=== PATIENT | female | born 1995 | race American Indian/Alaskan Native ===

== ENCOUNTER 2017-10-26 11:13 | Inpatient (IN) | payer MEDICAID, OTHER ==
[~2017-10-26 11:13] MED LIST: QUELICIN ONE; VERSED IV ONE
[2017-10-26] MEDS ORDERED: NACL 0.9% 1000 ML 1,000 ML ONE (11:26)
[2017-10-26] MEDS ORDERED: NARCAN 2 MG/2 ML IV ONE (11:35)
[2017-10-26] MEDS ORDERED: NACL 0.9% 1000 ML 1,000 ML IV ONE ×2 (11:35→22:05)
[2017-10-26] MEDS ORDERED: QUELICIN IV ONE (11:38)
[2017-10-26] MEDS ORDERED: VERSED IV ONE (11:38)
--- NOTE | 2017-10-26 11:41 | Emergency Department Report ---
ED Altered Mental Status HPI - General Chief Complaint: Altered Mental Status Stated Complaint: UNRESPONSIVE Time Seen by Provider: 10/26/17 11:33 Source: EMS Mode of arrival: Stretcher Limitations: Altered Mental Status - History of Present Illness Initial Comments: Patient is a 22-year-old female found unresponsive by neighbors and brought in by EMS. Patient has a history of type 1 diabetes, noncompliance, hypertension and chronic pain. Patient has an empty bottle of oxycodone in her pill bag Narcan was given and No response to Narcan. Patient to be intubated to protect airway due to decreased level of consciousness RSI ordered along with intubation kit. Complaint: altered mental status, decreased responsiveness -: Sudden Severity: severe Treatments Prior to Arrival: IV fluid, oxygen - Related Data Allergies Allergy/AdvReac Type Severity Reaction Status Date / Time Unable to Assess Allergy Verified 10/26/17 12:24 ED Review of Systems ROS: Stated complaint: UNRESPONSIVE Other details as noted in HPI Comment: Unobtainable due to pts medical conditions ED Past Medical Hx - Past Medical History Previous Medical History?: Yes Hx Hypertension: Yes Hx Diabetes: Yes (type 1) Additional medical history: JAXSON - Surgical History Additional Surgical History: JAXSON - Family History Family history: no significant - Social History Smoking Status: Unknown if ever smoked ED Physical Exam - General Limitations: Altered Mental Status General appearance: obtunded - Head Head exam: Present: atraumatic, normocephalic, normal inspection - Eye Eye exam: Present: normal appearance, PERRL Pupils: Present: normal accommodation - ENT ENT exam: Present: mucous membranes dry - Neck Neck exam: Present: normal inspection - Respiratory Respiratory exam: Present: normal lung sounds bilaterally, decreased breath sounds - Cardiovascular Cardiovascular Exam: Present: regular rate, normal rhythm, normal heart sounds - GI/Abdominal GI/Abdominal exam: Present: soft - Extremities Exam Extremities exam: Present: normal inspection - Back Exam Back exam: Present: normal inspection - Neurological Exam Neurological exam: Present: altered - Expanded Neurological Exam Expanded Best Eye Response (Adriana): (1) no response Best Motor Response (Success): (4) withdraws to pain Best Verbal Response (Adriana): (2) incomprehsible sounds Adriana Total: 7 - Skin Skin exam: Present: warm, dry, intact, normal color. Absent: rash ED Course Vital Signs 10/26/17 11:13 Pulse Rate 141 H Respiratory 31 H Rate Blood Pressure 89/36 O2 Sat by Pulse 100 Oximetry - Reevaluation(s) Reevaluation #1: 10/26/17 11:50: See nurse's note for RSI and intubation. At 1113 2 are tingling given with no response. Patient still minimally responsive. Patient will be intubated to protect airway. Versed and succinylcholine given. Patient intubated without complications Reevaluation #2: 10/26/17 1250. hospitalist to take over care and start dka order set. - Intubation Time Out Performed: Yes Sedative: Versed Paralytic: Succinylcholine Laryngoscope: fiberoptic video scope ET Tube Size: 7.5 Tube Secured Depth (cm): 20 Tube Secured Location: teeth Tube Placement Confirmation: visualized tube passing t, equal breath sounds bilat, no breath sounds over epi, confirmation by capnometr Patient Tolerated Procedure: well Intubation Complications: none - Lab Data Result diagrams: 10/26/17 11:44 10/26/17 11:44 Lab Results 10/26/17 10/26/17 10/26/17 Range/Units 11:23 11:44 11:44 WBC 20.6 H (4.5-11.0) K/mm3 RBC 3.62 L (3.65-5.03) M/mm3 Hgb 8.3 L (10.1-14.3) gm/dl Hct 34.2 (30.3-42.9) % MCV 95 (79-97) fl MCH 23 L (28-32) pg MCHC 24 L (30-34) % RDW 21.7 H (13.2-15.2) % Plt Count 383 (140-440) K/mm3 Add Manual Diff Complete Total Counted 100 Seg Neuts % (Manual) 76.0 H (40.0-70.0) % Band Neutrophils % 2.0 % Lymphocytes % (Manual) 11.0 L (13.4-35.0) % Reactive Lymphs % (Man) 0 % Monocytes % (Manual) 1.0 (0.0-7.3) % Eosinophils % (Manual) 0 (0.0-4.3) % Basophils % (Manual) 1.0 (0.0-1.8) % Metamyelocytes % 8.0 % Myelocytes % 1.0 % Promyelocytes % 0 % Blast Cells % 0 % Nucleated RBC % Not Reportable Seg Neutrophils # Man 15.7 H (1.8-7.7) K/mm3 Band Neutrophils # 0.4 K/mm3 Lymphocytes # (Manual) 2.3 (1.2-5.4) K/mm3 Abs React Lymphs (Man) 0.0 K/mm3 Monocytes # (Manual) 0.2 (0.0-0.8) K/mm3 Eosinophils # (Manual) 0.0 (0.0-0.4) K/mm3 Basophils # (Manual) 0.2 H (0.0-0.1) K/mm3 Metamyelocytes # 1.6 K/mm3 Myelocytes # 0.2 K/mm3 Promyelocytes # 0.0 K/mm3 Blast Cells # 0.0 K/mm3 WBC Morphology Not Reportable Hypersegmented Neuts Not Reportable Hyposegmented Neuts Not Reportable Hypogranular Neuts Not Reportable Smudge Cells Not Reportable Toxic Granulation Not Reportable Toxic Vacuolation Not Reportable Dohle Bodies Not Reportable Pelger-Huet Anomaly Not Reportable Gogo Rods Not Reportable Platelet Estimate Cons Clumped Platelets Not Reportable Plt Clumps, EDTA Not Reportable Large Platelets Not Reportable Giant Platelets Not Reportable Platelet Satelliting Not Reportable Plt Morphology Comment Not Reportable RBC Morphology Not Reportable Dimorphic RBCs Not Reportable Polychromasia Not Reportable Hypochromasia 1+ Poikilocytosis Not Reportable Anisocytosis 1+ Microcytosis Not Reportable Macrocytosis Not Reportable Spherocytes Not Reportable Pappenheimer Bodies Not Reportable Sickle Cells Not Reportable Target Cells Not Reportable Tear Drop Cells Not Reportable Ovalocytes Not Reportable Helmet Cells Not Reportable [place] Bodies Not Reportable [place] Rings Not Reportable Caprice Cells Not Reportable Bite Cells Not Reportable Crenated Cell Not Reportable Elliptocytes Not Reportable Acanthocytes (Spur) Not Reportable Rouleaux Not Reportable Hemoglobin C Crystals Not Reportable Schistocytes Not Reportable Malaria parasites Not Reportable David Bodies Not Reportable Hem Pathologist Commnt No PT (12.2-14.9) Sec. INR (0.87-1.13) APTT (24.2-36.6) Sec. POC ABG pH (7.35-7.45) POC ABG pCO2 (35-45) POC ABG pO2 (80-105) POC ABG HCO3 POC ABG Total CO2 POC ABG O2 Sat POC ABG Base Excess FiO2 % Sodium (137-145) mmol/L Potassium (3.6-5.0) mmol/L Chloride (98-107) mmol/L Carbon Dioxide (22-30) mmol/L Anion Gap mmol/L BUN (7-17) mg/dL Creatinine (0.7-1.2) mg/dL Estimated GFR ml/min BUN/Creatinine Ratio % Glucose (65-100) mg/dL POC Glucose > 500 H (70-105) Lactic Acid 4.10 H* (0.7-2.0) mmol/L Calcium (8.4-10.2) mg/dL Total Bilirubin (0.1-1.2) mg/dL AST (5-40) units/L ALT (7-56) units/L Alkaline Phosphatase (35-129) units/L Total Creatine Kinase (30-135) units/L Troponin T (0.00-0.029) ng/mL Total Protein (6.3-8.2) g/dL Albumin (3.9-5) g/dL Albumin/Globulin Ratio % Salicylates (2.8-20.0) mg/dL Acetaminophen (10.0-30.0) ug/mL Plasma/Serum Alcohol (0-0.07) % Blood Type Antibody Screen 10/26/17 10/26/17 10/26/17 Range/Units 11:44 11:44 11:44 WBC (4.5-11.0) K/mm3 RBC (3.65-5.03) M/mm3 Hgb (10.1-14.3) gm/dl Hct (30.3-42.9) % MCV (79-97) fl MCH (28-32) pg MCHC (30-34) % RDW (13.2-15.2) % Plt Count (140-440) K/mm3 Add Manual Diff Total Counted Seg Neuts % (Manual) (40.0-70.0) % Band Neutrophils % % Lymphocytes % (Manual) (13.4-35.0) % Reactive Lymphs % (Man) % Monocytes % (Manual) (0.0-7.3) % Eosinophils % (Manual) (0.0-4.3) % Basophils % (Manual) (0.0-1.8) % Metamyelocytes % % Myelocytes % % Promyelocytes % % Blast Cells % % Nucleated RBC % Seg Neutrophils # Man (1.8-7.7) K/mm3 Band Neutrophils # K/mm3 Lymphocytes # (Manual) (1.2-5.4) K/mm3 Abs React Lymphs (Man) K/mm3 Monocytes # (Manual) (0.0-0.8) K/mm3 Eosinophils # (Manual) (0.0-0.4) K/mm3 Basophils # (Manual) (0.0-0.1) K/mm3 Metamyelocytes # K/mm3 Myelocytes # K/mm3 Promyelocytes # K/mm3 Blast Cells # K/mm3 WBC Morphology Hypersegmented Neuts Hyposegmented Neuts Hypogranular Neuts Smudge Cells Toxic Granulation Toxic Vacuolation Dohle Bodies Pelger-Huet Anomaly Gogo Rods Platelet Estimate Clumped Platelets Plt Clumps, EDTA Large Platelets Giant Platelets Platelet Satelliting Plt Morphology Comment RBC Morphology Dimorphic RBCs Polychromasia Hypochromasia Poikilocytosis Anisocytosis Microcytosis Macrocytosis Spherocytes Pappenheimer Bodies Sickle Cells Target Cells Tear Drop Cells Ovalocytes Helmet Cells [place] Bodies [place] Rings Caprice Cells Bite Cells Crenated Cell Elliptocytes Acanthocytes (Spur) Rouleaux Hemoglobin C Crystals Schistocytes Malaria parasites David Bodies Hem Pathologist Commnt PT 16.8 H (12.2-14.9) Sec. INR 1.29 H (0.87-1.13) APTT 24.9 (24.2-36.6) Sec. POC ABG pH (7.35-7.45) POC ABG pCO2 (35-45) POC ABG pO2 (80-105) POC ABG HCO3 POC ABG Total CO2 POC ABG O2 Sat POC ABG Base Excess FiO2 % Sodium 146 H (137-145) mmol/L Potassium 6.6 H* (3.6-5.0) mmol/L Chloride 100.3 (98-107) mmol/L Carbon Dioxide 3 L* (22-30) mmol/L Anion Gap 49 mmol/L BUN 34 H (7-17) mg/dL Creatinine 2.2 H (0.7-1.2) mg/dL Estimated GFR 28 ml/min BUN/Creatinine Ratio 15 % Glucose 1281 H* (65-100) mg/dL POC Glucose (70-105) Lactic Acid (0.7-2.0) mmol/L Calcium 8.0 L (8.4-10.2) mg/dL Total Bilirubin < 0.20 (0.1-1.2) mg/dL AST 22 (5-40) units/L ALT 56 (7-56) units/L Alkaline Phosphatase 196 H (35-129) units/L Total Creatine Kinase 24 L (30-135) units/L Troponin T < 0.010 (0.00-0.029) ng/mL Total Protein 6.3 (6.3-8.2) g/dL Albumin 3.6 L (3.9-5) g/dL Albumin/Globulin Ratio 1.3 % Salicylates < 0.3 L (2.8-20.0) mg/dL Acetaminophen (10.0-30.0) ug/mL Plasma/Serum Alcohol (0-0.07) % Blood Type Antibody Screen 10/26/17 10/26/17 10/26/17 Range/Units 11:44 11:44 11:54 WBC (4.5-11.0) K/mm3 RBC (3.65-5.03) M/mm3 Hgb (10.1-14.3) gm/dl Hct (30.3-42.9) % MCV (79-97) fl MCH (28-32) pg MCHC (30-34) % RDW (13.2-15.2) % Plt Count (140-440) K/mm3 Add Manual Diff Total Counted Seg Neuts % (Manual) (40.0-70.0) % Band Neutrophils % % Lymphocytes % (Manual) (13.4-35.0) % Reactive Lymphs % (Man) % Monocytes % (Manual) (0.0-7.3) % Eosinophils % (Manual) (0.0-4.3) % Basophils % (Manual) (0.0-1.8) % Metamyelocytes % % Myelocytes % % Promyelocytes % % Blast Cells % % Nucleated RBC % Seg Neutrophils # Man (1.8-7.7) K/mm3 Band Neutrophils # K/mm3 Lymphocytes # (Manual) (1.2-5.4) K/mm3 Abs React Lymphs (Man) K/mm3 Monocytes # (Manual) (0.0-0.8) K/mm3 Eosinophils # (Manual) (0.0-0.4) K/mm3 Basophils # (Manual) (0.0-0.1) K/mm3 Metamyelocytes # K/mm3 Myelocytes # K/mm3 Promyelocytes # K/mm3 Blast Cells # K/mm3 WBC Morphology Hypersegmented Neuts Hyposegmented Neuts Hypogranular Neuts Smudge Cells Toxic Granulation Toxic Vacuolation Dohle Bodies Pelger-Huet Anomaly Gogo Rods Platelet Estimate Clumped Platelets Plt Clumps, EDTA Large Platelets Giant Platelets Platelet Satelliting Plt Morphology Comment RBC Morphology Dimorphic RBCs Polychromasia Hypochromasia Poikilocytosis Anisocytosis Microcytosis Macrocytosis Spherocytes Pappenheimer Bodies Sickle Cells Target Cells Tear Drop Cells Ovalocytes Helmet Cells [place] Bodies [place] Rings [place] Cells Bite Cells Crenated Cell Elliptocytes Acanthocytes (Spur) Rouleaux Hemoglobin C Crystals Schistocytes Malaria parasites David Bodies Hem Pathologist Commnt PT (12.2-14.9) Sec. INR (0.87-1.13) APTT (24.2-36.6) Sec. POC ABG pH (7.35-7.45) POC ABG pCO2 (35-45) POC ABG pO2 (80-105) POC ABG HCO3 POC ABG Total CO2 POC ABG O2 Sat POC ABG Base Excess FiO2 % Sodium (137-145) mmol/L Potassium (3.6-5.0) mmol/L Chloride (98-107) mmol/L Carbon Dioxide (22-30) mmol/L Anion Gap mmol/L BUN (7-17) mg/dL Creatinine (0.7-1.2) mg/dL Estimated GFR ml/min BUN/Creatinine Ratio % Glucose (65-100) mg/dL POC Glucose (70-105) Lactic Acid (0.7-2.0) mmol/L Calcium (8.4-10.2) mg/dL Total Bilirubin (0.1-1.2) mg/dL AST (5-40) units/L ALT (7-56) units/L Alkaline Phosphatase (35-129) units/L Total Creatine Kinase (30-135) units/L Troponin T (0.00-0.029) ng/mL Total Protein (6.3-8.2) g/dL Albumin (3.9-5) g/dL Albumin/Globulin Ratio % Salicylates (2.8-20.0) mg/dL Acetaminophen 15.0 (10.0-30.0) ug/mL Plasma/Serum Alcohol < 0.01 (0-0.07) % Blood Type O POSITIVE Antibody Screen Negative 10/26/17 Range/Units 12:01 WBC (4.5-11.0) K/mm3 RBC (3.65-5.03) M/mm3 Hgb (10.1-14.3) gm/dl Hct (30.3-42.9) % MCV (79-97) fl MCH (28-32) pg MCHC (30-34) % RDW (13.2-15.2) % Plt Count (140-440) K/mm3 Add Manual Diff Total Counted Seg Neuts % (Manual) (40.0-70.0) % Band Neutrophils % % Lymphocytes % (Manual) (13.4-35.0) % Reactive Lymphs % (Man) % Monocytes % (Manual) (0.0-7.3) % Eosinophils % (Manual) (0.0-4.3) % Basophils % (Manual) (0.0-1.8) % Metamyelocytes % % Myelocytes % % Promyelocytes % % Blast Cells % % Nucleated RBC % Seg Neutrophils # Man (1.8-7.7) K/mm3 Band Neutrophils # K/mm3 Lymphocytes # (Manual) (1.2-5.4) K/mm3 Abs React Lymphs (Man) K/mm3 Monocytes # (Manual) (0.0-0.8) K/mm3 Eosinophils # (Manual) (0.0-0.4) K/mm3 Basophils # (Manual) (0.0-0.1) K/mm3 Metamyelocytes # K/mm3 Myelocytes # K/mm3 Promyelocytes # K/mm3 Blast Cells # K/mm3 WBC Morphology Hypersegmented Neuts Hyposegmented Neuts Hypogranular Neuts Smudge Cells Toxic Granulation Toxic Vacuolation Dohle Bodies Pelger-Huet Anomaly Gogo Rods Platelet Estimate Clumped Platelets Plt Clumps, EDTA Large Platelets Giant Platelets Platelet Satelliting Plt Morphology Comment RBC Morphology Dimorphic RBCs Polychromasia Hypochromasia Poikilocytosis Anisocytosis Microcytosis Macrocytosis Spherocytes Pappenheimer Bodies Sickle Cells Target Cells Tear Drop Cells Ovalocytes Helmet Cells [place] Bodies [place] Rings Caprice Cells Bite Cells Crenated Cell Elliptocytes Acanthocytes (Spur) Rouleaux Hemoglobin C Crystals Schistocytes Malaria parasites David Bodies Hem Pathologist Commnt PT (12.2-14.9) Sec. INR (0.87-1.13) APTT (24.2-36.6) Sec. POC ABG pH 6.895 L (7.35-7.45) POC ABG pCO2 12.3 L (35-45) POC ABG pO2 311 H (80-105) POC ABG HCO3 2.4 POC ABG Total CO2 < 5 POC ABG O2 Sat 100 POC ABG Base Excess < -30 FiO2 50 % Sodium (137-145) mmol/L Potassium (3.6-5.0) mmol/L Chloride (98-107) mmol/L Carbon Dioxide (22-30) mmol/L Anion Gap mmol/L BUN (7-17) mg/dL Creatinine (0.7-1.2) mg/dL Estimated GFR ml/min BUN/Creatinine Ratio % Glucose (65-100) mg/dL POC Glucose (70-105) Lactic Acid (0.7-2.0) mmol/L Calcium (8.4-10.2) mg/dL Total Bilirubin (0.1-1.2) mg/dL AST (5-40) units/L ALT (7-56) units/L Alkaline Phosphatase (35-129) units/L Total Creatine Kinase (30-135) units/L Troponin T (0.00-0.029) ng/mL Total Protein (6.3-8.2) g/dL Albumin (3.9-5) g/dL Albumin/Globulin Ratio % Salicylates (2.8-20.0) mg/dL Acetaminophen (10.0-30.0) ug/mL Plasma/Serum Alcohol (0-0.07) % Blood Type Antibody Screen - Radiology Data Radiology results: report reviewed, image reviewed interpreted by me: ET tube in good position. NG tube in good position. No acute findings - Medical Decision Making 22-year-old female presents to the emergency room for altered mental status. Discussed case with hospitalist, dr parekh. hospitalist agreed to take over care Take over care at 1250. pt in dka - Differential Diagnosis ams, hyperglycemia, DKA, LEELEE Critical Care Time: Yes Critical care attestation.: If time is entered above; I have spent that time in minutes in the direct care of this critically ill patient, excluding procedure time. Critical Care Time: 45 minutes for critical care time ED Disposition Clinical Impression: Altered mental status, DKA (diabetic ketoacidoses), Acidosis, Hyperkalemia, Acute renal insufficiency Disposition: DC-09 OP ADMIT IP TO THIS HOSP Is pt being admited?: Yes Does the pt Need Aspirin: No Condition: Critical Time of Disposition: 13:11
[2017-10-26] MEDS ORDERED: VASELINE LIP THERAPY TP PRN (11:45)
--- NOTE | 2017-10-26 12:11 | XRay Report ---
PORTABLE CHEST INDICATION: Altered mental status. COMPARISON: None similar at this institution. FINDINGS: Portable, frontal chest radiograph demonstrates normal cardiomediastinal silhouette and clear lungs. Endotracheal tube tip approximately 2.5 cm above the jessica. An esophagogastric tube side-port seen in the mid stomach with its tip at the fundus, directed cephalad. EKG leads. Intact bones. CONCLUSION: No acute chest process with supporting devices noted, as described. Thank you for the opportunity to participate in this patient's care.
[2017-10-26 12:14] LABS: Mean Corpuscular HGB Conc 24 % (30-34); Mean Corpuscular Volume 95 fl (79-97); Platelet Count 383 K/mm3 (140-440); Red Blood Count 3.62 M/mm3 (3.65-5.03)
[2017-10-26 12:15] LABS: Hematocrit 34.2 % (30.3-42.9); Hemoglobin 8.3 gm/dl (10.1-14.3); Mean Corpuscular Hemoglobin 23 pg (28-32); Red Cell Distribution Width 21.7 % (13.2-15.2)
[2017-10-26 12:28] LABS: INR 1.29 (0.87-1.13)
[2017-10-26 12:29] LABS: Partial Thromboplastin Time 24.9 Sec. (24.2-36.6)
[2017-10-26 12:40] LABS: Alanine Aminotransferase 56 units/L (7-56); Albumin 3.6 g/dL (3.9-5); BUN/Creatinine Ratio 15; Blood Urea Nitrogen 34 mg/dL (7-17); Hemolysis Index 0
[2017-10-26 12:57] LABS: Band Neutrophils # (Manual) 0.4 K/mm3; Eosinophils % (Manual) 0 % (0.0-4.3); Myelocytes # (Manual) 0.2 K/mm3; Total Cells Counted 100
[2017-10-26 12:58] LABS: Anisocytosis 1+; Hypochromasia 1+; Platelet Estimate Cons
--- NOTE | 2017-10-26 13:06 | History and Physical Report ---
History of Present Illness Chief complaint: Unresponsive History of present illness: 22 YO Female with DM, Medication Noncompliance, HTN, Chronic Pain presents to ED for evaluation. Pt unable to provide history, but history taken from ED staff , as well as EMS. Pt was found down and unresponsive by neighbors this AM. EMS notified, and upon arrival the patient was found to be unresponsive and in extremia. Patient had an empty bottle of oxycodone in her pill bag. Narcan was given without improvement in mental status. Patient transported to [facility] for further care and evaluation. Pt seen and evaluated in ED and found to have Acute Respiratory Failure, as well as DKA, and Sepsis. Pt intubated, sedated, and placed on vent support, as well as DKA and sepsis protocols. Pt admitted to ICU. PT has poor prognosis. Past History Past Medical History: diabetes, hypertension Past Surgical History: No surgical history, Other (reviewed) Social history: single. denies: smoking, alcohol abuse, prescription drug abuse Family history: no significant family history, other (reviewed) Medications and Allergies Allergies Allergy/AdvReac Type Severity Reaction Status Date / Time Unable to Assess Allergy Verified 10/26/17 12:24 Active Meds: Active Medications Hydrophilic Ointment (Vaseline Lip Therapy) 1 applic TP Q2HR PRN PRN Reason: Dry Lips Propofol (Diprivan 10 Mg/Ml) 1,000 mg in 100 mls @ 1.565 mls/hr IV TITR CARLOS; 5 MCG/KG/MIN PRN Reason: Protocol Multi-Ingred Cream/Lotion/Oil/Oint (Artificial Tears Ophth Oint) 1 applic OU Q4HR PRN PRN Reason: Dry Eye(s) Review of Systems ROS unobtainable: due to mental status Exam - Constitutional Vitals: Temp Pulse Resp BP Pulse Ox 141 H 31 H 89/36 100 10/26/17 11:13 10/26/17 11:13 10/26/17 11:13 10/26/17 11:13 General appearance: Present: severe distress, cachectic, disheveled - EENT Eyes: Present: miosis ENT: poor dentition - Neck Neck: Present: supple, normal ROM - Respiratory Respiratory effort: labored Respiratory: bilateral: diminished, rhonchi - Cardiovascular Rhythm: other (tachycardia, hypotension) Heart Sounds: Present: S1 & S2. Absent: rub, click - Extremities Extremities: pulses symmetrical, No edema Peripheral Pulses: abnormal (Capillary refill greater than 3.6 seconds) - Abdominal General gastrointestinal: Present: soft, non-tender, non-distended, normal bowel sounds Female genitourinary: Present: normal - Integumentary Integumentary: Present: clear, dry, clammy, decreased turgor - Musculoskeletal Musculoskeletal: generalized weakness - Psychiatric Psychiatric: no intact judgment & insight, no memory intact - Neurologic Neurologic: no moves all extremities, no gait normal Results - Labs CBC & Chem 7: 10/26/17 11:44 10/26/17 13:17 Labs: Abnormal lab results 10/26/17 10/26/17 10/26/17 Range/Units 11:23 11:44 11:44 WBC 20.6 H (4.5-11.0) K/mm3 RBC 3.62 L (3.65-5.03) M/mm3 Hgb 8.3 L (10.1-14.3) gm/dl MCH 23 L (28-32) pg MCHC 24 L (30-34) % RDW 21.7 H (13.2-15.2) % Seg Neuts % (Manual) 76.0 H (40.0-70.0) % Lymphocytes % (Manual) 11.0 L (13.4-35.0) % Seg Neutrophils # Man 15.7 H (1.8-7.7) K/mm3 Basophils # (Manual) 0.2 H (0.0-0.1) K/mm3 PT (12.2-14.9) Sec. INR (0.87-1.13) POC ABG pH (7.35-7.45) POC ABG pCO2 (35-45) POC ABG pO2 (80-105) Sodium (137-145) mmol/L Potassium (3.6-5.0) mmol/L Carbon Dioxide (22-30) mmol/L BUN (7-17) mg/dL Creatinine (0.7-1.2) mg/dL Glucose (65-100) mg/dL POC Glucose > 500 H (70-105) Lactic Acid 4.10 H* (0.7-2.0) mmol/L Calcium (8.4-10.2) mg/dL Alkaline Phosphatase (35-129) units/L Total Creatine Kinase (30-135) units/L Albumin (3.9-5) g/dL Salicylates (2.8-20.0) mg/dL 10/26/17 10/26/17 10/26/17 Range/Units 11:44 11:44 11:44 WBC (4.5-11.0) K/mm3 RBC (3.65-5.03) M/mm3 Hgb (10.1-14.3) gm/dl MCH (28-32) pg MCHC (30-34) % RDW (13.2-15.2) % Seg Neuts % (Manual) (40.0-70.0) % Lymphocytes % (Manual) (13.4-35.0) % Seg Neutrophils # Man (1.8-7.7) K/mm3 Basophils # (Manual) (0.0-0.1) K/mm3 PT 16.8 H (12.2-14.9) Sec. INR 1.29 H (0.87-1.13) POC ABG pH (7.35-7.45) POC ABG pCO2 (35-45) POC ABG pO2 (80-105) Sodium 146 H (137-145) mmol/L Potassium 6.6 H* (3.6-5.0) mmol/L Carbon Dioxide 3 L* (22-30) mmol/L BUN 34 H (7-17) mg/dL Creatinine 2.2 H (0.7-1.2) mg/dL Glucose 1281 H* (65-100) mg/dL POC Glucose (70-105) Lactic Acid (0.7-2.0) mmol/L Calcium 8.0 L (8.4-10.2) mg/dL Alkaline Phosphatase 196 H (35-129) units/L Total Creatine Kinase 24 L (30-135) units/L Albumin 3.6 L (3.9-5) g/dL Salicylates < 0.3 L (2.8-20.0) mg/dL 10/26/17 Range/Units 12:01 WBC (4.5-11.0) K/mm3 RBC (3.65-5.03) M/mm3 Hgb (10.1-14.3) gm/dl MCH (28-32) pg MCHC (30-34) % RDW (13.2-15.2) % Seg Neuts % (Manual) (40.0-70.0) % Lymphocytes % (Manual) (13.4-35.0) % Seg Neutrophils # Man (1.8-7.7) K/mm3 Basophils # (Manual) (0.0-0.1) K/mm3 PT (12.2-14.9) Sec. INR (0.87-1.13) POC ABG pH 6.895 L (7.35-7.45) POC ABG pCO2 12.3 L (35-45) POC ABG pO2 311 H (80-105) Sodium (137-145) mmol/L Potassium (3.6-5.0) mmol/L Carbon Dioxide (22-30) mmol/L BUN (7-17) mg/dL Creatinine (0.7-1.2) mg/dL Glucose (65-100) mg/dL POC Glucose (70-105) Lactic Acid (0.7-2.0) mmol/L Calcium (8.4-10.2) mg/dL Alkaline Phosphatase (35-129) units/L Total Creatine Kinase (30-135) units/L Albumin (3.9-5) g/dL Salicylates (2.8-20.0) mg/dL Assessment and Plan - Patient Problems (1) Sepsis Current Visit: Yes Status: Acute Qualifiers: Sepsis type: sepsis due to unspecified organism Qualified Code(s): A41.9 - Sepsis, unspecified organism Plan to address problem: IV antibiotics, blood cultures, chest X ray, serial lactic acid, monitor uop q shift, IV pressor support as indicated to maintain MAP above 60, repeat CBC, The high probability of a clinically significant, sudden or life threatening deterioration of the [cardiac, pulmonary, renal, endocrine] system(s) required my full and direct attention, intervention and personal management. The aggregate critical care time was [65] minutes. This time is in addition to time spent performing reported procedures but includes the following: [x] Data Review and interpretation [x] Patient assessment and monitoring of vital signs [x] Documentation [x] Medication orders and management (2) Acute respiratory failure Current Visit: Yes Status: Acute Qualifiers: Respiratory failure complication: hypoxia Qualified Code(s): J96.01 - Acute respiratory failure with hypoxia Plan to address problem: Pulmonary consulted, Pt intubated placed on vent support, wean vent as tolerated , daily ABG, daily SBT, nebulizer therapy, (3) Acute renal failure Current Visit: Yes Status: Acute Qualifiers: Acute renal failure type: with acute tubular necrosis Qualified Code(s): N17.0 - Acute kidney failure with tubular necrosis Plan to address problem: IVF resuscitation, monitor uop q shift, monitor serum creatnine, (4) Metabolic encephalopathy Current Visit: Yes Status: Acute Plan to address problem: CT head, neuro checks, IVF resuscitation, IV bicarbonate, (5) DKA (diabetic ketoacidoses) Current Visit: Yes Status: Acute Qualifiers: Diabetes mellitus type: type 1 Diabetes mellitus complication detail: with coma Qualified Code(s): E10.11 - Type 1 diabetes mellitus with ketoacidosis with coma Plan to address problem: DKA protocol, Insulin drip, monitor anion gap, IV bicarbonate x1 dose, monitor uop q shift, serial BMP, (6) DVT prophylaxis Current Visit: Yes Status: Acute Plan to address problem: SCD to BLE,.
[2017-10-26] MEDS ORDERED: VANCOMYCIN VIAL IV ONE (13:07)
[2017-10-26] MEDS ORDERED: PROVENTIL IH PRN (13:07)
[2017-10-26] MEDS ORDERED: NACL 0.9% 1000 ML IV ONE (13:07)
[2017-10-26] MEDS ORDERED: D50W (25GM) Syringe IV PRN (13:07)
[2017-10-26 13:46] LABS: Calcium 7.7 mg/dL (8.4-10.2)
[2017-10-26] MEDS ORDERED: VANCOMYCIN PHARMACY TO DOSE IV SCH (14:00)
[2017-10-26] MEDS ORDERED: NovoLIN R 100 UNITS in NACL 0.9% 99 ML IV SCH (14:00)
[2017-10-26] MEDS ORDERED: ZOSYN/NS 4.5GM/100ML 4.5 GM/100 ML VIAL IV SCH (14:00)
[2017-10-26] MEDS ORDERED: KCL 10MEQ/100ML 10 MEQ/100 ML BAG IV SCH (14:00)
[2017-10-26] MEDS: DIPRIVAN 10 MG/ML 1,000 MG/100 ML BOTTLE IV SCH (14:44)
[2017-10-26] MEDS ORDERED: VANCOMYCIN/0.45 NS 1 GM/250 ML 1 GM/250 ML BAG IV SCH (15:00)
--- NOTE | 2017-10-26 15:20 | Cat Scan Report ---
CT HEAD WITHOUT CONTRAST INDICATION: Altered mental status. COMPARISON: None similar. FINDINGS: Noncontrast head CT demonstrates symmetric ventricles and sulci, though overall felt slightly prominent for the patient's age. No acute infarct, hemorrhage, mass effect or midline shift. No abnormal extra axial fluid collections. Normal posterior fossa with preserved basilar cisterns. Grossly unremarkable imaged eye globes, paranasal sinuses and mastoid air cells. Normal calvarium and scalp. An endotracheal and nasogastric tubes noted. CONCLUSION: No acute intracranial CT abnormality with slightly prominent/increased generalized atrophy than expected for the patient's age. Please correlate. Thank you for the opportunity to participate in this patient's care.
[2017-10-26] MEDS ORDERED: SODIUM BICARBONATE IV ONE ×4 (15:42→22:05)
[2017-10-26] MEDS ORDERED: NACL 0.45% 2,000 ML IV SCH (16:00)
[2017-10-26 16:06] LABS: BUN/Creatinine Ratio 15; Blood Urea Nitrogen 37 mg/dL (7-17); Calcium 7.2 mg/dL (8.4-10.2); Hemolysis Index 23
[2017-10-26] MEDS ORDERED: NACL 0.45% 1000 ML 2,000 ML IV ONE (17:00)
[2017-10-26] MEDS: ZOSYN/NS 3.375GM/50ML 3.375 GM/50 ML BAG IV SCH (18:44)
[2017-10-26] MEDS: fentaNYL DRIP Premix 2,000 MCG/100 ML BAG IV SCH (19:25)
[2017-10-26 22:05] LABS: Calcium 7.6 mg/dL (8.4-10.2)
[2017-10-26] MEDS ORDERED: D5/0.45NS 1,000 ML IV SCH (23:00)
[2017-10-27] MEDS: ZOSYN/NS 3.375GM/50ML 3.375 GM/50 ML BAG IV SCH ×5 (01:39→18:24)
[2017-10-27 06:01] LABS: Calcium 7.1 mg/dL (8.4-10.2)
[2017-10-27] MEDS ORDERED: NACL 0.9% 1000 ML 1,000 ML ONE (07:36)
--- NOTE | 2017-10-27 08:18 | Progress Note ---
Assessment and Plan Assessment and plan: 22 YO Female with DM, Medication Noncompliance, HTN, Chronic Pain presents to ED for evaluation. Pt unable to provide history, but history taken from ED staff , as well as EMS. Pt was found down and unresponsive by neighbors this AM. EMS notified, and upon arrival the patient was found to be unresponsive and in extremia. Patient had an empty bottle of oxycodone in her pill bag. Narcan was given without improvement in mental status. Patient transported to [facility] for further care and evaluation. Pt seen and evaluated in ED and found to have Acute Respiratory Failure, as well as DKA, and Sepsis. Pt intubated, sedated, and placed on vent support, as well as DKA and sepsis protocols. Pt admitted to ICU. PT has poor prognosis. SIRS no clear source at this time CXR neg, awaiting UA, on empiric abx, fup blood cx I Acute respiratory failure, hypoxic, on MV <96 hours Pulmonary consulted, Pt intubated placed on vent support, wean vent as tolerated , daily ABG, daily SBT, nebulizer therapy, Acute renal failure/Vasomotor nephropathy continue IV, renal consult IVF resuscitation, monitor uop q shift, monitor serum creatnine, Metabolic encephalopathy CTH shows no acute findings, highly suspect anoxic brain injury given hypothermia Hypothermia continue buffy hugger DKA (diabetic ketoacidoses) continue IV and insulin drip Hypokalemia, hypophosphatemia replete IV DVT prophylaxis SCD to BLE,. The high probability of a clinically significant, sudden or life threatening deterioration of the [cardiac, pulmonary, renal, endocrine] system(s) required my full and direct attention, intervention and personal management. The aggregate critical care time was [65] minutes. This time is in addition to time spent performing reported procedures but includes the following: [x] Data Review and interpretation [x] Patient assessment and monitoring of vital signs [x] Documentation [x] Medication orders and management History Interval history: remains intubated, sedated and non responsive no fevers, no agitation Hospitalist Physical - Constitutional Vitals: Temp Pulse Resp BP Pulse Ox 96.1 F L 105 H 16 89/43 100 10/27/17 06:30 10/27/17 06:30 10/27/17 06:30 10/27/17 06:30 10/27/17 06:30 General appearance: Present: severe distress, cachectic, disheveled - EENT Eyes: Present: PERRL ENT: hearing intact - Neck Neck: Present: supple - Respiratory Respiratory effort: normal Respiratory: bilateral: CTA (ventilated breath sounds) - Cardiovascular Rhythm: regular Heart Sounds: Present: S1 & S2 - Extremities Extremities: no ischemia Peripheral Pulses: within normal limits - Abdominal General gastrointestinal: soft, non-tender - Integumentary Integumentary: Present: clear, warm - Psychiatric Psychiatric: other (sedated) - Neurologic Neurologic: other (sedated) Results - Labs CBC & Chem 7: 10/26/17 11:44 10/27/17 20:24 Labs: Laboratory Last Values WBC 20.6 K/mm3 (4.5-11.0) H 10/26/17 11:44 RBC 3.62 M/mm3 (3.65-5.03) L 10/26/17 11:44 Hgb 8.3 gm/dl (10.1-14.3) L 10/26/17 11:44 Hct 34.2 % (30.3-42.9) 10/26/17 11:44 MCV 95 fl (79-97) 10/26/17 11:44 MCH 23 pg (28-32) L 10/26/17 11:44 MCHC 24 % (30-34) L 10/26/17 11:44 RDW 21.7 % (13.2-15.2) H 10/26/17 11:44 Plt Count 383 K/mm3 (140-440) 10/26/17 11:44 Add Manual Diff Complete 10/26/17 11:44 Total Counted 100 10/26/17 11:44 Seg Neuts % (Manual) 76.0 % (40.0-70.0) H 10/26/17 11:44 Band Neutrophils % 2.0 % 10/26/17 11:44 Lymphocytes % (Manual) 11.0 % (13.4-35.0) L 10/26/17 11:44 Reactive Lymphs % (Man) 0 % 10/26/17 11:44 Monocytes % (Manual) 1.0 % (0.0-7.3) 10/26/17 11:44 Eosinophils % (Manual) 0 % (0.0-4.3) 10/26/17 11:44 Basophils % (Manual) 1.0 % (0.0-1.8) 10/26/17 11:44 Metamyelocytes % 8.0 % 10/26/17 11:44 Myelocytes % 1.0 % 10/26/17 11:44 Promyelocytes % 0 % 10/26/17 11:44 Blast Cells % 0 % 10/26/17 11:44 Nucleated RBC % Not Reportable 10/26/17 11:44 Seg Neutrophils # Man 15.7 K/mm3 (1.8-7.7) H 10/26/17 11:44 Band Neutrophils # 0.4 K/mm3 10/26/17 11:44 Lymphocytes # (Manual) 2.3 K/mm3 (1.2-5.4) 10/26/17 11:44 Abs React Lymphs (Man) 0.0 K/mm3 10/26/17 11:44 Monocytes # (Manual) 0.2 K/mm3 (0.0-0.8) 10/26/17 11:44 Eosinophils # (Manual) 0.0 K/mm3 (0.0-0.4) 10/26/17 11:44 Basophils # (Manual) 0.2 K/mm3 (0.0-0.1) H 10/26/17 11:44 Metamyelocytes # 1.6 K/mm3 10/26/17 11:44 Myelocytes # 0.2 K/mm3 10/26/17 11:44 Promyelocytes # 0.0 K/mm3 10/26/17 11:44 Blast Cells # 0.0 K/mm3 10/26/17 11:44 WBC Morphology Not Reportable 10/26/17 11:44 Hypersegmented Neuts Not Reportable 10/26/17 11:44 Hyposegmented Neuts Not Reportable 10/26/17 11:44 Hypogranular Neuts Not Reportable 10/26/17 11:44 Smudge Cells Not Reportable 10/26/17 11:44 Toxic Granulation Not Reportable 10/26/17 11:44 Toxic Vacuolation Not Reportable 10/26/17 11:44 Dohle Bodies Not Reportable 10/26/17 11:44 Pelger-Huet Anomaly Not Reportable 10/26/17 11:44 Gogo Rods Not Reportable 10/26/17 11:44 Platelet Estimate Cons 10/26/17 11:44 Clumped Platelets Not Reportable 10/26/17 11:44 Plt Clumps, EDTA Not Reportable 10/26/17 11:44 Large Platelets Not Reportable 10/26/17 11:44 Giant Platelets Not Reportable 10/26/17 11:44 Platelet Satelliting Not Reportable 10/26/17 11:44 Plt Morphology Comment Not Reportable 10/26/17 11:44 RBC Morphology Not Reportable 10/26/17 11:44 Dimorphic RBCs Not Reportable 10/26/17 11:44 Polychromasia Not Reportable 10/26/17 11:44 Hypochromasia 1+ 10/26/17 11:44 Poikilocytosis Not Reportable 10/26/17 11:44 Anisocytosis 1+ 10/26/17 11:44 Microcytosis Not Reportable 10/26/17 11:44 Macrocytosis Not Reportable 10/26/17 11:44 Spherocytes Not Reportable 10/26/17 11:44 Pappenheimer Bodies Not Reportable 10/26/17 11:44 Sickle Cells Not Reportable 10/26/17 11:44 Target Cells Not Reportable 10/26/17 11:44 Tear Drop Cells Not Reportable 10/26/17 11:44 Ovalocytes Not Reportable 10/26/17 11:44 Helmet Cells Not Reportable 10/26/17 11:44 Paulino-[place] Bodies Not Reportable 10/26/17 11:44 [place] Rings Not Reportable 10/26/17 11:44 Holiday Cells Not Reportable 10/26/17 11:44 Bite Cells Not Reportable 10/26/17 11:44 Crenated Cell Not Reportable 10/26/17 11:44 Elliptocytes Not Reportable 10/26/17 11:44 Acanthocytes (Spur) Not Reportable 10/26/17 11:44 Rouleaux Not Reportable 10/26/17 11:44 Hemoglobin C Crystals Not Reportable 10/26/17 11:44 Schistocytes Not Reportable 10/26/17 11:44 Malaria parasites Not Reportable 10/26/17 11:44 David Bodies Not Reportable 10/26/17 11:44 Hem Pathologist Commnt No 10/26/17 11:44 PT 16.8 Sec. (12.2-14.9) H 10/26/17 11:44 INR 1.29 (0.87-1.13) H 10/26/17 11:44 APTT 24.9 Sec. (24.2-36.6) 10/26/17 11:44 POC ABG pH 7.284 (7.35-7.45) L 10/27/17 06:01 POC ABG pCO2 37.5 (35-45) 10/27/17 06:01 POC ABG pO2 204 (80-105) H 10/27/17 06:01 POC ABG HCO3 17.8 10/27/17 06:01 POC ABG Total CO2 19 10/27/17 06:01 POC ABG O2 Sat 100 10/27/17 06:01 POC ABG Base Excess -9 10/27/17 06:01 FiO2 50 % 10/27/17 06:01 Sodium 158 mmol/L (137-145) H 10/27/17 05:26 Potassium 3.5 mmol/L (3.6-5.0) L 10/27/17 05:26 Chloride 118.2 mmol/L (98-107) H 10/27/17 05:26 Carbon Dioxide 19 mmol/L (22-30) L D 10/27/17 05:26 Anion Gap 24 mmol/L 10/27/17 05:26 BUN 27 mg/dL (7-17) H 10/27/17 05:26 Creatinine 1.9 mg/dL (0.7-1.2) H 10/27/17 05:26 Estimated GFR 40 ml/min 10/27/17 05:26 BUN/Creatinine Ratio 14 % 10/27/17 05:26 Glucose 232 mg/dL (65-100) H 10/27/17 05:26 POC Glucose 161 (70-105) H 10/27/17 07:27 Lactic Acid 9.00 mmol/L (0.7-2.0) H* 10/26/17 21:26 Calcium 7.1 mg/dL (8.4-10.2) L 10/27/17 05:26 Phosphorus 11.10 mg/dL (2.5-4.5) H 10/26/17 13:17 Magnesium 2.70 mg/dL (1.7-2.3) H 10/26/17 13:17 Total Bilirubin < 0.20 mg/dL (0.1-1.2) 10/26/17 11:44 AST 22 units/L (5-40) 10/26/17 11:44 ALT 56 units/L (7-56) 10/26/17 11:44 Alkaline Phosphatase 196 units/L (35-129) H 10/26/17 11:44 Ammonia 67.0 umol/L (25-60) H 10/26/17 11:44 Total Creatine Kinase 24 units/L (30-135) L 10/26/17 11:44 Troponin T < 0.010 ng/mL (0.00-0.029) 10/26/17 11:44 Total Protein 6.3 g/dL (6.3-8.2) 10/26/17 11:44 Albumin 3.6 g/dL (3.9-5) L 10/26/17 11:44 Albumin/Globulin Ratio 1.3 % 10/26/17 11:44 Salicylates < 0.3 mg/dL (2.8-20.0) L 10/26/17 11:44 Acetaminophen 15.0 ug/mL (10.0-30.0) 10/26/17 11:44 Plasma/Serum Alcohol < 0.01 % (0-0.07) 10/26/17 11:44 Blood Type O POSITIVE 10/26/17 11:54 Antibody Screen Negative 10/26/17 11:54
[2017-10-27] MEDS ORDERED: NACL 0.45% 1000 ML 1,000 ML IV SCH (09:00)
[2017-10-27] MEDS: DIPRIVAN 10 MG/ML 1,000 MG/100 ML BOTTLE IV SCH (10:35)
[2017-10-27] MEDS ORDERED: VANCOMYCIN 750 MG in NACL 0.9% 250ML 250 ML IV SCH ×2 (12:00→16:00)
[2017-10-27] MEDS ORDERED: VANCOMYCIN/0.45 NS 1 GM/250 ML 1 GM/250 ML BAG IV SCH (13:00)
[2017-10-27 14:24] LABS: Calcium 7.1 mg/dL (8.4-10.2)
--- NOTE | 2017-10-27 14:58 | Consultation ---
History of Present Illness - Reason for Consult Consult date: 10/27/17 acute renal failure Requesting physician: JOSE MCKEON - History of Present Illness 22-year-old lady with a history of type 1 diabetes mellitus brought to the hospital after being found unresponsive at home. Patient was given Narcan at home by EMS with no response. She was intubated in the ER for airway protection. Patient is noncompliant with medical treatment. She also has bipolar disorder and schizophrenia. BUN/creatinine found to be elevated at 34/ 2.2 with potassium of 6.6 mmil/liter on presentation. It has responded to treatment for diabetic ketoacidosis as bicarbonate was quite low at 6 mmol per liter. Blood sugar was also 1281 mg/dL on presentation. Sodium was 146 on presentation but has worsened to 158 mmol per liter. Patient has received intravenous bicarbonate IV push and was getting normal saline intravenously for fluid resuscitation. Potassium has also now decreased to 3.5 mmol per liter with treatment with insulin intravenously for diabetic ketoacidosis. I'm consulted to assist in managing renal failure and electrolyte abnormalities. Patient is not able to give a history and so my history is obtained from review of the records. Past History Past Medical History: diabetes (Type 1), hypertension, other (chronic pain, bipolar disorder, schizophrenia) Past Surgical History: No surgical history, Other (reviewed) Social history: single. denies: smoking, alcohol abuse, prescription drug abuse Family history: no significant family history, other (unable to obtain) Medications and Allergies Allergies Allergy/AdvReac Type Severity Reaction Status Date / Time Unable to Assess Allergy Verified 10/26/17 12:24 Home Medications Medication Instructions Recorded Confirmed Last Taken Type Unobtainable 10/26/17 10/26/17 Unknown History Active Meds: Active Medications Albuterol (Proventil) 2.5 mg IH Q3HRT PRN PRN Reason: Shortness Of Breath Dextrose (D50w (25gm) Syringe) 0 ml IV PRN PRN PRN Reason: Hypoglycemia Hydrophilic Ointment (Vaseline Lip Therapy) 1 applic TP Q2HR PRN PRN Reason: Dry Lips Propofol (Diprivan 10 Mg/Ml) 1,000 mg in 100 mls @ 1.565 mls/hr IV TITR CARLOS; 5 MCG/KG/MIN PRN Reason: Protocol Last Admin: 10/27/17 10:35 Dose: 20 mcg/kg/min, 6.26 mls/hr Piperacillin Sod/Tazobactam Sod (Zosyn/Ns 3.375gm/50ml) 3.375 gm in 50 mls @ 100 mls/hr IV Q6HR [facility] Last Admin: 10/27/17 11:18 Dose: Not Given Fentanyl Citrate (Fentanyl Drip Premix) 2,000 mcg in 100 mls @ 2.608 mls/hr IV TITR CARLOS; 1 MCG/KG/HR PRN Reason: Protocol Last Admin: 10/26/17 19:25 Dose: 2 mcg/kg/hr, 5.216 mls/hr Vancomycin HCl (Vancomycin/0.45 Ns 1 Gm/250 Ml) 1 gm in 250 mls @ 167.007 mls/ hr IV ONCE CARLOS Vancomycin HCl 750 mg/ Sodium (Chloride) 257.5 mls @ 166.667 mls/hr IV Q24H CARLOS Potassium Chloride/Dextrose/Sod Cl (D5w/0.45% Nacl/Kcl 10 Meq) 10 meq in 1,000 mls @ 125 mls/hr IV DIRECT CARLOS Insulin Detemir (Levemir) 6 units SUB-Q QHS CARLOS Insulin Human Regular (Novolin R) 0 units SUB-Q Q6HR CARLOS PRN Reason: Protocol Last Admin: 10/27/17 11:18 Dose: Not Given Multi-Ingred Cream/Lotion/Oil/Oint (Artificial Tears Ophth Oint) 1 applic OU Q4HR PRN PRN Reason: Dry Eye(s) Multi-Ingred Cream/Lotion/Oil/Oint (Artificial Tears Ophth Oint) 1 applic OU BID CARLOS Vancomycin HCl (Vancomycin Pharmacy To Dose) 1 each IV PKCONSULT CARLOS PRN Reason: Protocol Review of Systems ROS unobtainable: due to endotracheal tube Exam - Vital Signs Vital signs: Vital Signs Pulse Resp BP Pulse Ox 141 H 31 H 89/36 100 10/26/17 11:13 10/26/17 11:13 10/26/17 11:13 10/26/17 11:13 - Physical Exam Narrative exam: Young -[place] female lying in bed intubated on ventilator HEENT: NCAT, endotracheal tube intact, Neck: Supple, no venous distention CVS: S1S2 RRR with no murmur, rub or gallop Chest: Clear to auscultation Abdomen: Protuberant, soft, nontender, no organomegaly, bowel sounds are present Extremities: Mild edema upper extremities, no clubbing Skin warm and dry with no rash Neuro: Awake, alert no focal deficits Results - Lab Results 10/26/17 11:44 10/27/17 13:07 Most recent lab results Calcium 7.1 mg/dL (8.4-10.2) L 10/27/17 13:07 Phosphorus 11.10 mg/dL (2.5-4.5) H 10/26/17 13:17 Magnesium 2.70 mg/dL (1.7-2.3) H 10/26/17 13:17 Assessment and Plan - Patient Problems (1) Other acute kidney failure Current Visit: Yes Status: Acute Plan to address problem: Acute kidney failure is Pre-renal azotemia versus acute renal necrosis secondary to volume depletion with diabetic acidosis and osmotic diuresis. Kidney function is improving with volume resuscitation. Continue close monitoring (2) DKA (diabetic ketoacidoses) Current Visit: Yes Status: Acute Qualifiers: Diabetes mellitus type: type 1 Diabetes mellitus complication detail: with coma Qualified Code(s): E10.11 - Type 1 diabetes mellitus with ketoacidosis with coma Plan to address problem: Continue insulin drip. Follow bicarbonate, ketones. Patient also had lactic acidosis on presentation probably secondary to hypoperfusion. Follow lactic acid also (3) Hypernatremia Current Visit: Yes Status: Acute Plan to address problem: Secondary to sodium bicarbonate IV pushes and replacement of relatively hypotonic fluid losses with isotonic saline. Change IV fluids to hypotonic fluid and follow up sodium. If still dropping on half-normal saline, we need to change to D5W (4) Hypokalemia Current Visit: Yes Status: Acute Plan to address problem: Secondary to transcellular shift with insulin administration for treating Diabetic ketoacidosis. Supplement potassium and follow up levels (5) Anemia Current Visit: Yes Status: Acute Plan to address problem: Dilutional but suspect baseline anemia (6) Acute respiratory failure Current Visit: Yes Status: Acute Qualifiers: Respiratory failure complication: hypoxia Qualified Code(s): J96.01 - Acute respiratory failure with hypoxia Plan to address problem: Management by hospitalist/jute bag sewer (7) Metabolic encephalopathy Current Visit: Yes Status: Acute Plan to address problem: Appears to be improving as patient awakens to stimulation. Continue close monitoring (8) Sepsis Current Visit: Yes Status: Acute Qualifiers: Sepsis type: sepsis due to unspecified organism Qualified Code(s): A41.9 - Sepsis, unspecified organism Plan to address problem: Continue empiric antibiotics and follow cultures. If remain negative, may need to consider discontinuing antibiotics in 48 hours
[2017-10-27] MEDS ORDERED: D5W/0.45% NACL/KCL 10 MEQ 10 MEQ/1,000 ML BAG IV SCH (15:00)
--- NOTE | 2017-10-27 16:42 | Consultation ---
History of Present Illness Consult date: 10/27/17 Requesting physician: CLINTON REED Reason for consult: other (Acute Respiratory Failure on MVS) History of present illness: PULMONARY/CCM CONSULT NOTE (Full dictation # [id number]) Please see dictated notes for full details Past History Past Medical History: diabetes (Type 1), hypertension, other (chronic pain, bipolar disorder, schizophrenia) Past Surgical History: No surgical history, Other (reviewed) Social history: single. denies: smoking, alcohol abuse, prescription drug abuse Family history: no significant family history, other (unable to obtain) Medications and Allergies Allergies Allergy/AdvReac Type Severity Reaction Status Date / Time Unable to Assess Allergy Verified 10/26/17 12:24 Home Medications Medication Instructions Recorded Confirmed Last Taken Type Unobtainable 10/26/17 10/26/17 Unknown History Active Meds: Active Medications Albuterol (Proventil) 2.5 mg IH Q3HRT PRN PRN Reason: Shortness Of Breath Dextrose (D50w (25gm) Syringe) 0 ml IV PRN PRN PRN Reason: Hypoglycemia Hydrophilic Ointment (Vaseline Lip Therapy) 1 applic TP Q2HR PRN PRN Reason: Dry Lips Propofol (Diprivan 10 Mg/Ml) 1,000 mg in 100 mls @ 1.565 mls/hr IV TITR CARLOS; 5 MCG/KG/MIN PRN Reason: Protocol Last Admin: 10/27/17 10:35 Dose: 20 mcg/kg/min, 6.26 mls/hr Piperacillin Sod/Tazobactam Sod (Zosyn/Ns 3.375gm/50ml) 3.375 gm in 50 mls @ 100 mls/hr IV Q6HR CARLOS Last Admin: 10/27/17 11:18 Dose: Not Given Fentanyl Citrate (Fentanyl Drip Premix) 2,000 mcg in 100 mls @ 2.608 mls/hr IV TITR CARLOS; 1 MCG/KG/HR PRN Reason: Protocol Last Admin: 10/26/17 19:25 Dose: 2 mcg/kg/hr, 5.216 mls/hr Vancomycin HCl (Vancomycin/0.45 Ns 1 Gm/250 Ml) 1 gm in 250 mls @ 167.007 mls/ hr IV ONCE CARLOS Vancomycin HCl 750 mg/ Sodium (Chloride) 257.5 mls @ 166.667 mls/hr IV Q24H CARLOS Potassium Chloride/Dextrose/Sod Cl (D5w/0.45% Nacl/Kcl 10 Meq) 10 meq in 1,000 mls @ 125 mls/hr IV DIRECT CARLOS Insulin Detemir (Levemir) 6 units SUB-Q QHS CARLOS Insulin Human Regular (Novolin R) 0 units SUB-Q Q6HR CARLOS PRN Reason: Protocol Last Admin: 10/27/17 11:18 Dose: Not Given Multi-Ingred Cream/Lotion/Oil/Oint (Artificial Tears Ophth Oint) 1 applic OU Q4HR PRN PRN Reason: Dry Eye(s) Multi-Ingred Cream/Lotion/Oil/Oint (Artificial Tears Ophth Oint) 1 applic OU BID CARLOS Vancomycin HCl (Vancomycin Pharmacy To Dose) 1 each IV PKCONSULT CARLOS PRN Reason: Protocol Physical Examination Vital signs: Vital Signs Pulse Resp BP Pulse Ox 141 H 31 H 89/36 100 10/26/17 11:13 10/26/17 11:13 10/26/17 11:13 10/26/17 11:13 Results - Laboratory Findings CBC and BMP: 10/26/17 11:44 10/27/17 13:07 ABG POC ABG pH 7.284 (7.35-7.45) L 10/27/17 06:01 POC ABG pCO2 37.5 (35-45) 10/27/17 06:01 POC ABG pO2 204 (80-105) H 10/27/17 06:01 POC ABG HCO3 17.8 10/27/17 06:01 POC ABG Total CO2 19 10/27/17 06:01 POC ABG O2 Sat 100 10/27/17 06:01 PT/INR, D-dimer PT 16.8 Sec. (12.2-14.9) H 10/26/17 11:44 INR 1.29 (0.87-1.13) H 10/26/17 11:44 Abnormal lab findings: Abnormal Labs 10/26/17 10/26/17 10/26/17 11:23 11:44 11:44 WBC 20.6 H RBC 3.62 L Hgb 8.3 L MCH 23 L MCHC 24 L RDW 21.7 H Seg Neuts % (Manual) 76.0 H Lymphocytes % (Manual) 11.0 L Seg Neutrophils # Man 15.7 H Basophils # (Manual) 0.2 H PT INR POC ABG pH POC ABG pCO2 POC ABG pO2 Sodium Potassium Chloride Carbon Dioxide BUN Creatinine Glucose POC Glucose > 500 H Lactic Acid 4.10 H* Calcium Phosphorus Magnesium Alkaline Phosphatase Ammonia Total Creatine Kinase Albumin Salicylates 10/26/17 10/26/17 10/26/17 11:44 11:44 11:44 WBC RBC Hgb MCH MCHC RDW Seg Neuts % (Manual) Lymphocytes % (Manual) Seg Neutrophils # Man Basophils # (Manual) PT 16.8 H INR 1.29 H POC ABG pH POC ABG pCO2 POC ABG pO2 Sodium 146 H Potassium 6.6 H* Chloride Carbon Dioxide 3 L* BUN 34 H Creatinine 2.2 H Glucose 1281 H* POC Glucose Lactic Acid Calcium 8.0 L Phosphorus Magnesium Alkaline Phosphatase 196 H Ammonia 67.0 H Total Creatine Kinase 24 L Albumin 3.6 L Salicylates 10/26/17 10/26/17 10/26/17 11:44 12:01 13:06 WBC RBC Hgb MCH MCHC RDW Seg Neuts % (Manual) Lymphocytes % (Manual) Seg Neutrophils # Man Basophils # (Manual) PT INR POC ABG pH 6.895 L POC ABG pCO2 12.3 L POC ABG pO2 311 H Sodium Potassium Chloride Carbon Dioxide BUN Creatinine Glucose POC Glucose Lactic Acid 4.10 H* Calcium Phosphorus Magnesium Alkaline Phosphatase Ammonia Total Creatine Kinase Albumin Salicylates < 0.3 L 10/26/17 10/26/17 10/26/17 13:17 13:17 14:57 WBC RBC Hgb MCH MCHC RDW Seg Neuts % (Manual) Lymphocytes % (Manual) Seg Neutrophils # Man Basophils # (Manual) PT INR POC ABG pH POC ABG pCO2 POC ABG pO2 Sodium 146 H Potassium 7.1 H* Chloride Carbon Dioxide 2 L* BUN 35 H Creatinine 2.3 H Glucose 1330 H* POC Glucose > 500 H Lactic Acid Calcium 7.7 L Phosphorus 11.10 H Magnesium 2.70 H Alkaline Phosphatase Ammonia Total Creatine Kinase Albumin Salicylates 10/26/17 10/26/17 10/26/17 15:26 15:26 16:02 WBC RBC Hgb MCH MCHC RDW Seg Neuts % (Manual) Lymphocytes % (Manual) Seg Neutrophils # Man Basophils # (Manual) PT INR POC ABG pH POC ABG pCO2 POC ABG pO2 Sodium 147 H Potassium 6.3 H* Chloride Carbon Dioxide < 2.0 L* BUN 37 H Creatinine 2.4 H Glucose 1115 H* POC Glucose > 500 H Lactic Acid 3.70 H* Calcium 7.2 L Phosphorus Magnesium Alkaline Phosphatase Ammonia Total Creatine Kinase Albumin Salicylates 10/26/17 10/26/17 10/26/17 17:51 17:51 18:42 WBC RBC Hgb MCH MCHC RDW Seg Neuts % (Manual) Lymphocytes % (Manual) Seg Neutrophils # Man Basophils # (Manual) PT INR POC ABG pH 6.974 L POC ABG pCO2 14.9 L POC ABG pO2 244 H Sodium 149 H Potassium Chloride Carbon Dioxide 2 L* BUN 36 H Creatinine 2.6 H Glucose 1063 H* POC Glucose Lactic Acid 6.50 H* Calcium 7.0 L Phosphorus Magnesium Alkaline Phosphatase Ammonia Total Creatine Kinase Albumin Salicylates 10/26/17 10/26/17 10/26/17 19:55 19:55 21:26 WBC RBC Hgb MCH MCHC RDW Seg Neuts % (Manual) Lymphocytes % (Manual) Seg Neutrophils # Man Basophils # (Manual) PT INR POC ABG pH POC ABG pCO2 POC ABG pO2 Sodium 150 H 152 H Potassium 3.5 L Chloride 108.3 H 110.4 H Carbon Dioxide 4 L* 6 L* BUN 33 H 32 H Creatinine 2.4 H 2.3 H Glucose 663 H* 498 H POC Glucose Lactic Acid 8.30 H* Calcium 7.0 L 7.6 L Phosphorus Magnesium Alkaline Phosphatase Ammonia Total Creatine Kinase Albumin Salicylates 10/26/17 10/26/17 10/27/17 21:26 23:55 01:21 WBC RBC Hgb MCH MCHC RDW Seg Neuts % (Manual) Lymphocytes % (Manual) Seg Neutrophils # Man Basophils # (Manual) PT INR POC ABG pH POC ABG pCO2 POC ABG pO2 Sodium Potassium Chloride Carbon Dioxide BUN Creatinine Glucose POC Glucose 317 H 218 H Lactic Acid 9.00 H* Calcium Phosphorus Magnesium Alkaline Phosphatase Ammonia Total Creatine Kinase Albumin Salicylates 10/27/17 10/27/17 10/27/17 02:26 03:49 04:50 WBC RBC Hgb MCH MCHC RDW Seg Neuts % (Manual) Lymphocytes % (Manual) Seg Neutrophils # Man Basophils # (Manual) PT INR POC ABG pH POC ABG pCO2 POC ABG pO2 Sodium Potassium Chloride Carbon Dioxide BUN Creatinine Glucose POC Glucose 172 H 136 H 221 H Lactic Acid Calcium Phosphorus Magnesium Alkaline Phosphatase Ammonia Total Creatine Kinase Albumin Salicylates 10/27/17 10/27/17 10/27/17 05:26 06:01 06:05 WBC RBC Hgb MCH MCHC RDW Seg Neuts % (Manual) Lymphocytes % (Manual) Seg Neutrophils # Man Basophils # (Manual) PT INR POC ABG pH 7.284 L POC ABG pCO2 POC ABG pO2 204 H Sodium 158 H Potassium 3.5 L Chloride 118.2 H Carbon Dioxide 19 L D BUN 27 H Creatinine 1.9 H Glucose 232 H POC Glucose 286 H Lactic Acid Calcium 7.1 L Phosphorus Magnesium Alkaline Phosphatase Ammonia Total Creatine Kinase Albumin Salicylates 10/27/17 10/27/17 10/27/17 07:27 09:28 12:30 WBC RBC Hgb MCH MCHC RDW Seg Neuts % (Manual) Lymphocytes % (Manual) Seg Neutrophils # Man Basophils # (Manual) PT INR POC ABG pH POC ABG pCO2 POC ABG pO2 Sodium Potassium Chloride Carbon Dioxide BUN Creatinine Glucose POC Glucose 161 H 123 H 274 H Lactic Acid Calcium Phosphorus Magnesium Alkaline Phosphatase Ammonia Total Creatine Kinase Albumin Salicylates 10/27/17 10/27/17 13:07 14:44 WBC RBC Hgb MCH MCHC RDW Seg Neuts % (Manual) Lymphocytes % (Manual) Seg Neutrophils # Man Basophils # (Manual) PT INR POC ABG pH POC ABG pCO2 POC ABG pO2 Sodium 158 H Potassium 3.2 L Chloride 120.7 H Carbon Dioxide 16 L BUN 23 H Creatinine 1.9 H Glucose 270 H POC Glucose 200 H Lactic Acid Calcium 7.1 L Phosphorus Magnesium Alkaline Phosphatase Ammonia Total Creatine Kinase Albumin Salicylates
[2017-10-27] MEDS: ARTIFICIAL TEARS OPHTH OINT OU SCH (22:00)
[2017-10-27] MEDS: HEPARIN SUB-Q SCH (22:00)
[2017-10-27] MEDS ORDERED: LEVEMIR (NF) SUB-Q SCH (22:00)
--- NOTE | 2017-10-27 22:15 | Consultation ---
PULMONARY CRITICAL CARE CONSULTATION CONSULTING PHYSICIAN: Dr. Arellano. REASON FOR CONSULTATION: Acute hypoxemic respiratory failure, on mechanical ventilatory support. CHIEF COMPLAINT AND HISTORY OF PRESENT ILLNESS: The patient is a 22-year-old -[place] female with past medical history as far as we can tell significant both for a diagnosis of diabetes as well as high blood pressure, but also chronic pain, came into the Emergency Room for evaluation. Reportedly, she was found down unresponsive by her neighbors on the morning of presentation. She had at empty bottle of oxycodone in her pill bag. Narcan was given without improvement. In the Emergency Room, she appeared septic. She required intubation. She was diagnosed with diabetic ketoacidosis and ICU admission was requested. When I stopped by to see her, she remained on the mechanical ventilator. She will open her eyes to name calling, but that was about as much as she did. I do not have any history of vomiting or overt aspiration. The patient's tobacco use/abuse history is unknown. This really is as much of the history of presentation as I have. PAST MEDICAL HISTORY: Diabetes, hypertension, and chronic pain. PAST SURGICAL HISTORY: Unknown. MEDICATIONS: Medications she was on at the time I stopped by to see her were reviewed. Pertinent medications include the following: She was on fentanyl drip at 2 mcg/kg/hour. She was on detemir insulin 6 units subcutaneous at bedtime, insulin via sliding scale, Zosyn 3.375 grams IV q.6h., propofol drip was going at 15 mcg per kilogram per minute. Vancomycin was ordered 1 gram IV daily. ALLERGIES: UNKNOWN. DIET: Well-built lady, acute weight loss or gain, history is unknown. FAMILY AND SOCIAL HISTORY: Apparently, lives in the community, reported history of chronic pain and drug use. Family history otherwise unknown. REVIEW OF SYSTEMS: Unobtainable secondary to the patient's medical and mental condition since she has been here. No gross hematochezia or melena. No gross hematuria, no hematemesis, no bloody tracheal secretions, no witnessed seizures. PHYSICAL EXAMINATION: VITAL SIGNS: On presentation in the Emergency Room, she was afebrile, temperature was 97.3 degrees Fahrenheit rectally, pulse 141, respiratory rate 31, blood pressure 89/36, oxygen sats 100%, inspired oxygen concentration was not recorded. GENERAL: She is a well-built -[place] female. She is normocephalic, atraumatic, intubated on the mechanical ventilator, in mild to moderate distress. HEAD, EYES, EARS, NOSE AND THROAT: She has bilateral orbital phimosis with mild conjunctival erythema. She is anicteric. Endotracheal tube is taped 22 cm at the lips. NECK: No gross jugular venous distention, no thyromegaly, grossly no palpable lymph nodes in the supraclavicular or submandibular lymph node chains. LUNGS: Auscultation of both lung polk unremarkable except for scant bibasilar rhonchi, no wheezing. HEART: Sounds 1 and 2 are heard, regular rate and rhythm at time of my evaluation. No rubs, no murmurs. ABDOMEN: Soft, full, bowel sounds are positive, nontender. No palpable hepatosplenomegaly. EXTREMITIES: Without overt digital clubbing or cyanosis, no pedal edema. Dorsalis pedis pulses were palpable bilaterally. NEUROLOGIC: Pupils were equal, round about 4 mm, reactive to light. Extraocular muscle movements could appear intact actually and she has spontaneous movements to all extremities. LABORATORY DATA: From my review are as follows: Admission white cell count 20,600, hemoglobin 8.3, hematocrit 34.2, platelet count 383. No significant band forms reported. INR was 1.29. Arterial blood gas showed a pH of 6.90, pCO2 of 12, pO2 of 311 that was on 50% FiO2. Serum sodium was 146, potassium 6.6, chloride was 100, bicarbonate was 3, BUN was 34, creatinine was 2.2, glucose 1281. Lactic acid level was 4.1, magnesium 2.7. Ammonia was 67. AST and ALT within normal limits. Troponin within normal limits. Aspirin, Tylenol, alcohol levels within normal limits. Tracheal aspirate was sent. No other microbiology studies. DIAGNOSTIC DATA: Chest x-ray was done. I have reviewed the chest x-ray. She also had a CT scan of the head done. I have reviewed the radiologist's report on the CT scan of the head. There was no acute intracranial abnormality seen on the CT of the head. The chest x-ray, clear lung polk, endotracheal tube tip at the level of the clavicular heads. Cardiovascular silhouette within normal limits. No gross pneumothorax, no gross bony fracture that I can see. Essentially, no acute process. ASSESSMENT: 1. Acute respiratory failure, on mechanical ventilatory support. 2. Acute encephalopathy, appears toxic metabolic at this point. 3. Diabetic ketoacidosis. 4. Sepsis syndrome. 5. History of chronic pain. 6. Possible drug abuse. 7. Anemia. 8. Leukocytosis. 9. Hyperammonemia. 10. Severe metabolic acidosis with a lactic acid component. PLAN: Continue full mechanical ventilatory support. I will repeat the arterial blood gas stat and make adjustments as necessary. We will continue volume resuscitation for sepsis syndrome. Vasopressors will be started if mean arterial pressures dropped below 60 mmHg despite volume resuscitation. Aspiration precautions will be maintained. Ventilator-associated pneumonia bundle will be addressed daily. Bronchodilators will be on a p.r.n. basis. Lactulose will be given for the hyperammonemia. Electrolytes will be followed and corrected as necessary. We will continue broad spectrum antibiotic therapy. I will order 2 sets of blood cultures since I do not see that those have been ordered. She will be placed on GI prophylaxis as well as DVT prophylaxis. Flu and pneumonia vaccination will be per protocol. Thank you very much for the consult Dr. Arellano. We will follow along and make further recommendations as picture progresses/becomes clearer. I believe she has been seen by the law professor also. At this point, I have spent about 35-40 minutes of critical care time without overlap excluding any procedural time that may be necessary. She will be transferred to the Intensive Care Unit once a bed is available. JOB# [id number] DONNELL/VANDANA AMBROSE
[2017-10-28] MEDS: ZOSYN/NS 3.375GM/50ML 3.375 GM/50 ML BAG IV SCH ×3 (00:16→13:30)
[2017-10-28] MEDS ORDERED: KPHOS 45 MMOL in NACL 0.9% 500 ML 500 ML IV ONE (00:22)
[2017-10-28 03:38] LABS: Calcium 6.8 mg/dL (8.4-10.2)
[2017-10-28] MEDS ORDERED: D50W (25GM) Syringe IV PRN (06:18)
[2017-10-28] MEDS ORDERED: NovoLIN R 100 UNITS in NACL 0.9% 99 ML IV SCH (07:00)
[2017-10-28] MEDS: DIPRIVAN 10 MG/ML 1,000 MG/100 ML BOTTLE IV SCH ×2 (07:05→21:40)
[2017-10-28] MEDS: fentaNYL DRIP Premix 2,000 MCG/100 ML BAG IV SCH ×2 (09:37→21:40)
[2017-10-28] MEDS: ARTIFICIAL TEARS OPHTH OINT OU SCH ×2 (09:38→23:48)
[2017-10-28] MEDS: HEPARIN SUB-Q SCH ×2 (09:51→23:12)
[2017-10-28] MEDS ORDERED: PEPCID PO SCH (10:00)
--- NOTE | 2017-10-28 10:15 | Progress Note ---
Assessment and Plan Acute respiratory failure, on mechanical ventilatory support. Acute encephalopathy, appears toxic metabolic at this point. Diabetic ketoacidosis. Sepsis syndrome. History of chronic pain. Possible drug abuse. Anemia. Leukocytosis. Hyperammonemia. Severe metabolic acidosis with a lactic acid component. - get CT chest to r/o mediastinal pathology / SVC syndrome once azotemia resolved as will need IV contrast - begin empiric PPI, antihistamine therapy and steroids re: possible angioedema element - reduce set rate on MVS to 12/min - continue GI & VTE prophylaxis - azotemia per nephrology - free water for hypernatremia - daily SAT's & SBT's shortly - continue bronchodilators and pulmonary hygiene per RT - VAP bundle addressed - continue other care per attending / other consultants ...35' CCT Subjective Date of service: 10/28/17 Principal diagnosis: Acute Hypoxemic Respiratory Failure; Acute Encephalopathy Interval history: Patient is seen today for: Acute Hypoxemic Respiratory Failure; Acute Encephalopathy Seen and examined at bedside; 24hour events reviewed; nursing and respiratory care staff consulted; no adverse overnight events reported to me; persistent and perhaps increased tongue swelling with persistent orbital phimosis; sedated ; on MVS; No emesis or overt aspiration Objective Vital Signs - 12hr 10/27/17 10/27/17 10/27/17 22:30 22:45 23:00 Pulse Rate 114 H 114 H 113 H Respiratory 16 16 16 Rate Blood Pressure 110/70 119/81 119/84 O2 Sat by Pulse 100 100 100 Oximetry 10/27/17 10/27/17 10/27/17 23:15 23:30 23:45 Pulse Rate 114 H 114 H 117 H Respiratory 16 16 16 Rate Blood Pressure 125/89 124/89 129/95 O2 Sat by Pulse 100 98 Oximetry 10/28/17 10/28/17 10/28/17 00:00 00:15 00:30 Pulse Rate 117 H 114 H 112 H Respiratory 16 16 16 Rate Blood Pressure 132/94 123/86 116/80 O2 Sat by Pulse 98 97 Oximetry 10/28/17 10/28/17 10/28/17 00:45 01:00 01:15 Pulse Rate 111 H 112 H 111 H Respiratory 16 16 16 Rate Blood Pressure 120/85 122/82 116/77 O2 Sat by Pulse 100 100 Oximetry 10/28/17 10/28/17 10/28/17 01:30 01:45 02:00 Pulse Rate 111 H 115 H 114 H Respiratory 16 17 16 Rate Blood Pressure 116/82 125/86 121/82 O2 Sat by Pulse Oximetry 10/28/17 10/28/17 10/28/17 02:15 02:30 02:45 Pulse Rate 132 H 121 H 114 H Respiratory 21 16 16 Rate Blood Pressure 127/83 113/69 106/65 O2 Sat by Pulse 100 100 100 Oximetry 10/28/17 10/28/17 10/28/17 03:00 03:15 03:30 Pulse Rate 116 H 119 H 117 H Respiratory 19 16 16 Rate Blood Pressure 106/74 118/79 115/75 O2 Sat by Pulse 100 100 100 Oximetry 10/28/17 10/28/17 10/28/17 03:45 04:00 04:15 Pulse Rate 117 H 117 H 116 H Respiratory 16 16 16 Rate Blood Pressure 112/72 115/75 108/68 O2 Sat by Pulse 100 100 Oximetry 10/28/17 10/28/17 10/28/17 04:30 04:45 05:00 Pulse Rate 120 H 126 H 122 H Respiratory 16 16 16 Rate Blood Pressure 111/85 124/82 111/70 O2 Sat by Pulse 100 100 Oximetry 10/28/17 10/28/17 10/28/17 05:15 05:30 05:45 Pulse Rate 124 H 123 H 123 H Respiratory 16 16 13 Rate Blood Pressure 118/80 124/89 124/91 O2 Sat by Pulse 100 100 Oximetry 10/28/17 10/28/17 10/28/17 06:00 06:15 06:30 Pulse Rate 124 H 127 H 124 H Respiratory 16 15 16 Rate Blood Pressure 129/89 132/88 125/87 O2 Sat by Pulse Oximetry 10/28/17 10/28/17 10/28/17 06:45 07:00 07:15 Pulse Rate 123 H 121 H 120 H Respiratory 16 16 16 Rate Blood Pressure 120/84 127/92 126/89 O2 Sat by Pulse 100 100 Oximetry 10/28/17 10/28/17 08:33 09:00 Pulse Rate 119 H Respiratory 18 1 L Rate Blood Pressure 115/73 O2 Sat by Pulse 100 Oximetry Constitutional: lethargic, appears uncomfortable Eyes: non-icteric, other (orbital phimosis) ENT: oropharynx moist, oropharyngeal exudate pre Neck: supple, no lymphadenopathy, no JVD, other (neck and facial swelling) Effort: mildly labored Ascultation: Bilateral: rhonchi Percussion: Bilateral: not dull Cardiovascular: regular rate and rhythm, other (No palpable HSM) Gastrointestinal: normoactive bowel sounds, soft, non-tender, non-distended, other (no palpable HSM) Integumentary: normal Extremities: no cyanosis, no edema, pulses normal, no ischemia or petechiae Neurologic: unable to assess Psychiatric: other (sedated) CBC and BMP: 10/29/17 03:41 10/29/17 09:28 ABG, PT/INR, D-dimer: ABG POC ABG pH 7.327 (7.35-7.45) L 10/27/17 21:05 POC ABG pCO2 32.1 (35-45) L 10/27/17 21:05 POC ABG pO2 105 (80-105) 10/27/17 21:05 POC ABG HCO3 16.8 10/27/17 21:05 POC ABG Total CO2 18 10/27/17 21:05 POC ABG O2 Sat 98 10/27/17 21:05 PT/INR, D-dimer PT 16.8 Sec. (12.2-14.9) H 10/26/17 11:44 INR 1.29 (0.87-1.13) H 10/26/17 11:44 Abnormal lab findings: Abnormal Labs 10/26/17 10/26/17 10/26/17 11:23 11:44 11:44 WBC 20.6 H RBC 3.62 L Hgb 8.3 L MCH 23 L MCHC 24 L RDW 21.7 H Seg Neuts % (Manual) 76.0 H Lymphocytes % (Manual) 11.0 L Seg Neutrophils # Man 15.7 H Basophils # (Manual) 0.2 H PT INR POC ABG pH POC ABG pCO2 POC ABG pO2 Sodium Potassium Chloride Carbon Dioxide BUN Creatinine Glucose POC Glucose > 500 H Lactic Acid 4.10 H* Calcium Phosphorus Magnesium Alkaline Phosphatase Ammonia Total Creatine Kinase C-Reactive Protein Albumin Salicylates 10/26/17 10/26/17 10/26/17 11:44 11:44 11:44 WBC RBC Hgb MCH MCHC RDW Seg Neuts % (Manual) Lymphocytes % (Manual) Seg Neutrophils # Man Basophils # (Manual) PT 16.8 H INR 1.29 H POC ABG pH POC ABG pCO2 POC ABG pO2 Sodium 146 H Potassium 6.6 H* Chloride Carbon Dioxide 3 L* BUN 34 H Creatinine 2.2 H Glucose 1281 H* POC Glucose Lactic Acid Calcium 8.0 L Phosphorus Magnesium Alkaline Phosphatase 196 H Ammonia 67.0 H Total Creatine Kinase 24 L C-Reactive Protein Albumin 3.6 L Salicylates 10/26/17 10/26/17 10/26/17 11:44 12:01 13:06 WBC RBC Hgb MCH MCHC RDW Seg Neuts % (Manual) Lymphocytes % (Manual) Seg Neutrophils # Man Basophils # (Manual) PT INR POC ABG pH 6.895 L POC ABG pCO2 12.3 L POC ABG pO2 311 H Sodium Potassium Chloride Carbon Dioxide BUN Creatinine Glucose POC Glucose Lactic Acid 4.10 H* Calcium Phosphorus Magnesium Alkaline Phosphatase Ammonia Total Creatine Kinase C-Reactive Protein Albumin Salicylates < 0.3 L 10/26/17 10/26/17 10/26/17 13:17 13:17 14:57 WBC RBC Hgb MCH MCHC RDW Seg Neuts % (Manual) Lymphocytes % (Manual) Seg Neutrophils # Man Basophils # (Manual) PT INR POC ABG pH POC ABG pCO2 POC ABG pO2 Sodium 146 H Potassium 7.1 H* Chloride Carbon Dioxide 2 L* BUN 35 H Creatinine 2.3 H Glucose 1330 H* POC Glucose > 500 H Lactic Acid Calcium 7.7 L Phosphorus 11.10 H Magnesium 2.70 H Alkaline Phosphatase Ammonia Total Creatine Kinase C-Reactive Protein Albumin Salicylates 10/26/17 10/26/17 10/26/17 15:26 15:26 16:02 WBC RBC Hgb MCH MCHC RDW Seg Neuts % (Manual) Lymphocytes % (Manual) Seg Neutrophils # Man Basophils # (Manual) PT INR POC ABG pH POC ABG pCO2 POC ABG pO2 Sodium 147 H Potassium 6.3 H* Chloride Carbon Dioxide < 2.0 L* BUN 37 H Creatinine 2.4 H Glucose 1115 H* POC Glucose > 500 H Lactic Acid 3.70 H* Calcium 7.2 L Phosphorus Magnesium Alkaline Phosphatase Ammonia Total Creatine Kinase C-Reactive Protein Albumin Salicylates 10/26/17 10/26/17 10/26/17 17:51 17:51 18:42 WBC RBC Hgb MCH MCHC RDW Seg Neuts % (Manual) Lymphocytes % (Manual) Seg Neutrophils # Man Basophils # (Manual) PT INR POC ABG pH 6.974 L POC ABG pCO2 14.9 L POC ABG pO2 244 H Sodium 149 H Potassium Chloride Carbon Dioxide 2 L* BUN 36 H Creatinine 2.6 H Glucose 1063 H* POC Glucose Lactic Acid 6.50 H* Calcium 7.0 L Phosphorus Magnesium Alkaline Phosphatase Ammonia Total Creatine Kinase C-Reactive Protein Albumin Salicylates 10/26/17 10/26/17 10/26/17 19:55 19:55 21:26 WBC RBC Hgb MCH MCHC RDW Seg Neuts % (Manual) Lymphocytes % (Manual) Seg Neutrophils # Man Basophils # (Manual) PT INR POC ABG pH POC ABG pCO2 POC ABG pO2 Sodium 150 H 152 H Potassium 3.5 L Chloride 108.3 H 110.4 H Carbon Dioxide 4 L* 6 L* BUN 33 H 32 H Creatinine 2.4 H 2.3 H Glucose 663 H* 498 H POC Glucose Lactic Acid 8.30 H* Calcium 7.0 L 7.6 L Phosphorus Magnesium Alkaline Phosphatase Ammonia Total Creatine Kinase C-Reactive Protein Albumin Salicylates 10/26/17 10/26/17 10/27/17 21:26 23:55 01:21 WBC RBC Hgb MCH MCHC RDW Seg Neuts % (Manual) Lymphocytes % (Manual) Seg Neutrophils # Man Basophils # (Manual) PT INR POC ABG pH POC ABG pCO2 POC ABG pO2 Sodium Potassium Chloride Carbon Dioxide BUN Creatinine Glucose POC Glucose 317 H 218 H Lactic Acid 9.00 H* Calcium Phosphorus Magnesium Alkaline Phosphatase Ammonia Total Creatine Kinase C-Reactive Protein Albumin Salicylates 10/27/17 10/27/17 10/27/17 02:26 03:49 04:50 WBC RBC Hgb MCH MCHC RDW Seg Neuts % (Manual) Lymphocytes % (Manual) Seg Neutrophils # Man Basophils # (Manual) PT INR POC ABG pH POC ABG pCO2 POC ABG pO2 Sodium Potassium Chloride Carbon Dioxide BUN Creatinine Glucose POC Glucose 172 H 136 H 221 H Lactic Acid Calcium Phosphorus Magnesium Alkaline Phosphatase Ammonia Total Creatine Kinase C-Reactive Protein Albumin Salicylates 10/27/17 10/27/17 10/27/17 05:26 06:01 06:05 WBC RBC Hgb MCH MCHC RDW Seg Neuts % (Manual) Lymphocytes % (Manual) Seg Neutrophils # Man Basophils # (Manual) PT INR POC ABG pH 7.284 L POC ABG pCO2 POC ABG pO2 204 H Sodium 158 H Potassium 3.5 L Chloride 118.2 H Carbon Dioxide 19 L D BUN 27 H Creatinine 1.9 H Glucose 232 H POC Glucose 286 H Lactic Acid Calcium 7.1 L Phosphorus Magnesium Alkaline Phosphatase Ammonia Total Creatine Kinase C-Reactive Protein Albumin Salicylates 10/27/17 10/27/17 10/27/17 07:27 09:28 12:30 WBC RBC Hgb MCH MCHC RDW Seg Neuts % (Manual) Lymphocytes % (Manual) Seg Neutrophils # Man Basophils # (Manual) PT INR POC ABG pH POC ABG pCO2 POC ABG pO2 Sodium Potassium Chloride Carbon Dioxide BUN Creatinine Glucose POC Glucose 161 H 123 H 274 H Lactic Acid Calcium Phosphorus Magnesium Alkaline Phosphatase Ammonia Total Creatine Kinase C-Reactive Protein Albumin Salicylates 10/27/17 10/27/17 10/27/17 13:07 14:44 19:03 WBC RBC Hgb MCH MCHC RDW Seg Neuts % (Manual) Lymphocytes % (Manual) Seg Neutrophils # Man Basophils # (Manual) PT INR POC ABG pH POC ABG pCO2 POC ABG pO2 Sodium 158 H Potassium 3.2 L Chloride 120.7 H Carbon Dioxide 16 L BUN 23 H Creatinine 1.9 H Glucose 270 H POC Glucose 200 H 124 H Lactic Acid Calcium 7.1 L Phosphorus Magnesium Alkaline Phosphatase Ammonia Total Creatine Kinase C-Reactive Protein Albumin Salicylates 10/27/17 10/27/17 10/27/17 20:24 20:24 20:40 WBC RBC Hgb MCH MCHC RDW Seg Neuts % (Manual) Lymphocytes % (Manual) Seg Neutrophils # Man Basophils # (Manual) PT INR POC ABG pH POC ABG pCO2 POC ABG pO2 Sodium 155 H Potassium 3.4 L Chloride 119.3 H Carbon Dioxide 19 L BUN 20 H Creatinine 1.9 H Glucose 272 H POC Glucose 289 H Lactic Acid Calcium 7.0 L Phosphorus 1.50 L D Magnesium Alkaline Phosphatase Ammonia Total Creatine Kinase C-Reactive Protein 1.50 H Albumin Salicylates 10/27/17 10/28/17 10/28/17 21:05 03:02 06:06 WBC RBC Hgb MCH MCHC RDW Seg Neuts % (Manual) Lymphocytes % (Manual) Seg Neutrophils # Man Basophils # (Manual) PT INR POC ABG pH 7.327 L POC ABG pCO2 32.1 L POC ABG pO2 Sodium 157 H Potassium Chloride 118.8 H Carbon Dioxide 13 L BUN 18 H Creatinine 2.0 H Glucose 560 H* POC Glucose > 500 H Lactic Acid Calcium 6.8 L Phosphorus 5.40 H D Magnesium Alkaline Phosphatase Ammonia Total Creatine Kinase C-Reactive Protein Albumin Salicylates 10/28/17 10/28/17 10/28/17 07:46 08:21 09:34 WBC RBC Hgb MCH MCHC RDW Seg Neuts % (Manual) Lymphocytes % (Manual) Seg Neutrophils # Man Basophils # (Manual) PT INR POC ABG pH POC ABG pCO2 POC ABG pO2 Sodium Potassium Chloride Carbon Dioxide BUN Creatinine Glucose POC Glucose 500 H 435 H Lactic Acid Calcium Phosphorus 6.70 H D Magnesium Alkaline Phosphatase Ammonia Total Creatine Kinase C-Reactive Protein Albumin Salicylates Chest x-ray: image reviewed (ETT riding high and RT told to advance) Allied health notes reviewed: nursing
--- NOTE | 2017-10-28 11:13 | Progress Note ---
Assessment and Plan Assessment and plan: 22 YO Female with DM, Medication Noncompliance, HTN, Chronic Pain presents to ED for evaluation. Pt unable to provide history, but history taken from ED staff , as well as EMS. Pt was found down and unresponsive by neighbors this AM. EMS notified, and upon arrival the patient was found to be unresponsive and in extremia. Patient had an empty bottle of oxycodone in her pill bag. Narcan was given without improvement in mental status. Patient transported to [facility] for further care and evaluation. Pt seen and evaluated in ED and found to have Acute Respiratory Failure, as well as DKA, and Sepsis. Pt intubated, sedated, and placed on vent support, as well as DKA and sepsis protocols. Pt admitted to ICU. PT has poor prognosis. SIRS no clear source at this time CXR neg, awaiting UA, on empiric abx, fup blood cx Acute respiratory failure, hypoxic, on MV <96 hours Pulmonary consulted, Pt intubated placed on vent support, wean vent as tolerated , daily ABG, daily SBT, nebulizer therapy, Acute renal failure/Vasomotor nephropathy continue IV, renal consult IVF resuscitation, monitor uop q shift, monitor serum creatinine, Metabolic encephalopathy CTH shows no acute findings, highly suspect anoxic brain injury given hypothermia -will need to give a sedation holiday in the am and perform a neurological exam Hypothermia continue buffy santana DKA (diabetic ketoacidoses) gap closed, change to SSI and long acting insulin Hypokalemia, hypophosphatemia repleted IV DVT prophylaxis SCD to BLE,. The high probability of a clinically significant, sudden or life threatening deterioration of the [cardiac, pulmonary, renal, endocrine] system(s) required my full and direct attention, intervention and personal management. The aggregate critical care time was [65] minutes. This time is in addition to time spent performing reported procedures but includes the following: [x] Data Review and interpretation [x] Patient assessment and monitoring of vital signs [x] Documentation [x] Medication orders and management History Interval history: remains intubated, sedated and non responsive no fevers, no agitation Hospitalist Physical - Physical exam Narrative exam: - EENT Eyes: Present: PERRL, conjuctival edema ENT: hearing intact - Neck Neck: Present: supple - Respiratory Respiratory effort: normal Respiratory: bilateral: CTA (ventilated breath sounds) - Cardiovascular Rhythm: regular Heart Sounds: Present: S1 & S2 - Extremities Extremities: no ischemia Peripheral Pulses: within normal limits - Abdominal General gastrointestinal: soft, non-tender - Integumentary Integumentary: Present: clear, warm - Psychiatric Psychiatric: other (sedated) - Neurologic Neurologic: other (sedated) - Constitutional Vitals: Temp Pulse Resp BP Pulse Ox 96.1 F L 119 H 1 L 115/73 100 10/27/17 06:30 10/28/17 09:00 10/28/17 09:00 10/28/17 09:00 10/28/17 09:00 General appearance: Present: severe distress, cachectic, disheveled Results - Labs CBC & Chem 7: 10/28/17 15:39 10/28/17 15:39 Labs: Laboratory Last Values WBC 20.6 K/mm3 (4.5-11.0) H 10/26/17 11:44 RBC 3.62 M/mm3 (3.65-5.03) L 10/26/17 11:44 Hgb 8.3 gm/dl (10.1-14.3) L 10/26/17 11:44 Hct 34.2 % (30.3-42.9) 10/26/17 11:44 MCV 95 fl (79-97) 10/26/17 11:44 MCH 23 pg (28-32) L 10/26/17 11:44 MCHC 24 % (30-34) L 10/26/17 11:44 RDW 21.7 % (13.2-15.2) H 10/26/17 11:44 Plt Count 383 K/mm3 (140-440) 10/26/17 11:44 Add Manual Diff Complete 10/26/17 11:44 Total Counted 100 10/26/17 11:44 Seg Neuts % (Manual) 76.0 % (40.0-70.0) H 10/26/17 11:44 Band Neutrophils % 2.0 % 10/26/17 11:44 Lymphocytes % (Manual) 11.0 % (13.4-35.0) L 10/26/17 11:44 Reactive Lymphs % (Man) 0 % 10/26/17 11:44 Monocytes % (Manual) 1.0 % (0.0-7.3) 10/26/17 11:44 Eosinophils % (Manual) 0 % (0.0-4.3) 10/26/17 11:44 Basophils % (Manual) 1.0 % (0.0-1.8) 10/26/17 11:44 Metamyelocytes % 8.0 % 10/26/17 11:44 Myelocytes % 1.0 % 10/26/17 11:44 Promyelocytes % 0 % 10/26/17 11:44 Blast Cells % 0 % 10/26/17 11:44 Nucleated RBC % Not Reportable 10/26/17 11:44 Seg Neutrophils # Man 15.7 K/mm3 (1.8-7.7) H 10/26/17 11:44 Band Neutrophils # 0.4 K/mm3 10/26/17 11:44 Lymphocytes # (Manual) 2.3 K/mm3 (1.2-5.4) 10/26/17 11:44 Abs React Lymphs (Man) 0.0 K/mm3 10/26/17 11:44 Monocytes # (Manual) 0.2 K/mm3 (0.0-0.8) 10/26/17 11:44 Eosinophils # (Manual) 0.0 K/mm3 (0.0-0.4) 10/26/17 11:44 Basophils # (Manual) 0.2 K/mm3 (0.0-0.1) H 10/26/17 11:44 Metamyelocytes # 1.6 K/mm3 10/26/17 11:44 Myelocytes # 0.2 K/mm3 10/26/17 11:44 Promyelocytes # 0.0 K/mm3 10/26/17 11:44 Blast Cells # 0.0 K/mm3 10/26/17 11:44 WBC Morphology Not Reportable 10/26/17 11:44 Hypersegmented Neuts Not Reportable 10/26/17 11:44 Hyposegmented Neuts Not Reportable 10/26/17 11:44 Hypogranular Neuts Not Reportable 10/26/17 11:44 Smudge Cells Not Reportable 10/26/17 11:44 Toxic Granulation Not Reportable 10/26/17 11:44 Toxic Vacuolation Not Reportable 10/26/17 11:44 Dohle Bodies Not Reportable 10/26/17 11:44 Pelger-Huet Anomaly Not Reportable 10/26/17 11:44 Gogo Rods Not Reportable 10/26/17 11:44 Platelet Estimate Cons 10/26/17 11:44 Clumped Platelets Not Reportable 10/26/17 11:44 Plt Clumps, EDTA Not Reportable 10/26/17 11:44 Large Platelets Not Reportable 10/26/17 11:44 Giant Platelets Not Reportable 10/26/17 11:44 Platelet Satelliting Not Reportable 10/26/17 11:44 Plt Morphology Comment Not Reportable 10/26/17 11:44 RBC Morphology Not Reportable 10/26/17 11:44 Dimorphic RBCs Not Reportable 10/26/17 11:44 Polychromasia Not Reportable 10/26/17 11:44 Hypochromasia 1+ 10/26/17 11:44 Poikilocytosis Not Reportable 10/26/17 11:44 Anisocytosis 1+ 10/26/17 11:44 Microcytosis Not Reportable 10/26/17 11:44 Macrocytosis Not Reportable 10/26/17 11:44 Spherocytes Not Reportable 10/26/17 11:44 Pappenheimer Bodies Not Reportable 10/26/17 11:44 Sickle Cells Not Reportable 10/26/17 11:44 Target Cells Not Reportable 10/26/17 11:44 Tear Drop Cells Not Reportable 10/26/17 11:44 Ovalocytes Not Reportable 10/26/17 11:44 Helmet Cells Not Reportable 10/26/17 11:44 Paulino-Crewe Bodies Not Reportable 10/26/17 11:44 Sigurd Rings Not Reportable 10/26/17 11:44 [place] Cells Not Reportable 10/26/17 11:44 Bite Cells Not Reportable 10/26/17 11:44 Crenated Cell Not Reportable 10/26/17 11:44 Elliptocytes Not Reportable 10/26/17 11:44 Acanthocytes (Spur) Not Reportable 10/26/17 11:44 Rouleaux Not Reportable 10/26/17 11:44 Hemoglobin C Crystals Not Reportable 10/26/17 11:44 Schistocytes Not Reportable 10/26/17 11:44 Malaria parasites Not Reportable 10/26/17 11:44 David Bodies Not Reportable 10/26/17 11:44 Hem Pathologist Commnt No 10/26/17 11:44 PT 16.8 Sec. (12.2-14.9) H 10/26/17 11:44 INR 1.29 (0.87-1.13) H 10/26/17 11:44 APTT 24.9 Sec. (24.2-36.6) 10/26/17 11:44 POC ABG pH 7.327 (7.35-7.45) L 10/27/17 21:05 POC ABG pCO2 32.1 (35-45) L 10/27/17 21:05 POC ABG pO2 105 (80-105) 10/27/17 21:05 POC ABG HCO3 16.8 10/27/17 21:05 POC ABG Total CO2 18 10/27/17 21:05 POC ABG O2 Sat 98 10/27/17 21:05 POC ABG Base Excess -9 10/27/17 21:05 FiO2 35 % 10/27/17 21:05 Sodium 157 mmol/L (137-145) H 10/28/17 03:02 Potassium 4.1 mmol/L (3.6-5.0) D 10/28/17 03:02 Chloride 118.8 mmol/L (98-107) H 10/28/17 03:02 Carbon Dioxide 13 mmol/L (22-30) L 10/28/17 03:02 Anion Gap 29 mmol/L 10/28/17 03:02 BUN 18 mg/dL (7-17) H 10/28/17 03:02 Creatinine 2.0 mg/dL (0.7-1.2) H 10/28/17 03:02 Estimated GFR 37 ml/min 10/28/17 03:02 BUN/Creatinine Ratio 9 % 10/28/17 03:02 Glucose 560 mg/dL (65-100) H* 10/28/17 03:02 POC Glucose 273 (70-105) H 10/28/17 11:13 Ketones Quantitative Small (Negative) 10/27/17 20:24 Lactic Acid 1.40 mmol/L (0.7-2.0) 10/27/17 20:34 Calcium 6.8 mg/dL (8.4-10.2) L 10/28/17 03:02 Phosphorus 6.70 mg/dL (2.5-4.5) H D 10/28/17 07:46 Magnesium 1.90 mg/dL (1.7-2.3) 10/28/17 07:46 Total Bilirubin < 0.20 mg/dL (0.1-1.2) 10/26/17 11:44 AST 22 units/L (5-40) 10/26/17 11:44 ALT 56 units/L (7-56) 10/26/17 11:44 Alkaline Phosphatase 196 units/L (35-129) H 10/26/17 11:44 Ammonia 67.0 umol/L (25-60) H 10/26/17 11:44 Total Creatine Kinase 24 units/L (30-135) L 10/26/17 11:44 Troponin T < 0.010 ng/mL (0.00-0.029) 10/26/17 11:44 C-Reactive Protein 1.50 mg/dL (0.00-1.30) H 10/27/17 20:24 Total Protein 6.3 g/dL (6.3-8.2) 10/26/17 11:44 Albumin 3.6 g/dL (3.9-5) L 10/26/17 11:44 Albumin/Globulin Ratio 1.3 % 10/26/17 11:44 Salicylates < 0.3 mg/dL (2.8-20.0) L 10/26/17 11:44 Acetaminophen 15.0 ug/mL (10.0-30.0) 10/26/17 11:44 Plasma/Serum Alcohol < 0.01 % (0-0.07) 10/26/17 11:44 Blood Type O POSITIVE 10/26/17 11:54 Antibody Screen Negative 10/26/17 11:54
--- NOTE | 2017-10-28 11:17 | XRay Report ---
Single view chest: Compared to 10/26/17. History: ET tube placement. Findings: Cardiomegaly. Trachea is midline. Tip of endotracheal tube in normal position. Tip of NG tube in stomach. No consolidation, pneumothorax or pleural effusion. Impression: Normal position of ET tube. No acute lung changes.
[2017-10-28] MEDS ORDERED: VANCOMYCIN 750 MG in NACL 0.9% 250ML 250 ML IV SCH (13:00)
--- NOTE | 2017-10-28 14:44 | Progress Note ---
Assessment and Plan - Patient Problems (1) Other acute kidney failure Current Visit: Yes Status: Acute Plan to address problem: Acute kidney failure is Pre-renal azotemia versus acute renal necrosis secondary to volume depletion with diabetic acidosis and osmotic diuresis. Kidney function was improving with volume resuscitation. Not significantly changed from yesterday. Continue close monitoring (2) DKA (diabetic ketoacidoses) Current Visit: Yes Status: Acute Qualifiers: Diabetes mellitus type: type 1 Diabetes mellitus complication detail: with coma Qualified Code(s): E10.11 - Type 1 diabetes mellitus with ketoacidosis with coma Plan to address problem: Continue insulin drip as patient still in ketoacidosis. Nurses need to be able to follow protocol to change intravenous fluids to D5 W when blood sugar is less than 250 and Back to half normal saline when blood sugar is more done to 250 mg/dL. Follow bicarbonate, ketones. (3) Hypernatremia Current Visit: Yes Status: Acute Plan to address problem: Secondary to sodium bicarbonate IV pushes and replacement of relatively hypotonic fluid losses with isotonic saline. Change IV fluids to hypotonic fluid and follow up sodium. Continue half normal saline for now but changed to D5W if blood sugar less than 250 and patient Still in ketoacidosis (4) Hypokalemia Current Visit: Yes Status: Acute Plan to address problem: Secondary to transcellular shift with insulin administration for treating Diabetic ketoacidosis. Potassium is replete. Continue to follow up levels (5) Anemia Current Visit: Yes Status: Acute Plan to address problem: Dilutional but suspect baseline anemia (6) Acute respiratory failure Current Visit: Yes Status: Acute Qualifiers: Respiratory failure complication: hypoxia Qualified Code(s): J96.01 - Acute respiratory failure with hypoxia Plan to address problem: Management by hospitalist/electrical systems drafter (7) Metabolic encephalopathy Current Visit: Yes Status: Acute Plan to address problem: Appears to be improving as patient awakens to stimulation. Continue close monitoring (8) Sepsis Current Visit: Yes Status: Acute Qualifiers: Sepsis type: sepsis due to unspecified organism Qualified Code(s): A41.9 - Sepsis, unspecified organism Plan to address problem: Continue empiric antibiotics and follow cultures. If remain negative, may need to consider discontinuing antibiotics in 48 hours Subjective Date of service: 10/28/17 Principal diagnosis: acute kidney failure Interval history: Patient seen lying in bed in the emergency room awaiting ICU bed. She is intubated on the ventilator. Objective - Exam Narrative Exam: Young -[place] female lying in bed intubated on ventilator HEENT: NCAT, endotracheal tube intact, Neck: Supple, no venous distention CVS: S1S2 RRR with no murmur, rub or gallop Chest: Good chest expansion, faint rhonchi Abdomen: Protuberant, soft, nontender, no organomegaly, bowel sounds are present Extremities: Mild edema upper extremities, no clubbing Skin warm and dry with no rash Neuro: Eyes open with Chemosis, not following commands - Vital Signs Vital signs: Vital Signs - 12hr 10/28/17 10/28/17 10/28/17 02:45 03:00 03:15 Pulse Rate 114 H 116 H 119 H Respiratory 16 19 16 Rate Blood Pressure 106/65 106/74 118/79 O2 Sat by Pulse 100 100 100 Oximetry 10/28/17 10/28/17 10/28/17 03:30 03:45 04:00 Pulse Rate 117 H 117 H 117 H Respiratory 16 16 16 Rate Blood Pressure 115/75 112/72 115/75 O2 Sat by Pulse 100 100 100 Oximetry 10/28/17 10/28/17 10/28/17 04:15 04:30 04:45 Pulse Rate 116 H 120 H 126 H Respiratory 16 16 16 Rate Blood Pressure 108/68 111/85 124/82 O2 Sat by Pulse 100 100 Oximetry 10/28/17 10/28/17 10/28/17 05:00 05:15 05:30 Pulse Rate 122 H 124 H 123 H Respiratory 16 16 16 Rate Blood Pressure 111/70 118/80 124/89 O2 Sat by Pulse 100 Oximetry 10/28/17 10/28/17 10/28/17 05:45 06:00 06:15 Pulse Rate 123 H 124 H 127 H Respiratory 13 16 15 Rate Blood Pressure 124/91 129/89 132/88 O2 Sat by Pulse 100 Oximetry 10/28/17 10/28/17 10/28/17 06:30 06:45 07:00 Pulse Rate 124 H 123 H 121 H Respiratory 16 16 16 Rate Blood Pressure 125/87 120/84 127/92 O2 Sat by Pulse 100 Oximetry 10/28/17 10/28/17 10/28/17 07:15 08:33 09:00 Pulse Rate 120 H 119 H Respiratory 16 18 1 L Rate Blood Pressure 126/89 115/73 O2 Sat by Pulse 100 100 Oximetry 10/28/17 10/28/17 11:37 14:25 Pulse Rate 126 H 126 H Respiratory 1 L Rate Blood Pressure 127/75 110/64 O2 Sat by Pulse 100 100 Oximetry - Lab 10/26/17 11:44 10/28/17 03:02 Most recent lab results Calcium 6.8 mg/dL (8.4-10.2) L 10/28/17 03:02 Phosphorus 6.70 mg/dL (2.5-4.5) H D 10/28/17 07:46 Magnesium 1.90 mg/dL (1.7-2.3) 10/28/17 07:46
--- NOTE | 2017-10-28 15:18 | Consultation ---
History of Present Illness - Reason for Consult Consult date: 10/28/17 sepsis Requesting physician: JOSE MCKEON - History of Present Illness 22 years old female with history of uncontrolled DM, Medication Noncompliance, HTN; admitted on 10/26/17 due to be found unresponsive by neighbors in the morning of admission. Patient is unable to provide history. Upon EMS arrival the patient was found to be unresponsive and with an empty bottle of oxycodone in her pill bag. Narcan was given without improvement in mental status. History was taken from review of records. In the ED, initial temperature was 97.3, heart rate 141, respiration 31, O2 sat 100, blood pressure 89/36. WBC 20.6. Hemoglobin 8.3. Platelets 383. Creatinine 2.2. Glucose 1281. Potassium 6.6. Sodium 146. Lactic acid 4.1. CT of the head was unremarkable. Chest x-ray was negative. Microbiology: Blood cultures: 10/27 ngtd Urine cultures: Respiratory cultures: Current Antimicrobials: Zosyn 10/26 Vancomycin 10/26 Previous Antimicrobials: Past History Past Medical History: diabetes (Type 1), hypertension, other (chronic pain, bipolar disorder, schizophrenia) Past Surgical History: No surgical history, Other (reviewed) Social history: single. denies: smoking, alcohol abuse, prescription drug abuse Family history: no significant family history, other (unable to obtain) Medications and Allergies Allergies Allergy/AdvReac Type Severity Reaction Status Date / Time Unable to Assess Allergy Verified 10/26/17 12:24 Home Medications Medication Instructions Recorded Confirmed Last Taken Type Unobtainable 10/26/17 10/26/17 Unknown History Active Meds: Active Medications Albuterol (Proventil) 2.5 mg IH Q3HRT PRN PRN Reason: Shortness Of Breath Dextrose (D50w (25gm) Syringe) 0 ml IV PRN PRN PRN Reason: Hypoglycemia Dextrose (D50w (25gm) Syringe) 0 ml IV PRN PRN PRN Reason: Hypoglycemia Famotidine (Pepcid) 20 mg PO QDAY [facility] Last Admin: 10/28/17 09:39 Dose: 20 mg Heparin Sodium (Porcine) (Heparin) 5,000 unit SUB-Q Q12HR [facility] Last Admin: 10/28/17 09:51 Dose: 5,000 unit Hydrophilic Ointment (Vaseline Lip Therapy) 1 applic TP Q2HR PRN PRN Reason: Dry Lips Propofol (Diprivan 10 Mg/Ml) 1,000 mg in 100 mls @ 1.565 mls/hr IV TITR CARLOS; 5 MCG/KG/MIN PRN Reason: Protocol Last Admin: 10/28/17 07:05 Dose: 30 mcg/kg/min, 9.389 mls/hr Piperacillin Sod/Tazobactam Sod (Zosyn/Ns 3.375gm/50ml) 3.375 gm in 50 mls @ 100 mls/hr IV Q6HR [facility] Last Admin: 10/28/17 06:05 Dose: 100 mls/hr Fentanyl Citrate (Fentanyl Drip Premix) 2,000 mcg in 100 mls @ 2.608 mls/hr IV TITR CARLOS; 1 MCG/KG/HR PRN Reason: Protocol Last Admin: 10/28/17 09:37 Dose: 2 mcg/kg/hr, 5.216 mls/hr Vancomycin HCl (Vancomycin/0.45 Ns 1 Gm/250 Ml) 1 gm in 250 mls @ 167.007 mls/ hr IV ONCE CARL[facility] Vancomycin HCl 750 mg/ Sodium (Chloride) 257.5 mls @ 166.667 mls/hr IV Q24H [facility] Insulin Human Regular 100 (units/ Sodium Chloride) 100 mls @ 1 mls/hr IV TITR CARLOS; 1 UNITS/HR PRN Reason: Protocol Last Titration: 10/28/17 12:53 Dose: 1.5 units/hr, 1.5 mls/hr Sodium Chloride (Nacl 0.45% 1000 Ml) 1,000 mls @ 125 mls/hr IV DIRECT [facility] Insulin Detemir (Levemir) 6 units SUB-Q QHS [facility] Last Admin: 10/27/17 22:00 Dose: 6 units Insulin Human Regular (Novolin R) 0 units SUB-Q Q6HR [facility] PRN Reason: Protocol Last Admin: 10/28/17 13:38 Dose: Not Given Multi-Ingred Cream/Lotion/Oil/Oint (Artificial Tears Ophth Oint) 1 applic OU Q4HR PRN PRN Reason: Dry Eye(s) Multi-Ingred Cream/Lotion/Oil/Oint (Artificial Tears Ophth Oint) 1 applic OU BID [facility] Last Admin: 10/28/17 09:38 Dose: 1 applic Vancomycin HCl (Vancomycin Pharmacy To Dose) 1 each IV PKCONSULT CARLOS PRN Reason: Protocol Review of Systems ROS unobtainable: due to endotracheal tube Physical Examination - Physical Exam Narrative exam: General appearance: sedated on the vent eye open following simple commands Eyes: anicteric +marked sclerae edema, moist conjunctivae; no lid-lag; PERRLA HENT: Atraumatic; +marked lips edema, oropharynx +ETT Neck: Trachea midline; supple, no thyromegaly or lymphadenopathy Lungs: CTA, with normal respiratory effort and no intercostal retractions CV: RRR Abdomen: Soft, non-tender; no masses or hepatosplenomegaly Extremities: No peripheral edema or extremity lymphadenopathy Skin: Normal temperature, turgor and texture; no rash, ulcers or subcutaneous nodules Psych: sedated Neuro: sedated but eye open and Moving all extermities Lines: - Constitutional Vitals: Vital Signs Temp Pulse Resp BP Pulse Ox 96.1 F L 126 H 1 L 110/64 100 10/27/17 06:30 10/28/17 14:25 10/28/17 14:25 10/28/17 14:25 10/28/17 14:25 Results - Labs CBC & Chem 7: 10/26/17 11:44 10/28/17 03:02 Labs: Abnormal lab results 10/27/17 10/27/17 10/27/17 Range/Units 19:03 20:24 20:24 POC ABG pH (7.35-7.45) POC ABG pCO2 (35-45) POC ABG pO2 (80-105) Sodium 155 H (137-145) mmol/L Potassium 3.4 L (3.6-5.0) mmol/L Chloride 119.3 H (98-107) mmol/L Carbon Dioxide 19 L (22-30) mmol/L BUN 20 H (7-17) mg/dL Creatinine 1.9 H (0.7-1.2) mg/dL Glucose 272 H (65-100) mg/dL POC Glucose 124 H (70-105) Calcium 7.0 L (8.4-10.2) mg/dL Phosphorus 1.50 L D (2.5-4.5) mg/dL C-Reactive Protein 1.50 H (0.00-1.30) mg/dL 10/27/17 10/27/17 10/28/17 Range/Units 20:40 21:05 03:02 POC ABG pH 7.327 L (7.35-7.45) POC ABG pCO2 32.1 L (35-45) POC ABG pO2 (80-105) Sodium 157 H (137-145) mmol/L Potassium (3.6-5.0) mmol/L Chloride 118.8 H (98-107) mmol/L Carbon Dioxide 13 L (22-30) mmol/L BUN 18 H (7-17) mg/dL Creatinine 2.0 H (0.7-1.2) mg/dL Glucose 560 H* (65-100) mg/dL POC Glucose 289 H (70-105) Calcium 6.8 L (8.4-10.2) mg/dL Phosphorus 5.40 H D (2.5-4.5) mg/dL C-Reactive Protein (0.00-1.30) mg/dL 10/28/17 10/28/17 10/28/17 Range/Units 06:06 07:46 08:21 POC ABG pH (7.35-7.45) POC ABG pCO2 (35-45) POC ABG pO2 (80-105) Sodium (137-145) mmol/L Potassium (3.6-5.0) mmol/L Chloride (98-107) mmol/L Carbon Dioxide (22-30) mmol/L BUN (7-17) mg/dL Creatinine (0.7-1.2) mg/dL Glucose (65-100) mg/dL POC Glucose > 500 H 500 H (70-105) Calcium (8.4-10.2) mg/dL Phosphorus 6.70 H D (2.5-4.5) mg/dL C-Reactive Protein (0.00-1.30) mg/dL 10/28/17 10/28/17 10/28/17 Range/Units 09:34 11:13 12:55 POC ABG pH (7.35-7.45) POC ABG pCO2 (35-45) POC ABG pO2 (80-105) Sodium (137-145) mmol/L Potassium (3.6-5.0) mmol/L Chloride (98-107) mmol/L Carbon Dioxide (22-30) mmol/L BUN (7-17) mg/dL Creatinine (0.7-1.2) mg/dL Glucose (65-100) mg/dL POC Glucose 435 H 273 H 149 H (70-105) Calcium (8.4-10.2) mg/dL Phosphorus (2.5-4.5) mg/dL C-Reactive Protein (0.00-1.30) mg/dL 10/28/17 Range/Units 14:27 POC ABG pH (7.35-7.45) POC ABG pCO2 33.9 L (35-45) POC ABG pO2 138 H (80-105) Sodium (137-145) mmol/L Potassium (3.6-5.0) mmol/L Chloride (98-107) mmol/L Carbon Dioxide (22-30) mmol/L BUN (7-17) mg/dL Creatinine (0.7-1.2) mg/dL Glucose (65-100) mg/dL POC Glucose (70-105) Calcium (8.4-10.2) mg/dL Phosphorus (2.5-4.5) mg/dL C-Reactive Protein (0.00-1.30) mg/dL Assessment and Plan Assessment: 1) SIRS: Present on admission, manifested by hypotermia, tachycardia, hypotension, leukocytosis, increased lactate. Etiology unclear. CXR negative x 2. Blood cultures negative. DDx: aspiration pneumonititis?, angioedema?, dehydration from DKA. 2) Encephalopathy: ? from OD 3) Acute respiratory failure: from encephalopathy / OD -Tracheal asp + Strep group B likely a colonizer 4) NUNU 5) Uncontrolled DM with DKA 6) Hyperkalemia 7) Extensive sclerae edema/lip edema ? angioedema Plan: -follow-up blood cultures -obtain UA / urine culture - not collected -obtain procalcitonin, C-reactive protein (CRP) -stop vanco and zosyn ? allergic reaction -start levaquin and flagyl to cover for pneumonitis -when stable obtain CT chest -monitor facial edema Thank you for your consultation, will follow up with you. Aziza Stanford MD Infectious Diseases Specialist [facility] ([facility] M [phone] O [phone]
[2017-10-28 16:15] LABS: Basophils # (Auto) 0.1 K/mm3 (0.0-0.1); Basophils % (Auto) 0.7 % (0.0-1.8); Eosinophils # (Auto) 0.1 K/mm3 (0.0-0.4); Eosinophils % (Auto) 0.7 % (0.0-4.3); Hematocrit 27.6 % (30.3-42.9); Hemoglobin 8.3 gm/dl (10.1-14.3); Lymphocytes # (Auto) 2.6 K/mm3 (1.2-5.4); Lymphocytes % (Auto) 16.4 % (13.4-35.0); Mean Corpuscular HGB Conc 30 % (30-34); Mean Corpuscular Volume 77 fl (79-97); Monocytes # (Auto) 0.6 K/mm3 (0.0-0.8); Monocytes % (Auto) 3.7 % (0.0-7.3); Platelet Count 267 K/mm3 (140-440); Red Blood Count 3.59 M/mm3 (3.65-5.03)
[2017-10-28 16:18] LABS: Mean Corpuscular Hemoglobin 23 pg (28-32); Red Cell Distribution Width 20.9 % (13.2-15.2)
[2017-10-28 16:27] LABS: Calcium 7.5 mg/dL (8.4-10.2)
[2017-10-28 17:41] LABS: Amphetamine Screen,Urine PRESUMPTIVE NEGATIVE; Bilirubin,Urine NEG (Negative); Blood,Urine MOD (Negative); Cannabinoid Screen,Urine PRESUMPTIVE NEGATIVE; Cocaine Screen,Urine PRESUMPTIVE NEGATIVE; Color,Urine Yellow (Yellow); Granular Casts,Urine 3 /LPF; Methadone Screen,Urine PRESUMPTIVE NEGATIVE; Mucus,Urine FEW /HPF; Opiate Screen,Urine PRESUMPTIVE NEGATIVE; Urobilinogen,Urine < 2.0 mg/dL (<2.0)
[2017-10-28 18:10] LABS: Benzodiazepines Screen,Urine PRESUMPTIVE POSITIVE
[2017-10-28] MEDS: BENADRYL IV SCH (22:38)
[2017-10-28] MEDS: PEPCID IV SCH (22:38)
[2017-10-28] MEDS: FLAGYL 500 MG/100 ML 500 MG/100 ML BAG IV SCH (23:12)
[2017-10-28 23:42] LABS: Calcium 7.1 mg/dL (8.4-10.2)
[2017-10-28] MEDS: NACL 0.45% 1000 ML 1,000 ML IV SCH (23:55)
[2017-10-29 04:11] LABS: Hematocrit 25.5 % (30.3-42.9); Hemoglobin 7.6 gm/dl (10.1-14.3); Mean Corpuscular HGB Conc 30 % (30-34); Mean Corpuscular Volume 77 fl (79-97); Platelet Count 231 K/mm3 (140-440); Red Blood Count 3.32 M/mm3 (3.65-5.03)
[2017-10-29 04:12] LABS: Mean Corpuscular Hemoglobin 23 pg (28-32); Red Cell Distribution Width 20.8 % (13.2-15.2)
[2017-10-29 04:34] LABS: BUN/Creatinine Ratio 8; Blood Urea Nitrogen 10 mg/dL (7-17); Calcium 7.2 mg/dL (8.4-10.2); Hemolysis Index 1
[2017-10-29] MEDS: DIPRIVAN 10 MG/ML 1,000 MG/100 ML BOTTLE IV SCH (05:03)
[2017-10-29] MEDS: FLAGYL 500 MG/100 ML 500 MG/100 ML BAG IV SCH ×3 (06:25→22:55)
[2017-10-29] MEDS: NACL 0.45% 1000 ML 1,000 ML IV SCH ×2 (08:34→17:36)
[2017-10-29] MEDS: fentaNYL DRIP Premix 2,000 MCG/100 ML BAG IV SCH (08:36)
--- NOTE | 2017-10-29 08:54 | Progress Note ---
Assessment and Plan - Patient Problems (1) Other acute kidney failure Current Visit: Yes Status: Acute Plan to address problem: Acute kidney failure is Pre-renal azotemia versus acute renal necrosis secondary to volume depletion with diabetic ketoacidosis and osmotic diuresis. Kidney function is improving with volume resuscitation. Continue close monitoring (2) DKA (diabetic ketoacidoses) Current Visit: Yes Status: Acute Qualifiers: Diabetes mellitus type: type 1 Diabetes mellitus complication detail: with coma Qualified Code(s): E10.11 - Type 1 diabetes mellitus with ketoacidosis with coma Plan to address problem: Continue insulin drip as patient still in ketoacidosis. Follow protocol to change intravenous fluids to D5 W when blood sugar is less than 250 and Back to half normal saline when blood sugar is more done to 250 mg/dL. Follow bicarbonate, ketones. (3) Hypernatremia Current Visit: Yes Status: Acute Plan to address problem: Secondary to sodium bicarbonate IV pushes and replacement of relatively hypotonic fluid losses with isotonic saline. Sodium not significantly better on half normal saline. Unfortunately not able to give free water by the feeding tube yet. Start free water via the feeding tube once enteral intake started (4) Hypokalemia Current Visit: Yes Status: Acute Plan to address problem: Secondary to transcellular shift with insulin administration for treating Diabetic ketoacidosis. Potassium is replete. Continue to follow up levels (5) Anemia Current Visit: Yes Status: Acute Plan to address problem: Dilutional but suspect baseline anemia (6) Acute respiratory failure Current Visit: Yes Status: Acute Qualifiers: Respiratory failure complication: hypoxia Qualified Code(s): J96.01 - Acute respiratory failure with hypoxia Plan to address problem: Management by hospitalist/associate engineer (7) Metabolic encephalopathy Current Visit: Yes Status: Acute Plan to address problem: Appears to be improving as patient awakens to stimulation. Continue close monitoring (8) Sepsis Current Visit: Yes Status: Acute Qualifiers: Sepsis type: sepsis due to unspecified organism Qualified Code(s): A41.9 - Sepsis, unspecified organism Plan to address problem: Continue empiric antibiotics per infectious disease Subjective Date of service: 10/29/17 Principal diagnosis: acute kidney failure Interval history: Patient seen lying in bed in the emergency room awaiting ICU bed. She is intubated on the ventilator. She is on Diprivan and fentanyl Objective - Exam Narrative Exam: Young -[place]ym[place]es female lying in bed intubated on ventilator HEENT: NCAT, endotracheal tube intact, Neck: Supple, no venous distention CVS: S1S2 RRR with no murmur, rub or gallop Chest: Good chest expansion, faint rhonchi Abdomen: Protuberant, soft, nontender, no organomegaly, bowel sounds are present Extremities: Mild edema upper extremities, no clubbing Skin warm and dry with no rash Neuro: Facial edema, Chemosis, not following commands - Vital Signs Vital signs: Vital Signs - 12hr 10/28/17 10/28/17 10/28/17 21:00 21:15 21:30 Pulse Rate 111 H 109 H 108 H Respiratory 16 16 17 Rate Blood Pressure 135/101 126/95 132/99 O2 Sat by Pulse 100 Oximetry 10/28/17 10/28/17 10/28/17 21:45 22:00 22:15 Pulse Rate 112 H 105 H 102 H Respiratory 18 16 15 Rate Blood Pressure 142/103 141/102 133/100 O2 Sat by Pulse 100 Oximetry 10/28/17 10/28/17 10/28/17 22:30 22:45 23:00 Pulse Rate 102 H 104 H 105 H Respiratory 15 17 15 Rate Blood Pressure 139/103 174/119 176/126 O2 Sat by Pulse 100 100 100 Oximetry 10/28/17 10/28/17 10/28/17 23:15 23:30 23:45 Pulse Rate 102 H 101 H 102 H Respiratory 16 16 16 Rate Blood Pressure 165/120 153/115 158/117 O2 Sat by Pulse 100 Oximetry 10/29/17 10/29/17 10/29/17 00:00 00:15 00:31 Pulse Rate 101 H 97 H 110 H Respiratory 16 16 16 Rate Blood Pressure 162/119 156/115 147/105 O2 Sat by Pulse 100 Oximetry 10/29/17 10/29/17 10/29/17 00:45 00:54 01:00 Pulse Rate 108 H 101 H Respiratory 16 16 16 Rate Blood Pressure 145/106 129/93 O2 Sat by Pulse 100 100 100 Oximetry 10/29/17 10/29/17 10/29/17 01:15 01:30 01:45 Pulse Rate 98 H 96 H 99 H Respiratory 16 16 16 Rate Blood Pressure 118/86 112/81 119/85 O2 Sat by Pulse 100 Oximetry 02/10/29/17 10/29/17 02:00 02:15 02:30 Pulse Rate 97 H 96 H 94 H Respiratory 16 16 16 Rate Blood Pressure 118/84 121/86 114/78 O2 Sat by Pulse Oximetry 10/29/17 10/29/17 10/29/17 02:45 03:00 03:15 Pulse Rate 93 H 91 H 90 Respiratory 16 16 16 Rate Blood Pressure 118/88 124/90 128/97 O2 Sat by Pulse Oximetry 10/29/17 10/29/17 10/29/17 03:30 03:45 04:00 Pulse Rate 91 H 91 H 89 Respiratory 16 17 16 Rate Blood Pressure 133/101 144/111 140/105 O2 Sat by Pulse 100 100 Oximetry 10/29/17 10/29/17 10/29/17 04:15 04:30 04:43 Pulse Rate 88 90 Respiratory 16 16 16 Rate Blood Pressure 144/108 162/118 O2 Sat by Pulse 100 100 100 Oximetry 10/29/17 10/29/17 10/29/17 04:45 05:00 05:15 Pulse Rate 107 H 108 H 106 H Respiratory 18 17 16 Rate Blood Pressure 169/119 160/116 173/124 O2 Sat by Pulse 100 100 100 Oximetry 10/29/17 10/29/17 10/29/17 05:30 05:45 06:00 Pulse Rate 100 H 100 H 98 H Respiratory 16 16 17 Rate Blood Pressure 182/125 179/127 167/125 O2 Sat by Pulse 100 100 100 Oximetry 10/29/17 10/29/17 06:15 06:30 Pulse Rate 92 H 91 H Respiratory 16 16 Rate Blood Pressure 154/115 151/113 O2 Sat by Pulse 100 100 Oximetry - Lab 10/29/17 03:41 10/29/17 03:41 Most recent lab results Calcium 7.2 mg/dL (8.4-10.2) L 10/29/17 03:41 Phosphorus 3.00 mg/dL (2.5-4.5) D 10/29/17 03:41 Magnesium 1.80 mg/dL (1.7-2.3) 10/29/17 03:41
[2017-10-29] MEDS ORDERED: SODIUM BICARBONATE FEEDTUBE PRN (09:00)
[2017-10-29] MEDS ORDERED: PANCREAZE DR 10,500 UNIT FEEDTUBE PRN (09:00)
[2017-10-29] MEDS ORDERED: SIMPLE SYRUP FEEDTUBE PRN ×2 (09:00)
[2017-10-29 10:31] LABS: BUN/Creatinine Ratio 8; Blood Urea Nitrogen 10 mg/dL (7-17); Calcium 7.4 mg/dL (8.4-10.2); Hemolysis Index 0
[2017-10-29] MEDS: ARTIFICIAL TEARS OPHTH OINT OU SCH (11:00)
[2017-10-29] MEDS: PEPCID IV SCH ×2 (11:00→21:19)
[2017-10-29] MEDS: BENADRYL IV SCH ×2 (11:00→21:19)
[2017-10-29] MEDS: HEPARIN SUB-Q SCH ×2 (11:00→22:54)
--- NOTE | 2017-10-29 11:13 | Progress Note ---
Assessment and Plan Acute respiratory failure, on mechanical ventilatory support. Acute encephalopathy, appears toxic metabolic at this point. Diabetic ketoacidosis. Sepsis syndrome. History of chronic pain. Possible drug abuse. Anemia. Leukocytosis. Hyperammonemia. Severe metabolic acidosis with a lactic acid component. - get CT chest to r/o mediastinal pathology / SVC syndrome once azotemia resolved as will need IV contrast - begin empiric PPI, antihistamine therapy and steroids re: possible angioedema element - reduce set rate on MVS to 12/min Subjective Date of service: 10/29/17 Principal diagnosis: acute kidney failure Interval history: Patient is seen today for: Seen and examined at bedside; 24hour events reviewed; nursing and respiratory care staff consulted; no adverse overnight events reported to me; Objective Vital Signs - 12hr 10/28/17 10/28/17 10/28/17 23:15 23:30 23:45 Pulse Rate 102 H 101 H 102 H Respiratory 16 16 16 Rate Blood Pressure 165/120 153/115 158/117 O2 Sat by Pulse 100 Oximetry 10/29/17 10/29/17 10/29/17 00:00 00:15 00:31 Pulse Rate 101 H 97 H 110 H Respiratory 16 16 16 Rate Blood Pressure 162/119 156/115 147/105 O2 Sat by Pulse 100 Oximetry 10/29/17 10/29/17 10/29/17 00:45 00:54 01:00 Pulse Rate 108 H 101 H Respiratory 16 16 16 Rate Blood Pressure 145/106 129/93 O2 Sat by Pulse 100 100 100 Oximetry 10/29/17 10/29/17 10/29/17 01:15 01:30 01:45 Pulse Rate 98 H 96 H 99 H Respiratory 16 16 16 Rate Blood Pressure 118/86 112/81 119/85 O2 Sat by Pulse 100 Oximetry 10/29/17 10/29/17 10/29/17 02:00 02:15 02:30 Pulse Rate 97 H 96 H 94 H Respiratory 16 16 16 Rate Blood Pressure 118/84 121/86 114/78 O2 Sat by Pulse Oximetry 10/29/17 10/29/17 10/29/17 02:45 03:00 03:15 Pulse Rate 93 H 91 H 90 Respiratory 16 16 16 Rate Blood Pressure 118/88 124/90 128/97 O2 Sat by Pulse Oximetry 10/29/17 10/29/17 10/29/17 03:30 03:45 04:00 Pulse Rate 91 H 91 H 89 Respiratory 16 17 16 Rate Blood Pressure 133/101 144/111 140/105 O2 Sat by Pulse 100 100 Oximetry 10/29/17 10/29/17 10/29/17 04:15 04:30 04:43 Pulse Rate 88 90 Respiratory 16 16 16 Rate Blood Pressure 144/108 162/118 O2 Sat by Pulse 100 100 100 Oximetry 10/29/17 10/29/17 10/29/17 04:45 05:00 05:15 Pulse Rate 107 H 108 H 106 H Respiratory 18 17 16 Rate Blood Pressure 169/119 160/116 173/124 O2 Sat by Pulse 100 100 100 Oximetry 10/29/17 10/29/17 10/29/17 05:30 05:45 06:00 Pulse Rate 100 H 100 H 98 H Respiratory 16 16 17 Rate Blood Pressure 182/125 179/127 167/125 O2 Sat by Pulse 100 100 100 Oximetry 10/29/17 10/29/17 06:15 06:30 Pulse Rate 92 H 91 H Respiratory 16 16 Rate Blood Pressure 154/115 151/113 O2 Sat by Pulse 100 100 Oximetry CBC and BMP: 10/29/17 03:41 10/29/17 09:28 ABG, PT/INR, D-dimer: ABG POC ABG pH 7.378 (7.35-7.45) 10/29/17 04:55 POC ABG pCO2 31.2 (35-45) L 10/29/17 04:55 POC ABG pO2 123 (80-105) H 10/29/17 04:55 POC ABG HCO3 18.4 10/29/17 04:55 POC ABG Total CO2 19 10/29/17 04:55 POC ABG O2 Sat 99 10/29/17 04:55 PT/INR, D-dimer PT 16.8 Sec. (12.2-14.9) H 10/26/17 11:44 INR 1.29 (0.87-1.13) H 10/26/17 11:44 Abnormal lab findings: Abnormal Labs 10/26/17 10/26/17 10/26/17 11:23 11:44 11:44 WBC 20.6 H RBC 3.62 L Hgb 8.3 L Hct MCV MCH 23 L MCHC 24 L RDW 21.7 H Seg Neutrophils % Seg Neuts % (Manual) 76.0 H Lymphocytes % (Manual) 11.0 L Seg Neutrophils # Seg Neutrophils # Man 15.7 H Basophils # (Manual) 0.2 H PT INR POC ABG pH POC ABG pCO2 POC ABG pO2 Sodium Potassium Chloride Carbon Dioxide BUN Creatinine Glucose POC Glucose > 500 H Lactic Acid 4.10 H* Calcium Phosphorus Magnesium Alkaline Phosphatase Ammonia Total Creatine Kinase C-Reactive Protein Albumin Urine WBC (Auto) Salicylates 10/26/17 10/26/17 10/26/17 11:44 11:44 11:44 WBC RBC Hgb Hct MCV MCH MCHC RDW Seg Neutrophils % Seg Neuts % (Manual) Lymphocytes % (Manual) Seg Neutrophils # Seg Neutrophils # Man Basophils # (Manual) PT 16.8 H INR 1.29 H POC ABG pH POC ABG pCO2 POC ABG pO2 Sodium 146 H Potassium 6.6 H* Chloride Carbon Dioxide 3 L* BUN 34 H Creatinine 2.2 H Glucose 1281 H* POC Glucose Lactic Acid Calcium 8.0 L Phosphorus Magnesium Alkaline Phosphatase 196 H Ammonia 67.0 H Total Creatine Kinase 24 L C-Reactive Protein Albumin 3.6 L Urine WBC (Auto) Salicylates 10/26/17 10/26/17 10/26/17 11:44 12:01 12:59 WBC RBC Hgb Hct MCV MCH MCHC RDW Seg Neutrophils % Seg Neuts % (Manual) Lymphocytes % (Manual) Seg Neutrophils # Seg Neutrophils # Man Basophils # (Manual) PT INR POC ABG pH 6.895 L POC ABG pCO2 12.3 L POC ABG pO2 311 H Sodium Potassium Chloride Carbon Dioxide BUN Creatinine Glucose POC Glucose Lactic Acid Calcium Phosphorus Magnesium Alkaline Phosphatase Ammonia Total Creatine Kinase C-Reactive Protein Albumin Urine WBC (Auto) 42.0 H Salicylates < 0.3 L 10/26/17 10/26/17 10/26/17 13:06 13:17 13:17 WBC RBC Hgb Hct MCV MCH MCHC RDW Seg Neutrophils % Seg Neuts % (Manual) Lymphocytes % (Manual) Seg Neutrophils # Seg Neutrophils # Man Basophils # (Manual) PT INR POC ABG pH POC ABG pCO2 POC ABG pO2 Sodium 146 H Potassium 7.1 H* Chloride Carbon Dioxide 2 L* BUN 35 H Creatinine 2.3 H Glucose 1330 H* POC Glucose Lactic Acid 4.10 H* Calcium 7.7 L Phosphorus 11.10 H Magnesium 2.70 H Alkaline Phosphatase Ammonia Total Creatine Kinase C-Reactive Protein Albumin Urine WBC (Auto) Salicylates 10/26/17 10/26/17 10/26/17 14:57 15:26 15:26 WBC RBC Hgb Hct MCV MCH MCHC RDW Seg Neutrophils % Seg Neuts % (Manual) Lymphocytes % (Manual) Seg Neutrophils # Seg Neutrophils # Man Basophils # (Manual) PT INR POC ABG pH POC ABG pCO2 POC ABG pO2 Sodium 147 H Potassium 6.3 H* Chloride Carbon Dioxide < 2.0 L* BUN 37 H Creatinine 2.4 H Glucose 1115 H* POC Glucose > 500 H Lactic Acid 3.70 H* Calcium 7.2 L Phosphorus Magnesium Alkaline Phosphatase Ammonia Total Creatine Kinase C-Reactive Protein Albumin Urine WBC (Auto) Salicylates 10/26/17 10/26/17 10/26/17 16:02 17:51 17:51 WBC RBC Hgb Hct MCV MCH MCHC RDW Seg Neutrophils % Seg Neuts % (Manual) Lymphocytes % (Manual) Seg Neutrophils # Seg Neutrophils # Man Basophils # (Manual) PT INR POC ABG pH POC ABG pCO2 POC ABG pO2 Sodium 149 H Potassium Chloride Carbon Dioxide 2 L* BUN 36 H Creatinine 2.6 H Glucose 1063 H* POC Glucose > 500 H Lactic Acid 6.50 H* Calcium 7.0 L Phosphorus Magnesium Alkaline Phosphatase Ammonia Total Creatine Kinase C-Reactive Protein Albumin Urine WBC (Auto) Salicylates 10/26/17 10/26/17 10/26/17 18:42 19:55 19:55 WBC RBC Hgb Hct MCV MCH MCHC RDW Seg Neutrophils % Seg Neuts % (Manual) Lymphocytes % (Manual) Seg Neutrophils # Seg Neutrophils # Man Basophils # (Manual) PT INR POC ABG pH 6.974 L POC ABG pCO2 14.9 L POC ABG pO2 244 H Sodium 150 H Potassium Chloride 108.3 H Carbon Dioxide 4 L* BUN 33 H Creatinine 2.4 H Glucose 663 H* POC Glucose Lactic Acid 8.30 H* Calcium 7.0 L Phosphorus Magnesium Alkaline Phosphatase Ammonia Total Creatine Kinase C-Reactive Protein Albumin Urine WBC (Auto) Salicylates 10/26/17 10/26/17 10/26/17 21:26 21:26 23:55 WBC RBC Hgb Hct MCV MCH MCHC RDW Seg Neutrophils % Seg Neuts % (Manual) Lymphocytes % (Manual) Seg Neutrophils # Seg Neutrophils # Man Basophils # (Manual) PT INR POC ABG pH POC ABG pCO2 POC ABG pO2 Sodium 152 H Potassium 3.5 L Chloride 110.4 H Carbon Dioxide 6 L* BUN 32 H Creatinine 2.3 H Glucose 498 H POC Glucose 317 H Lactic Acid 9.00 H* Calcium 7.6 L Phosphorus Magnesium Alkaline Phosphatase Ammonia Total Creatine Kinase C-Reactive Protein Albumin Urine WBC (Auto) Salicylates 10/27/17 10/27/17 10/27/17 01:21 02:26 03:49 WBC RBC Hgb Hct MCV MCH MCHC RDW Seg Neutrophils % Seg Neuts % (Manual) Lymphocytes % (Manual) Seg Neutrophils # Seg Neutrophils # Man Basophils # (Manual) PT INR POC ABG pH POC ABG pCO2 POC ABG pO2 Sodium Potassium Chloride Carbon Dioxide BUN Creatinine Glucose POC Glucose 218 H 172 H 136 H Lactic Acid Calcium Phosphorus Magnesium Alkaline Phosphatase Ammonia Total Creatine Kinase C-Reactive Protein Albumin Urine WBC (Auto) Salicylates 10/27/17 10/27/17 10/27/17 04:50 05:26 06:01 WBC RBC Hgb Hct MCV MCH MCHC RDW Seg Neutrophils % Seg Neuts % (Manual) Lymphocytes % (Manual) Seg Neutrophils # Seg Neutrophils # Man Basophils # (Manual) PT INR POC ABG pH 7.284 L POC ABG pCO2 POC ABG pO2 204 H Sodium 158 H Potassium 3.5 L Chloride 118.2 H Carbon Dioxide 19 L D BUN 27 H Creatinine 1.9 H Glucose 232 H POC Glucose 221 H Lactic Acid Calcium 7.1 L Phosphorus Magnesium Alkaline Phosphatase Ammonia Total Creatine Kinase C-Reactive Protein Albumin Urine WBC (Auto) Salicylates 10/27/17 10/27/17 10/27/17 06:05 07:27 09:28 WBC RBC Hgb Hct MCV MCH MCHC RDW Seg Neutrophils % Seg Neuts % (Manual) Lymphocytes % (Manual) Seg Neutrophils # Seg Neutrophils # Man Basophils # (Manual) PT INR POC ABG pH POC ABG pCO2 POC ABG pO2 Sodium Potassium Chloride Carbon Dioxide BUN Creatinine Glucose POC Glucose 286 H 161 H 123 H Lactic Acid Calcium Phosphorus Magnesium Alkaline Phosphatase Ammonia Total Creatine Kinase C-Reactive Protein Albumin Urine WBC (Auto) Salicylates 10/27/17 10/27/17 10/27/17 12:30 13:07 14:44 WBC RBC Hgb Hct MCV MCH MCHC RDW Seg Neutrophils % Seg Neuts % (Manual) Lymphocytes % (Manual) Seg Neutrophils # Seg Neutrophils # Man Basophils # (Manual) PT INR POC ABG pH POC ABG pCO2 POC ABG pO2 Sodium 158 H Potassium 3.2 L Chloride 120.7 H Carbon Dioxide 16 L BUN 23 H Creatinine 1.9 H Glucose 270 H POC Glucose 274 H 200 H Lactic Acid Calcium 7.1 L Phosphorus Magnesium Alkaline Phosphatase Ammonia Total Creatine Kinase C-Reactive Protein Albumin Urine WBC (Auto) Salicylates 10/27/17 10/27/17 10/27/17 19:03 20:24 20:24 WBC RBC Hgb Hct MCV MCH MCHC RDW Seg Neutrophils % Seg Neuts % (Manual) Lymphocytes % (Manual) Seg Neutrophils # Seg Neutrophils # Man Basophils # (Manual) PT INR POC ABG pH POC ABG pCO2 POC ABG pO2 Sodium 155 H Potassium 3.4 L Chloride 119.3 H Carbon Dioxide 19 L BUN 20 H Creatinine 1.9 H Glucose 272 H POC Glucose 124 H Lactic Acid Calcium 7.0 L Phosphorus 1.50 L D Magnesium Alkaline Phosphatase Ammonia Total Creatine Kinase C-Reactive Protein 1.50 H Albumin Urine WBC (Auto) Salicylates 10/27/17 10/27/17 10/28/17 20:40 21:05 03:02 WBC RBC Hgb Hct MCV MCH MCHC RDW Seg Neutrophils % Seg Neuts % (Manual) Lymphocytes % (Manual) Seg Neutrophils # Seg Neutrophils # Man Basophils # (Manual) PT INR POC ABG pH 7.327 L POC ABG pCO2 32.1 L POC ABG pO2 Sodium 157 H Potassium Chloride 118.8 H Carbon Dioxide 13 L BUN 18 H Creatinine 2.0 H Glucose 560 H* POC Glucose 289 H Lactic Acid Calcium 6.8 L Phosphorus 5.40 H D Magnesium Alkaline Phosphatase Ammonia Total Creatine Kinase C-Reactive Protein Albumin Urine WBC (Auto) Salicylates 10/28/17 10/28/17 10/28/17 06:06 07:46 08:21 WBC RBC Hgb Hct MCV MCH MCHC RDW Seg Neutrophils % Seg Neuts % (Manual) Lymphocytes % (Manual) Seg Neutrophils # Seg Neutrophils # Man Basophils # (Manual) PT INR POC ABG pH POC ABG pCO2 POC ABG pO2 Sodium Potassium Chloride Carbon Dioxide BUN Creatinine Glucose POC Glucose > 500 H 500 H Lactic Acid Calcium Phosphorus 6.70 H D Magnesium Alkaline Phosphatase Ammonia Total Creatine Kinase C-Reactive Protein Albumin Urine WBC (Auto) Salicylates 10/28/17 10/28/17 10/28/17 09:34 11:13 12:55 WBC RBC Hgb Hct MCV MCH MCHC RDW Seg Neutrophils % Seg Neuts % (Manual) Lymphocytes % (Manual) Seg Neutrophils # Seg Neutrophils # Man Basophils # (Manual) PT INR POC ABG pH POC ABG pCO2 POC ABG pO2 Sodium Potassium Chloride Carbon Dioxide BUN Creatinine Glucose POC Glucose 435 H 273 H 149 H Lactic Acid Calcium Phosphorus Magnesium Alkaline Phosphatase Ammonia Total Creatine Kinase C-Reactive Protein Albumin Urine WBC (Auto) Salicylates 10/28/17 10/28/17 10/28/17 14:27 15:39 15:39 WBC 15.5 H RBC 3.59 L Hgb 8.3 L Hct 27.6 L D MCV 77 L MCH 23 L MCHC RDW 20.9 H Seg Neutrophils % 78.5 H Seg Neuts % (Manual) Lymphocytes % (Manual) Seg Neutrophils # 12.2 H Seg Neutrophils # Man Basophils # (Manual) PT INR POC ABG pH POC ABG pCO2 33.9 L POC ABG pO2 138 H Sodium 164 H* Potassium 3.5 L Chloride 125.3 H Carbon Dioxide 18 L BUN Creatinine 1.6 H Glucose 37 L* POC Glucose Lactic Acid Calcium 7.5 L Phosphorus Magnesium Alkaline Phosphatase Ammonia Total Creatine Kinase C-Reactive Protein Albumin Urine WBC (Auto) Salicylates 10/28/17 10/28/17 10/28/17 15:47 15:50 16:28 WBC RBC Hgb Hct MCV MCH MCHC RDW Seg Neutrophils % Seg Neuts % (Manual) Lymphocytes % (Manual) Seg Neutrophils # Seg Neutrophils # Man Basophils # (Manual) PT INR POC ABG pH POC ABG pCO2 POC ABG pO2 Sodium Potassium Chloride Carbon Dioxide BUN Creatinine Glucose POC Glucose < 40 L 114 H Lactic Acid Calcium Phosphorus Magnesium Alkaline Phosphatase Ammonia Total Creatine Kinase C-Reactive Protein 4.40 H Albumin Urine WBC (Auto) Salicylates 10/28/17 10/28/17 10/28/17 19:07 23:10 23:59 WBC RBC Hgb Hct MCV MCH MCHC RDW Seg Neutrophils % Seg Neuts % (Manual) Lymphocytes % (Manual) Seg Neutrophils # Seg Neutrophils # Man Basophils # (Manual) PT INR POC ABG pH POC ABG pCO2 POC ABG pO2 Sodium 159 H Potassium Chloride 124.1 H Carbon Dioxide 19 L BUN Creatinine 1.4 H Glucose 219 H POC Glucose 111 H 307 H Lactic Acid Calcium 7.1 L Phosphorus Magnesium Alkaline Phosphatase Ammonia Total Creatine Kinase C-Reactive Protein Albumin Urine WBC (Auto) Salicylates 10/29/17 10/29/17 10/29/17 03:41 03:41 04:55 WBC 14.1 H RBC 3.32 L Hgb 7.6 L Hct 25.5 L MCV 77 L MCH 23 L MCHC RDW 20.8 H Seg Neutrophils % Seg Neuts % (Manual) Lymphocytes % (Manual) Seg Neutrophils # Seg Neutrophils # Man Basophils # (Manual) PT INR POC ABG pH POC ABG pCO2 31.2 L POC ABG pO2 123 H Sodium 158 H Potassium Chloride 122.7 H Carbon Dioxide 15 L BUN Creatinine 1.3 H Glucose 176 H POC Glucose Lactic Acid Calcium 7.2 L Phosphorus Magnesium Alkaline Phosphatase Ammonia Total Creatine Kinase C-Reactive Protein Albumin Urine WBC (Auto) Salicylates 10/29/17 10/29/17 05:44 09:28 WBC RBC Hgb Hct MCV MCH MCHC RDW Seg Neutrophils % Seg Neuts % (Manual) Lymphocytes % (Manual) Seg Neutrophils # Seg Neutrophils # Man Basophils # (Manual) PT INR POC ABG pH POC ABG pCO2 POC ABG pO2 Sodium 151 H Potassium Chloride 117.1 H Carbon Dioxide 17 L BUN Creatinine Glucose 378 H POC Glucose 253 H Lactic Acid Calcium 7.4 L Phosphorus Magnesium Alkaline Phosphatase Ammonia Total Creatine Kinase C-Reactive Protein Albumin Urine WBC (Auto) Salicylates
--- NOTE | 2017-10-29 12:10 | Progress Note ---
Assessment and Plan Assessment: 1) SIRS: still hypotermia, tachycardia; leukocytosis better. Etiology UTI? +/- encephalopathy +/- asp pneumonitis +/- dehydration from DKA . CXR negative x 2. Blood cultures negative. CRP=4.4 2) Encephalopathy: ? from OD 3) Acute respiratory failure: from encephalopathy / OD -Tracheal asp + Strep group B and Barbie likely a colonizer 4) NUNU - better 5) Uncontrolled DM with DKA 6) Hyperkalemia - resolved 7) Extensive sclerae edema/lip edema ? angioedema 8) UTI- mild Plan: -follow-up blood culture and urine culture -follow-up procal -continue levaquin and flagyl to cover for pneumonitis -when stable obtain CT chest -monitor facial edema -check TSH/cortisol Thank you for your consultation, will follow up with you. Aziza Stanford MD Infectious Diseases Specialist [facility] ([facility]) M [phone] O [phone] Subjective Date of service: 10/29/17 Principal diagnosis: acute kidney failure Interval history: Remains critically ill, sedated on the vent. Hypothermic. Microbiology: Blood cultures: 10/27 ngtd Urine cultures: Respiratory cultures: 10/27 Beta hem group B and Barbie Current Antimicrobials: Zosyn 10/26 Vancomycin 10/26 Previous Antimicrobials: Objective - Exam Narrative Exam: General appearance: sedated on the vent eye open following simple commands Eyes: anicteric +marked sclerae edema, moist conjunctivae; no lid-lag; PERRLA HENT: Atraumatic; +marked lips edema, oropharynx +ETT Neck: Trachea midline; supple, no thyromegaly or lymphadenopathy Lungs: CTA, with normal respiratory effort and no intercostal retractions CV: RRR Abdomen: Soft, non-tender; no masses or hepatosplenomegaly Extremities: No peripheral edema or extremity lymphadenopathy Skin: Normal temperature, turgor and texture; no rash, ulcers or subcutaneous nodules Psych: sedated Neuro: sedated but eye open and Moving all extermities Lines: - Constitutional Vitals: Vital Signs Temp Pulse Resp BP Pulse Ox 96.1 F L 90 16 157/109 100 10/27/17 06:30 10/29/17 08:00 10/29/17 06:30 10/29/17 08:00 10/29/17 08:00 - Labs CBC & Chem 7: 10/29/17 03:41 10/29/17 09:28 Labs: Abnormal lab results 10/26/17 10/28/17 10/28/17 Range/Units 12:59 12:55 14:27 WBC (4.5-11.0) K/mm3 RBC (3.65-5.03) M/mm3 Hgb (10.1-14.3) gm/dl Hct (30.3-42.9) % MCV (79-97) fl MCH (28-32) pg RDW (13.2-15.2) % Seg Neutrophils % (40.0-70.0) % Seg Neutrophils # (1.8-7.7) K/mm3 POC ABG pCO2 33.9 L (35-45) POC ABG pO2 138 H (80-105) Sodium (137-145) mmol/L Potassium (3.6-5.0) mmol/L Chloride (98-107) mmol/L Carbon Dioxide (22-30) mmol/L Creatinine (0.7-1.2) mg/dL Glucose (65-100) mg/dL POC Glucose 149 H (70-105) Calcium (8.4-10.2) mg/dL C-Reactive Protein (0.00-1.30) mg/dL Urine WBC (Auto) 42.0 H (0.0-6.0) /HPF 10/28/17 10/28/17 10/28/17 Range/Units 15:39 15:39 15:47 WBC 15.5 H (4.5-11.0) K/mm3 RBC 3.59 L (3.65-5.03) M/mm3 Hgb 8.3 L (10.1-14.3) gm/dl Hct 27.6 L D (30.3-42.9) % MCV 77 L (79-97) fl MCH 23 L (28-32) pg RDW 20.9 H (13.2-15.2) % Seg Neutrophils % 78.5 H (40.0-70.0) % Seg Neutrophils # 12.2 H (1.8-7.7) K/mm3 POC ABG pCO2 (35-45) POC ABG pO2 (80-105) Sodium 164 H* (137-145) mmol/L Potassium 3.5 L (3.6-5.0) mmol/L Chloride 125.3 H (98-107) mmol/L Carbon Dioxide 18 L (22-30) mmol/L Creatinine 1.6 H (0.7-1.2) mg/dL Glucose 37 L* (65-100) mg/dL POC Glucose < 40 L (70-105) Calcium 7.5 L (8.4-10.2) mg/dL C-Reactive Protein (0.00-1.30) mg/dL Urine WBC (Auto) (0.0-6.0) /HPF 10/28/17 10/28/17 10/28/17 Range/Units 15:50 16:28 19:07 WBC (4.5-11.0) K/mm3 RBC (3.65-5.03) M/mm3 Hgb (10.1-14.3) gm/dl Hct (30.3-42.9) % MCV (79-97) fl MCH (28-32) pg RDW (13.2-15.2) % Seg Neutrophils % (40.0-70.0) % Seg Neutrophils # (1.8-7.7) K/mm3 POC ABG pCO2 (35-45) POC ABG pO2 (80-105) Sodium (137-145) mmol/L Potassium (3.6-5.0) mmol/L Chloride (98-107) mmol/L Carbon Dioxide (22-30) mmol/L Creatinine (0.7-1.2) mg/dL Glucose (65-100) mg/dL POC Glucose 114 H 111 H (70-105) Calcium (8.4-10.2) mg/dL C-Reactive Protein 4.40 H (0.00-1.30) mg/dL Urine WBC (Auto) (0.0-6.0) /HPF 10/28/17 10/28/17 10/29/17 Range/Units 23:10 23:59 03:41 WBC (4.5-11.0) K/mm3 RBC (3.65-5.03) M/mm3 Hgb (10.1-14.3) gm/dl Hct (30.3-42.9) % MCV (79-97) fl MCH (28-32) pg RDW (13.2-15.2) % Seg Neutrophils % (40.0-70.0) % Seg Neutrophils # (1.8-7.7) K/mm3 POC ABG pCO2 (35-45) POC ABG pO2 (80-105) Sodium 159 H 158 H (137-145) mmol/L Potassium (3.6-5.0) mmol/L Chloride 124.1 H 122.7 H (98-107) mmol/L Carbon Dioxide 19 L 15 L (22-30) mmol/L Creatinine 1.4 H 1.3 H (0.7-1.2) mg/dL Glucose 219 H 176 H (65-100) mg/dL POC Glucose 307 H (70-105) Calcium 7.1 L 7.2 L (8.4-10.2) mg/dL C-Reactive Protein (0.00-1.30) mg/dL Urine WBC (Auto) (0.0-6.0) /HPF 10/29/17 10/29/17 10/29/17 Range/Units 03:41 04:55 05:44 WBC 14.1 H (4.5-11.0) K/mm3 RBC 3.32 L (3.65-5.03) M/mm3 Hgb 7.6 L (10.1-14.3) gm/dl Hct 25.5 L (30.3-42.9) % MCV 77 L (79-97) fl MCH 23 L (28-32) pg RDW 20.8 H (13.2-15.2) % Seg Neutrophils % (40.0-70.0) % Seg Neutrophils # (1.8-7.7) K/mm3 POC ABG pCO2 31.2 L (35-45) POC ABG pO2 123 H (80-105) Sodium (137-145) mmol/L Potassium (3.6-5.0) mmol/L Chloride (98-107) mmol/L Carbon Dioxide (22-30) mmol/L Creatinine (0.7-1.2) mg/dL Glucose (65-100) mg/dL POC Glucose 253 H (70-105) Calcium (8.4-10.2) mg/dL C-Reactive Protein (0.00-1.30) mg/dL Urine WBC (Auto) (0.0-6.0) /HPF 10/29/17 10/29/17 Range/Units 09:28 10:39 WBC (4.5-11.0) K/mm3 RBC (3.65-5.03) M/mm3 Hgb (10.1-14.3) gm/dl Hct (30.3-42.9) % MCV (79-97) fl MCH (28-32) pg RDW (13.2-15.2) % Seg Neutrophils % (40.0-70.0) % Seg Neutrophils # (1.8-7.7) K/mm3 POC ABG pCO2 (35-45) POC ABG pO2 (80-105) Sodium 151 H (137-145) mmol/L Potassium (3.6-5.0) mmol/L Chloride 117.1 H (98-107) mmol/L Carbon Dioxide 17 L (22-30) mmol/L Creatinine (0.7-1.2) mg/dL Glucose 378 H (65-100) mg/dL POC Glucose 418 H (70-105) Calcium 7.4 L (8.4-10.2) mg/dL C-Reactive Protein (0.00-1.30) mg/dL Urine WBC (Auto) (0.0-6.0) /HPF
--- NOTE | 2017-10-29 12:44 | Progress Note ---
Assessment and Plan Acute respiratory failure, on mechanical ventilatory support. Acute encephalopathy, appears toxic metabolic at this point. Diabetic ketoacidosis. Sepsis syndrome. History of chronic pain. Possible drug abuse. Anemia. Leukocytosis. Hyperammonemia. Severe metabolic acidosis with a lactic acid component. - follow CT chest to r/o mediastinal pathology / SVC syndrome once azotemia resolved as will need IV contrast - continue empiric PPI, antihistamine therapy and steroids re: possible angioedema element - reduce set rate on MVS to 12/min - continue GI & VTE prophylaxis - azotemia per nephrology - free water for hypernatremia - daily SAT's & SBT's shortly - continue bronchodilators and pulmonary hygiene per RT - VAP bundle addressed - continue other care per attending / other consultants ...30' CCT Subjective Date of service: 10/29/17 Principal diagnosis: Acute Hypoxemic Respiratory Failure; Acute Encephalopathy Interval history: Patient is seen today for: Acute Hypoxemic Respiratory Failure; Acute Encephalopathy Seen and examined at bedside; 24hour events reviewed; nursing and respiratory care staff consulted; no adverse overnight events reported to me; remains on MVS ; still with facial and tristen-orbital edema; not following prompts; no emesis or overt aspiration; no gross seizures Objective Vital Signs - 12hr 10/29/17 10/29/17 10/29/17 00:45 00:54 01:00 Pulse Rate 108 H 101 H Respiratory 16 16 16 Rate Blood Pressure 145/106 129/93 O2 Sat by Pulse 100 100 100 Oximetry 10/29/17 10/29/17 10/29/17 01:15 01:30 01:45 Pulse Rate 98 H 96 H 99 H Respiratory 16 16 16 Rate Blood Pressure 118/86 112/81 119/85 O2 Sat by Pulse 100 Oximetry 10/29/17 10/29/17 10/29/17 02:00 02:15 02:30 Pulse Rate 97 H 96 H 94 H Respiratory 16 16 16 Rate Blood Pressure 118/84 121/86 114/78 O2 Sat by Pulse Oximetry 10/29/17 10/29/17 10/29/17 02:45 03:00 03:15 Pulse Rate 93 H 91 H 90 Respiratory 16 16 16 Rate Blood Pressure 118/88 124/90 128/97 O2 Sat by Pulse Oximetry 10/29/17 10/29/17 10/29/17 03:30 03:45 04:00 Pulse Rate 91 H 91 H 89 Respiratory 16 17 16 Rate Blood Pressure 133/101 144/111 140/105 O2 Sat by Pulse 100 100 Oximetry 10/29/17 10/29/17 10/29/17 04:15 04:30 04:43 Pulse Rate 88 90 Respiratory 16 16 16 Rate Blood Pressure 144/108 162/118 O2 Sat by Pulse 100 100 100 Oximetry 10/29/17 10/29/17 10/29/17 04:45 05:00 05:15 Pulse Rate 107 H 108 H 106 H Respiratory 18 17 16 Rate Blood Pressure 169/119 160/116 173/124 O2 Sat by Pulse 100 100 100 Oximetry 10/29/17 10/29/17 10/29/17 05:30 05:45 06:00 Pulse Rate 100 H 100 H 98 H Respiratory 16 16 17 Rate Blood Pressure 182/125 179/127 167/125 O2 Sat by Pulse 100 100 100 Oximetry 10/29/17 10/29/17 10/29/17 06:15 06:30 08:00 Pulse Rate 92 H 91 H 90 Respiratory 16 16 Rate Blood Pressure 154/115 151/113 157/109 O2 Sat by Pulse 100 100 100 Oximetry Constitutional: appears uncomfortable, other (sedated) Eyes: non-icteric, other (orbital phimosis) ENT: oropharynx moist, oropharyngeal exudate pre Neck: supple, no lymphadenopathy, no JVD, other (neck and facial swelling) Effort: mildly labored Ascultation: Bilateral: rhonchi Percussion: Bilateral: not dull Cardiovascular: regular rate and rhythm, other (No palpable HSM) Gastrointestinal: normoactive bowel sounds, soft, non-tender, non-distended, other (no palpable HSM) Integumentary: normal Extremities: no cyanosis, no edema, pulses normal, no ischemia or petechiae Neurologic: unable to assess Psychiatric: other (sedated) CBC and BMP: 11/02/17 Unknown 11/03/17 04:00 ABG, PT/INR, D-dimer: ABG POC ABG pH 7.378 (7.35-7.45) 10/29/17 04:55 POC ABG pCO2 31.2 (35-45) L 10/29/17 04:55 POC ABG pO2 123 (80-105) H 10/29/17 04:55 POC ABG HCO3 18.4 10/29/17 04:55 POC ABG Total CO2 19 10/29/17 04:55 POC ABG O2 Sat 99 10/29/17 04:55 PT/INR, D-dimer PT 16.8 Sec. (12.2-14.9) H 10/26/17 11:44 INR 1.29 (0.87-1.13) H 10/26/17 11:44 Abnormal lab findings: Abnormal Labs 10/26/17 10/26/17 10/26/17 11:23 11:44 11:44 WBC 20.6 H RBC 3.62 L Hgb 8.3 L Hct MCV MCH 23 L MCHC 24 L RDW 21.7 H Seg Neutrophils % Seg Neuts % (Manual) 76.0 H Lymphocytes % (Manual) 11.0 L Seg Neutrophils # Seg Neutrophils # Man 15.7 H Basophils # (Manual) 0.2 H PT INR POC ABG pH POC ABG pCO2 POC ABG pO2 Sodium Potassium Chloride Carbon Dioxide BUN Creatinine Glucose POC Glucose > 500 H Lactic Acid 4.10 H* Calcium Phosphorus Magnesium Alkaline Phosphatase Ammonia Total Creatine Kinase C-Reactive Protein Albumin Urine WBC (Auto) Salicylates 10/26/17 10/26/17 10/26/17 11:44 11:44 11:44 WBC RBC Hgb Hct MCV MCH MCHC RDW Seg Neutrophils % Seg Neuts % (Manual) Lymphocytes % (Manual) Seg Neutrophils # Seg Neutrophils # Man Basophils # (Manual) PT 16.8 H INR 1.29 H POC ABG pH POC ABG pCO2 POC ABG pO2 Sodium 146 H Potassium 6.6 H* Chloride Carbon Dioxide 3 L* BUN 34 H Creatinine 2.2 H Glucose 1281 H* POC Glucose Lactic Acid Calcium 8.0 L Phosphorus Magnesium Alkaline Phosphatase 196 H Ammonia 67.0 H Total Creatine Kinase 24 L C-Reactive Protein Albumin 3.6 L Urine WBC (Auto) Salicylates 10/26/17 10/26/17 10/26/17 11:44 12:01 12:59 WBC RBC Hgb Hct MCV MCH MCHC RDW Seg Neutrophils % Seg Neuts % (Manual) Lymphocytes % (Manual) Seg Neutrophils # Seg Neutrophils # Man Basophils # (Manual) PT INR POC ABG pH 6.895 L POC ABG pCO2 12.3 L POC ABG pO2 311 H Sodium Potassium Chloride Carbon Dioxide BUN Creatinine Glucose POC Glucose Lactic Acid Calcium Phosphorus Magnesium Alkaline Phosphatase Ammonia Total Creatine Kinase C-Reactive Protein Albumin Urine WBC (Auto) 42.0 H Salicylates < 0.3 L 10/26/17 10/26/17 10/26/17 13:06 13:17 13:17 WBC RBC Hgb Hct MCV MCH MCHC RDW Seg Neutrophils % Seg Neuts % (Manual) Lymphocytes % (Manual) Seg Neutrophils # Seg Neutrophils # Man Basophils # (Manual) PT INR POC ABG pH POC ABG pCO2 POC ABG pO2 Sodium 146 H Potassium 7.1 H* Chloride Carbon Dioxide 2 L* BUN 35 H Creatinine 2.3 H Glucose 1330 H* POC Glucose Lactic Acid 4.10 H* Calcium 7.7 L Phosphorus 11.10 H Magnesium 2.70 H Alkaline Phosphatase Ammonia Total Creatine Kinase C-Reactive Protein Albumin Urine WBC (Auto) Salicylates 10/26/17 10/26/17 10/26/17 14:57 15:26 15:26 WBC RBC Hgb Hct MCV MCH MCHC RDW Seg Neutrophils % Seg Neuts % (Manual) Lymphocytes % (Manual) Seg Neutrophils # Seg Neutrophils # Man Basophils # (Manual) PT INR POC ABG pH POC ABG pCO2 POC ABG pO2 Sodium 147 H Potassium 6.3 H* Chloride Carbon Dioxide < 2.0 L* BUN 37 H Creatinine 2.4 H Glucose 1115 H* POC Glucose > 500 H Lactic Acid 3.70 H* Calcium 7.2 L Phosphorus Magnesium Alkaline Phosphatase Ammonia Total Creatine Kinase C-Reactive Protein Albumin Urine WBC (Auto) Salicylates 10/26/17 10/26/17 10/26/17 16:02 17:51 17:51 WBC RBC Hgb Hct MCV MCH MCHC RDW Seg Neutrophils % Seg Neuts % (Manual) Lymphocytes % (Manual) Seg Neutrophils # Seg Neutrophils # Man Basophils # (Manual) PT INR POC ABG pH POC ABG pCO2 POC ABG pO2 Sodium 149 H Potassium Chloride Carbon Dioxide 2 L* BUN 36 H Creatinine 2.6 H Glucose 1063 H* POC Glucose > 500 H Lactic Acid 6.50 H* Calcium 7.0 L Phosphorus Magnesium Alkaline Phosphatase Ammonia Total Creatine Kinase C-Reactive Protein Albumin Urine WBC (Auto) Salicylates 10/26/17 10/26/17 10/26/17 18:42 19:55 19:55 WBC RBC Hgb Hct MCV MCH MCHC RDW Seg Neutrophils % Seg Neuts % (Manual) Lymphocytes % (Manual) Seg Neutrophils # Seg Neutrophils # Man Basophils # (Manual) PT INR POC ABG pH 6.974 L POC ABG pCO2 14.9 L POC ABG pO2 244 H Sodium 150 H Potassium Chloride 108.3 H Carbon Dioxide 4 L* BUN 33 H Creatinine 2.4 H Glucose 663 H* POC Glucose Lactic Acid 8.30 H* Calcium 7.0 L Phosphorus Magnesium Alkaline Phosphatase Ammonia Total Creatine Kinase C-Reactive Protein Albumin Urine WBC (Auto) Salicylates 10/26/17 10/26/17 10/26/17 21:26 21:26 23:55 WBC RBC Hgb Hct MCV MCH MCHC RDW Seg Neutrophils % Seg Neuts % (Manual) Lymphocytes % (Manual) Seg Neutrophils # Seg Neutrophils # Man Basophils # (Manual) PT INR POC ABG pH POC ABG pCO2 POC ABG pO2 Sodium 152 H Potassium 3.5 L Chloride 110.4 H Carbon Dioxide 6 L* BUN 32 H Creatinine 2.3 H Glucose 498 H POC Glucose 317 H Lactic Acid 9.00 H* Calcium 7.6 L Phosphorus Magnesium Alkaline Phosphatase Ammonia Total Creatine Kinase C-Reactive Protein Albumin Urine WBC (Auto) Salicylates 10/27/17 10/27/17 10/27/17 01:21 02:26 03:49 WBC RBC Hgb Hct MCV MCH MCHC RDW Seg Neutrophils % Seg Neuts % (Manual) Lymphocytes % (Manual) Seg Neutrophils # Seg Neutrophils # Man Basophils # (Manual) PT INR POC ABG pH POC ABG pCO2 POC ABG pO2 Sodium Potassium Chloride Carbon Dioxide BUN Creatinine Glucose POC Glucose 218 H 172 H 136 H Lactic Acid Calcium Phosphorus Magnesium Alkaline Phosphatase Ammonia Total Creatine Kinase C-Reactive Protein Albumin Urine WBC (Auto) Salicylates 10/27/17 10/27/17 10/27/17 04:50 05:26 06:01 WBC RBC Hgb Hct MCV MCH MCHC RDW Seg Neutrophils % Seg Neuts % (Manual) Lymphocytes % (Manual) Seg Neutrophils # Seg Neutrophils # Man Basophils # (Manual) PT INR POC ABG pH 7.284 L POC ABG pCO2 POC ABG pO2 204 H Sodium 158 H Potassium 3.5 L Chloride 118.2 H Carbon Dioxide 19 L D BUN 27 H Creatinine 1.9 H Glucose 232 H POC Glucose 221 H Lactic Acid Calcium 7.1 L Phosphorus Magnesium Alkaline Phosphatase Ammonia Total Creatine Kinase C-Reactive Protein Albumin Urine WBC (Auto) Salicylates 10/27/17 10/27/17 10/27/17 06:05 07:27 09:28 WBC RBC Hgb Hct MCV MCH MCHC RDW Seg Neutrophils % Seg Neuts % (Manual) Lymphocytes % (Manual) Seg Neutrophils # Seg Neutrophils # Man Basophils # (Manual) PT INR POC ABG pH POC ABG pCO2 POC ABG pO2 Sodium Potassium Chloride Carbon Dioxide BUN Creatinine Glucose POC Glucose 286 H 161 H 123 H Lactic Acid Calcium Phosphorus Magnesium Alkaline Phosphatase Ammonia Total Creatine Kinase C-Reactive Protein Albumin Urine WBC (Auto) Salicylates 10/27/17 10/27/17 10/27/17 12:30 13:07 14:44 WBC RBC Hgb Hct MCV MCH MCHC RDW Seg Neutrophils % Seg Neuts % (Manual) Lymphocytes % (Manual) Seg Neutrophils # Seg Neutrophils # Man Basophils # (Manual) PT INR POC ABG pH POC ABG pCO2 POC ABG pO2 Sodium 158 H Potassium 3.2 L Chloride 120.7 H Carbon Dioxide 16 L BUN 23 H Creatinine 1.9 H Glucose 270 H POC Glucose 274 H 200 H Lactic Acid Calcium 7.1 L Phosphorus Magnesium Alkaline Phosphatase Ammonia Total Creatine Kinase C-Reactive Protein Albumin Urine WBC (Auto) Salicylates 10/27/17 10/27/17 10/27/17 19:03 20:24 20:24 WBC RBC Hgb Hct MCV MCH MCHC RDW Seg Neutrophils % Seg Neuts % (Manual) Lymphocytes % (Manual) Seg Neutrophils # Seg Neutrophils # Man Basophils # (Manual) PT INR POC ABG pH POC ABG pCO2 POC ABG pO2 Sodium 155 H Potassium 3.4 L Chloride 119.3 H Carbon Dioxide 19 L BUN 20 H Creatinine 1.9 H Glucose 272 H POC Glucose 124 H Lactic Acid Calcium 7.0 L Phosphorus 1.50 L D Magnesium Alkaline Phosphatase Ammonia Total Creatine Kinase C-Reactive Protein 1.50 H Albumin Urine WBC (Auto) Salicylates 10/27/17 10/27/17 10/28/17 20:40 21:05 03:02 WBC RBC Hgb Hct MCV MCH MCHC RDW Seg Neutrophils % Seg Neuts % (Manual) Lymphocytes % (Manual) Seg Neutrophils # Seg Neutrophils # Man Basophils # (Manual) PT INR POC ABG pH 7.327 L POC ABG pCO2 32.1 L POC ABG pO2 Sodium 157 H Potassium Chloride 118.8 H Carbon Dioxide 13 L BUN 18 H Creatinine 2.0 H Glucose 560 H* POC Glucose 289 H Lactic Acid Calcium 6.8 L Phosphorus 5.40 H D Magnesium Alkaline Phosphatase Ammonia Total Creatine Kinase C-Reactive Protein Albumin Urine WBC (Auto) Salicylates 10/28/17 10/28/17 10/28/17 06:06 07:46 08:21 WBC RBC Hgb Hct MCV MCH MCHC RDW Seg Neutrophils % Seg Neuts % (Manual) Lymphocytes % (Manual) Seg Neutrophils # Seg Neutrophils # Man Basophils # (Manual) PT INR POC ABG pH POC ABG pCO2 POC ABG pO2 Sodium Potassium Chloride Carbon Dioxide BUN Creatinine Glucose POC Glucose > 500 H 500 H Lactic Acid Calcium Phosphorus 6.70 H D Magnesium Alkaline Phosphatase Ammonia Total Creatine Kinase C-Reactive Protein Albumin Urine WBC (Auto) Salicylates 10/28/17 10/28/17 10/28/17 09:34 11:13 12:55 WBC RBC Hgb Hct MCV MCH MCHC RDW Seg Neutrophils % Seg Neuts % (Manual) Lymphocytes % (Manual) Seg Neutrophils # Seg Neutrophils # Man Basophils # (Manual) PT INR POC ABG pH POC ABG pCO2 POC ABG pO2 Sodium Potassium Chloride Carbon Dioxide BUN Creatinine Glucose POC Glucose 435 H 273 H 149 H Lactic Acid Calcium Phosphorus Magnesium Alkaline Phosphatase Ammonia Total Creatine Kinase C-Reactive Protein Albumin Urine WBC (Auto) Salicylates 10/28/17 10/28/17 10/28/17 14:27 15:39 15:39 WBC 15.5 H RBC 3.59 L Hgb 8.3 L Hct 27.6 L D MCV 77 L MCH 23 L MCHC RDW 20.9 H Seg Neutrophils % 78.5 H Seg Neuts % (Manual) Lymphocytes % (Manual) Seg Neutrophils # 12.2 H Seg Neutrophils # Man Basophils # (Manual) PT INR POC ABG pH POC ABG pCO2 33.9 L POC ABG pO2 138 H Sodium 164 H* Potassium 3.5 L Chloride 125.3 H Carbon Dioxide 18 L BUN Creatinine 1.6 H Glucose 37 L* POC Glucose Lactic Acid Calcium 7.5 L Phosphorus Magnesium Alkaline Phosphatase Ammonia Total Creatine Kinase C-Reactive Protein Albumin Urine WBC (Auto) Salicylates 10/28/17 10/28/17 10/28/17 15:47 15:50 16:28 WBC RBC Hgb Hct MCV MCH MCHC RDW Seg Neutrophils % Seg Neuts % (Manual) Lymphocytes % (Manual) Seg Neutrophils # Seg Neutrophils # Man Basophils # (Manual) PT INR POC ABG pH POC ABG pCO2 POC ABG pO2 Sodium Potassium Chloride Carbon Dioxide BUN Creatinine Glucose POC Glucose < 40 L 114 H Lactic Acid Calcium Phosphorus Magnesium Alkaline Phosphatase Ammonia Total Creatine Kinase C-Reactive Protein 4.40 H Albumin Urine WBC (Auto) Salicylates 10/28/17 10/28/17 10/28/17 19:07 23:10 23:59 WBC RBC Hgb Hct MCV MCH MCHC RDW Seg Neutrophils % Seg Neuts % (Manual) Lymphocytes % (Manual) Seg Neutrophils # Seg Neutrophils # Man Basophils # (Manual) PT INR POC ABG pH POC ABG pCO2 POC ABG pO2 Sodium 159 H Potassium Chloride 124.1 H Carbon Dioxide 19 L BUN Creatinine 1.4 H Glucose 219 H POC Glucose 111 H 307 H Lactic Acid Calcium 7.1 L Phosphorus Magnesium Alkaline Phosphatase Ammonia Total Creatine Kinase C-Reactive Protein Albumin Urine WBC (Auto) Salicylates 10/29/17 10/29/17 10/29/17 03:41 03:41 04:55 WBC 14.1 H RBC 3.32 L Hgb 7.6 L Hct 25.5 L MCV 77 L MCH 23 L MCHC RDW 20.8 H Seg Neutrophils % Seg Neuts % (Manual) Lymphocytes % (Manual) Seg Neutrophils # Seg Neutrophils # Man Basophils # (Manual) PT INR POC ABG pH POC ABG pCO2 31.2 L POC ABG pO2 123 H Sodium 158 H Potassium Chloride 122.7 H Carbon Dioxide 15 L BUN Creatinine 1.3 H Glucose 176 H POC Glucose Lactic Acid Calcium 7.2 L Phosphorus Magnesium Alkaline Phosphatase Ammonia Total Creatine Kinase C-Reactive Protein Albumin Urine WBC (Auto) Salicylates 10/29/17 10/29/17 10/29/17 05:44 09:28 10:39 WBC RBC Hgb Hct MCV MCH MCHC RDW Seg Neutrophils % Seg Neuts % (Manual) Lymphocytes % (Manual) Seg Neutrophils # Seg Neutrophils # Man Basophils # (Manual) PT INR POC ABG pH POC ABG pCO2 POC ABG pO2 Sodium 151 H Potassium Chloride 117.1 H Carbon Dioxide 17 L BUN Creatinine Glucose 378 H POC Glucose 253 H 418 H Lactic Acid Calcium 7.4 L Phosphorus Magnesium Alkaline Phosphatase Ammonia Total Creatine Kinase C-Reactive Protein Albumin Urine WBC (Auto) Salicylates Chest x-ray: image reviewed (no focal infiltrate) Allied health notes reviewed: nursing
[2017-10-29] MEDS ORDERED: NACL ONE (13:08)
--- NOTE | 2017-10-29 19:09 | Cat Scan Report ---
FINAL REPORT PROCEDURE: CT ANGIO CHEST TECHNIQUE: Computerized tomographic angiography of the chest was performed after the IV injection of iodinated nonionic contrast including image processing. The image data was postprocessed using 2-dimensional multiplanar reformatted (MPR) and 3-dimensional (MIP and/or volume rendered) techniques. HISTORY: Acute Resp Failure; ? SVC syndrome; : mediastinal COMPARISON: No prior studies are available for comparison. FINDINGS: Heterogeneous thyroid gland with low attenuated lesions. Recommend thyroid ultrasound. Heart and pericardium: Top normal heart size Thoracic aorta: Normal. Pulmonary vasculature: Normal. Lymph nodes: Suspect mediastinal lymph nodes but indeterminate due to stranding fullness of the mediastinal structures Lungs: Compressive atelectasis right lower lung zone. Patchy airspace disease in the left lung base and to a lesser degree right lower lung zone. Atelectasis in the right mid and upper lung zone. Endotracheal tube near the orifice of the right mainstem bronchus. Recommend withdrawal 2 to 3 centimeters. Pleural space: Small right pleural effusion. Musculoskeletal structures: No significant abnormality. Upper abdominal structures: Distended gallbladder with pericholecystic fluid and stranding. Fluid filled loops of bowel upper abdomen. Diminished perfusion of the pancreatic body and tail inconclusive. IMPRESSION: Small right pleural effusion. Dense airspace disease left greater than right. Endotracheal tube near or at right mainstem bronchus. Recommend withdrawal 2 to 3 centimeters. No PE. SVC is widely patent and undisturbed. Mediastinal fullness
[2017-10-29] MEDS: ARTIFICIAL TEARS OPHTH OINT OU PRN (20:42)
[2017-10-29] MEDS ORDERED: DIPRIVAN 10 MG/ML 1,000 MG/100 ML BOTTLE IV ONE (22:08)
[2017-10-30] MEDS: ARTIFICIAL TEARS OPHTH OINT OU SCH (00:18)
[2017-10-30] MEDS: NACL 0.45% 1000 ML 1,000 ML IV SCH (01:07)
[2017-10-30] MEDS ORDERED: NORMODYNE IV ONE (04:57)
[2017-10-30] MEDS: FLAGYL 500 MG/100 ML 500 MG/100 ML BAG IV SCH ×3 (07:49→21:57)
--- NOTE | 2017-10-30 09:10 | Progress Note ---
Assessment and Plan Assessment and plan: 22 YO Female with DM, Medication Noncompliance, HTN, Chronic Pain presents to ED for evaluation. Pt unable to provide history, but history taken from ED staff , as well as EMS. Pt was found down and unresponsive by neighbors this AM. EMS notified, and upon arrival the patient was found to be unresponsive and in extremia. Patient had an empty bottle of oxycodone in her pill bag. Narcan was given without improvement in mental status. Patient transported to [facility] for further care and evaluation. Pt seen and evaluated in ED and found to have Acute Respiratory Failure, as well as DKA, and Sepsis. Pt intubated, sedated, and placed on vent support, as well as DKA and sepsis protocols. Pt admitted to ICU. PT has poor prognosis. SIRS no clear source at this time sputum cx grew strep and eliazar CXR neg, awaiting UA, on empiric abx, fup blood cx Acute respiratory failure, hypoxic, on MV <96 hours Pulmonary consulted, Pt intubated placed on vent support, wean vent as tolerated , daily ABG, daily SBT, nebulizer therapy, Acute renal failure/Vasomotor nephropathy continue IV, renal consult, improving IVF resuscitation, monitor uop q shift, monitor serum creatinine, Metabolic encephalopathy CTH shows no acute findings, highly suspect anoxic brain injury given hypothermia -will need to give a sedation holiday in the am and perform a neurological exam -neuro consult, will need EEG Hypothermia continue buffy santana DKA (diabetic ketoacidoses) gap closed, continue to SSI and long acting insulin Hypokalemia, hypophosphatemia repleted IV Hypernatremia continue free water replacement DVT prophylaxis SCD to BLE,. The high probability of a clinically significant, sudden or life threatening deterioration of the [cardiac, pulmonary, renal, endocrine] system(s) required my full and direct attention, intervention and personal management. The aggregate critical care time was [65] minutes. This time is in addition to time spent performing reported procedures but includes the following: [x] Data Review and interpretation [x] Patient assessment and monitoring of vital signs [x] Documentation [x] Medication orders and management History Interval history: remains intubated, sedated and non responsive no fevers, no agitation Hospitalist Physical - Physical exam Narrative exam: - EENT Eyes: Present: PERRL, conjuctival edema ENT: hearing intact - Neck Neck: Present: supple - Respiratory Respiratory effort: normal Respiratory: bilateral: CTA (ventilated breath sounds) - Cardiovascular Rhythm: regular Heart Sounds: Present: S1 & S2 - Extremities Extremities: no ischemia Peripheral Pulses: within normal limits - Abdominal General gastrointestinal: soft, non-tender - Integumentary Integumentary: Present: clear, warm - Psychiatric Psychiatric: other (sedated) - Neurologic Neurologic: other (sedated) - Constitutional Vitals: Temp Pulse Resp BP Pulse Ox 97.6 F 79 16 130/97 100 10/30/17 04:00 10/30/17 08:00 10/30/17 08:00 10/30/17 08:00 10/30/17 08:00 General appearance: Present: severe distress, cachectic, disheveled Results - Labs CBC & Chem 7: 10/29/17 03:41 10/29/17 09:28 Labs: Laboratory Last Values WBC 14.1 K/mm3 (4.5-11.0) H 10/29/17 03:41 RBC 3.32 M/mm3 (3.65-5.03) L 10/29/17 03:41 Hgb 7.6 gm/dl (10.1-14.3) L 10/29/17 03:41 Hct 25.5 % (30.3-42.9) L 10/29/17 03:41 MCV 77 fl (79-97) L 10/29/17 03:41 MCH 23 pg (28-32) L 10/29/17 03:41 MCHC 30 % (30-34) 10/29/17 03:41 RDW 20.8 % (13.2-15.2) H 10/29/17 03:41 Plt Count 231 K/mm3 (140-440) 10/29/17 03:41 Lymph % (Auto) 16.4 % (13.4-35.0) 10/28/17 15:39 [place] % (Auto) 3.7 % (0.0-7.3) 10/28/17 15:39 Eos % (Auto) 0.7 % (0.0-4.3) 10/28/17 15:39 Baso % (Auto) 0.7 % (0.0-1.8) 10/28/17 15:39 Lymph # 2.6 K/mm3 (1.2-5.4) 10/28/17 15:39 [place] # 0.6 K/mm3 (0.0-0.8) 10/28/17 15:39 Eos # 0.1 K/mm3 (0.0-0.4) 10/28/17 15:39 Baso # 0.1 K/mm3 (0.0-0.1) 10/28/17 15:39 Add Manual Diff Complete 10/26/17 11:44 Total Counted 100 10/26/17 11:44 Seg Neutrophils % 78.5 % (40.0-70.0) H 10/28/17 15:39 Seg Neuts % (Manual) 76.0 % (40.0-70.0) H 10/26/17 11:44 Band Neutrophils % 2.0 % 10/26/17 11:44 Lymphocytes % (Manual) 11.0 % (13.4-35.0) L 10/26/17 11:44 Reactive Lymphs % (Man) 0 % 10/26/17 11:44 Monocytes % (Manual) 1.0 % (0.0-7.3) 10/26/17 11:44 Eosinophils % (Manual) 0 % (0.0-4.3) 10/26/17 11:44 Basophils % (Manual) 1.0 % (0.0-1.8) 10/26/17 11:44 Metamyelocytes % 8.0 % 10/26/17 11:44 Myelocytes % 1.0 % 10/26/17 11:44 Promyelocytes % 0 % 10/26/17 11:44 Blast Cells % 0 % 10/26/17 11:44 Nucleated RBC % Not Reportable 10/26/17 11:44 Seg Neutrophils # 12.2 K/mm3 (1.8-7.7) H 10/28/17 15:39 Seg Neutrophils # Man 15.7 K/mm3 (1.8-7.7) H 10/26/17 11:44 Band Neutrophils # 0.4 K/mm3 10/26/17 11:44 Lymphocytes # (Manual) 2.3 K/mm3 (1.2-5.4) 10/26/17 11:44 Abs React Lymphs (Man) 0.0 K/mm3 10/26/17 11:44 Monocytes # (Manual) 0.2 K/mm3 (0.0-0.8) 10/26/17 11:44 Eosinophils # (Manual) 0.0 K/mm3 (0.0-0.4) 10/26/17 11:44 Basophils # (Manual) 0.2 K/mm3 (0.0-0.1) H 10/26/17 11:44 Metamyelocytes # 1.6 K/mm3 10/26/17 11:44 Myelocytes # 0.2 K/mm3 10/26/17 11:44 Promyelocytes # 0.0 K/mm3 10/26/17 11:44 Blast Cells # 0.0 K/mm3 10/26/17 11:44 WBC Morphology Not Reportable 10/26/17 11:44 Hypersegmented Neuts Not Reportable 10/26/17 11:44 Hyposegmented Neuts Not Reportable 10/26/17 11:44 Hypogranular Neuts Not Reportable 10/26/17 11:44 Smudge Cells Not Reportable 10/26/17 11:44 Toxic Granulation Not Reportable 10/26/17 11:44 Toxic Vacuolation Not Reportable 10/26/17 11:44 Dohle Bodies Not Reportable 10/26/17 11:44 Pelger-Huet Anomaly Not Reportable 10/26/17 11:44 Gogo Rods Not Reportable 10/26/17 11:44 Platelet Estimate Cons 10/26/17 11:44 Clumped Platelets Not Reportable 10/26/17 11:44 Plt Clumps, EDTA Not Reportable 10/26/17 11:44 Large Platelets Not Reportable 10/26/17 11:44 Giant Platelets Not Reportable 10/26/17 11:44 Platelet Satelliting Not Reportable 10/26/17 11:44 Plt Morphology Comment Not Reportable 10/26/17 11:44 RBC Morphology Not Reportable 10/26/17 11:44 Dimorphic RBCs Not Reportable 10/26/17 11:44 Polychromasia Not Reportable 10/26/17 11:44 Hypochromasia 1+ 10/26/17 11:44 Poikilocytosis Not Reportable 10/26/17 11:44 Anisocytosis 1+ 10/26/17 11:44 Microcytosis Not Reportable 10/26/17 11:44 Macrocytosis Not Reportable 10/26/17 11:44 Spherocytes Not Reportable 10/26/17 11:44 Pappenheimer Bodies Not Reportable 10/26/17 11:44 Sickle Cells Not Reportable 10/26/17 11:44 Target Cells Not Reportable 10/26/17 11:44 Tear Drop Cells Not Reportable 10/26/17 11:44 Ovalocytes Not Reportable 10/26/17 11:44 Helmet Cells Not Reportable 10/26/17 11:44 [place] Bodies Not Reportable 10/26/17 11:44 [place] Rings Not Reportable 10/26/17 11:44 [place] Cells Not Reportable 10/26/17 11:44 Bite Cells Not Reportable 10/26/17 11:44 Crenated Cell Not Reportable 10/26/17 11:44 Elliptocytes Not Reportable 10/26/17 11:44 Acanthocytes (Spur) Not Reportable 10/26/17 11:44 Rouleaux Not Reportable 10/26/17 11:44 Hemoglobin C Crystals Not Reportable 10/26/17 11:44 Schistocytes Not Reportable 10/26/17 11:44 Malaria parasites Not Reportable 10/26/17 11:44 David Bodies Not Reportable 10/26/17 11:44 Hem Pathologist Commnt No 10/26/17 11:44 PT 16.8 Sec. (12.2-14.9) H 10/26/17 11:44 INR 1.29 (0.87-1.13) H 10/26/17 11:44 APTT 24.9 Sec. (24.2-36.6) 10/26/17 11:44 POC ABG pH 7.368 (7.35-7.45) 10/30/17 05:02 POC ABG pCO2 34.8 (35-45) L 10/30/17 05:02 POC ABG pO2 107 (80-105) H 10/30/17 05:02 POC ABG HCO3 20.0 10/30/17 05:02 POC ABG Total CO2 21 10/30/17 05:02 POC ABG O2 Sat 98 10/30/17 05:02 POC ABG Base Excess -5 10/30/17 05:02 FiO2 35 % 10/30/17 05:02 Sodium 151 mmol/L (137-145) H 10/29/17 09:28 Potassium 4.2 mmol/L (3.6-5.0) 10/29/17 09:28 Chloride 117.1 mmol/L (98-107) H 10/29/17 09:28 Carbon Dioxide 17 mmol/L (22-30) L 10/29/17 09:28 Anion Gap 21 mmol/L 10/29/17 09:28 BUN 10 mg/dL (7-17) 10/29/17 09:28 Creatinine 1.2 mg/dL (0.7-1.2) 10/29/17 09:28 Estimated GFR > 60 ml/min 10/29/17 09:28 BUN/Creatinine Ratio 8 % 10/29/17 09:28 Glucose 378 mg/dL (65-100) H 10/29/17 09:28 POC Glucose 192 (70-105) H 10/30/17 05:42 Ketones Quantitative Small (Negative) 10/27/17 20:24 Lactic Acid 1.40 mmol/L (0.7-2.0) 10/27/17 20:34 Calcium 7.4 mg/dL (8.4-10.2) L 10/29/17 09:28 Phosphorus 3.00 mg/dL (2.5-4.5) D 10/29/17 03:41 Magnesium 1.80 mg/dL (1.7-2.3) 10/29/17 03:41 Total Bilirubin < 0.20 mg/dL (0.1-1.2) 10/26/17 11:44 AST 22 units/L (5-40) 10/26/17 11:44 ALT 56 units/L (7-56) 10/26/17 11:44 Alkaline Phosphatase 196 units/L (35-129) H 10/26/17 11:44 Ammonia 67.0 umol/L (25-60) H 10/26/17 11:44 Total Creatine Kinase 24 units/L (30-135) L 10/26/17 11:44 Troponin T < 0.010 ng/mL (0.00-0.029) 10/26/17 11:44 C-Reactive Protein 4.40 mg/dL (0.00-1.30) H 10/28/17 15:50 Total Protein 6.3 g/dL (6.3-8.2) 10/26/17 11:44 Albumin 3.6 g/dL (3.9-5) L 10/26/17 11:44 Albumin/Globulin Ratio 1.3 % 10/26/17 11:44 TSH 0.216 mlU/mL (0.270-4.200) L 10/29/17 13:50 Urine Color Yellow (Yellow) 10/26/17 12:59 Urine Turbidity Clear (Clear) 10/26/17 12:59 Urine pH 5.0 (5.0-7.0) 10/26/17 12:59 Ur Specific [place] 1.015 (1.003-1.030) 10/26/17 12:59 Urine Protein 30 mg/dl mg/dL (Negative) 10/26/17 12:59 Urine Glucose (UA) >=500 mg/dL (Negative) 10/26/17 12:59 Urine Ketones Tr mg/dL (Negative) 10/26/17 12:59 Urine Blood Mod (Negative) 10/26/17 12:59 Urine Nitrite Neg (Negative) 10/26/17 12:59 Urine Bilirubin Neg (Negative) 10/26/17 12:59 Urine Urobilinogen < 2.0 mg/dL (<2.0) 10/26/17 12:59 Ur Leukocyte Esterase Sm (Negative) 10/26/17 12:59 Urine WBC (Auto) 42.0 /HPF (0.0-6.0) H 10/26/17 12:59 Urine RBC (Auto) 54.0 /HPF (0.0-6.0) 10/26/17 12:59 U Epithel Cells (Auto) < 1.0 /HPF (0-13.0) 10/26/17 12:59 Uric Acid Crystals 3+ 10/26/17 12:59 Granular Casts 3 /LPF 10/26/17 12:59 Urine Mucus Few /HPF 10/26/17 12:59 Ur Yeast w Hyphae Few /HPF 10/26/17 12:59 Urine Yeast (Budding) 3+ /HPF 10/26/17 12:59 Salicylates < 0.3 mg/dL (2.8-20.0) L 10/26/17 11:44 Urine Opiates Screen Presumptive negative 10/26/17 12:59 Urine Methadone Screen Presumptive negative 10/26/17 12:59 Acetaminophen 15.0 ug/mL (10.0-30.0) 10/26/17 11:44 Ur Barbiturates Screen Presumptive negative 10/26/17 12:59 Ur Phencyclidine Scrn Presumptive negative 10/26/17 12:59 Ur Amphetamines Screen Presumptive negative 10/26/17 12:59 U Benzodiazepines Scrn Presumptive positive 10/26/17 12:59 Urine Cocaine Screen Presumptive negative 10/26/17 12:59 U Marijuana (THC) Screen Presumptive negative 10/26/17 12:59 Drugs of Abuse Note Disclamer 10/26/17 12:59 Plasma/Serum Alcohol < 0.01 % (0-0.07) 10/26/17 11:44 HIV 1&2 Antibody Rapid Non react (Non React) 10/28/17 15:50 HIV P24 Antigen Non react (Non React) 10/28/17 15:50 Blood Type O POSITIVE 10/26/17 11:54 Antibody Screen Negative 10/26/17 11:54
--- NOTE | 2017-10-30 09:54 | History and Physical Report ---
History of Present Illness Date of examination: 10/30/17 Date of admission: 10/26/17 13:07 Chief complaint: FOCUSED NEUROLOGY CONSULT CC: I am asked to see this 22 AA F for coma in the setting of diabetic Ketoacidosis, sepsis, resp failure, and metabolic abn since admission 10/26/17. HPI: Hx reviewed in detail in all notes. Pt has an hx of DM1, non-compliance, HTN, chronic pain (? location, duration), who was found down by neighbors with an empty bottle of hydocodone pills in her pill bag, brougt to the ED and found to be obtunded. BG was 1281, with lactic acidosis, sepsis with BP 89/36, HR 141 , RR 31, BU 34, Creatinine 2.2,. She was intubated for airway protection, sedated, Rxd with antibiotics, fluids, has hypernatremia Na 164 (10/28), WBC down to 15.5 (10/28). Tox screen of urine was negative. On 10/28 she was noted to have marked chemosis of both eyes and marked lip edema and and SVC syndrome was entertained vs angioedema secondary to meds. Her meds were changed (DR Quintero ), steroids begun, and the chemosis and lip edema is "three times better than it was" according to Dr Quintero today with whom I spoke. Chest CT shows the mediastinum to be obscured, a small right pleural effusion, and atlectasis in the left lung polk. She remains on Propofol and Fentanyl at this time. A head CT was normal save for loss of volume (images reviewed). ROSP: not possible MEDS/ALLERGIES: see chart SH/FH: not re-reviewed NEURO EXAM: On Propofol and Fentanyl MS: comatose/sedated, opens eyes once to pinch of right arm, no reponse to pinch in all other extrem CN: Pupils sl asymmetric with right pupil sl larger than left, and both minimally reactive to bright light stim. NO EOM to [place] Maneuver, no facial grimace to nox stim, no mouthing movements, chemosis seen in both eyes covering lower eyes partially well below iris on both sides, not hemorrhagic. MOTOR: no withdrawal response or decerebration to nox stim DTRs: uniformly absent, great toes unresponsive to plantar stim DX IMP: 1. Coma of multifactorial mechanism. Factors include her current sedation, her significant DKA, sepsis, hypernatremia, NUNU, all being Rxed. 2. Chemosis bilateal of unclear mechanism at this point. Considerations include SVC syndrome, anio-edema secondary to drug rx. Another consideration is bilateral Cavernous Sinus thrombosis, but marked improvement with steroids would argue against this. Her initial head CT is normal (apart from volume loss ). 3. Multiple med dxs as above. RECC: 1. Pursue current mgt. 2. See no need at this time for MRV of brain. 3. Decrease sedation and wean when you can. 4. Press on. Call as needed. Alicia Martinez MD Past History Past Medical History: diabetes (Type 1), hypertension, other (chronic pain, bipolar disorder, schizophrenia) Past Surgical History: No surgical history, Other (reviewed) Social history: single. denies: smoking, alcohol abuse, prescription drug abuse Family history: no significant family history, other (unable to obtain) Medications and Allergies Allergies Allergy/AdvReac Type Severity Reaction Status Date / Time Unable to Assess Allergy Verified 10/26/17 12:24 Home Medications Medication Instructions Recorded Confirmed Last Taken Type Unobtainable 10/26/17 10/26/17 Unknown History Active Meds: Active Medications Albuterol (Proventil) 2.5 mg IH Q3HRT PRN PRN Reason: Shortness Of Breath Lipase/Protease/Amylase (Pancreaze Dr 10,500 Unit) 1 each FEEDTUBE PRN PRN PRN Reason: For Clogged Feeding Tube Dextrose (D50w (25gm) Syringe) 0 ml IV PRN PRN PRN Reason: Hypoglycemia Diphenhydramine HCl (Benadryl) 25 mg IV Q12H CARLOS Last Admin: 10/29/17 21:19 Dose: 25 mg Famotidine (Pepcid) 20 mg IV Q12H CARLOS Last Admin: 10/29/17 21:19 Dose: 20 mg Heparin Sodium (Porcine) (Heparin) 5,000 unit SUB-Q Q12HR CARLOS Last Admin: 10/29/17 22:54 Dose: 5,000 unit Hydrophilic Ointment (Vaseline Lip Therapy) 1 applic TP Q2HR PRN PRN Reason: Dry Lips Propofol (Diprivan 10 Mg/Ml) 1,000 mg in 100 mls @ 1.565 mls/hr IV TITR CARLOS; Protocol Last Admin: 10/29/17 05:03 Dose: 50 mcg/kg/min, 15.649 mls/hr Fentanyl Citrate (Fentanyl Drip Premix) 2,000 mcg in 100 mls @ 2.608 mls/hr IV TITR CARLOS; Protocol Last Titration: 10/29/17 14:00 Dose: 4 mcg/kg/hr, 10.433 mls/hr Sodium Chloride (Nacl 0.45% 1000 Ml) 1,000 mls @ 125 mls/hr IV DIRECT CARLOS Last Admin: 10/30/17 01:07 Dose: 125 mls/hr Levofloxacin/Dextrose (Levaquin 750mg/150ml) 750 mg in 150 mls @ 100 mls/hr IV Q24HR CARLOS; Protocol Metronidazole (Flagyl 500 Mg/100 Ml) 500 mg in 100 mls @ 100 mls/hr IV Q8HR CARLOS Last Admin: 10/30/17 07:49 Dose: Not Given Insulin Human NPH (Novolin N) 10 unit SUB-Q Q12H CARLOS Last Admin: 10/29/17 21:25 Dose: 10 unit Insulin Human Regular (Novolin R) 0 units SUB-Q Q6HR CARLOS; Protocol Last Admin: 10/30/17 07:49 Dose: Not Given Methylprednisolone Sodium Succinate (Solu-Medrol) 40 mg IV Q12HR CARLOS Last Admin: 10/30/17 00:17 Dose: 40 mg Multi-Ingred Cream/Lotion/Oil/Oint (Artificial Tears Ophth Oint) 1 applic OU Q4HR PRN PRN Reason: Dry Eye(s) Last Admin: 10/29/17 20:42 Dose: 1 applic Simple Syrup (Simple Syrup) 15 ml FEEDTUBE PRN PRN PRN Reason: Hypoglycemia Simple Syrup (Simple Syrup) 30 ml FEEDTUBE PRN PRN PRN Reason: Hypoglycemia Sodium Bicarbonate (Sodium Bicarbonate) 325 mg FEEDTUBE PRN PRN PRN Reason: For Clogged Feeding Tube Physical Examination - Vital Signs Vital Signs: Vital Signs Pulse Resp BP Pulse Ox 141 H 31 H 89/36 100 10/26/17 11:13 10/26/17 11:13 10/26/17 11:13 10/26/17 11:13 Results - Laboratory Findings CBC and BMP: 10/29/17 03:41 10/29/17 09:28 Abnormal Lab Findings: Abnormal Labs 10/26/17 10/26/17 10/26/17 11:23 11:44 11:44 WBC 20.6 H RBC 3.62 L Hgb 8.3 L Hct MCV MCH 23 L MCHC 24 L RDW 21.7 H Seg Neutrophils % Seg Neuts % (Manual) 76.0 H Lymphocytes % (Manual) 11.0 L Seg Neutrophils # Seg Neutrophils # Man 15.7 H Basophils # (Manual) 0.2 H PT INR POC ABG pH POC ABG pCO2 POC ABG pO2 Sodium Potassium Chloride Carbon Dioxide BUN Creatinine Glucose POC Glucose > 500 H Lactic Acid 4.10 H* Calcium Phosphorus Magnesium Alkaline Phosphatase Ammonia Total Creatine Kinase C-Reactive Protein Albumin TSH Urine WBC (Auto) Salicylates 10/26/17 10/26/17 10/26/17 11:44 11:44 11:44 WBC RBC Hgb Hct MCV MCH MCHC RDW Seg Neutrophils % Seg Neuts % (Manual) Lymphocytes % (Manual) Seg Neutrophils # Seg Neutrophils # Man Basophils # (Manual) PT 16.8 H INR 1.29 H POC ABG pH POC ABG pCO2 POC ABG pO2 Sodium 146 H Potassium 6.6 H* Chloride Carbon Dioxide 3 L* BUN 34 H Creatinine 2.2 H Glucose 1281 H* POC Glucose Lactic Acid Calcium 8.0 L Phosphorus Magnesium Alkaline Phosphatase 196 H Ammonia 67.0 H Total Creatine Kinase 24 L C-Reactive Protein Albumin 3.6 L TSH Urine WBC (Auto) Salicylates 10/26/17 10/26/17 10/26/17 11:44 12:01 12:59 WBC RBC Hgb Hct MCV MCH MCHC RDW Seg Neutrophils % Seg Neuts % (Manual) Lymphocytes % (Manual) Seg Neutrophils # Seg Neutrophils # Man Basophils # (Manual) PT INR POC ABG pH 6.895 L POC ABG pCO2 12.3 L POC ABG pO2 311 H Sodium Potassium Chloride Carbon Dioxide BUN Creatinine Glucose POC Glucose Lactic Acid Calcium Phosphorus Magnesium Alkaline Phosphatase Ammonia Total Creatine Kinase C-Reactive Protein Albumin TSH Urine WBC (Auto) 42.0 H Salicylates < 0.3 L 10/26/17 10/26/17 10/26/17 13:06 13:17 13:17 WBC RBC Hgb Hct MCV MCH MCHC RDW Seg Neutrophils % Seg Neuts % (Manual) Lymphocytes % (Manual) Seg Neutrophils # Seg Neutrophils # Man Basophils # (Manual) PT INR POC ABG pH POC ABG pCO2 POC ABG pO2 Sodium 146 H Potassium 7.1 H* Chloride Carbon Dioxide 2 L* BUN 35 H Creatinine 2.3 H Glucose 1330 H* POC Glucose Lactic Acid 4.10 H* Calcium 7.7 L Phosphorus 11.10 H Magnesium 2.70 H Alkaline Phosphatase Ammonia Total Creatine Kinase C-Reactive Protein Albumin TSH Urine WBC (Auto) Salicylates 10/26/17 10/26/17 10/26/17 14:57 15:26 15:26 WBC RBC Hgb Hct MCV MCH MCHC RDW Seg Neutrophils % Seg Neuts % (Manual) Lymphocytes % (Manual) Seg Neutrophils # Seg Neutrophils # Man Basophils # (Manual) PT INR POC ABG pH POC ABG pCO2 POC ABG pO2 Sodium 147 H Potassium 6.3 H* Chloride Carbon Dioxide < 2.0 L* BUN 37 H Creatinine 2.4 H Glucose 1115 H* POC Glucose > 500 H Lactic Acid 3.70 H* Calcium 7.2 L Phosphorus Magnesium Alkaline Phosphatase Ammonia Total Creatine Kinase C-Reactive Protein Albumin TSH Urine WBC (Auto) Salicylates 10/26/17 10/26/17 10/26/17 16:02 17:51 17:51 WBC RBC Hgb Hct MCV MCH MCHC RDW Seg Neutrophils % Seg Neuts % (Manual) Lymphocytes % (Manual) Seg Neutrophils # Seg Neutrophils # Man Basophils # (Manual) PT INR POC ABG pH POC ABG pCO2 POC ABG pO2 Sodium 149 H Potassium Chloride Carbon Dioxide 2 L* BUN 36 H Creatinine 2.6 H Glucose 1063 H* POC Glucose > 500 H Lactic Acid 6.50 H* Calcium 7.0 L Phosphorus Magnesium Alkaline Phosphatase Ammonia Total Creatine Kinase C-Reactive Protein Albumin TSH Urine WBC (Auto) Salicylates 10/26/17 10/26/17 10/26/17 18:42 19:55 19:55 WBC RBC Hgb Hct MCV MCH MCHC RDW Seg Neutrophils % Seg Neuts % (Manual) Lymphocytes % (Manual) Seg Neutrophils # Seg Neutrophils # Man Basophils # (Manual) PT INR POC ABG pH 6.974 L POC ABG pCO2 14.9 L POC ABG pO2 244 H Sodium 150 H Potassium Chloride 108.3 H Carbon Dioxide 4 L* BUN 33 H Creatinine 2.4 H Glucose 663 H* POC Glucose Lactic Acid 8.30 H* Calcium 7.0 L Phosphorus Magnesium Alkaline Phosphatase Ammonia Total Creatine Kinase C-Reactive Protein Albumin TSH Urine WBC (Auto) Salicylates 10/26/17 10/26/17 10/26/17 21:26 21:26 23:55 WBC RBC Hgb Hct MCV MCH MCHC RDW Seg Neutrophils % Seg Neuts % (Manual) Lymphocytes % (Manual) Seg Neutrophils # Seg Neutrophils # Man Basophils # (Manual) PT INR POC ABG pH POC ABG pCO2 POC ABG pO2 Sodium 152 H Potassium 3.5 L Chloride 110.4 H Carbon Dioxide 6 L* BUN 32 H Creatinine 2.3 H Glucose 498 H POC Glucose 317 H Lactic Acid 9.00 H* Calcium 7.6 L Phosphorus Magnesium Alkaline Phosphatase Ammonia Total Creatine Kinase C-Reactive Protein Albumin TSH Urine WBC (Auto) Salicylates 10/27/17 10/27/17 10/27/17 01:21 02:26 03:49 WBC RBC Hgb Hct MCV MCH MCHC RDW Seg Neutrophils % Seg Neuts % (Manual) Lymphocytes % (Manual) Seg Neutrophils # Seg Neutrophils # Man Basophils # (Manual) PT INR POC ABG pH POC ABG pCO2 POC ABG pO2 Sodium Potassium Chloride Carbon Dioxide BUN Creatinine Glucose POC Glucose 218 H 172 H 136 H Lactic Acid Calcium Phosphorus Magnesium Alkaline Phosphatase Ammonia Total Creatine Kinase C-Reactive Protein Albumin TSH Urine WBC (Auto) Salicylates 10/27/17 10/27/17 10/27/17 04:50 05:26 06:01 WBC RBC Hgb Hct MCV MCH MCHC RDW Seg Neutrophils % Seg Neuts % (Manual) Lymphocytes % (Manual) Seg Neutrophils # Seg Neutrophils # Man Basophils # (Manual) PT INR POC ABG pH 7.284 L POC ABG pCO2 POC ABG pO2 204 H Sodium 158 H Potassium 3.5 L Chloride 118.2 H Carbon Dioxide 19 L D BUN 27 H Creatinine 1.9 H Glucose 232 H POC Glucose 221 H Lactic Acid Calcium 7.1 L Phosphorus Magnesium Alkaline Phosphatase Ammonia Total Creatine Kinase C-Reactive Protein Albumin TSH Urine WBC (Auto) Salicylates 10/27/17 10/27/17 10/27/17 06:05 07:27 09:28 WBC RBC Hgb Hct MCV MCH MCHC RDW Seg Neutrophils % Seg Neuts % (Manual) Lymphocytes % (Manual) Seg Neutrophils # Seg Neutrophils # Man Basophils # (Manual) PT INR POC ABG pH POC ABG pCO2 POC ABG pO2 Sodium Potassium Chloride Carbon Dioxide BUN Creatinine Glucose POC Glucose 286 H 161 H 123 H Lactic Acid Calcium Phosphorus Magnesium Alkaline Phosphatase Ammonia Total Creatine Kinase C-Reactive Protein Albumin TSH Urine WBC (Auto) Salicylates 10/27/17 10/27/17 10/27/17 12:30 13:07 14:44 WBC RBC Hgb Hct MCV MCH MCHC RDW Seg Neutrophils % Seg Neuts % (Manual) Lymphocytes % (Manual) Seg Neutrophils # Seg Neutrophils # Man Basophils # (Manual) PT INR POC ABG pH POC ABG pCO2 POC ABG pO2 Sodium 158 H Potassium 3.2 L Chloride 120.7 H Carbon Dioxide 16 L BUN 23 H Creatinine 1.9 H Glucose 270 H POC Glucose 274 H 200 H Lactic Acid Calcium 7.1 L Phosphorus Magnesium Alkaline Phosphatase Ammonia Total Creatine Kinase C-Reactive Protein Albumin TSH Urine WBC (Auto) Salicylates 10/27/17 10/27/17 10/27/17 19:03 20:24 20:24 WBC RBC Hgb Hct MCV MCH MCHC RDW Seg Neutrophils % Seg Neuts % (Manual) Lymphocytes % (Manual) Seg Neutrophils # Seg Neutrophils # Man Basophils # (Manual) PT INR POC ABG pH POC ABG pCO2 POC ABG pO2 Sodium 155 H Potassium 3.4 L Chloride 119.3 H Carbon Dioxide 19 L BUN 20 H Creatinine 1.9 H Glucose 272 H POC Glucose 124 H Lactic Acid Calcium 7.0 L Phosphorus 1.50 L D Magnesium Alkaline Phosphatase Ammonia Total Creatine Kinase C-Reactive Protein 1.50 H Albumin TSH Urine WBC (Auto) Salicylates 10/27/17 10/27/17 10/28/17 20:40 21:05 03:02 WBC RBC Hgb Hct MCV MCH MCHC RDW Seg Neutrophils % Seg Neuts % (Manual) Lymphocytes % (Manual) Seg Neutrophils # Seg Neutrophils # Man Basophils # (Manual) PT INR POC ABG pH 7.327 L POC ABG pCO2 32.1 L POC ABG pO2 Sodium 157 H Potassium Chloride 118.8 H Carbon Dioxide 13 L BUN 18 H Creatinine 2.0 H Glucose 560 H* POC Glucose 289 H Lactic Acid Calcium 6.8 L Phosphorus 5.40 H D Magnesium Alkaline Phosphatase Ammonia Total Creatine Kinase C-Reactive Protein Albumin TSH Urine WBC (Auto) Salicylates 10/28/17 10/28/17 10/28/17 06:06 07:46 08:21 WBC RBC Hgb Hct MCV MCH MCHC RDW Seg Neutrophils % Seg Neuts % (Manual) Lymphocytes % (Manual) Seg Neutrophils # Seg Neutrophils # Man Basophils # (Manual) PT INR POC ABG pH POC ABG pCO2 POC ABG pO2 Sodium Potassium Chloride Carbon Dioxide BUN Creatinine Glucose POC Glucose > 500 H 500 H Lactic Acid Calcium Phosphorus 6.70 H D Magnesium Alkaline Phosphatase Ammonia Total Creatine Kinase C-Reactive Protein Albumin TSH Urine WBC (Auto) Salicylates 10/28/17 10/28/17 10/28/17 09:34 11:13 12:55 WBC RBC Hgb Hct MCV MCH MCHC RDW Seg Neutrophils % Seg Neuts % (Manual) Lymphocytes % (Manual) Seg Neutrophils # Seg Neutrophils # Man Basophils # (Manual) PT INR POC ABG pH POC ABG pCO2 POC ABG pO2 Sodium Potassium Chloride Carbon Dioxide BUN Creatinine Glucose POC Glucose 435 H 273 H 149 H Lactic Acid Calcium Phosphorus Magnesium Alkaline Phosphatase Ammonia Total Creatine Kinase C-Reactive Protein Albumin TSH Urine WBC (Auto) Salicylates 10/28/17 10/28/17 10/28/17 14:27 15:39 15:39 WBC 15.5 H RBC 3.59 L Hgb 8.3 L Hct 27.6 L D MCV 77 L MCH 23 L MCHC RDW 20.9 H Seg Neutrophils % 78.5 H Seg Neuts % (Manual) Lymphocytes % (Manual) Seg Neutrophils # 12.2 H Seg Neutrophils # Man Basophils # (Manual) PT INR POC ABG pH POC ABG pCO2 33.9 L POC ABG pO2 138 H Sodium 164 H* Potassium 3.5 L Chloride 125.3 H Carbon Dioxide 18 L BUN Creatinine 1.6 H Glucose 37 L* POC Glucose Lactic Acid Calcium 7.5 L Phosphorus Magnesium Alkaline Phosphatase Ammonia Total Creatine Kinase C-Reactive Protein Albumin TSH Urine WBC (Auto) Salicylates 10/28/17 10/28/17 10/28/17 15:47 15:50 16:28 WBC RBC Hgb Hct MCV MCH MCHC RDW Seg Neutrophils % Seg Neuts % (Manual) Lymphocytes % (Manual) Seg Neutrophils # Seg Neutrophils # Man Basophils # (Manual) PT INR POC ABG pH POC ABG pCO2 POC ABG pO2 Sodium Potassium Chloride Carbon Dioxide BUN Creatinine Glucose POC Glucose < 40 L 114 H Lactic Acid Calcium Phosphorus Magnesium Alkaline Phosphatase Ammonia Total Creatine Kinase C-Reactive Protein 4.40 H Albumin TSH Urine WBC (Auto) Salicylates 10/28/17 10/28/17 10/28/17 19:07 23:10 23:59 WBC RBC Hgb Hct MCV MCH MCHC RDW Seg Neutrophils % Seg Neuts % (Manual) Lymphocytes % (Manual) Seg Neutrophils # Seg Neutrophils # Man Basophils # (Manual) PT INR POC ABG pH POC ABG pCO2 POC ABG pO2 Sodium 159 H Potassium Chloride 124.1 H Carbon Dioxide 19 L BUN Creatinine 1.4 H Glucose 219 H POC Glucose 111 H 307 H Lactic Acid Calcium 7.1 L Phosphorus Magnesium Alkaline Phosphatase Ammonia Total Creatine Kinase C-Reactive Protein Albumin TSH Urine WBC (Auto) Salicylates 10/29/17 10/29/17 10/29/17 03:41 03:41 04:55 WBC 14.1 H RBC 3.32 L Hgb 7.6 L Hct 25.5 L MCV 77 L MCH 23 L MCHC RDW 20.8 H Seg Neutrophils % Seg Neuts % (Manual) Lymphocytes % (Manual) Seg Neutrophils # Seg Neutrophils # Man Basophils # (Manual) PT INR POC ABG pH POC ABG pCO2 31.2 L POC ABG pO2 123 H Sodium 158 H Potassium Chloride 122.7 H Carbon Dioxide 15 L BUN Creatinine 1.3 H Glucose 176 H POC Glucose Lactic Acid Calcium 7.2 L Phosphorus Magnesium Alkaline Phosphatase Ammonia Total Creatine Kinase C-Reactive Protein Albumin TSH Urine WBC (Auto) Salicylates 10/29/17 10/29/17 10/29/17 05:44 09:28 10:39 WBC RBC Hgb Hct MCV MCH MCHC RDW Seg Neutrophils % Seg Neuts % (Manual) Lymphocytes % (Manual) Seg Neutrophils # Seg Neutrophils # Man Basophils # (Manual) PT INR POC ABG pH POC ABG pCO2 POC ABG pO2 Sodium 151 H Potassium Chloride 117.1 H Carbon Dioxide 17 L BUN Creatinine Glucose 378 H POC Glucose 253 H 418 H Lactic Acid Calcium 7.4 L Phosphorus Magnesium Alkaline Phosphatase Ammonia Total Creatine Kinase C-Reactive Protein Albumin TSH Urine WBC (Auto) Salicylates 10/29/17 10/29/17 10/29/17 13:50 18:35 21:28 WBC RBC Hgb Hct MCV MCH MCHC RDW Seg Neutrophils % Seg Neuts % (Manual) Lymphocytes % (Manual) Seg Neutrophils # Seg Neutrophils # Man Basophils # (Manual) PT INR POC ABG pH POC ABG pCO2 POC ABG pO2 Sodium Potassium Chloride Carbon Dioxide BUN Creatinine Glucose POC Glucose 220 H 184 H Lactic Acid Calcium Phosphorus Magnesium Alkaline Phosphatase Ammonia Total Creatine Kinase C-Reactive Protein Albumin TSH 0.216 L Urine WBC (Auto) Salicylates 10/30/17 10/30/17 10/30/17 00:06 05:02 05:42 WBC RBC Hgb Hct MCV MCH MCHC RDW Seg Neutrophils % Seg Neuts % (Manual) Lymphocytes % (Manual) Seg Neutrophils # Seg Neutrophils # Man Basophils # (Manual) PT INR POC ABG pH POC ABG pCO2 34.8 L POC ABG pO2 107 H Sodium Potassium Chloride Carbon Dioxide BUN Creatinine Glucose POC Glucose 177 H 192 H Lactic Acid Calcium Phosphorus Magnesium Alkaline Phosphatase Ammonia Total Creatine Kinase C-Reactive Protein Albumin TSH Urine WBC (Auto) Salicylates
[2017-10-30 09:56] LABS: BUN/Creatinine Ratio 8; Blood Urea Nitrogen 8 mg/dL (7-17); Hemolysis Index 80
[2017-10-30] MEDS: LEVAQUIN 750MG/150ML 750 MG/150 ML BAG IV SCH (10:03)
[2017-10-30] MEDS: ARTIFICIAL TEARS OPHTH OINT OU PRN (10:04)
[2017-10-30] MEDS: HEPARIN SUB-Q SCH ×2 (10:05→21:40)
[2017-10-30] MEDS: PEPCID IV SCH ×2 (10:05→21:40)
[2017-10-30] MEDS: BENADRYL IV SCH ×2 (10:05→22:20)
--- NOTE | 2017-10-30 10:38 | Progress Note ---
Assessment and Plan Assessment: 1) SIRS: hypotermia better, tachycardia; leukocytosis better. Etiology pneumonia+/- UTI? +/- encephalopathy +/- asp pneumonitis +/- dehydration from DKA. CXR negative x 2. Blood cultures negative. CRP=4.4 2) Bilateral pneumonia: ? aspiration vs. CAP -CTA + patchy annie ASD L>R, mediastinal fullness with LNs, small right pleural effusion 3) Acute respiratory failure: from encephalopathy / OD -Tracheal asp + Strep group B and Barbie likely a colonizer 4) NUNU - better 5) Uncontrolled DM with DKA 6) Hyperkalemia - resolved 7) Extensive sclerae edema/lip edema ? angioedema ?SVC syndrome. CTA no PE + mediastinal fullness. Clinically better. on IV steroids. 8) UTI- mild 9) Encephalopathy: ? from OD 10) Thyroid lesions / mildly low TSH 11) Distended GB ? 12) Mediastinal fullness ? LNs from pneumonia ? lymphoma. HIV neg Plan: -follow-up blood culture and urine culture -follow-up procal -continue levaquin and flagyl - day 3 of 7 -monitor facial edema -f/u cortisol -RUQ US r/o cholecystitis Thank you for your consultation, will follow up with you. Aziza Stanford MD Infectious Diseases Specialist [facility] ([facility] M [phone] O [phone] Subjective Date of service: 10/30/17 Principal diagnosis: Acute Hypoxemic Respiratory Failure; Acute Encephalopathy Interval history: Remains critically ill, sedated on the vent. Hypothermia is better. Microbiology: Blood cultures: 10/27 ngtd Urine cultures: 10/28 pending Respiratory cultures: 10/27 Beta hem group B and Barbie Current Antimicrobials: levaquin and flagyl 10/28 Previous Antimicrobials: Zosyn 10/26 Vancomycin 10/26 Objective - Exam Narrative Exam: General appearance: sedated on the vent eye open following simple commands Eyes: anicteric +decreased sclerae edema, moist conjunctivae; no lid-lag; PERRLA HENT: Atraumatic; +decreased lips edema, oropharynx +ETT Neck: Trachea midline; supple, no thyromegaly or lymphadenopathy Lungs: CTA, with normal respiratory effort and no intercostal retractions CV: RRR Abdomen: Soft, non-tender; no masses or hepatosplenomegaly Extremities: No peripheral edema or extremity lymphadenopathy Skin: Normal temperature, turgor and texture; no rash, ulcers or subcutaneous nodules Psych: sedated Neuro: sedated but eye open and Moving all extermities Lines: - Constitutional Vitals: Vital Signs Temp Pulse Resp BP Pulse Ox 97.6 F 77 16 135/100 100 10/30/17 04:00 10/30/17 09:07 10/30/17 08:00 10/30/17 09:07 10/30/17 09:07 Temperature -Last 24 Hours Temperature 97.6 F Temperature 97.2 F - Labs CBC & Chem 7: 10/29/17 03:41 10/30/17 03:58 Labs: Abnormal lab results 10/29/17 10/29/17 10/29/17 Range/Units 10:39 13:50 18:35 POC ABG pCO2 (35-45) POC ABG pO2 (80-105) Sodium (137-145) mmol/L Chloride (98-107) mmol/L Carbon Dioxide (22-30) mmol/L Glucose (65-100) mg/dL POC Glucose 418 H 220 H (70-105) Calcium (8.4-10.2) mg/dL TSH 0.216 L (0.270-4.200) mlU/mL 10/29/17 10/30/17 10/30/17 Range/Units 21:28 00:06 03:58 POC ABG pCO2 (35-45) POC ABG pO2 (80-105) Sodium 153 H (137-145) mmol/L Chloride 117.0 H (98-107) mmol/L Carbon Dioxide 16 L (22-30) mmol/L Glucose 165 H (65-100) mg/dL POC Glucose 184 H 177 H (70-105) Calcium 8.0 L (8.4-10.2) mg/dL TSH (0.270-4.200) mlU/mL 10/30/17 10/30/17 Range/Units 05:02 05:42 POC ABG pCO2 34.8 L (35-45) POC ABG pO2 107 H (80-105) Sodium (137-145) mmol/L Chloride (98-107) mmol/L Carbon Dioxide (22-30) mmol/L Glucose (65-100) mg/dL POC Glucose 192 H (70-105) Calcium (8.4-10.2) mg/dL TSH (0.270-4.200) mlU/mL
[2017-10-30 11:18] LABS: BUN/Creatinine Ratio 9; Blood Urea Nitrogen 8 mg/dL (7-17); Calcium 7.6 mg/dL (8.4-10.2); Hemolysis Index 95
[2017-10-30] MEDS ORDERED: D5/0.45NS 1,000 ML IV SCH (12:00)
[2017-10-30] MEDS: DIPRIVAN 10 MG/ML 1,000 MG/100 ML BOTTLE IV SCH ×2 (15:12→21:54)
--- NOTE | 2017-10-30 15:58 | Ultrasound Report ---
FINAL REPORT EXAM: US ABDOMEN LIMITED HISTORY: RUQ US eval GB r/o cholecystitis TECHNIQUE: Limited abdomen ultrasound. PRIORS: None currently available. FINDINGS: Liver: Heterogeneous echogenic liver. No distinct lesions. Gallbladder: Gallbladder wall is thickened measuring 3.1 mm. Common bile duct is borderline normal measuring 3.9 mm. No ductal lesions or stones. No gallstones. No sludge. Mild pericholecystic fluid around the fundus of the gallbladder. Pancreas: Punctate echogenic foci within the pancreatic tail with shadowing may represent pancreatic calcifications. Right kidney: 10.9 cm. Unremarkable. Proximal aorta measures 1.8 cm. Plaque within the SMA. IMPRESSION: Echogenic heterogeneous liver may be related to hepatocellular disease or fatty infiltration. No distinct lesions. Indeterminate gallbladder findings. Please correlate for possible acalculous cholecystitis. Pancreatic tail calcifications. Nonspecific. Possibly related to chronic pancreatitis. Pancreatic protocol CT scan may be helpful if clinically indicated.
[2017-10-30] MEDS: fentaNYL DRIP Premix 2,000 MCG/100 ML BAG IV SCH (17:30)
--- NOTE | 2017-10-30 18:24 | Progress Note ---
Assessment and Plan - Patient Problems (1) Other acute kidney failure Current Visit: Yes Status: Acute Plan to address problem: Acute kidney failure is Pre-renal azotemia versus acute renal necrosis secondary to volume depletion with diabetic ketoacidosis and osmotic diuresis. Kidney function is improving with volume resuscitation. Continue close monitoring (2) DKA (diabetic ketoacidoses) Current Visit: Yes Status: Acute Qualifiers: Diabetes mellitus type: type 1 Diabetes mellitus complication detail: with coma Qualified Code(s): E10.11 - Type 1 diabetes mellitus with ketoacidosis with coma Plan to address problem: Continue insulin drip as patient still in ketoacidosis. Follow protocol to change intravenous fluids to D5 W when blood sugar is less than 250 and Back to half normal saline when blood sugar is more done to 250 mg/dL. Follow bicarbonate, ketones. (3) Hypernatremia Current Visit: Yes Status: Acute Plan to address problem: Secondary to sodium bicarbonate IV pushes and replacement of relatively hypotonic fluid losses with isotonic saline. Sodium not significantly better on half normal saline. Unfortunately not able to give free water by the feeding tube yet. Start free water via the feeding tube once enteral intake started. We will also change patient to D5W (4) Hypokalemia Current Visit: Yes Status: Acute Plan to address problem: Secondary to transcellular shift with insulin administration for treating Diabetic ketoacidosis. Potassium is replete. Continue to follow up levels (5) Anemia Current Visit: Yes Status: Acute Plan to address problem: Dilutional but suspect baseline anemia (6) Acute respiratory failure Current Visit: Yes Status: Acute Qualifiers: Respiratory failure complication: hypoxia Qualified Code(s): J96.01 - Acute respiratory failure with hypoxia Plan to address problem: Management by hospitalist/tax services specialist (7) Metabolic encephalopathy Current Visit: Yes Status: Acute Plan to address problem: Appears to be improving as patient awakens to stimulation. Continue close monitoring (8) Sepsis Current Visit: Yes Status: Acute Qualifiers: Sepsis type: sepsis due to unspecified organism Qualified Code(s): A41.9 - Sepsis, unspecified organism Plan to address problem: Continue empiric antibiotics per infectious disease Subjective Date of service: 10/30/17 Principal diagnosis: Acute Hypoxemic Respiratory Failure; Acute Encephalopathy Interval history: Patient seen lying in bed in the ICU. She is intubated on the ventilator. She is on Diprivan and fentanyl Objective - Exam Narrative Exam: Young -[place] female lying in bed intubated on ventilator HEENT: Facial edema, Chemosis,, endotracheal tube intact, Neck: Supple, no venous distention CVS: S1S2 RRR with no murmur, rub or gallop Chest: Good chest expansion, faint rhonchi Abdomen: Protuberant, soft, nontender, no organomegaly, bowel sounds are present Extremities: Mild edema upper extremities, no clubbing Skin warm and dry with no rash Neuro: Opens eyes to stimuli, not following commands - Vital Signs Vital signs: Vital Signs - 12hr 10/30/17 10/30/17 10/30/17 06:30 06:41 06:51 Temperature Pulse Rate 80 79 79 Respiratory 16 16 16 Rate Blood Pressure 120/87 120/87 123/88 O2 Sat by Pulse 100 100 100 Oximetry 10/30/17 10/30/17 10/30/17 07:00 07:11 07:21 Temperature Pulse Rate 78 78 77 Respiratory 16 16 16 Rate Blood Pressure 128/94 128/94 128/95 O2 Sat by Pulse 100 100 100 Oximetry 10/30/17 10/30/17 10/30/17 07:30 07:41 07:51 Temperature Pulse Rate 77 77 78 Respiratory 16 16 16 Rate Blood Pressure 128/96 128/96 129/96 O2 Sat by Pulse 100 100 100 Oximetry 10/30/17 10/30/17 10/30/17 08:00 08:11 08:21 Temperature 95.3 F L Pulse Rate 79 79 78 Respiratory 16 16 16 Rate Blood Pressure 130/97 130/97 130/97 O2 Sat by Pulse 100 100 100 Oximetry 10/30/17 10/30/17 10/30/17 08:30 08:41 08:51 Temperature Pulse Rate 78 77 78 Respiratory 16 16 16 Rate Blood Pressure 132/98 132/98 133/99 O2 Sat by Pulse 100 100 100 Oximetry 10/30/17 10/30/17 10/30/17 09:00 09:07 09:11 Temperature Pulse Rate 77 77 77 Respiratory 16 16 Rate Blood Pressure 135/100 135/100 135/100 O2 Sat by Pulse 100 100 100 Oximetry 10/30/17 10/30/17 10/30/17 09:21 09:30 09:41 Temperature Pulse Rate 79 77 78 Respiratory 17 16 16 Rate Blood Pressure 138/101 133/99 133/99 O2 Sat by Pulse 100 100 100 Oximetry 10/30/17 10/30/17 10/30/17 09:51 10:00 10:10 Temperature Pulse Rate 77 77 76 Respiratory 16 16 16 Rate Blood Pressure 133/98 134/100 134/100 O2 Sat by Pulse 100 100 100 Oximetry 10/30/17 10/30/17 10/30/17 10:20 10:30 10:40 Temperature Pulse Rate 78 77 77 Respiratory 16 16 16 Rate Blood Pressure 141/104 141/104 O2 Sat by Pulse 100 100 100 Oximetry 10/30/17 10/30/17 10/30/17 10:50 11:00 11:10 Temperature Pulse Rate 76 76 76 Respiratory 16 16 16 Rate Blood Pressure 140/103 142/104 142/104 O2 Sat by Pulse 100 100 100 Oximetry 10/30/17 10/30/17 10/30/17 11:20 11:30 11:40 Temperature Pulse Rate 75 75 75 Respiratory 16 16 16 Rate Blood Pressure 143/107 148/109 148/109 O2 Sat by Pulse 100 100 100 Oximetry 10/30/17 10/30/17 10/30/17 11:50 12:00 12:10 Temperature 97.0 F L Pulse Rate 75 75 74 Respiratory 16 16 16 Rate Blood Pressure 149/108 148/109 148/109 O2 Sat by Pulse 100 100 100 Oximetry 10/30/17 10/30/17 10/30/17 12:20 12:30 12:40 Temperature Pulse Rate 76 81 88 Respiratory 16 17 10 L Rate Blood Pressure 148/111 139/101 139/101 O2 Sat by Pulse 100 100 100 Oximetry 10/30/17 10/30/17 10/30/17 12:50 12:57 13:00 Temperature Pulse Rate 100 H 90 83 Respiratory 18 16 Rate Blood Pressure 118/85 118/85 115/81 O2 Sat by Pulse 100 100 100 Oximetry 10/30/17 10/30/17 10/30/17 13:10 13:20 13:30 Temperature Pulse Rate 85 98 H 103 H Respiratory 16 14 15 Rate Blood Pressure 139/101 101/65 127/88 O2 Sat by Pulse 100 99 100 Oximetry 10/30/17 10/30/17 10/30/17 13:40 13:50 14:00 Temperature Pulse Rate 106 H 96 H 88 Respiratory 17 16 16 Rate Blood Pressure 127/88 131/84 111/78 O2 Sat by Pulse 88 100 99 Oximetry 10/30/17 10/30/17 10/30/17 14:10 14:20 14:30 Temperature Pulse Rate 85 84 83 Respiratory 16 16 16 Rate Blood Pressure 111/78 114/84 119/85 O2 Sat by Pulse 99 99 99 Oximetry 10/30/17 10/30/17 10/30/17 14:40 14:50 15:00 Temperature Pulse Rate 81 93 H 85 Respiratory 16 16 16 Rate Blood Pressure 119/85 122/90 123/91 O2 Sat by Pulse 99 100 98 Oximetry 10/30/17 10/30/17 10/30/17 15:10 15:20 15:30 Temperature Pulse Rate 85 84 82 Respiratory 16 16 16 Rate Blood Pressure 123/91 128/93 124/92 O2 Sat by Pulse 98 99 98 Oximetry 10/30/17 10/30/17 10/30/17 15:40 15:50 16:00 Temperature 97 F L Pulse Rate 81 81 80 Respiratory 16 16 16 Rate Blood Pressure 124/92 128/94 131/96 O2 Sat by Pulse 99 99 99 Oximetry 10/30/17 10/30/17 10/30/17 16:10 16:20 16:30 Temperature Pulse Rate 80 90 84 Respiratory 16 16 16 Rate Blood Pressure 131/96 100/63 129/92 O2 Sat by Pulse 99 98 99 Oximetry 10/30/17 10/30/17 10/30/17 16:40 16:50 17:00 Temperature Pulse Rate 81 79 77 Respiratory 16 16 16 Rate Blood Pressure 129/92 133/97 135/101 O2 Sat by Pulse 99 99 99 Oximetry 10/30/17 10/30/17 10/30/17 17:10 17:20 17:30 Temperature Pulse Rate 77 76 75 Respiratory 16 16 16 Rate Blood Pressure 135/101 139/103 144/104 O2 Sat by Pulse 99 99 99 Oximetry 10/30/17 10/30/17 10/30/17 17:40 17:50 18:00 Temperature Pulse Rate 76 74 88 Respiratory 16 16 16 Rate Blood Pressure 144/104 145/104 112/77 O2 Sat by Pulse 99 99 99 Oximetry - Lab 10/29/17 03:41 10/30/17 10:36 Most recent lab results Calcium 7.6 mg/dL (8.4-10.2) L 10/30/17 10:36 Phosphorus 3.50 mg/dL (2.5-4.5) 10/30/17 03:58 Magnesium 2.00 mg/dL (1.7-2.3) 10/30/17 03:58
--- NOTE | 2017-10-30 18:33 | Progress Note ---
Assessment and Plan Assessment and plan: 22 YO Female with DM, Medication Noncompliance, HTN, Chronic Pain presents to ED for evaluation. Pt unable to provide history, but history taken from ED staff , as well as EMS. Pt was found down and unresponsive by neighbors. EMS notified , and upon arrival the patient was found to be unresponsive. Patient had an empty bottle of oxycodone in her pill bag. Narcan was given without improvement in mental status. Patient transported to [facility] for further care and evaluation. Pt seen and evaluated in ED and found to have Acute Respiratory Failure, as well as DKA, and Sepsis. Pt intubated, sedated, and placed on vent support, as well as DKA and sepsis protocols. Pt admitted to ICU. PT has poor prognosis. Sepsis - likely due to pneumonia - Patient is on IV Levaquin and Flagyl Acute respiratory failure, hypoxic, on MV >96 hours - Pulmonary consulted, Pt intubated placed on vent support, wean vent as tolerated, daily ABG, daily SBT, nebulizer therapy, Acute renal failure/Vasomotor nephropathy continue IV, renal consult pressures and, resolved Metabolic encephalopathy due to DKA - CTH shows no acute findings, neuro consult appreciated Toxic encephalopathy - UDS was positive for benzo Hypothermia - continue buffy huanthony DKA (diabetic ketoacidoses) - Resolved, currently on sliding scale insulin Hypokalemia, hypophosphatemia - repleted Hypernatremia - continue free water replacement DVT prophylaxis - SCD to BLE,. The high probability of a clinically significant, sudden or life threatening deterioration of the [cardiac, pulmonary, renal, endocrine] system(s) required my full and direct attention, intervention and personal management. The aggregate critical care time was [35] minutes. This time is in addition to time spent performing reported procedures but includes the following: [x] Data Review and interpretation [x] Patient assessment and monitoring of vital signs [x] Documentation [x] Medication orders and management History Interval history: Patient was seen and evaluated this morning, patient is on MV. Hospitalist Physical - Physical exam Narrative exam: Patient is intubated and on mechanical ventilation. Swollen lips. The patient appeared well nourished and normally developed. Vital signs as documented. Head exam is unremarkable. No scleral icterus . Neck is without jugular venous distension, thyromegaly, or carotid bruits. Lungs are clear to auscultation. Cardiac exam reveals regular rate and Rhythm. First and second heart sounds normal. No murmurs, rubs or gallops. Abdominal exam reveals normal bowel sounds, no masses, no organomegaly and no aortic enlargement. Extremities are nonedematous and both femoral and pedal pulses are normal. 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 - Constitutional Vitals: Temp Pulse Resp BP Pulse Ox 97 F L 88 16 112/77 99 10/30/17 16:00 10/30/17 18:00 10/30/17 18:00 10/30/17 18:00 10/30/17 18:00 General appearance: Present: severe distress, cachectic, disheveled Results - Labs CBC & Chem 7: 10/29/17 03:41 10/30/17 10:36 Labs: Laboratory Last Values WBC 14.1 K/mm3 (4.5-11.0) H 10/29/17 03:41 RBC 3.32 M/mm3 (3.65-5.03) L 10/29/17 03:41 Hgb 7.6 gm/dl (10.1-14.3) L 10/29/17 03:41 Hct 25.5 % (30.3-42.9) L 10/29/17 03:41 MCV 77 fl (79-97) L 10/29/17 03:41 MCH 23 pg (28-32) L 10/29/17 03:41 MCHC 30 % (30-34) 10/29/17 03:41 RDW 20.8 % (13.2-15.2) H 10/29/17 03:41 Plt Count 231 K/mm3 (140-440) 10/29/17 03:41 Lymph % (Auto) 16.4 % (13.4-35.0) 10/28/17 15:39 [place] % (Auto) 3.7 % (0.0-7.3) 10/28/17 15:39 Eos % (Auto) 0.7 % (0.0-4.3) 10/28/17 15:39 Baso % (Auto) 0.7 % (0.0-1.8) 10/28/17 15:39 Lymph # 2.6 K/mm3 (1.2-5.4) 10/28/17 15:39 [place] # 0.6 K/mm3 (0.0-0.8) 10/28/17 15:39 Eos # 0.1 K/mm3 (0.0-0.4) 10/28/17 15:39 Baso # 0.1 K/mm3 (0.0-0.1) 10/28/17 15:39 Add Manual Diff Complete 10/26/17 11:44 Total Counted 100 10/26/17 11:44 Seg Neutrophils % 78.5 % (40.0-70.0) H 10/28/17 15:39 Seg Neuts % (Manual) 76.0 % (40.0-70.0) H 10/26/17 11:44 Band Neutrophils % 2.0 % 10/26/17 11:44 Lymphocytes % (Manual) 11.0 % (13.4-35.0) L 10/26/17 11:44 Reactive Lymphs % (Man) 0 % 10/26/17 11:44 Monocytes % (Manual) 1.0 % (0.0-7.3) 10/26/17 11:44 Eosinophils % (Manual) 0 % (0.0-4.3) 10/26/17 11:44 Basophils % (Manual) 1.0 % (0.0-1.8) 10/26/17 11:44 Metamyelocytes % 8.0 % 10/26/17 11:44 Myelocytes % 1.0 % 10/26/17 11:44 Promyelocytes % 0 % 10/26/17 11:44 Blast Cells % 0 % 10/26/17 11:44 Nucleated RBC % Not Reportable 10/26/17 11:44 Seg Neutrophils # 12.2 K/mm3 (1.8-7.7) H 10/28/17 15:39 Seg Neutrophils # Man 15.7 K/mm3 (1.8-7.7) H 10/26/17 11:44 Band Neutrophils # 0.4 K/mm3 10/26/17 11:44 Lymphocytes # (Manual) 2.3 K/mm3 (1.2-5.4) 10/26/17 11:44 Abs React Lymphs (Man) 0.0 K/mm3 10/26/17 11:44 Monocytes # (Manual) 0.2 K/mm3 (0.0-0.8) 10/26/17 11:44 Eosinophils # (Manual) 0.0 K/mm3 (0.0-0.4) 10/26/17 11:44 Basophils # (Manual) 0.2 K/mm3 (0.0-0.1) H 10/26/17 11:44 Metamyelocytes # 1.6 K/mm3 10/26/17 11:44 Myelocytes # 0.2 K/mm3 10/26/17 11:44 Promyelocytes # 0.0 K/mm3 10/26/17 11:44 Blast Cells # 0.0 K/mm3 10/26/17 11:44 WBC Morphology Not Reportable 10/26/17 11:44 Hypersegmented Neuts Not Reportable 10/26/17 11:44 Hyposegmented Neuts Not Reportable 10/26/17 11:44 Hypogranular Neuts Not Reportable 10/26/17 11:44 Smudge Cells Not Reportable 10/26/17 11:44 Toxic Granulation Not Reportable 10/26/17 11:44 Toxic Vacuolation Not Reportable 10/26/17 11:44 Dohle Bodies Not Reportable 10/26/17 11:44 Pelger-Huet Anomaly Not Reportable 10/26/17 11:44 Gogo Rods Not Reportable 10/26/17 11:44 Platelet Estimate Cons 10/26/17 11:44 Clumped Platelets Not Reportable 10/26/17 11:44 Plt Clumps, EDTA Not Reportable 10/26/17 11:44 Large Platelets Not Reportable 10/26/17 11:44 Giant Platelets Not Reportable 10/26/17 11:44 Platelet Satelliting Not Reportable 10/26/17 11:44 Plt Morphology Comment Not Reportable 10/26/17 11:44 RBC Morphology Not Reportable 10/26/17 11:44 Dimorphic RBCs Not Reportable 10/26/17 11:44 Polychromasia Not Reportable 10/26/17 11:44 Hypochromasia 1+ 10/26/17 11:44 Poikilocytosis Not Reportable 10/26/17 11:44 Anisocytosis 1+ 10/26/17 11:44 Microcytosis Not Reportable 10/26/17 11:44 Macrocytosis Not Reportable 10/26/17 11:44 Spherocytes Not Reportable 10/26/17 11:44 Pappenheimer Bodies Not Reportable 10/26/17 11:44 Sickle Cells Not Reportable 10/26/17 11:44 Target Cells Not Reportable 10/26/17 11:44 Tear Drop Cells Not Reportable 10/26/17 11:44 Ovalocytes Not Reportable 10/26/17 11:44 Helmet Cells Not Reportable 10/26/17 11:44 Paul[place] Bodies Not Reportable 10/26/17 11:44 [place] Rings Not Reportable 10/26/17 11:44 Caprice Cells Not Reportable 10/26/17 11:44 Bite Cells Not Reportable 10/26/17 11:44 Crenated Cell Not Reportable 10/26/17 11:44 Elliptocytes Not Reportable 10/26/17 11:44 Acanthocytes (Spur) Not Reportable 10/26/17 11:44 Rouleaux Not Reportable 10/26/17 11:44 Hemoglobin C Crystals Not Reportable 10/26/17 11:44 Schistocytes Not Reportable 10/26/17 11:44 Malaria parasites Not Reportable 10/26/17 11:44 David Bodies Not Reportable 10/26/17 11:44 Hem Pathologist Commnt No 10/26/17 11:44 PT 16.8 Sec. (12.2-14.9) H 10/26/17 11:44 INR 1.29 (0.87-1.13) H 10/26/17 11:44 APTT 24.9 Sec. (24.2-36.6) 10/26/17 11:44 POC ABG pH 7.368 (7.35-7.45) 10/30/17 05:02 POC ABG pCO2 34.8 (35-45) L 10/30/17 05:02 POC ABG pO2 107 (80-105) H 10/30/17 05:02 POC ABG HCO3 20.0 10/30/17 05:02 POC ABG Total CO2 21 10/30/17 05:02 POC ABG O2 Sat 98 10/30/17 05:02 POC ABG Base Excess -5 10/30/17 05:02 FiO2 35 % 10/30/17 05:02 Sodium 149 mmol/L (137-145) H 10/30/17 10:36 Potassium 4.6 mmol/L (3.6-5.0) 10/30/17 10:36 Chloride 115.5 mmol/L (98-107) H 10/30/17 10:36 Carbon Dioxide 16 mmol/L (22-30) L 10/30/17 10:36 Anion Gap 22 mmol/L 10/30/17 10:36 BUN 8 mg/dL (7-17) 10/30/17 10:36 Creatinine 0.9 mg/dL (0.7-1.2) 10/30/17 10:36 Estimated GFR > 60 ml/min 10/30/17 10:36 BUN/Creatinine Ratio 9 % 10/30/17 10:36 Glucose 230 mg/dL (65-100) H 10/30/17 10:36 POC Glucose 264 (70-105) H 10/30/17 12:13 Ketones Quantitative Small (Negative) 10/27/17 20:24 Lactic Acid 1.40 mmol/L (0.7-2.0) 10/27/17 20:34 Calcium 7.6 mg/dL (8.4-10.2) L 10/30/17 10:36 Phosphorus 3.50 mg/dL (2.5-4.5) 10/30/17 03:58 Magnesium 2.00 mg/dL (1.7-2.3) 10/30/17 03:58 Total Bilirubin < 0.20 mg/dL (0.1-1.2) 10/26/17 11:44 AST 22 units/L (5-40) 10/26/17 11:44 ALT 56 units/L (7-56) 10/26/17 11:44 Alkaline Phosphatase 196 units/L (35-129) H 10/26/17 11:44 Ammonia 67.0 umol/L (25-60) H 10/26/17 11:44 Total Creatine Kinase 24 units/L (30-135) L 10/26/17 11:44 Troponin T < 0.010 ng/mL (0.00-0.029) 10/26/17 11:44 C-Reactive Protein 4.40 mg/dL (0.00-1.30) H 10/28/17 15:50 Total Protein 6.3 g/dL (6.3-8.2) 10/26/17 11:44 Albumin 3.6 g/dL (3.9-5) L 10/26/17 11:44 Albumin/Globulin Ratio 1.3 % 10/26/17 11:44 Triglycerides 144 mg/dL (2-149) 10/30/17 10:36 TSH 0.216 mlU/mL (0.270-4.200) L 10/29/17 13:50 Urine Color Yellow (Yellow) 10/26/17 12:59 Urine Turbidity Clear (Clear) 10/26/17 12:59 Urine pH 5.0 (5.0-7.0) 10/26/17 12:59 Ur Specific [place] 1.015 (1.003-1.030) 10/26/17 12:59 Urine Protein 30 mg/dl mg/dL (Negative) 10/26/17 12:59 Urine Glucose (UA) >=500 mg/dL (Negative) 10/26/17 12:59 Urine Ketones Tr mg/dL (Negative) 10/26/17 12:59 Urine Blood Mod (Negative) 10/26/17 12:59 Urine Nitrite Neg (Negative) 10/26/17 12:59 Urine Bilirubin Neg (Negative) 10/26/17 12:59 Urine Urobilinogen < 2.0 mg/dL (<2.0) 10/26/17 12:59 Ur Leukocyte Esterase Sm (Negative) 10/26/17 12:59 Urine WBC (Auto) 42.0 /HPF (0.0-6.0) H 10/26/17 12:59 Urine RBC (Auto) 54.0 /HPF (0.0-6.0) 10/26/17 12:59 U Epithel Cells (Auto) < 1.0 /HPF (0-13.0) 10/26/17 12:59 Uric Acid Crystals 3+ 10/26/17 12:59 Granular Casts 3 /LPF 10/26/17 12:59 Urine Mucus Few /HPF 10/26/17 12:59 Ur Yeast w Hyphae Few /HPF 10/26/17 12:59 Urine Yeast (Budding) 3+ /HPF 10/26/17 12:59 Salicylates < 0.3 mg/dL (2.8-20.0) L 10/26/17 11:44 Urine Opiates Screen Presumptive negative 10/26/17 12:59 Urine Methadone Screen Presumptive negative 10/26/17 12:59 Acetaminophen 15.0 ug/mL (10.0-30.0) 10/26/17 11:44 Ur Barbiturates Screen Presumptive negative 10/26/17 12:59 Ur Phencyclidine Scrn Presumptive negative 10/26/17 12:59 Ur Amphetamines Screen Presumptive negative 10/26/17 12:59 U Benzodiazepines Scrn Presumptive positive 10/26/17 12:59 Urine Cocaine Screen Presumptive negative 10/26/17 12:59 U Marijuana (THC) Screen Presumptive negative 10/26/17 12:59 Drugs of Abuse Note Disclamer 10/26/17 12:59 Plasma/Serum Alcohol < 0.01 % (0-0.07) 10/26/17 11:44 HIV 1&2 Antibody Rapid Non react (Non React) 10/28/17 15:50 HIV P24 Antigen Non react (Non React) 10/28/17 15:50 Blood Type O POSITIVE 10/26/17 11:54 Antibody Screen Negative 10/26/17 11:54
--- NOTE | 2017-10-30 18:39 | Progress Note ---
Assessment and Plan Acute respiratory failure, on mechanical ventilatory support. Acute encephalopathy, appears toxic metabolic at this point. Diabetic ketoacidosis. Sepsis syndrome. History of chronic pain. Possible drug abuse. Anemia. Leukocytosis. Hyperammonemia. Severe metabolic acidosis with a lactic acid component. - get CT chest to r/o mediastinal pathology / SVC syndrome once azotemia resolved as will need IV contrast - continue PPI, antihistamine therapy and steroids re: possible angioedema element - reduce set rate on MVS to 12/min -agitation management, add seroquel qhs - continue GI & VTE prophylaxis - azotemia per nephrology - free water and hypotonic solutionfor hypernatremia - daily SAT's & SBT's shortly - continue bronchodilators and pulmonary hygiene per RT - VAP bundle addressed - continue other care per attending / other consultants ...35' CCT Subjective Date of service: 10/30/17 Principal diagnosis: Acute Hypoxemic Respiratory Failure; Acute Encephalopathy Interval history: Patient is seen today for: Acute Hypoxemic Respiratory Failure; Acute Encephalopathy Seen and examined at bedside; 24hour events reviewed; nursing and respiratory care staff consulted; no adverse overnight events reported to me; Very agitated trying to sit up in bed when sedation is turned off. Vitals, labs, medications, chart reviewed. Discussed in interdisciplinary ICU rounds Objective - Exam Narrative Exam: Patient is intubated and on mechanical ventilation. The patient appeared well nourished and normally developed. Vital signs as documented. Head exam is unremarkable. No scleral icterus . Large tongue with edema, facial swelling with tristen-orbital edema Neck is without jugular venous distension, thyromegaly, or carotid bruits. Lungs are clear to auscultation. Cardiac exam reveals regular rate and Rhythm. First and second heart sounds normal. No murmurs, rubs or gallops. Abdominal exam reveals normal bowel sounds, no masses, no organomegaly and no aortic enlargement. Extremities are nonedematous and both femoral and pedal pulses are normal. [employer]:spontaneous eye opening Vital Signs - 12hr 10/30/17 10/30/17 10/30/17 06:41 06:51 07:00 Temperature Pulse Rate 79 79 78 Respiratory 16 16 16 Rate Blood Pressure 120/87 123/88 128/94 O2 Sat by Pulse 100 100 100 Oximetry 10/30/17 10/30/17 10/30/17 07:11 07:21 07:30 Temperature Pulse Rate 78 77 77 Respiratory 16 16 16 Rate Blood Pressure 128/94 128/95 128/96 O2 Sat by Pulse 100 100 100 Oximetry 10/30/17 10/30/17 10/30/17 07:41 07:51 08:00 Temperature 95.3 F L Pulse Rate 77 78 79 Respiratory 16 16 16 Rate Blood Pressure 128/96 129/96 130/97 O2 Sat by Pulse 100 100 100 Oximetry 10/30/17 10/30/17 10/30/17 08:11 08:21 08:30 Temperature Pulse Rate 79 78 78 Respiratory 16 16 16 Rate Blood Pressure 130/97 130/97 132/98 O2 Sat by Pulse 100 100 100 Oximetry 10/30/17 10/30/17 10/30/17 08:41 08:51 09:00 Temperature Pulse Rate 77 78 77 Respiratory 16 16 16 Rate Blood Pressure 132/98 133/99 135/100 O2 Sat by Pulse 100 100 100 Oximetry 10/30/17 10/30/17 10/30/17 09:07 09:11 09:21 Temperature Pulse Rate 77 77 79 Respiratory 16 17 Rate Blood Pressure 135/100 135/100 138/101 O2 Sat by Pulse 100 100 100 Oximetry 10/30/17 10/30/17 10/30/17 09:30 09:41 09:51 Temperature Pulse Rate 77 78 77 Respiratory 16 16 16 Rate Blood Pressure 133/99 133/99 133/98 O2 Sat by Pulse 100 100 100 Oximetry 10/30/17 10/30/17 10/30/17 10:00 10:10 10:20 Temperature Pulse Rate 77 76 78 Respiratory 16 16 16 Rate Blood Pressure 134/100 134/100 O2 Sat by Pulse 100 100 100 Oximetry 10/30/17 10/30/17 10/30/17 10:30 10:40 10:50 Temperature Pulse Rate 77 77 76 Respiratory 16 16 16 Rate Blood Pressure 141/104 141/104 140/103 O2 Sat by Pulse 100 100 100 Oximetry 10/30/17 10/30/17 10/30/17 11:00 11:10 11:20 Temperature Pulse Rate 76 76 75 Respiratory 16 16 16 Rate Blood Pressure 142/104 142/104 143/107 O2 Sat by Pulse 100 100 100 Oximetry 10/30/17 10/30/17 10/30/17 11:30 11:40 11:50 Temperature Pulse Rate 75 75 75 Respiratory 16 16 16 Rate Blood Pressure 148/109 148/109 149/108 O2 Sat by Pulse 100 100 100 Oximetry 10/30/17 10/30/17 10/30/17 12:00 12:10 12:20 Temperature 97.0 F L Pulse Rate 75 74 76 Respiratory 16 16 16 Rate Blood Pressure 148/109 148/109 148/111 O2 Sat by Pulse 100 100 100 Oximetry 10/30/17 10/30/17 10/30/17 12:30 12:40 12:50 Temperature Pulse Rate 81 88 100 H Respiratory 17 10 L 18 Rate Blood Pressure 139/101 139/101 118/85 O2 Sat by Pulse 100 100 100 Oximetry 10/30/17 10/30/17 10/30/17 12:57 13:00 13:10 Temperature Pulse Rate 90 83 85 Respiratory 16 16 Rate Blood Pressure 118/85 115/81 139/101 O2 Sat by Pulse 100 100 100 Oximetry 10/30/17 10/30/17 10/30/17 13:20 13:30 13:40 Temperature Pulse Rate 98 H 103 H 106 H Respiratory 14 15 17 Rate Blood Pressure 101/65 127/88 127/88 O2 Sat by Pulse 99 100 88 Oximetry 10/30/17 10/30/17 10/30/17 13:50 14:00 14:10 Temperature Pulse Rate 96 H 88 85 Respiratory 16 16 16 Rate Blood Pressure 131/84 111/78 111/78 O2 Sat by Pulse 100 99 99 Oximetry 10/30/17 10/30/17 10/30/17 14:20 14:30 14:40 Temperature Pulse Rate 84 83 81 Respiratory 16 16 16 Rate Blood Pressure 114/84 119/85 119/85 O2 Sat by Pulse 99 99 99 Oximetry 10/30/17 10/30/17 10/30/17 14:50 15:00 15:10 Temperature Pulse Rate 93 H 85 85 Respiratory 16 16 16 Rate Blood Pressure 122/90 123/91 123/91 O2 Sat by Pulse 100 98 98 Oximetry 10/30/17 10/30/17 10/30/17 15:20 15:30 15:40 Temperature Pulse Rate 84 82 81 Respiratory 16 16 16 Rate Blood Pressure 128/93 124/92 124/92 O2 Sat by Pulse 99 98 99 Oximetry 02/27/18 02/27/18 02/27/18 15:50 16:00 16:10 Temperature 97 F L Pulse Rate 81 80 80 Respiratory 16 16 16 Rate Blood Pressure 128/94 131/96 131/96 O2 Sat by Pulse 99 99 99 Oximetry 10/30/17 10/30/17 10/30/17 16:20 16:30 16:40 Temperature Pulse Rate 90 84 81 Respiratory 16 16 16 Rate Blood Pressure 100/63 129/92 129/92 O2 Sat by Pulse 98 99 99 Oximetry 10/30/17 10/30/17 10/30/17 16:50 17:00 17:10 Temperature Pulse Rate 79 77 77 Respiratory 16 16 16 Rate Blood Pressure 133/97 135/101 135/101 O2 Sat by Pulse 99 99 99 Oximetry 10/30/17 10/30/17 10/30/17 17:20 17:30 17:40 Temperature Pulse Rate 76 75 76 Respiratory 16 16 16 Rate Blood Pressure 139/103 144/104 144/104 O2 Sat by Pulse 99 99 99 Oximetry 10/30/17 10/30/17 17:50 18:00 Temperature Pulse Rate 74 88 Respiratory 16 16 Rate Blood Pressure 145/104 112/77 O2 Sat by Pulse 99 99 Oximetry Constitutional: lethargic, appears uncomfortable Eyes: non-icteric, other (orbital phimosis) ENT: oropharynx moist, oropharyngeal exudate pre Neck: supple, no lymphadenopathy, no JVD, other (neck and facial swelling) Effort: mildly labored Ascultation: Bilateral: rhonchi Percussion: Bilateral: not dull Cardiovascular: regular rate and rhythm, other (No palpable HSM) Gastrointestinal: normoactive bowel sounds, soft, non-tender, non-distended, other (no palpable HSM) Integumentary: normal Extremities: no cyanosis, no edema, pulses normal, no ischemia or petechiae Neurologic: unable to assess Psychiatric: other (sedated) CBC and BMP: 10/29/17 03:41 10/30/17 10:36 ABG, PT/INR, D-dimer: ABG POC ABG pH 7.368 (7.35-7.45) 10/30/17 05:02 POC ABG pCO2 34.8 (35-45) L 10/30/17 05:02 POC ABG pO2 107 (80-105) H 10/30/17 05:02 POC ABG HCO3 20.0 10/30/17 05:02 POC ABG Total CO2 21 10/30/17 05:02 POC ABG O2 Sat 98 10/30/17 05:02 PT/INR, D-dimer PT 16.8 Sec. (12.2-14.9) H 10/26/17 11:44 INR 1.29 (0.87-1.13) H 10/26/17 11:44 Abnormal lab findings: Abnormal Labs 10/26/17 10/26/17 10/26/17 11:23 11:44 11:44 WBC 20.6 H RBC 3.62 L Hgb 8.3 L Hct MCV MCH 23 L MCHC 24 L RDW 21.7 H Seg Neutrophils % Seg Neuts % (Manual) 76.0 H Lymphocytes % (Manual) 11.0 L Seg Neutrophils # Seg Neutrophils # Man 15.7 H Basophils # (Manual) 0.2 H PT INR POC ABG pH POC ABG pCO2 POC ABG pO2 Sodium Potassium Chloride Carbon Dioxide BUN Creatinine Glucose POC Glucose > 500 H Lactic Acid 4.10 H* Calcium Phosphorus Magnesium Alkaline Phosphatase Ammonia Total Creatine Kinase C-Reactive Protein Albumin TSH Urine WBC (Auto) Salicylates 10/26/17 10/26/17 10/26/17 11:44 11:44 11:44 WBC RBC Hgb Hct MCV MCH MCHC RDW Seg Neutrophils % Seg Neuts % (Manual) Lymphocytes % (Manual) Seg Neutrophils # Seg Neutrophils # Man Basophils # (Manual) PT 16.8 H INR 1.29 H POC ABG pH POC ABG pCO2 POC ABG pO2 Sodium 146 H Potassium 6.6 H* Chloride Carbon Dioxide 3 L* BUN 34 H Creatinine 2.2 H Glucose 1281 H* POC Glucose Lactic Acid Calcium 8.0 L Phosphorus Magnesium Alkaline Phosphatase 196 H Ammonia 67.0 H Total Creatine Kinase 24 L C-Reactive Protein Albumin 3.6 L TSH Urine WBC (Auto) Salicylates 10/26/17 10/26/17 10/26/17 11:44 12:01 12:59 WBC RBC Hgb Hct MCV MCH MCHC RDW Seg Neutrophils % Seg Neuts % (Manual) Lymphocytes % (Manual) Seg Neutrophils # Seg Neutrophils # Man Basophils # (Manual) PT INR POC ABG pH 6.895 L POC ABG pCO2 12.3 L POC ABG pO2 311 H Sodium Potassium Chloride Carbon Dioxide BUN Creatinine Glucose POC Glucose Lactic Acid Calcium Phosphorus Magnesium Alkaline Phosphatase Ammonia Total Creatine Kinase C-Reactive Protein Albumin TSH Urine WBC (Auto) 42.0 H Salicylates < 0.3 L 10/26/17 10/26/17 10/26/17 13:06 13:17 13:17 WBC RBC Hgb Hct MCV MCH MCHC RDW Seg Neutrophils % Seg Neuts % (Manual) Lymphocytes % (Manual) Seg Neutrophils # Seg Neutrophils # Man Basophils # (Manual) PT INR POC ABG pH POC ABG pCO2 POC ABG pO2 Sodium 146 H Potassium 7.1 H* Chloride Carbon Dioxide 2 L* BUN 35 H Creatinine 2.3 H Glucose 1330 H* POC Glucose Lactic Acid 4.10 H* Calcium 7.7 L Phosphorus 11.10 H Magnesium 2.70 H Alkaline Phosphatase Ammonia Total Creatine Kinase C-Reactive Protein Albumin TSH Urine WBC (Auto) Salicylates 10/26/17 10/26/17 10/26/17 14:57 15:26 15:26 WBC RBC Hgb Hct MCV MCH MCHC RDW Seg Neutrophils % Seg Neuts % (Manual) Lymphocytes % (Manual) Seg Neutrophils # Seg Neutrophils # Man Basophils # (Manual) PT INR POC ABG pH POC ABG pCO2 POC ABG pO2 Sodium 147 H Potassium 6.3 H* Chloride Carbon Dioxide < 2.0 L* BUN 37 H Creatinine 2.4 H Glucose 1115 H* POC Glucose > 500 H Lactic Acid 3.70 H* Calcium 7.2 L Phosphorus Magnesium Alkaline Phosphatase Ammonia Total Creatine Kinase C-Reactive Protein Albumin TSH Urine WBC (Auto) Salicylates 10/26/17 10/26/17 10/26/17 16:02 17:51 17:51 WBC RBC Hgb Hct MCV MCH MCHC RDW Seg Neutrophils % Seg Neuts % (Manual) Lymphocytes % (Manual) Seg Neutrophils # Seg Neutrophils # Man Basophils # (Manual) PT INR POC ABG pH POC ABG pCO2 POC ABG pO2 Sodium 149 H Potassium Chloride Carbon Dioxide 2 L* BUN 36 H Creatinine 2.6 H Glucose 1063 H* POC Glucose > 500 H Lactic Acid 6.50 H* Calcium 7.0 L Phosphorus Magnesium Alkaline Phosphatase Ammonia Total Creatine Kinase C-Reactive Protein Albumin TSH Urine WBC (Auto) Salicylates 10/26/17 10/26/17 10/26/17 18:42 19:55 19:55 WBC RBC Hgb Hct MCV MCH MCHC RDW Seg Neutrophils % Seg Neuts % (Manual) Lymphocytes % (Manual) Seg Neutrophils # Seg Neutrophils # Man Basophils # (Manual) PT INR POC ABG pH 6.974 L POC ABG pCO2 14.9 L POC ABG pO2 244 H Sodium 150 H Potassium Chloride 108.3 H Carbon Dioxide 4 L* BUN 33 H Creatinine 2.4 H Glucose 663 H* POC Glucose Lactic Acid 8.30 H* Calcium 7.0 L Phosphorus Magnesium Alkaline Phosphatase Ammonia Total Creatine Kinase C-Reactive Protein Albumin TSH Urine WBC (Auto) Salicylates 10/26/17 10/26/17 10/26/17 21:26 21:26 23:55 WBC RBC Hgb Hct MCV MCH MCHC RDW Seg Neutrophils % Seg Neuts % (Manual) Lymphocytes % (Manual) Seg Neutrophils # Seg Neutrophils # Man Basophils # (Manual) PT INR POC ABG pH POC ABG pCO2 POC ABG pO2 Sodium 152 H Potassium 3.5 L Chloride 110.4 H Carbon Dioxide 6 L* BUN 32 H Creatinine 2.3 H Glucose 498 H POC Glucose 317 H Lactic Acid 9.00 H* Calcium 7.6 L Phosphorus Magnesium Alkaline Phosphatase Ammonia Total Creatine Kinase C-Reactive Protein Albumin TSH Urine WBC (Auto) Salicylates 10/27/17 10/27/17 10/27/17 01:21 02:26 03:49 WBC RBC Hgb Hct MCV MCH MCHC RDW Seg Neutrophils % Seg Neuts % (Manual) Lymphocytes % (Manual) Seg Neutrophils # Seg Neutrophils # Man Basophils # (Manual) PT INR POC ABG pH POC ABG pCO2 POC ABG pO2 Sodium Potassium Chloride Carbon Dioxide BUN Creatinine Glucose POC Glucose 218 H 172 H 136 H Lactic Acid Calcium Phosphorus Magnesium Alkaline Phosphatase Ammonia Total Creatine Kinase C-Reactive Protein Albumin TSH Urine WBC (Auto) Salicylates 10/27/17 10/27/17 10/27/17 04:50 05:26 06:01 WBC RBC Hgb Hct MCV MCH MCHC RDW Seg Neutrophils % Seg Neuts % (Manual) Lymphocytes % (Manual) Seg Neutrophils # Seg Neutrophils # Man Basophils # (Manual) PT INR POC ABG pH 7.284 L POC ABG pCO2 POC ABG pO2 204 H Sodium 158 H Potassium 3.5 L Chloride 118.2 H Carbon Dioxide 19 L D BUN 27 H Creatinine 1.9 H Glucose 232 H POC Glucose 221 H Lactic Acid Calcium 7.1 L Phosphorus Magnesium Alkaline Phosphatase Ammonia Total Creatine Kinase C-Reactive Protein Albumin TSH Urine WBC (Auto) Salicylates 10/27/17 10/27/17 10/27/17 06:05 07:27 09:28 WBC RBC Hgb Hct MCV MCH MCHC RDW Seg Neutrophils % Seg Neuts % (Manual) Lymphocytes % (Manual) Seg Neutrophils # Seg Neutrophils # Man Basophils # (Manual) PT INR POC ABG pH POC ABG pCO2 POC ABG pO2 Sodium Potassium Chloride Carbon Dioxide BUN Creatinine Glucose POC Glucose 286 H 161 H 123 H Lactic Acid Calcium Phosphorus Magnesium Alkaline Phosphatase Ammonia Total Creatine Kinase C-Reactive Protein Albumin TSH Urine WBC (Auto) Salicylates 10/27/17 10/27/17 10/27/17 12:30 13:07 14:44 WBC RBC Hgb Hct MCV MCH MCHC RDW Seg Neutrophils % Seg Neuts % (Manual) Lymphocytes % (Manual) Seg Neutrophils # Seg Neutrophils # Man Basophils # (Manual) PT INR POC ABG pH POC ABG pCO2 POC ABG pO2 Sodium 158 H Potassium 3.2 L Chloride 120.7 H Carbon Dioxide 16 L BUN 23 H Creatinine 1.9 H Glucose 270 H POC Glucose 274 H 200 H Lactic Acid Calcium 7.1 L Phosphorus Magnesium Alkaline Phosphatase Ammonia Total Creatine Kinase C-Reactive Protein Albumin TSH Urine WBC (Auto) Salicylates 10/27/17 10/27/17 10/27/17 19:03 20:24 20:24 WBC RBC Hgb Hct MCV MCH MCHC RDW Seg Neutrophils % Seg Neuts % (Manual) Lymphocytes % (Manual) Seg Neutrophils # Seg Neutrophils # Man Basophils # (Manual) PT INR POC ABG pH POC ABG pCO2 POC ABG pO2 Sodium 155 H Potassium 3.4 L Chloride 119.3 H Carbon Dioxide 19 L BUN 20 H Creatinine 1.9 H Glucose 272 H POC Glucose 124 H Lactic Acid Calcium 7.0 L Phosphorus 1.50 L D Magnesium Alkaline Phosphatase Ammonia Total Creatine Kinase C-Reactive Protein 1.50 H Albumin TSH Urine WBC (Auto) Salicylates 10/27/17 10/27/17 10/28/17 20:40 21:05 03:02 WBC RBC Hgb Hct MCV MCH MCHC RDW Seg Neutrophils % Seg Neuts % (Manual) Lymphocytes % (Manual) Seg Neutrophils # Seg Neutrophils # Man Basophils # (Manual) PT INR POC ABG pH 7.327 L POC ABG pCO2 32.1 L POC ABG pO2 Sodium 157 H Potassium Chloride 118.8 H Carbon Dioxide 13 L BUN 18 H Creatinine 2.0 H Glucose 560 H* POC Glucose 289 H Lactic Acid Calcium 6.8 L Phosphorus 5.40 H D Magnesium Alkaline Phosphatase Ammonia Total Creatine Kinase C-Reactive Protein Albumin TSH Urine WBC (Auto) Salicylates 10/28/17 10/28/17 10/28/17 06:06 07:46 08:21 WBC RBC Hgb Hct MCV MCH MCHC RDW Seg Neutrophils % Seg Neuts % (Manual) Lymphocytes % (Manual) Seg Neutrophils # Seg Neutrophils # Man Basophils # (Manual) PT INR POC ABG pH POC ABG pCO2 POC ABG pO2 Sodium Potassium Chloride Carbon Dioxide BUN Creatinine Glucose POC Glucose > 500 H 500 H Lactic Acid Calcium Phosphorus 6.70 H D Magnesium Alkaline Phosphatase Ammonia Total Creatine Kinase C-Reactive Protein Albumin TSH Urine WBC (Auto) Salicylates 10/28/17 10/28/17 10/28/17 09:34 11:13 12:55 WBC RBC Hgb Hct MCV MCH MCHC RDW Seg Neutrophils % Seg Neuts % (Manual) Lymphocytes % (Manual) Seg Neutrophils # Seg Neutrophils # Man Basophils # (Manual) PT INR POC ABG pH POC ABG pCO2 POC ABG pO2 Sodium Potassium Chloride Carbon Dioxide BUN Creatinine Glucose POC Glucose 435 H 273 H 149 H Lactic Acid Calcium Phosphorus Magnesium Alkaline Phosphatase Ammonia Total Creatine Kinase C-Reactive Protein Albumin TSH Urine WBC (Auto) Salicylates 10/28/17 10/28/17 10/28/17 14:27 15:39 15:39 WBC 15.5 H RBC 3.59 L Hgb 8.3 L Hct 27.6 L D MCV 77 L MCH 23 L MCHC RDW 20.9 H Seg Neutrophils % 78.5 H Seg Neuts % (Manual) Lymphocytes % (Manual) Seg Neutrophils # 12.2 H Seg Neutrophils # Man Basophils # (Manual) PT INR POC ABG pH POC ABG pCO2 33.9 L POC ABG pO2 138 H Sodium 164 H* Potassium 3.5 L Chloride 125.3 H Carbon Dioxide 18 L BUN Creatinine 1.6 H Glucose 37 L* POC Glucose Lactic Acid Calcium 7.5 L Phosphorus Magnesium Alkaline Phosphatase Ammonia Total Creatine Kinase C-Reactive Protein Albumin TSH Urine WBC (Auto) Salicylates 10/28/17 10/28/17 10/28/17 15:47 15:50 16:28 WBC RBC Hgb Hct MCV MCH MCHC RDW Seg Neutrophils % Seg Neuts % (Manual) Lymphocytes % (Manual) Seg Neutrophils # Seg Neutrophils # Man Basophils # (Manual) PT INR POC ABG pH POC ABG pCO2 POC ABG pO2 Sodium Potassium Chloride Carbon Dioxide BUN Creatinine Glucose POC Glucose < 40 L 114 H Lactic Acid Calcium Phosphorus Magnesium Alkaline Phosphatase Ammonia Total Creatine Kinase C-Reactive Protein 4.40 H Albumin TSH Urine WBC (Auto) Salicylates 10/28/17 10/28/17 10/28/17 19:07 23:10 23:59 WBC RBC Hgb Hct MCV MCH MCHC RDW Seg Neutrophils % Seg Neuts % (Manual) Lymphocytes % (Manual) Seg Neutrophils # Seg Neutrophils # Man Basophils # (Manual) PT INR POC ABG pH POC ABG pCO2 POC ABG pO2 Sodium 159 H Potassium Chloride 124.1 H Carbon Dioxide 19 L BUN Creatinine 1.4 H Glucose 219 H POC Glucose 111 H 307 H Lactic Acid Calcium 7.1 L Phosphorus Magnesium Alkaline Phosphatase Ammonia Total Creatine Kinase C-Reactive Protein Albumin TSH Urine WBC (Auto) Salicylates 10/29/17 10/29/17 10/29/17 03:41 03:41 04:55 WBC 14.1 H RBC 3.32 L Hgb 7.6 L Hct 25.5 L MCV 77 L MCH 23 L MCHC RDW 20.8 H Seg Neutrophils % Seg Neuts % (Manual) Lymphocytes % (Manual) Seg Neutrophils # Seg Neutrophils # Man Basophils # (Manual) PT INR POC ABG pH POC ABG pCO2 31.2 L POC ABG pO2 123 H Sodium 158 H Potassium Chloride 122.7 H Carbon Dioxide 15 L BUN Creatinine 1.3 H Glucose 176 H POC Glucose Lactic Acid Calcium 7.2 L Phosphorus Magnesium Alkaline Phosphatase Ammonia Total Creatine Kinase C-Reactive Protein Albumin TSH Urine WBC (Auto) Salicylates 10/29/17 10/29/17 10/29/17 05:44 09:28 10:39 WBC RBC Hgb Hct MCV MCH MCHC RDW Seg Neutrophils % Seg Neuts % (Manual) Lymphocytes % (Manual) Seg Neutrophils # Seg Neutrophils # Man Basophils # (Manual) PT INR POC ABG pH POC ABG pCO2 POC ABG pO2 Sodium 151 H Potassium Chloride 117.1 H Carbon Dioxide 17 L BUN Creatinine Glucose 378 H POC Glucose 253 H 418 H Lactic Acid Calcium 7.4 L Phosphorus Magnesium Alkaline Phosphatase Ammonia Total Creatine Kinase C-Reactive Protein Albumin TSH Urine WBC (Auto) Salicylates 10/29/17 10/29/17 10/29/17 13:50 18:35 21:28 WBC RBC Hgb Hct MCV MCH MCHC RDW Seg Neutrophils % Seg Neuts % (Manual) Lymphocytes % (Manual) Seg Neutrophils # Seg Neutrophils # Man Basophils # (Manual) PT INR POC ABG pH POC ABG pCO2 POC ABG pO2 Sodium Potassium Chloride Carbon Dioxide BUN Creatinine Glucose POC Glucose 220 H 184 H Lactic Acid Calcium Phosphorus Magnesium Alkaline Phosphatase Ammonia Total Creatine Kinase C-Reactive Protein Albumin TSH 0.216 L Urine WBC (Auto) Salicylates 10/30/17 10/30/17 10/30/17 00:06 03:58 05:02 WBC RBC Hgb Hct MCV MCH MCHC RDW Seg Neutrophils % Seg Neuts % (Manual) Lymphocytes % (Manual) Seg Neutrophils # Seg Neutrophils # Man Basophils # (Manual) PT INR POC ABG pH POC ABG pCO2 34.8 L POC ABG pO2 107 H Sodium 153 H Potassium Chloride 117.0 H Carbon Dioxide 16 L BUN Creatinine Glucose 165 H POC Glucose 177 H Lactic Acid Calcium 8.0 L Phosphorus Magnesium Alkaline Phosphatase Ammonia Total Creatine Kinase C-Reactive Protein Albumin TSH Urine WBC (Auto) Salicylates 10/30/17 10/30/17 10/30/17 05:42 10:36 12:13 WBC RBC Hgb Hct MCV MCH MCHC RDW Seg Neutrophils % Seg Neuts % (Manual) Lymphocytes % (Manual) Seg Neutrophils # Seg Neutrophils # Man Basophils # (Manual) PT INR POC ABG pH POC ABG pCO2 POC ABG pO2 Sodium 149 H Potassium Chloride 115.5 H Carbon Dioxide 16 L BUN Creatinine Glucose 230 H POC Glucose 192 H 264 H Lactic Acid Calcium 7.6 L Phosphorus Magnesium Alkaline Phosphatase Ammonia Total Creatine Kinase C-Reactive Protein Albumin TSH Urine WBC (Auto) Salicylates Allied health notes reviewed: nursing
[2017-10-30] MEDS ORDERED: D5W 1,000 ML IV SCH (19:00)
[2017-10-31] MEDS: DIPRIVAN 10 MG/ML 1,000 MG/100 ML BOTTLE IV SCH ×2 (05:54→13:41)
[2017-10-31] MEDS: fentaNYL DRIP Premix 2,000 MCG/100 ML BAG IV SCH ×2 (06:13→17:41)
--- NOTE | 2017-10-31 10:01 | XRay Report ---
AP CHEST: HISTORY: Endotracheal tube position Compared to 10/28/17. The endotracheal tube remains in good position terminating 2.6 cm superior to the jessica. A nasogastric tube terminates in the stomach. There is poor inspiration. Left lower lobe opacity is identified concerning for infiltrate. The left upper lobe and right lung are clear. Heart size is within normal limits. IMPRESSION: Adequate placement of the endotracheal tube. Left lower lobe opacity concerning for pneumonia.
[2017-10-31 10:02] LABS: BUN/Creatinine Ratio 5; Blood Urea Nitrogen 6 mg/dL (7-17); Calcium 8.2 mg/dL (8.4-10.2); Hemolysis Index 11
--- NOTE | 2017-10-31 10:13 | Progress Note ---
Assessment and Plan - Patient Problems (1) Other acute kidney failure Current Visit: Yes Status: Acute Plan to address problem: Acute kidney failure is Pre-renal azotemia versus acute renal necrosis secondary to volume depletion with diabetic ketoacidosis and osmotic diuresis. Kidney function is improving with volume resuscitation. Labs pending today. Continue close monitoring. Follow up electrolytes and renal function (2) DKA (diabetic ketoacidoses) Current Visit: Yes Status: Acute Qualifiers: Diabetes mellitus type: type 1 Diabetes mellitus complication detail: with coma Qualified Code(s): E10.11 - Type 1 diabetes mellitus with ketoacidosis with coma Plan to address problem: Continue insulin drip as patient still in ketoacidosis. Follow protocol to change intravenous fluids to D5 W when blood sugar is less than 250 and Back to half normal saline when blood sugar is more done to 250 mg/dL. Follow bicarbonate, ketones. (3) Hypernatremia Current Visit: Yes Status: Acute Plan to address problem: Secondary to sodium bicarbonate IV pushes and replacement of relatively hypotonic fluid losses with isotonic saline. Sodium not significantly better on half normal saline. Unfortunately not able to give free water by the feeding tube yet. Start free water via the feeding tube once enteral intake started. Now on IV fluids D5W. Follow sodium (4) Hypokalemia Current Visit: Yes Status: Acute Plan to address problem: Secondary to transcellular shift with insulin administration for treating Diabetic ketoacidosis. Potassium is replete. Continue to follow up levels (5) Anemia Current Visit: Yes Status: Acute Plan to address problem: Dilutional but suspect baseline anemia (6) Acute respiratory failure Current Visit: Yes Status: Acute Qualifiers: Respiratory failure complication: hypoxia Qualified Code(s): J96.01 - Acute respiratory failure with hypoxia Plan to address problem: Management by hospitalist/colorist dyer (7) Metabolic encephalopathy Current Visit: Yes Status: Acute Plan to address problem: Appears to be improving as patient awakens to stimulation. Continue close monitoring (8) Sepsis Current Visit: Yes Status: Acute Qualifiers: Sepsis type: sepsis due to unspecified organism Qualified Code(s): A41.9 - Sepsis, unspecified organism Plan to address problem: Continue empiric antibiotics per infectious disease Subjective Date of service: 10/31/17 Principal diagnosis: Acute Hypoxemic Respiratory Failure; Acute Encephalopathy Interval history: Patient seen lying in bed in the ICU. She is intubated on the ventilator. Vent settings before meals, FiO2 35% PEEP 5. She is on Diprivan and fentanyl Objective - Exam Narrative Exam: Young -[place] female lying in bed intubated on ventilator HEENT: Facial edema, Chemosis,, endotracheal tube intact, Neck: Supple, no venous distention CVS: S1S2 RRR with no murmur, rub or gallop Chest: Good chest expansion, faint rhonchi Abdomen: Protuberant, soft, nontender, no organomegaly, bowel sounds are present Extremities: Mild edema upper extremities, no clubbing Skin warm and dry with no rash Neuro: Opens eyes to stimuli, not following commands - Vital Signs Vital signs: Vital Signs - 12hr 10/30/17 10/30/17 10/31/17 22:24 23:27 04:00 Temperature Pulse Rate 81 111 H Respiratory 16 Rate Blood Pressure 154/106 150/103 O2 Sat by Pulse 100 99 Oximetry 10/31/17 10/31/17 10/31/17 05:45 08:00 09:42 Temperature 98.5 F 97.6 F Pulse Rate 106 H Respiratory Rate Blood Pressure 160/105 O2 Sat by Pulse 100 Oximetry - Lab 10/29/17 03:41 10/31/17 09:24 Most recent lab results Calcium 8.2 mg/dL (8.4-10.2) L 10/31/17 09:24 Phosphorus 3.50 mg/dL (2.5-4.5) 10/30/17 03:58 Magnesium 2.00 mg/dL (1.7-2.3) 10/30/17 03:58
[2017-10-31] MEDS: FLAGYL 500 MG/100 ML 500 MG/100 ML BAG IV SCH ×3 (11:30→21:45)
[2017-10-31] MEDS: ARTIFICIAL TEARS OPHTH OINT OU PRN (12:05)
[2017-10-31] MEDS: LEVAQUIN 750MG/150ML 750 MG/150 ML BAG IV SCH (12:29)
[2017-10-31] MEDS: POTASSIUM CHLORIDE FEEDTUBE SCH ×2 (12:30→17:16)
[2017-10-31] MEDS: HEPARIN SUB-Q SCH ×2 (12:30→21:33)
[2017-10-31] MEDS: PEPCID IV SCH ×2 (12:31→21:45)
[2017-10-31] MEDS: BENADRYL IV SCH ×2 (12:31→20:48)
[2017-10-31] MEDS ORDERED: NACL 0.9% IR ONE ×2 (14:00→16:45)
--- NOTE | 2017-10-31 14:43 | Progress Note ---
Assessment and Plan Acute respiratory failure, on mechanical ventilatory support. Acute encephalopathy, appears toxic metabolic at this point. Diabetic ketoacidosis. Sepsis syndrome. History of chronic pain. Possible drug abuse. Anemia. Leukocytosis. Hyperammonemia. Severe metabolic acidosis with a lactic acid component. - get CT chest to r/o mediastinal pathology / neck abscess once azotemia resolved as will need IV contrast - continue PPI, antihistamine therapy and steroids re: possible angioedema element - reduce set rate on MVS to 12/min -agitation management, add seroquel qhs - continue GI & VTE prophylaxis - azotemia per nephrology - free water and hypotonic solution for hypernatremia - daily SAT's & SBT's shortly - continue bronchodilators and pulmonary hygiene per RT - VAP bundle addressed -keep intubated, until upper airway edema resolves - continue other care per attending / other consultants Sister was at the bedside, updated ...35' CCT Subjective Date of service: 10/31/17 Principal diagnosis: Acute Hypoxemic Respiratory Failure; Acute Encephalopathy Interval history: Patient is seen today for: Acute Hypoxemic Respiratory Failure; Acute Encephalopathy Seen and examined at bedside; 24hour events reviewed; nursing and respiratory care staff consulted; no adverse overnight events reported to me; Very agitated trying to sit up in bed when sedation is turned off. Vitals, labs, medications, chart reviewed. Discussed in interdisciplinary ICU rounds She is awake and alert, making her needs known by mouthing words. She states she was at [facility] ER and was told her BP was elevated. She was started on medications. She denies any overdose. Objective - Exam Narrative Exam: Young -Turkmen female lying in bed intubated on ventilator HEENT: Facial edema, Chemosis,, endotracheal tube intact, Neck: Supple, no venous distention CVS: S1S2 RRR with no murmur, rub or gallop Chest: Good chest expansion, faint rhonchi Abdomen: Protuberant, soft, nontender, no organomegaly, bowel sounds are present Extremities: Mild edema upper extremities, no clubbing Skin warm and dry with no rash Neuro: Opens eyes to stimuli, following commands, mouthing words to make her needs known Vital Signs - 12hr 10/31/17 10/31/17 10/31/17 02:50 03:00 03:10 Temperature Pulse Rate 81 81 82 Respiratory 16 16 16 Rate Blood Pressure 140/94 140/94 141/96 O2 Sat by Pulse 100 100 100 Oximetry 10/31/17 10/31/17 10/31/17 03:20 03:30 03:40 Temperature Pulse Rate 81 81 81 Respiratory 16 16 16 Rate Blood Pressure 147/98 145/98 145/98 O2 Sat by Pulse 100 100 100 Oximetry 10/31/17 10/31/17 10/31/17 03:50 04:00 04:10 Temperature Pulse Rate 81 83 90 Respiratory 16 16 17 Rate Blood Pressure 146/100 152/100 152/100 O2 Sat by Pulse 100 100 100 Oximetry 10/31/17 10/31/17 10/31/17 04:20 04:30 04:40 Temperature Pulse Rate 120 H 107 H 120 H Respiratory 19 16 12 Rate Blood Pressure 151/89 150/103 150/103 O2 Sat by Pulse 98 100 100 Oximetry 10/31/17 10/31/17 10/31/17 04:50 05:00 05:10 Temperature Pulse Rate 122 H 112 H 119 H Respiratory 16 15 18 Rate Blood Pressure 157/107 154/102 150/103 O2 Sat by Pulse 99 100 100 Oximetry 10/31/17 10/31/17 10/31/17 05:20 05:30 05:40 Temperature Pulse Rate 114 H 112 H 105 H Respiratory 15 15 16 Rate Blood Pressure 156/103 157/112 157/112 O2 Sat by Pulse 100 100 100 Oximetry 10/31/17 10/31/17 10/31/17 05:45 05:50 06:00 Temperature 98.5 F Pulse Rate 109 H 105 H Respiratory 15 16 Rate Blood Pressure 152/105 153/102 O2 Sat by Pulse 100 99 Oximetry 10/31/17 10/31/17 10/31/17 06:10 06:20 06:30 Temperature 97.3 F L Pulse Rate 108 H 104 H 101 H Respiratory 28 H 16 16 Rate Blood Pressure 153/102 134/95 146/98 O2 Sat by Pulse 100 100 100 Oximetry 10/31/17 10/31/17 10/31/17 06:40 06:50 07:00 Temperature Pulse Rate 94 H 92 H 91 H Respiratory 16 16 16 Rate Blood Pressure 146/98 123/82 123/85 O2 Sat by Pulse 100 100 100 Oximetry 10/31/17 10/31/17 10/31/17 07:10 07:20 07:30 Temperature Pulse Rate 95 H 96 H 94 H Respiratory 16 16 16 Rate Blood Pressure 146/98 154/100 151/100 O2 Sat by Pulse 100 100 100 Oximetry 10/31/17 10/31/17 10/31/17 07:40 07:50 08:00 Temperature 97.6 F Pulse Rate 97 H 96 H 96 H Respiratory 16 16 16 Rate Blood Pressure 154/100 158/102 154/100 O2 Sat by Pulse 100 100 100 Oximetry 10/31/17 10/31/17 10/31/17 08:10 08:20 08:30 Temperature Pulse Rate 97 H 109 H 108 H Respiratory 16 16 19 Rate Blood Pressure 147/97 155/104 O2 Sat by Pulse 100 100 100 Oximetry 10/31/17 10/31/17 10/31/17 08:40 08:50 09:00 Temperature Pulse Rate 102 H 104 H 102 H Respiratory 16 16 16 Rate Blood Pressure 155/104 130/97 136/94 O2 Sat by Pulse 100 100 100 Oximetry 10/31/17 10/31/17 10/31/17 09:10 09:20 09:30 Temperature Pulse Rate 100 H 105 H 106 H Respiratory 16 19 16 Rate Blood Pressure 136/94 148/97 160/105 O2 Sat by Pulse 100 100 100 Oximetry 10/31/17 10/31/17 10/31/17 09:40 09:42 09:50 Temperature Pulse Rate 109 H 106 H 120 H Respiratory 16 19 Rate Blood Pressure 160/105 160/105 154/95 O2 Sat by Pulse 100 100 100 Oximetry 10/31/17 10/31/17 10/31/17 10:00 10:10 10:20 Temperature Pulse Rate 80 105 H 103 H Respiratory 16 16 16 Rate Blood Pressure 142/98 142/98 143/101 O2 Sat by Pulse 100 100 100 Oximetry 10/31/17 10/31/17 10/31/17 10:30 10:40 10:50 Temperature Pulse Rate 103 H 106 H 121 H Respiratory 16 16 19 Rate Blood Pressure 137/98 137/98 131/88 O2 Sat by Pulse 100 100 100 Oximetry 10/31/17 10/31/17 10/31/17 11:00 11:10 11:20 Temperature Pulse Rate 114 H 111 H 107 H Respiratory 16 18 16 Rate Blood Pressure 131/88 128/80 133/95 O2 Sat by Pulse 100 100 100 Oximetry 10/31/17 10/31/17 10/31/17 11:30 11:40 11:50 Temperature Pulse Rate 108 H 118 H 121 H Respiratory 19 10 L 13 Rate Blood Pressure 136/89 136/89 125/84 O2 Sat by Pulse 100 100 100 Oximetry 10/31/17 10/31/17 10/31/17 12:00 12:10 12:20 Temperature 97.9 F Pulse Rate 120 H 119 H 117 H Respiratory 9 L 16 16 Rate Blood Pressure 125/84 125/84 127/81 O2 Sat by Pulse 100 100 100 Oximetry 10/31/17 10/31/17 10/31/17 12:30 12:40 12:50 Temperature Pulse Rate 117 H 116 H 121 H Respiratory 7 L 7 L 6 L Rate Blood Pressure 117/81 117/81 128/93 O2 Sat by Pulse 99 99 100 Oximetry 10/31/17 10/31/17 10/31/17 13:00 13:10 13:20 Temperature Pulse Rate 130 H 123 H 123 H Respiratory 17 8 L 8 L Rate Blood Pressure 121/79 121/79 107/54 O2 Sat by Pulse 100 99 97 Oximetry 10/31/17 10/31/17 10/31/17 13:31 13:41 13:51 Temperature Pulse Rate 122 H 126 H Respiratory 7 L 9 L Rate Blood Pressure 97/46 107/54 81/38 O2 Sat by Pulse 98 99 99 Oximetry 10/31/17 10/31/17 10/31/17 14:01 14:11 14:21 Temperature Pulse Rate 123 H 118 H 113 H Respiratory 8 L 10 L 8 L Rate Blood Pressure 98/42 98/42 101/73 O2 Sat by Pulse 99 100 99 Oximetry Constitutional: lethargic, appears uncomfortable Eyes: non-icteric, other (orbital phimosis) ENT: oropharynx moist, oropharyngeal exudate pre Neck: supple, no lymphadenopathy, no JVD, other (neck and facial swelling) Effort: mildly labored Ascultation: Bilateral: rhonchi Percussion: Bilateral: not dull Cardiovascular: regular rate and rhythm, other (No palpable HSM) Gastrointestinal: normoactive bowel sounds, soft, non-tender, non-distended, other (no palpable HSM) Integumentary: normal Extremities: no cyanosis, no edema, pulses normal, no ischemia or petechiae Neurologic: unable to assess Psychiatric: other (sedated) CBC and BMP: 10/29/17 03:41 11/01/17 03:28 ABG, PT/INR, D-dimer: ABG POC ABG pH 7.410 (7.35-7.45) 10/31/17 04:03 POC ABG pCO2 29.6 (35-45) L 10/31/17 04:03 POC ABG pO2 118 (80-105) H 10/31/17 04:03 POC ABG HCO3 18.8 10/31/17 04:03 POC ABG Total CO2 20 10/31/17 04:03 POC ABG O2 Sat 99 10/31/17 04:03 PT/INR, D-dimer PT 16.8 Sec. (12.2-14.9) H 10/26/17 11:44 INR 1.29 (0.87-1.13) H 10/26/17 11:44 Abnormal lab findings: Abnormal Labs 10/26/17 10/26/17 10/26/17 11:23 11:44 11:44 WBC 20.6 H RBC 3.62 L Hgb 8.3 L Hct MCV MCH 23 L MCHC 24 L RDW 21.7 H Seg Neutrophils % Seg Neuts % (Manual) 76.0 H Lymphocytes % (Manual) 11.0 L Seg Neutrophils # Seg Neutrophils # Man 15.7 H Basophils # (Manual) 0.2 H PT INR POC ABG pH POC ABG pCO2 POC ABG pO2 Sodium Potassium Chloride Carbon Dioxide BUN Creatinine Glucose POC Glucose > 500 H Lactic Acid 4.10 H* Calcium Phosphorus Magnesium Alkaline Phosphatase Ammonia Total Creatine Kinase C-Reactive Protein Albumin TSH Urine WBC (Auto) Salicylates 10/26/17 10/26/17 10/26/17 11:44 11:44 11:44 WBC RBC Hgb Hct MCV MCH MCHC RDW Seg Neutrophils % Seg Neuts % (Manual) Lymphocytes % (Manual) Seg Neutrophils # Seg Neutrophils # Man Basophils # (Manual) PT 16.8 H INR 1.29 H POC ABG pH POC ABG pCO2 POC ABG pO2 Sodium 146 H Potassium 6.6 H* Chloride Carbon Dioxide 3 L* BUN 34 H Creatinine 2.2 H Glucose 1281 H* POC Glucose Lactic Acid Calcium 8.0 L Phosphorus Magnesium Alkaline Phosphatase 196 H Ammonia 67.0 H Total Creatine Kinase 24 L C-Reactive Protein Albumin 3.6 L TSH Urine WBC (Auto) Salicylates 10/26/17 10/26/17 10/26/17 11:44 12:01 12:59 WBC RBC Hgb Hct MCV MCH MCHC RDW Seg Neutrophils % Seg Neuts % (Manual) Lymphocytes % (Manual) Seg Neutrophils # Seg Neutrophils # Man Basophils # (Manual) PT INR POC ABG pH 6.895 L POC ABG pCO2 12.3 L POC ABG pO2 311 H Sodium Potassium Chloride Carbon Dioxide BUN Creatinine Glucose POC Glucose Lactic Acid Calcium Phosphorus Magnesium Alkaline Phosphatase Ammonia Total Creatine Kinase C-Reactive Protein Albumin TSH Urine WBC (Auto) 42.0 H Salicylates < 0.3 L 10/26/17 10/26/17 10/26/17 13:06 13:17 13:17 WBC RBC Hgb Hct MCV MCH MCHC RDW Seg Neutrophils % Seg Neuts % (Manual) Lymphocytes % (Manual) Seg Neutrophils # Seg Neutrophils # Man Basophils # (Manual) PT INR POC ABG pH POC ABG pCO2 POC ABG pO2 Sodium 146 H Potassium 7.1 H* Chloride Carbon Dioxide 2 L* BUN 35 H Creatinine 2.3 H Glucose 1330 H* POC Glucose Lactic Acid 4.10 H* Calcium 7.7 L Phosphorus 11.10 H Magnesium 2.70 H Alkaline Phosphatase Ammonia Total Creatine Kinase C-Reactive Protein Albumin TSH Urine WBC (Auto) Salicylates 10/26/17 10/26/17 10/26/17 14:57 15:26 15:26 WBC RBC Hgb Hct MCV MCH MCHC RDW Seg Neutrophils % Seg Neuts % (Manual) Lymphocytes % (Manual) Seg Neutrophils # Seg Neutrophils # Man Basophils # (Manual) PT INR POC ABG pH POC ABG pCO2 POC ABG pO2 Sodium 147 H Potassium 6.3 H* Chloride Carbon Dioxide < 2.0 L* BUN 37 H Creatinine 2.4 H Glucose 1115 H* POC Glucose > 500 H Lactic Acid 3.70 H* Calcium 7.2 L Phosphorus Magnesium Alkaline Phosphatase Ammonia Total Creatine Kinase C-Reactive Protein Albumin TSH Urine WBC (Auto) Salicylates 10/26/17 10/26/17 10/26/17 16:02 17:51 17:51 WBC RBC Hgb Hct MCV MCH MCHC RDW Seg Neutrophils % Seg Neuts % (Manual) Lymphocytes % (Manual) Seg Neutrophils # Seg Neutrophils # Man Basophils # (Manual) PT INR POC ABG pH POC ABG pCO2 POC ABG pO2 Sodium 149 H Potassium Chloride Carbon Dioxide 2 L* BUN 36 H Creatinine 2.6 H Glucose 1063 H* POC Glucose > 500 H Lactic Acid 6.50 H* Calcium 7.0 L Phosphorus Magnesium Alkaline Phosphatase Ammonia Total Creatine Kinase C-Reactive Protein Albumin TSH Urine WBC (Auto) Salicylates 10/26/17 10/26/17 10/26/17 18:42 19:55 19:55 WBC RBC Hgb Hct MCV MCH MCHC RDW Seg Neutrophils % Seg Neuts % (Manual) Lymphocytes % (Manual) Seg Neutrophils # Seg Neutrophils # Man Basophils # (Manual) PT INR POC ABG pH 6.974 L POC ABG pCO2 14.9 L POC ABG pO2 244 H Sodium 150 H Potassium Chloride 108.3 H Carbon Dioxide 4 L* BUN 33 H Creatinine 2.4 H Glucose 663 H* POC Glucose Lactic Acid 8.30 H* Calcium 7.0 L Phosphorus Magnesium Alkaline Phosphatase Ammonia Total Creatine Kinase C-Reactive Protein Albumin TSH Urine WBC (Auto) Salicylates 10/26/17 10/26/17 10/26/17 21:26 21:26 23:55 WBC RBC Hgb Hct MCV MCH MCHC RDW Seg Neutrophils % Seg Neuts % (Manual) Lymphocytes % (Manual) Seg Neutrophils # Seg Neutrophils # Man Basophils # (Manual) PT INR POC ABG pH POC ABG pCO2 POC ABG pO2 Sodium 152 H Potassium 3.5 L Chloride 110.4 H Carbon Dioxide 6 L* BUN 32 H Creatinine 2.3 H Glucose 498 H POC Glucose 317 H Lactic Acid 9.00 H* Calcium 7.6 L Phosphorus Magnesium Alkaline Phosphatase Ammonia Total Creatine Kinase C-Reactive Protein Albumin TSH Urine WBC (Auto) Salicylates 10/27/17 10/27/17 10/27/17 01:21 02:26 03:49 WBC RBC Hgb Hct MCV MCH MCHC RDW Seg Neutrophils % Seg Neuts % (Manual) Lymphocytes % (Manual) Seg Neutrophils # Seg Neutrophils # Man Basophils # (Manual) PT INR POC ABG pH POC ABG pCO2 POC ABG pO2 Sodium Potassium Chloride Carbon Dioxide BUN Creatinine Glucose POC Glucose 218 H 172 H 136 H Lactic Acid Calcium Phosphorus Magnesium Alkaline Phosphatase Ammonia Total Creatine Kinase C-Reactive Protein Albumin TSH Urine WBC (Auto) Salicylates 10/27/17 10/27/17 10/27/17 04:50 05:26 06:01 WBC RBC Hgb Hct MCV MCH MCHC RDW Seg Neutrophils % Seg Neuts % (Manual) Lymphocytes % (Manual) Seg Neutrophils # Seg Neutrophils # Man Basophils # (Manual) PT INR POC ABG pH 7.284 L POC ABG pCO2 POC ABG pO2 204 H Sodium 158 H Potassium 3.5 L Chloride 118.2 H Carbon Dioxide 19 L D BUN 27 H Creatinine 1.9 H Glucose 232 H POC Glucose 221 H Lactic Acid Calcium 7.1 L Phosphorus Magnesium Alkaline Phosphatase Ammonia Total Creatine Kinase C-Reactive Protein Albumin TSH Urine WBC (Auto) Salicylates 10/27/17 10/27/17 10/27/17 06:05 07:27 09:28 WBC RBC Hgb Hct MCV MCH MCHC RDW Seg Neutrophils % Seg Neuts % (Manual) Lymphocytes % (Manual) Seg Neutrophils # Seg Neutrophils # Man Basophils # (Manual) PT INR POC ABG pH POC ABG pCO2 POC ABG pO2 Sodium Potassium Chloride Carbon Dioxide BUN Creatinine Glucose POC Glucose 286 H 161 H 123 H Lactic Acid Calcium Phosphorus Magnesium Alkaline Phosphatase Ammonia Total Creatine Kinase C-Reactive Protein Albumin TSH Urine WBC (Auto) Salicylates 10/27/17 10/27/17 10/27/17 12:30 13:07 14:44 WBC RBC Hgb Hct MCV MCH MCHC RDW Seg Neutrophils % Seg Neuts % (Manual) Lymphocytes % (Manual) Seg Neutrophils # Seg Neutrophils # Man Basophils # (Manual) PT INR POC ABG pH POC ABG pCO2 POC ABG pO2 Sodium 158 H Potassium 3.2 L Chloride 120.7 H Carbon Dioxide 16 L BUN 23 H Creatinine 1.9 H Glucose 270 H POC Glucose 274 H 200 H Lactic Acid Calcium 7.1 L Phosphorus Magnesium Alkaline Phosphatase Ammonia Total Creatine Kinase C-Reactive Protein Albumin TSH Urine WBC (Auto) Salicylates 10/27/17 10/27/17 10/27/17 19:03 20:24 20:24 WBC RBC Hgb Hct MCV MCH MCHC RDW Seg Neutrophils % Seg Neuts % (Manual) Lymphocytes % (Manual) Seg Neutrophils # Seg Neutrophils # Man Basophils # (Manual) PT INR POC ABG pH POC ABG pCO2 POC ABG pO2 Sodium 155 H Potassium 3.4 L Chloride 119.3 H Carbon Dioxide 19 L BUN 20 H Creatinine 1.9 H Glucose 272 H POC Glucose 124 H Lactic Acid Calcium 7.0 L Phosphorus 1.50 L D Magnesium Alkaline Phosphatase Ammonia Total Creatine Kinase C-Reactive Protein 1.50 H Albumin TSH Urine WBC (Auto) Salicylates 10/27/17 10/27/17 10/28/17 20:40 21:05 03:02 WBC RBC Hgb Hct MCV MCH MCHC RDW Seg Neutrophils % Seg Neuts % (Manual) Lymphocytes % (Manual) Seg Neutrophils # Seg Neutrophils # Man Basophils # (Manual) PT INR POC ABG pH 7.327 L POC ABG pCO2 32.1 L POC ABG pO2 Sodium 157 H Potassium Chloride 118.8 H Carbon Dioxide 13 L BUN 18 H Creatinine 2.0 H Glucose 560 H* POC Glucose 289 H Lactic Acid Calcium 6.8 L Phosphorus 5.40 H D Magnesium Alkaline Phosphatase Ammonia Total Creatine Kinase C-Reactive Protein Albumin TSH Urine WBC (Auto) Salicylates 10/28/17 10/28/17 10/28/17 06:06 07:46 08:21 WBC RBC Hgb Hct MCV MCH MCHC RDW Seg Neutrophils % Seg Neuts % (Manual) Lymphocytes % (Manual) Seg Neutrophils # Seg Neutrophils # Man Basophils # (Manual) PT INR POC ABG pH POC ABG pCO2 POC ABG pO2 Sodium Potassium Chloride Carbon Dioxide BUN Creatinine Glucose POC Glucose > 500 H 500 H Lactic Acid Calcium Phosphorus 6.70 H D Magnesium Alkaline Phosphatase Ammonia Total Creatine Kinase C-Reactive Protein Albumin TSH Urine WBC (Auto) Salicylates 10/28/17 10/28/17 10/28/17 09:34 11:13 12:55 WBC RBC Hgb Hct MCV MCH MCHC RDW Seg Neutrophils % Seg Neuts % (Manual) Lymphocytes % (Manual) Seg Neutrophils # Seg Neutrophils # Man Basophils # (Manual) PT INR POC ABG pH POC ABG pCO2 POC ABG pO2 Sodium Potassium Chloride Carbon Dioxide BUN Creatinine Glucose POC Glucose 435 H 273 H 149 H Lactic Acid Calcium Phosphorus Magnesium Alkaline Phosphatase Ammonia Total Creatine Kinase C-Reactive Protein Albumin TSH Urine WBC (Auto) Salicylates 10/28/17 10/28/17 10/28/17 14:27 15:39 15:39 WBC 15.5 H RBC 3.59 L Hgb 8.3 L Hct 27.6 L D MCV 77 L MCH 23 L MCHC RDW 20.9 H Seg Neutrophils % 78.5 H Seg Neuts % (Manual) Lymphocytes % (Manual) Seg Neutrophils # 12.2 H Seg Neutrophils # Man Basophils # (Manual) PT INR POC ABG pH POC ABG pCO2 33.9 L POC ABG pO2 138 H Sodium 164 H* Potassium 3.5 L Chloride 125.3 H Carbon Dioxide 18 L BUN Creatinine 1.6 H Glucose 37 L* POC Glucose Lactic Acid Calcium 7.5 L Phosphorus Magnesium Alkaline Phosphatase Ammonia Total Creatine Kinase C-Reactive Protein Albumin TSH Urine WBC (Auto) Salicylates 10/28/17 10/28/17 10/28/17 15:47 15:50 16:28 WBC RBC Hgb Hct MCV MCH MCHC RDW Seg Neutrophils % Seg Neuts % (Manual) Lymphocytes % (Manual) Seg Neutrophils # Seg Neutrophils # Man Basophils # (Manual) PT INR POC ABG pH POC ABG pCO2 POC ABG pO2 Sodium Potassium Chloride Carbon Dioxide BUN Creatinine Glucose POC Glucose < 40 L 114 H Lactic Acid Calcium Phosphorus Magnesium Alkaline Phosphatase Ammonia Total Creatine Kinase C-Reactive Protein 4.40 H Albumin TSH Urine WBC (Auto) Salicylates 10/28/17 10/28/17 10/28/17 19:07 23:10 23:59 WBC RBC Hgb Hct MCV MCH MCHC RDW Seg Neutrophils % Seg Neuts % (Manual) Lymphocytes % (Manual) Seg Neutrophils # Seg Neutrophils # Man Basophils # (Manual) PT INR POC ABG pH POC ABG pCO2 POC ABG pO2 Sodium 159 H Potassium Chloride 124.1 H Carbon Dioxide 19 L BUN Creatinine 1.4 H Glucose 219 H POC Glucose 111 H 307 H Lactic Acid Calcium 7.1 L Phosphorus Magnesium Alkaline Phosphatase Ammonia Total Creatine Kinase C-Reactive Protein Albumin TSH Urine WBC (Auto) Salicylates 10/29/17 10/29/17 10/29/17 03:41 03:41 04:55 WBC 14.1 H RBC 3.32 L Hgb 7.6 L Hct 25.5 L MCV 77 L MCH 23 L MCHC RDW 20.8 H Seg Neutrophils % Seg Neuts % (Manual) Lymphocytes % (Manual) Seg Neutrophils # Seg Neutrophils # Man Basophils # (Manual) PT INR POC ABG pH POC ABG pCO2 31.2 L POC ABG pO2 123 H Sodium 158 H Potassium Chloride 122.7 H Carbon Dioxide 15 L BUN Creatinine 1.3 H Glucose 176 H POC Glucose Lactic Acid Calcium 7.2 L Phosphorus Magnesium Alkaline Phosphatase Ammonia Total Creatine Kinase C-Reactive Protein Albumin TSH Urine WBC (Auto) Salicylates 10/29/17 10/29/17 10/29/17 05:44 09:28 10:39 WBC RBC Hgb Hct MCV MCH MCHC RDW Seg Neutrophils % Seg Neuts % (Manual) Lymphocytes % (Manual) Seg Neutrophils # Seg Neutrophils # Man Basophils # (Manual) PT INR POC ABG pH POC ABG pCO2 POC ABG pO2 Sodium 151 H Potassium Chloride 117.1 H Carbon Dioxide 17 L BUN Creatinine Glucose 378 H POC Glucose 253 H 418 H Lactic Acid Calcium 7.4 L Phosphorus Magnesium Alkaline Phosphatase Ammonia Total Creatine Kinase C-Reactive Protein Albumin TSH Urine WBC (Auto) Salicylates 10/29/17 10/29/17 10/29/17 13:50 18:35 21:28 WBC RBC Hgb Hct MCV MCH MCHC RDW Seg Neutrophils % Seg Neuts % (Manual) Lymphocytes % (Manual) Seg Neutrophils # Seg Neutrophils # Man Basophils # (Manual) PT INR POC ABG pH POC ABG pCO2 POC ABG pO2 Sodium Potassium Chloride Carbon Dioxide BUN Creatinine Glucose POC Glucose 220 H 184 H Lactic Acid Calcium Phosphorus Magnesium Alkaline Phosphatase Ammonia Total Creatine Kinase C-Reactive Protein Albumin TSH 0.216 L Urine WBC (Auto) Salicylates 10/30/17 10/30/17 10/30/17 00:06 03:58 05:02 WBC RBC Hgb Hct MCV MCH MCHC RDW Seg Neutrophils % Seg Neuts % (Manual) Lymphocytes % (Manual) Seg Neutrophils # Seg Neutrophils # Man Basophils # (Manual) PT INR POC ABG pH POC ABG pCO2 34.8 L POC ABG pO2 107 H Sodium 153 H Potassium Chloride 117.0 H Carbon Dioxide 16 L BUN Creatinine Glucose 165 H POC Glucose 177 H Lactic Acid Calcium 8.0 L Phosphorus Magnesium Alkaline Phosphatase Ammonia Total Creatine Kinase C-Reactive Protein Albumin TSH Urine WBC (Auto) Salicylates 10/30/17 10/30/17 10/30/17 05:42 10:36 12:13 WBC RBC Hgb Hct MCV MCH MCHC RDW Seg Neutrophils % Seg Neuts % (Manual) Lymphocytes % (Manual) Seg Neutrophils # Seg Neutrophils # Man Basophils # (Manual) PT INR POC ABG pH POC ABG pCO2 POC ABG pO2 Sodium 149 H Potassium Chloride 115.5 H Carbon Dioxide 16 L BUN Creatinine Glucose 230 H POC Glucose 192 H 264 H Lactic Acid Calcium 7.6 L Phosphorus Magnesium Alkaline Phosphatase Ammonia Total Creatine Kinase C-Reactive Protein Albumin TSH Urine WBC (Auto) Salicylates 10/30/17 10/30/17 10/31/17 18:02 23:08 01:00 WBC RBC Hgb Hct MCV MCH MCHC RDW Seg Neutrophils % Seg Neuts % (Manual) Lymphocytes % (Manual) Seg Neutrophils # Seg Neutrophils # Man Basophils # (Manual) PT INR POC ABG pH POC ABG pCO2 POC ABG pO2 Sodium Potassium Chloride Carbon Dioxide BUN Creatinine Glucose POC Glucose 213 H 162 H 176 H Lactic Acid Calcium Phosphorus Magnesium Alkaline Phosphatase Ammonia Total Creatine Kinase C-Reactive Protein Albumin TSH Urine WBC (Auto) Salicylates 10/31/17 10/31/17 04:03 09:24 WBC RBC Hgb Hct MCV MCH MCHC RDW Seg Neutrophils % Seg Neuts % (Manual) Lymphocytes % (Manual) Seg Neutrophils # Seg Neutrophils # Man Basophils # (Manual) PT INR POC ABG pH POC ABG pCO2 29.6 L POC ABG pO2 118 H Sodium 151 H Potassium 3.2 L D Chloride 116.1 H Carbon Dioxide 20 L BUN 6 L Creatinine Glucose 181 H POC Glucose Lactic Acid Calcium 8.2 L Phosphorus Magnesium Alkaline Phosphatase Ammonia Total Creatine Kinase C-Reactive Protein Albumin TSH Urine WBC (Auto) Salicylates Allied health notes reviewed: nursing
--- NOTE | 2017-10-31 17:08 | XRay Report ---
FINAL REPORT PROCEDURE: XR CHEST 1V AP TECHNIQUE: Chest radiograph anteroposterior view. CPT 12514 HISTORY: R arm PICC placement COMPARISON: 10/29/2017 CTA chest FINDINGS: Heart: Mildly enlarged Mediastinum/Vessels: Moderate congestion. Lungs/Pleural space: Effusion and or airspace process left lower lung zone. Right lung base atelectasis. Bony thorax: No acute osseous abnormality. Life support devices: Endotracheal tube tip 3 centimeter from bifurcation. NG tube along the esophagus terminating left upper quadrant area fundus. Right-sided PICC line catheter tip in the mid right atrium. This could be left in position or retracted 3 centimeters based on specific site protocol IMPRESSION: Right side PICC line catheter tip mid right atrium. Details above. Followup as warranted
--- NOTE | 2017-10-31 17:44 | Progress Note ---
Assessment and Plan Assessment and plan: 22 YO Female with DM, Medication Noncompliance, HTN, Chronic Pain presents to ED for evaluation. Pt unable to provide history, but history taken from ED staff , as well as EMS. Pt was found down and unresponsive by neighbors. EMS notified , and upon arrival the patient was found to be unresponsive. Patient had an empty bottle of oxycodone in her pill bag. Narcan was given without improvement in mental status. Patient transported to [facility] for further care and evaluation. Pt seen and evaluated in ED and found to have Acute Respiratory Failure, as well as DKA, and Sepsis. Pt intubated, sedated, and placed on vent support, as well as DKA and sepsis protocols. Pt admitted to ICU. PT has poor prognosis. Sepsis - likely due to pneumonia - Patient is on IV Levaquin and Flagyl Acute respiratory failure, hypoxic, on MV >96 hours - Pulmonary consulted, Pt intubated placed on vent support, wean vent as tolerated, daily ABG, daily SBT, nebulizer therapy, Acute renal failure/Vasomotor nephropathy continue IV, renal consult pressures and, resolved Metabolic encephalopathy due to DKA - CTH shows no acute findings, neuro consult appreciated Toxic encephalopathy - UDS was positive for benzo Hypothermia - continue buffy huggcesar DKA (diabetic ketoacidoses) - Resolved, currently on sliding scale insulin Hypokalemia, hypophosphatemia - repleted Hypernatremia - continue free water replacement DVT prophylaxis - SCD to BLE,. The high probability of a clinically significant, sudden or life threatening deterioration of the [cardiac, pulmonary, renal, endocrine] system(s) required my full and direct attention, intervention and personal management. The aggregate critical care time was [35] minutes. This time is in addition to time spent performing reported procedures but includes the following: [x] Data Review and interpretation [x] Patient assessment and monitoring of vital signs [x] Documentation [x] Medication orders and management History Interval history: Patient was seen and evaluated this morning, patient is on MV. Hospitalist Physical - Physical exam Narrative exam: Patient is intubated and on mechanical ventilation. Lip swelling gets better. The patient appeared well nourished and normally developed. Vital signs as documented. Head exam is unremarkable. No scleral icterus . Neck is without jugular venous distension, thyromegaly, or carotid bruits. Lungs are clear to auscultation. Cardiac exam reveals regular rate and Rhythm. First and second heart sounds normal. No murmurs, rubs or gallops. Abdominal exam reveals normal bowel sounds, no masses, no organomegaly and no aortic enlargement. Extremities are nonedematous and both femoral and pedal pulses are normal. MD OPHTHALMOLOGIST: Patient open her eyes and alert. - Constitutional Vitals: Temp Pulse Resp BP Pulse Ox 98.8 F 127 H 11 L 151/104 99 10/31/17 16:00 10/31/17 17:39 10/31/17 17:21 10/31/17 17:39 10/31/17 17:39 General appearance: Present: severe distress, cachectic, disheveled Results - Labs CBC & Chem 7: 10/29/17 03:41 10/31/17 09:24 Labs: Laboratory Last Values WBC 14.1 K/mm3 (4.5-11.0) H 10/29/17 03:41 RBC 3.32 M/mm3 (3.65-5.03) L 10/29/17 03:41 Hgb 7.6 gm/dl (10.1-14.3) L 10/29/17 03:41 Hct 25.5 % (30.3-42.9) L 10/29/17 03:41 MCV 77 fl (79-97) L 10/29/17 03:41 MCH 23 pg (28-32) L 10/29/17 03:41 MCHC 30 % (30-34) 10/29/17 03:41 RDW 20.8 % (13.2-15.2) H 10/29/17 03:41 Plt Count 231 K/mm3 (140-440) 10/29/17 03:41 Lymph % (Auto) 16.4 % (13.4-35.0) 10/28/17 15:39 [place] % (Auto) 3.7 % (0.0-7.3) 10/28/17 15:39 Eos % (Auto) 0.7 % (0.0-4.3) 10/28/17 15:39 Baso % (Auto) 0.7 % (0.0-1.8) 10/28/17 15:39 Lymph # 2.6 K/mm3 (1.2-5.4) 10/28/17 15:39 [place] # 0.6 K/mm3 (0.0-0.8) 10/28/17 15:39 Eos # 0.1 K/mm3 (0.0-0.4) 10/28/17 15:39 Baso # 0.1 K/mm3 (0.0-0.1) 10/28/17 15:39 Add Manual Diff Complete 10/26/17 11:44 Total Counted 100 10/26/17 11:44 Seg Neutrophils % 78.5 % (40.0-70.0) H 10/28/17 15:39 Seg Neuts % (Manual) 76.0 % (40.0-70.0) H 10/26/17 11:44 Band Neutrophils % 2.0 % 10/26/17 11:44 Lymphocytes % (Manual) 11.0 % (13.4-35.0) L 10/26/17 11:44 Reactive Lymphs % (Man) 0 % 10/26/17 11:44 Monocytes % (Manual) 1.0 % (0.0-7.3) 10/26/17 11:44 Eosinophils % (Manual) 0 % (0.0-4.3) 10/26/17 11:44 Basophils % (Manual) 1.0 % (0.0-1.8) 10/26/17 11:44 Metamyelocytes % 8.0 % 10/26/17 11:44 Myelocytes % 1.0 % 10/26/17 11:44 Promyelocytes % 0 % 10/26/17 11:44 Blast Cells % 0 % 10/26/17 11:44 Nucleated RBC % Not Reportable 10/26/17 11:44 Seg Neutrophils # 12.2 K/mm3 (1.8-7.7) H 10/28/17 15:39 Seg Neutrophils # Man 15.7 K/mm3 (1.8-7.7) H 10/26/17 11:44 Band Neutrophils # 0.4 K/mm3 10/26/17 11:44 Lymphocytes # (Manual) 2.3 K/mm3 (1.2-5.4) 10/26/17 11:44 Abs React Lymphs (Man) 0.0 K/mm3 10/26/17 11:44 Monocytes # (Manual) 0.2 K/mm3 (0.0-0.8) 10/26/17 11:44 Eosinophils # (Manual) 0.0 K/mm3 (0.0-0.4) 10/26/17 11:44 Basophils # (Manual) 0.2 K/mm3 (0.0-0.1) H 10/26/17 11:44 Metamyelocytes # 1.6 K/mm3 10/26/17 11:44 Myelocytes # 0.2 K/mm3 10/26/17 11:44 Promyelocytes # 0.0 K/mm3 10/26/17 11:44 Blast Cells # 0.0 K/mm3 10/26/17 11:44 WBC Morphology Not Reportable 10/26/17 11:44 Hypersegmented Neuts Not Reportable 10/26/17 11:44 Hyposegmented Neuts Not Reportable 10/26/17 11:44 Hypogranular Neuts Not Reportable 10/26/17 11:44 Smudge Cells Not Reportable 10/26/17 11:44 Toxic Granulation Not Reportable 10/26/17 11:44 Toxic Vacuolation Not Reportable 10/26/17 11:44 Dohle Bodies Not Reportable 10/26/17 11:44 Pelger-Huet Anomaly Not Reportable 10/26/17 11:44 Gogo Rods Not Reportable 10/26/17 11:44 Platelet Estimate Cons 10/26/17 11:44 Clumped Platelets Not Reportable 10/26/17 11:44 Plt Clumps, EDTA Not Reportable 10/26/17 11:44 Large Platelets Not Reportable 10/26/17 11:44 Giant Platelets Not Reportable 10/26/17 11:44 Platelet Satelliting Not Reportable 10/26/17 11:44 Plt Morphology Comment Not Reportable 10/26/17 11:44 RBC Morphology Not Reportable 10/26/17 11:44 Dimorphic RBCs Not Reportable 10/26/17 11:44 Polychromasia Not Reportable 10/26/17 11:44 Hypochromasia 1+ 10/26/17 11:44 Poikilocytosis Not Reportable 10/26/17 11:44 Anisocytosis 1+ 10/26/17 11:44 Microcytosis Not Reportable 10/26/17 11:44 Macrocytosis Not Reportable 10/26/17 11:44 Spherocytes Not Reportable 10/26/17 11:44 Pappenheimer Bodies Not Reportable 10/26/17 11:44 Sickle Cells Not Reportable 10/26/17 11:44 Target Cells Not Reportable 10/26/17 11:44 Tear Drop Cells Not Reportable 10/26/17 11:44 Ovalocytes Not Reportable 10/26/17 11:44 Helmet Cells Not Reportable 10/26/17 11:44 Paulino-Capron Bodies Not Reportable 10/26/17 11:44 [place] Rings Not Reportable 10/26/17 11:44 Caprice Cells Not Reportable 10/26/17 11:44 Bite Cells Not Reportable 10/26/17 11:44 Crenated Cell Not Reportable 10/26/17 11:44 Elliptocytes Not Reportable 10/26/17 11:44 Acanthocytes (Spur) Not Reportable 10/26/17 11:44 Rouleaux Not Reportable 10/26/17 11:44 Hemoglobin C Crystals Not Reportable 10/26/17 11:44 Schistocytes Not Reportable 10/26/17 11:44 Malaria parasites Not Reportable 10/26/17 11:44 David Bodies Not Reportable 10/26/17 11:44 Hem Pathologist Commnt No 10/26/17 11:44 PT 16.8 Sec. (12.2-14.9) H 10/26/17 11:44 INR 1.29 (0.87-1.13) H 10/26/17 11:44 APTT 24.9 Sec. (24.2-36.6) 10/26/17 11:44 POC ABG pH 7.410 (7.35-7.45) 10/31/17 04:03 POC ABG pCO2 29.6 (35-45) L 10/31/17 04:03 POC ABG pO2 118 (80-105) H 10/31/17 04:03 POC ABG HCO3 18.8 10/31/17 04:03 POC ABG Total CO2 20 10/31/17 04:03 POC ABG O2 Sat 99 10/31/17 04:03 POC ABG Base Excess -6 10/31/17 04:03 FiO2 35 % 10/31/17 04:03 Sodium 151 mmol/L (137-145) H 02/28/18 09:24 Potassium 3.2 mmol/L (3.6-5.0) L D 10/31/17 09:24 Chloride 116.1 mmol/L (98-107) H 10/31/17 09:24 Carbon Dioxide 20 mmol/L (22-30) L 10/31/17 09:24 Anion Gap 18 mmol/L 10/31/17 09:24 BUN 6 mg/dL (7-17) L 10/31/17 09:24 Creatinine 1.1 mg/dL (0.7-1.2) 10/31/17 09:24 Estimated GFR > 60 ml/min 10/31/17 09:24 BUN/Creatinine Ratio 5 % 10/31/17 09:24 Glucose 181 mg/dL (65-100) H 10/31/17 09:24 POC Glucose 176 (70-105) H 10/31/17 01:00 Ketones Quantitative Small (Negative) 10/27/17 20:24 Lactic Acid 1.40 mmol/L (0.7-2.0) 10/27/17 20:34 Calcium 8.2 mg/dL (8.4-10.2) L 10/31/17 09:24 Phosphorus 3.50 mg/dL (2.5-4.5) 10/30/17 03:58 Magnesium 2.00 mg/dL (1.7-2.3) 10/30/17 03:58 Total Bilirubin < 0.20 mg/dL (0.1-1.2) 10/26/17 11:44 AST 22 units/L (5-40) 10/26/17 11:44 ALT 56 units/L (7-56) 10/26/17 11:44 Alkaline Phosphatase 196 units/L (35-129) H 10/26/17 11:44 Ammonia 67.0 umol/L (25-60) H 10/26/17 11:44 Total Creatine Kinase 24 units/L (30-135) L 10/26/17 11:44 Troponin T < 0.010 ng/mL (0.00-0.029) 10/26/17 11:44 C-Reactive Protein 4.40 mg/dL (0.00-1.30) H 10/28/17 15:50 Total Protein 6.3 g/dL (6.3-8.2) 10/26/17 11:44 Albumin 3.6 g/dL (3.9-5) L 10/26/17 11:44 Albumin/Globulin Ratio 1.3 % 10/26/17 11:44 Triglycerides 144 mg/dL (2-149) 10/30/17 10:36 TSH 0.216 mlU/mL (0.270-4.200) L 10/29/17 13:50 Urine Color Yellow (Yellow) 10/26/17 12:59 Urine Turbidity Clear (Clear) 10/26/17 12:59 Urine pH 5.0 (5.0-7.0) 10/26/17 12:59 Ur Specific [place] 1.015 (1.003-1.030) 10/26/17 12:59 Urine Protein 30 mg/dl mg/dL (Negative) 10/26/17 12:59 Urine Glucose (UA) >=500 mg/dL (Negative) 10/26/17 12:59 Urine Ketones Tr mg/dL (Negative) 10/26/17 12:59 Urine Blood Mod (Negative) 10/26/17 12:59 Urine Nitrite Neg (Negative) 10/26/17 12:59 Urine Bilirubin Neg (Negative) 10/26/17 12:59 Urine Urobilinogen < 2.0 mg/dL (<2.0) 10/26/17 12:59 Ur Leukocyte Esterase Sm (Negative) 10/26/17 12:59 Urine WBC (Auto) 42.0 /HPF (0.0-6.0) H 10/26/17 12:59 Urine RBC (Auto) 54.0 /HPF (0.0-6.0) 10/26/17 12:59 U Epithel Cells (Auto) < 1.0 /HPF (0-13.0) 10/26/17 12:59 Uric Acid Crystals 3+ 10/26/17 12:59 Granular Casts 3 /LPF 10/26/17 12:59 Urine Mucus Few /HPF 10/26/17 12:59 Ur Yeast w Hyphae Few /HPF 10/26/17 12:59 Urine Yeast (Budding) 3+ /HPF 10/26/17 12:59 Salicylates < 0.3 mg/dL (2.8-20.0) L 10/26/17 11:44 Urine Opiates Screen Presumptive negative 10/26/17 12:59 Urine Methadone Screen Presumptive negative 10/26/17 12:59 Acetaminophen 15.0 ug/mL (10.0-30.0) 10/26/17 11:44 Ur Barbiturates Screen Presumptive negative 10/26/17 12:59 Ur Phencyclidine Scrn Presumptive negative 10/26/17 12:59 Ur Amphetamines Screen Presumptive negative 10/26/17 12:59 U Benzodiazepines Scrn Presumptive positive 10/26/17 12:59 Urine Cocaine Screen Presumptive negative 10/26/17 12:59 U Marijuana (THC) Screen Presumptive negative 10/26/17 12:59 Drugs of Abuse Note Disclamer 10/26/17 12:59 Plasma/Serum Alcohol < 0.01 % (0-0.07) 10/26/17 11:44 HIV 1&2 Antibody Rapid Non react (Non React) 10/28/17 15:50 HIV P24 Antigen Non react (Non React) 10/28/17 15:50 Blood Type O POSITIVE 10/26/17 11:54 Antibody Screen Negative 10/26/17 11:54
--- NOTE | 2017-10-31 19:57 | Progress Note ---
Assessment and Plan Assessment: 1) SIRS: still tachycardia; leukocytosis better. Etiology pneumonia+/- UTI? +/- encephalopathy +/- asp pneumonitis +/- dehydration from DKA. CXR negative x 2. Blood cultures negative. CRP=4.4. MARANDA thickened GB and mild pericholecystic fluid 2) Bilateral pneumonia: ? aspiration vs. CAP -CTA + patchy annie ASD L>R, mediastinal fullness with LNs, small right pleural effusion 3) Acute respiratory failure: from encephalopathy / OD -Tracheal asp + Strep group B and Barbie likely a colonizer 4) NUNU - better 5) Uncontrolled DM with DKA 6) Hyperkalemia - resolved 7) Extensive sclerae edema/lip edema ? angioedema ?SVC syndrome. CTA no PE + mediastinal fullness. Clinically better. on IV steroids. 8) UTI- mild. Urine cx + Barbie 9) Encephalopathy: ? from OD 10) Thyroid lesions / mildly low TSH 11) Distended GB ? acalculous cholecystitis 12) Mediastinal fullness ? LNs from pneumonia ? lymphoma. HIV neg Plan: -check LFTs in view of RUQ US findings ? acalculous cholecystitis if elevated obtain abdominal CT -follow-up procal -continue levaquin and flagyl - day 4 of 7 -add fluconazole in view of two different body sites with Barbie and pt with SIRS of unclear source and DKA -f/u cortisol Thank you for your consultation, will follow up with you. Aziza Stanford MD Infectious Diseases Specialist [facility] M [phone] O [phone] Subjective Date of service: 10/31/17 Principal diagnosis: Acute Hypoxemic Respiratory Failure; Acute Encephalopathy Interval history: Remains critically ill, sedated on the vent. Hypothermia is better. Microbiology: Blood cultures: 10/27 ngtd Urine cultures: 10/28 Barbie 10-50K Respiratory cultures: 10/27 Beta hem group B and Barbie Current Antimicrobials: levaquin and flagyl 10/28 Previous Antimicrobials: Zosyn 10/26 Vancomycin 10/26 Objective - Exam Narrative Exam: General appearance: sedated on the vent eye open following simple commands Eyes: anicteric +decreased sclerae edema, moist conjunctivae; no lid-lag; PERRLA HENT: Atraumatic; +decreased lips edema, oropharynx +ETT Neck: Trachea midline; supple, no thyromegaly or lymphadenopathy Lungs: CTA, with normal respiratory effort and no intercostal retractions CV: RRR Abdomen: Soft, non-tender; no masses or hepatosplenomegaly Extremities: No peripheral edema or extremity lymphadenopathy Skin: Normal temperature, turgor and texture; no rash, ulcers or subcutaneous nodules Psych: sedated Neuro: sedated but eye open and Moving all extermities Lines: - Constitutional Vitals: Vital Signs Temp Pulse Resp BP Pulse Ox 98.8 F 126 H 12 127/75 97 10/31/17 16:00 10/31/17 18:00 10/31/17 18:00 10/31/17 18:00 10/31/17 18:00 Temperature -Last 24 Hours Temperature 98.8 F Temperature 97.9 F Temperature 97.6 F Temperature 97.6 F Temperature 97.3 F Temperature 98.5 F Temperature 95.7 F Temperature 93.2 F Temperature 93.7 F Temperature 93.4 F - Labs CBC & Chem 7: 10/29/17 03:41 10/31/17 09:24 Labs: Abnormal lab results 10/30/17 10/30/17 10/31/17 Range/Units 18:02 23:08 01:00 POC ABG pCO2 (35-45) POC ABG pO2 (80-105) Sodium (137-145) mmol/L Potassium (3.6-5.0) mmol/L Chloride (98-107) mmol/L Carbon Dioxide (22-30) mmol/L BUN (7-17) mg/dL Glucose (65-100) mg/dL POC Glucose 213 H 162 H 176 H (70-105) Calcium (8.4-10.2) mg/dL 10/31/17 10/31/17 Range/Units 04:03 09:24 POC ABG pCO2 29.6 L (35-45) POC ABG pO2 118 H (80-105) Sodium 151 H (137-145) mmol/L Potassium 3.2 L D (3.6-5.0) mmol/L Chloride 116.1 H (98-107) mmol/L Carbon Dioxide 20 L (22-30) mmol/L BUN 6 L (7-17) mg/dL Glucose 181 H (65-100) mg/dL POC Glucose (70-105) Calcium 8.2 L (8.4-10.2) mg/dL
[2017-10-31] MEDS: DIFLUCAN 200 MG/100 ML BAG IV SCH (20:50)
[2017-11-01] MEDS: fentaNYL DRIP Premix 2,000 MCG/100 ML BAG IV SCH ×2 (01:26→22:41)
[2017-11-01] MEDS: DIPRIVAN 10 MG/ML 1,000 MG/100 ML BOTTLE IV SCH (01:27)
[2017-11-01 04:23] LABS: BUN/Creatinine Ratio 5; Blood Urea Nitrogen 6 mg/dL (7-17); Calcium 8.8 mg/dL (8.4-10.2); Hemolysis Index 29
[2017-11-01] MEDS: FLAGYL 500 MG/100 ML 500 MG/100 ML BAG IV SCH ×3 (05:57→22:08)
[2017-11-01] MEDS: NORMODYNE IV PRN (05:58)
--- NOTE | 2017-11-01 08:51 | Progress Note ---
Assessment and Plan - Patient Problems (1) Other acute kidney failure Current Visit: Yes Status: Acute Plan to address problem: Acute kidney failure is Pre-renal azotemia versus acute renal necrosis secondary to volume depletion with diabetic ketoacidosis and osmotic diuresis. Kidney function is improving. Continue close monitoring. Follow up electrolytes and renal function (2) DKA (diabetic ketoacidoses) Current Visit: Yes Status: Acute Qualifiers: Diabetes mellitus type: type 1 Diabetes mellitus complication detail: with coma Qualified Code(s): E10.11 - Type 1 diabetes mellitus with ketoacidosis with coma Plan to address problem: Resolved. Continue blood sugar management by primary attending (3) Hypernatremia Current Visit: Yes Status: Acute Plan to address problem: Increase free water via feeding tube and follow sodium (4) Hypokalemia Current Visit: Yes Status: Acute Plan to address problem: Supplement potassium and follow-up level (5) Anemia Current Visit: Yes Status: Acute Plan to address problem: Dilutional but suspect baseline anemia (6) Acute respiratory failure Current Visit: Yes Status: Acute Qualifiers: Respiratory failure complication: hypoxia Qualified Code(s): J96.01 - Acute respiratory failure with hypoxia Plan to address problem: Management by hospitalist/endoscopy tech (7) Metabolic encephalopathy Current Visit: Yes Status: Acute Plan to address problem: Improved (8) Sepsis Current Visit: Yes Status: Acute Qualifiers: Sepsis type: sepsis due to unspecified organism Qualified Code(s): A41.9 - Sepsis, unspecified organism Plan to address problem: Continue antibiotics per infectious disease Subjective Date of service: 11/01/17 Principal diagnosis: Acute Hypoxemic Respiratory Failure; Acute Encephalopathy Interval history: Patient seen lying in bed in the ICU. She is intubated on the ventilator. Vent settings AC, FiO2 35% PEEP 5. She is on Diprivan and fentanyl. Patient is more awake today and communicating by writing Objective - Exam Narrative Exam: Young -[place] female lying in bed intubated on ventilator HEENT: Facial edema, Chemosis,, endotracheal tube intact, Neck: Supple, no venous distention CVS: S1S2 RRR with no murmur, rub or gallop Chest: Good chest expansion, faint rhonchi Abdomen: Protuberant, soft, nontender, no organomegaly, bowel sounds are present Extremities: Mild edema upper extremities, no clubbing Skin warm and dry with no rash Neuro: Communicating nonverbally - Vital Signs Vital signs: Vital Signs - 12hr 10/31/17 10/31/17 10/31/17 20:51 21:01 21:11 Temperature Pulse Rate 120 H 122 H 126 H Respiratory 19 22 16 Rate Blood Pressure 156/108 133/76 133/76 O2 Sat by Pulse 100 99 100 Oximetry 10/31/17 10/31/17 10/31/17 21:21 21:30 21:41 Temperature Pulse Rate 112 H 109 H 109 H Respiratory 15 16 16 Rate Blood Pressure 160/113 159/110 159/110 O2 Sat by Pulse 100 100 Oximetry 10/31/17 10/31/17 10/31/17 21:51 22:00 22:11 Temperature Pulse Rate 117 H 118 H 113 H Respiratory 25 H 18 15 Rate Blood Pressure 159/110 163/113 163/113 O2 Sat by Pulse 100 100 100 Oximetry 10/31/17 10/31/17 10/31/17 22:21 22:30 22:41 Temperature Pulse Rate 114 H 111 H 107 H Respiratory 13 17 16 Rate Blood Pressure 163/113 160/106 160/106 O2 Sat by Pulse 100 100 100 Oximetry 10/31/17 10/31/17 10/31/17 22:51 23:00 23:11 Temperature Pulse Rate 104 H 103 H 100 H Respiratory 16 16 16 Rate Blood Pressure 160/106 150/100 150/100 O2 Sat by Pulse 100 100 100 Oximetry 10/31/17 10/31/17 10/31/17 23:21 23:30 23:41 Temperature Pulse Rate 96 H 99 H 100 H Respiratory 16 16 16 Rate Blood Pressure 150/100 152/99 152/99 O2 Sat by Pulse 100 100 100 Oximetry 10/31/17 10/31/17 11/01/17 23:51 23:52 00:00 Temperature 98.1 F Pulse Rate 106 H 107 H 110 H Respiratory 16 16 Rate Blood Pressure 152/99 152/99 160/105 O2 Sat by Pulse 100 100 100 Oximetry 11/01/17 11/01/17 11/01/17 00:11 00:21 00:30 Temperature Pulse Rate 107 H 107 H 107 H Respiratory 16 16 16 Rate Blood Pressure 160/105 160/105 152/101 O2 Sat by Pulse 100 100 100 Oximetry 03/01/18 03/01/18 03/01/18 00:41 00:51 01:00 Temperature Pulse Rate 107 H 126 H 113 H Respiratory 16 19 16 Rate Blood Pressure 152/101 152/101 153/103 O2 Sat by Pulse 100 100 Oximetry 11/01/17 11/01/17 11/01/17 01:11 01:21 01:30 Temperature Pulse Rate 112 H 114 H 109 H Respiratory 16 16 16 Rate Blood Pressure 153/103 153/103 143/96 O2 Sat by Pulse 100 100 100 Oximetry 11/01/17 11/01/17 11/01/17 01:41 01:51 02:00 Temperature Pulse Rate 113 H 111 H 110 H Respiratory 16 16 16 Rate Blood Pressure 143/96 143/96 150/97 O2 Sat by Pulse 100 100 100 Oximetry 11/01/17 11/01/17 11/01/17 02:11 02:21 02:30 Temperature Pulse Rate 114 H 113 H 111 H Respiratory 16 16 16 Rate Blood Pressure 150/97 150/97 132/92 O2 Sat by Pulse 100 100 100 Oximetry 11/01/17 11/01/17 11/01/17 02:41 02:47 02:51 Temperature Pulse Rate 114 H 133 H 137 H Respiratory 16 16 19 Rate Blood Pressure 132/92 132/92 132/92 O2 Sat by Pulse 100 Oximetry 11/01/17 11/01/17 11/01/17 03:00 03:11 03:21 Temperature Pulse Rate 114 H 121 H 122 H Respiratory 16 17 16 Rate Blood Pressure 132/92 148/105 148/105 O2 Sat by Pulse 100 99 99 Oximetry 11/01/17 11/01/17 11/01/17 03:31 03:41 03:51 Temperature Pulse Rate 124 H 129 H 114 H Respiratory 16 20 17 Rate Blood Pressure 148/105 148/105 151/103 O2 Sat by Pulse 100 96 100 Oximetry 11/01/17 11/01/17 11/01/17 04:00 04:11 04:21 Temperature 98.8 F Pulse Rate 119 H 116 H 117 H Respiratory 17 16 16 Rate Blood Pressure 149/102 148/105 148/105 O2 Sat by Pulse 100 100 100 Oximetry 11/01/17 11/01/17 11/01/17 04:30 04:41 04:51 Temperature Pulse Rate 118 H 114 H 117 H Respiratory 17 16 17 Rate Blood Pressure 156/103 156/103 156/103 O2 Sat by Pulse 100 100 100 Oximetry 03/01/18 03/01/18 03/01/18 05:00 05:11 05:21 Temperature Pulse Rate 113 H 122 H 128 H Respiratory 16 17 16 Rate Blood Pressure 159/102 159/102 159/102 O2 Sat by Pulse 99 99 100 Oximetry 11/01/17 11/01/17 11/01/17 05:30 05:41 05:50 Temperature Pulse Rate 134 H 121 H 119 H Respiratory 10 L 14 16 Rate Blood Pressure 168/106 168/106 163/103 O2 Sat by Pulse 100 98 100 Oximetry 11/01/17 11/01/17 11/01/17 05:58 06:00 06:15 Temperature Pulse Rate 119 H 112 H 113 H Respiratory 16 16 Rate Blood Pressure 163/103 135/86 132/83 O2 Sat by Pulse 99 100 Oximetry 11/01/17 11/01/17 11/01/17 06:30 06:45 07:00 Temperature Pulse Rate 113 H 114 H 114 H Respiratory 17 16 16 Rate Blood Pressure 149/95 151/95 163/100 O2 Sat by Pulse 100 100 100 Oximetry 11/01/17 11/01/17 11/01/17 07:15 07:30 07:45 Temperature Pulse Rate 114 H 117 H 120 H Respiratory 15 16 19 Rate Blood Pressure 149/90 143/98 155/104 O2 Sat by Pulse 100 100 100 Oximetry 11/01/17 11/01/17 08:00 08:36 Temperature 101.0 F H Pulse Rate 116 H 123 H Respiratory 17 11 L Rate Blood Pressure 164/104 146/106 O2 Sat by Pulse 100 99 Oximetry - Lab 10/29/17 03:41 11/01/17 03:28 Most recent lab results Calcium 8.8 mg/dL (8.4-10.2) 11/01/17 03:28 Phosphorus 3.30 mg/dL (2.5-4.5) 11/01/17 03:28 Magnesium 2.00 mg/dL (1.7-2.3) 11/01/17 03:28
[2017-11-01] MEDS: PEPCID IV SCH (09:10)
[2017-11-01] MEDS: LEVAQUIN 750MG/150ML 750 MG/150 ML BAG IV SCH (09:11)
[2017-11-01] MEDS: BENADRYL IV SCH ×2 (09:11→20:32)
--- NOTE | 2017-11-01 09:38 | Progress Note ---
Assessment and Plan Acute respiratory failure, on mechanical ventilatory support. Acute encephalopathy, appears toxic metabolic at this point. Diabetic ketoacidosis. Sepsis syndrome. History of chronic pain. Possible drug abuse. Anemia. Leukocytosis. Hyperammonemia. Severe metabolic acidosis with a lactic acid component. - continue PPI, antihistamine therapy and steroids re: possible angioedema element - get CT chest and neck to evaluate pathology that can be contributing to her swelling From a pulmonary mechanics perspective she will tolerate extubation however we need to address the neck swelling -agitation management, add seroquel qhs - continue GI & VTE prophylaxis - azotemia per nephrology - free water and hypotonic solution for hypernatremia - daily SAT's & SBT's shortly - continue bronchodilators and pulmonary hygiene per RT - VAP bundle addressed - continue other care per attending / other consultants ...35' CCT Subjective Date of service: 11/01/17 Principal diagnosis: Acute Hypoxemic Respiratory Failure; Acute Encephalopathy Interval history: Patient is seen today for: Acute Hypoxemic Respiratory Failure; Acute Encephalopathy Seen and examined at bedside; 24hour events reviewed; nursing and respiratory care staff consulted; no adverse overnight events reported to me; Very calm, off all sedation using prn medication. Vitals, labs, medications, chart reviewed. Discussed in interdisciplinary ICU rounds Objective - Exam Narrative Exam: Young -Filipino female lying in bed intubated on ventilator HEENT: Facial edema, Chemosis,, endotracheal tube intact, Tongue and lip edema much improved, however neck fullness persists Neck: Supple, no venous distention CVS: S1S2 RRR with no murmur, rub or gallop Chest: Good chest expansion, faint rhonchi Abdomen: Protuberant, soft, non tender, no organomegaly, bowel sounds are present Extremities: Mild edema upper extremities, no clubbing Skin warm and dry with no rash Neuro: Communicating nonverbally Vital Signs - 12hr 10/31/17 10/31/17 10/31/17 21:41 21:51 22:00 Temperature Pulse Rate 109 H 117 H 118 H Respiratory 16 25 H 18 Rate Blood Pressure 159/110 159/110 163/113 O2 Sat by Pulse 100 100 100 Oximetry 10/31/17 10/31/17 10/31/17 22:11 22:21 22:30 Temperature Pulse Rate 113 H 114 H 111 H Respiratory 15 13 17 Rate Blood Pressure 163/113 163/113 160/106 O2 Sat by Pulse 100 100 100 Oximetry 10/31/17 10/31/17 10/31/17 22:41 22:51 23:00 Temperature Pulse Rate 107 H 104 H 103 H Respiratory 16 16 16 Rate Blood Pressure 160/106 160/106 150/100 O2 Sat by Pulse 100 100 100 Oximetry 10/31/17 10/31/17 10/31/17 23:11 23:21 23:30 Temperature Pulse Rate 100 H 96 H 99 H Respiratory 16 16 16 Rate Blood Pressure 150/100 150/100 152/99 O2 Sat by Pulse 100 100 100 Oximetry 10/31/17 10/31/17 10/31/17 23:41 23:51 23:52 Temperature Pulse Rate 100 H 106 H 107 H Respiratory 16 16 Rate Blood Pressure 152/99 152/99 152/99 O2 Sat by Pulse 100 100 100 Oximetry 11/01/17 11/01/17 11/01/17 00:00 00:11 00:21 Temperature 98.1 F Pulse Rate 110 H 107 H 107 H Respiratory 16 16 16 Rate Blood Pressure 160/105 160/105 160/105 O2 Sat by Pulse 100 100 100 Oximetry 11/01/17 11/01/17 11/01/17 00:30 00:41 00:51 Temperature Pulse Rate 107 H 107 H 126 H Respiratory 16 16 19 Rate Blood Pressure 152/101 152/101 152/101 O2 Sat by Pulse 100 100 Oximetry 11/01/17 11/01/17 11/01/17 01:00 01:11 01:21 Temperature Pulse Rate 113 H 112 H 114 H Respiratory 16 16 16 Rate Blood Pressure 153/103 153/103 153/103 O2 Sat by Pulse 100 100 100 Oximetry 11/01/17 11/01/17 11/01/17 01:30 01:41 01:51 Temperature Pulse Rate 109 H 113 H 111 H Respiratory 16 16 16 Rate Blood Pressure 143/96 143/96 143/96 O2 Sat by Pulse 100 100 100 Oximetry 11/01/17 11/01/17 11/01/17 02:00 02:11 02:21 Temperature Pulse Rate 110 H 114 H 113 H Respiratory 16 16 16 Rate Blood Pressure 150/97 150/97 150/97 O2 Sat by Pulse 100 100 100 Oximetry 11/01/17 11/01/17 11/01/17 02:30 02:41 02:47 Temperature Pulse Rate 111 H 114 H 133 H Respiratory 16 16 16 Rate Blood Pressure 132/92 132/92 132/92 O2 Sat by Pulse 100 100 Oximetry 11/01/17 11/01/17 11/01/17 02:51 03:00 03:11 Temperature Pulse Rate 137 H 114 H 121 H Respiratory 19 16 17 Rate Blood Pressure 132/92 132/92 148/105 O2 Sat by Pulse 100 99 Oximetry 11/01/17 11/01/17 11/01/17 03:21 03:31 03:41 Temperature Pulse Rate 122 H 124 H 129 H Respiratory 16 16 20 Rate Blood Pressure 148/105 148/105 148/105 O2 Sat by Pulse 99 100 96 Oximetry 11/01/17 11/01/17 11/01/17 03:51 04:00 04:11 Temperature 98.8 F Pulse Rate 114 H 119 H 116 H Respiratory 17 17 16 Rate Blood Pressure 151/103 149/102 148/105 O2 Sat by Pulse 100 100 100 Oximetry 11/01/17 11/01/17 11/01/17 04:21 04:30 04:41 Temperature Pulse Rate 117 H 118 H 114 H Respiratory 16 17 16 Rate Blood Pressure 148/105 156/103 156/103 O2 Sat by Pulse 100 100 100 Oximetry 11/01/17 11/01/17 11/01/17 04:51 05:00 05:11 Temperature Pulse Rate 117 H 113 H 122 H Respiratory 17 16 17 Rate Blood Pressure 156/103 159/102 159/102 O2 Sat by Pulse 100 99 99 Oximetry 11/01/17 11/01/17 11/01/17 05:21 05:30 05:41 Temperature Pulse Rate 128 H 134 H 121 H Respiratory 16 10 L 14 Rate Blood Pressure 159/102 168/106 168/106 O2 Sat by Pulse 100 100 98 Oximetry 11/01/17 11/01/17 11/01/17 05:50 05:58 06:00 Temperature Pulse Rate 119 H 119 H 112 H Respiratory 16 16 Rate Blood Pressure 163/103 163/103 135/86 O2 Sat by Pulse 100 99 Oximetry 11/01/17 11/01/17 11/01/17 06:15 06:30 06:45 Temperature Pulse Rate 113 H 113 H 114 H Respiratory 16 17 16 Rate Blood Pressure 132/83 149/95 151/95 O2 Sat by Pulse 100 100 100 Oximetry 11/01/17 11/01/17 11/01/17 07:00 07:15 07:30 Temperature Pulse Rate 114 H 114 H 117 H Respiratory 16 15 16 Rate Blood Pressure 163/100 149/90 143/98 O2 Sat by Pulse 100 100 100 Oximetry 11/01/17 11/01/17 11/01/17 07:45 08:00 08:36 Temperature 101.0 F H Pulse Rate 120 H 116 H 123 H Respiratory 19 17 11 L Rate Blood Pressure 155/104 164/104 146/106 O2 Sat by Pulse 100 100 99 Oximetry Constitutional: lethargic, appears uncomfortable Eyes: non-icteric, other (orbital phimosis) ENT: oropharynx moist, oropharyngeal exudate pre Neck: supple, no lymphadenopathy, no JVD, other (neck and facial swelling) Effort: mildly labored Ascultation: Bilateral: rhonchi Percussion: Bilateral: not dull Cardiovascular: regular rate and rhythm, other (No palpable HSM) Gastrointestinal: normoactive bowel sounds, soft, non-tender, non-distended, other (no palpable HSM) Integumentary: normal Extremities: no cyanosis, no edema, pulses normal, no ischemia or petechiae Neurologic: unable to assess Psychiatric: other (sedated) CBC and BMP: 10/29/17 03:41 11/01/17 03:28 ABG, PT/INR, D-dimer: ABG POC ABG pH 7.381 (7.35-7.45) 11/01/17 06:03 POC ABG pCO2 40.1 (35-45) 11/01/17 06:03 POC ABG pO2 95 (80-105) 11/01/17 06:03 POC ABG HCO3 23.8 11/01/17 06:03 POC ABG Total CO2 25 11/01/17 06:03 POC ABG O2 Sat 97 11/01/17 06:03 PT/INR, D-dimer PT 16.8 Sec. (12.2-14.9) H 10/26/17 11:44 INR 1.29 (0.87-1.13) H 10/26/17 11:44 Abnormal lab findings: Abnormal Labs 10/26/17 10/26/17 10/26/17 11:23 11:44 11:44 WBC 20.6 H RBC 3.62 L Hgb 8.3 L Hct MCV MCH 23 L MCHC 24 L RDW 21.7 H Seg Neutrophils % Seg Neuts % (Manual) 76.0 H Lymphocytes % (Manual) 11.0 L Seg Neutrophils # Seg Neutrophils # Man 15.7 H Basophils # (Manual) 0.2 H PT INR POC ABG pH POC ABG pCO2 POC ABG pO2 Sodium Potassium Chloride Carbon Dioxide BUN Creatinine Glucose POC Glucose > 500 H Lactic Acid 4.10 H* Calcium Phosphorus Magnesium Alkaline Phosphatase Ammonia Total Creatine Kinase C-Reactive Protein Albumin TSH Urine WBC (Auto) Salicylates 10/26/17 10/26/17 10/26/17 11:44 11:44 11:44 WBC RBC Hgb Hct MCV MCH MCHC RDW Seg Neutrophils % Seg Neuts % (Manual) Lymphocytes % (Manual) Seg Neutrophils # Seg Neutrophils # Man Basophils # (Manual) PT 16.8 H INR 1.29 H POC ABG pH POC ABG pCO2 POC ABG pO2 Sodium 146 H Potassium 6.6 H* Chloride Carbon Dioxide 3 L* BUN 34 H Creatinine 2.2 H Glucose 1281 H* POC Glucose Lactic Acid Calcium 8.0 L Phosphorus Magnesium Alkaline Phosphatase 196 H Ammonia 67.0 H Total Creatine Kinase 24 L C-Reactive Protein Albumin 3.6 L TSH Urine WBC (Auto) Salicylates 10/26/17 10/26/17 10/26/17 11:44 12:01 12:59 WBC RBC Hgb Hct MCV MCH MCHC RDW Seg Neutrophils % Seg Neuts % (Manual) Lymphocytes % (Manual) Seg Neutrophils # Seg Neutrophils # Man Basophils # (Manual) PT INR POC ABG pH 6.895 L POC ABG pCO2 12.3 L POC ABG pO2 311 H Sodium Potassium Chloride Carbon Dioxide BUN Creatinine Glucose POC Glucose Lactic Acid Calcium Phosphorus Magnesium Alkaline Phosphatase Ammonia Total Creatine Kinase C-Reactive Protein Albumin TSH Urine WBC (Auto) 42.0 H Salicylates < 0.3 L 10/26/17 10/26/17 10/26/17 13:06 13:17 13:17 WBC RBC Hgb Hct MCV MCH MCHC RDW Seg Neutrophils % Seg Neuts % (Manual) Lymphocytes % (Manual) Seg Neutrophils # Seg Neutrophils # Man Basophils # (Manual) PT INR POC ABG pH POC ABG pCO2 POC ABG pO2 Sodium 146 H Potassium 7.1 H* Chloride Carbon Dioxide 2 L* BUN 35 H Creatinine 2.3 H Glucose 1330 H* POC Glucose Lactic Acid 4.10 H* Calcium 7.7 L Phosphorus 11.10 H Magnesium 2.70 H Alkaline Phosphatase Ammonia Total Creatine Kinase C-Reactive Protein Albumin TSH Urine WBC (Auto) Salicylates 10/26/17 10/26/17 10/26/17 14:57 15:26 15:26 WBC RBC Hgb Hct MCV MCH MCHC RDW Seg Neutrophils % Seg Neuts % (Manual) Lymphocytes % (Manual) Seg Neutrophils # Seg Neutrophils # Man Basophils # (Manual) PT INR POC ABG pH POC ABG pCO2 POC ABG pO2 Sodium 147 H Potassium 6.3 H* Chloride Carbon Dioxide < 2.0 L* BUN 37 H Creatinine 2.4 H Glucose 1115 H* POC Glucose > 500 H Lactic Acid 3.70 H* Calcium 7.2 L Phosphorus Magnesium Alkaline Phosphatase Ammonia Total Creatine Kinase C-Reactive Protein Albumin TSH Urine WBC (Auto) Salicylates 10/26/17 10/26/17 10/26/17 16:02 17:51 17:51 WBC RBC Hgb Hct MCV MCH MCHC RDW Seg Neutrophils % Seg Neuts % (Manual) Lymphocytes % (Manual) Seg Neutrophils # Seg Neutrophils # Man Basophils # (Manual) PT INR POC ABG pH POC ABG pCO2 POC ABG pO2 Sodium 149 H Potassium Chloride Carbon Dioxide 2 L* BUN 36 H Creatinine 2.6 H Glucose 1063 H* POC Glucose > 500 H Lactic Acid 6.50 H* Calcium 7.0 L Phosphorus Magnesium Alkaline Phosphatase Ammonia Total Creatine Kinase C-Reactive Protein Albumin TSH Urine WBC (Auto) Salicylates 10/26/17 10/26/17 10/26/17 18:42 19:55 19:55 WBC RBC Hgb Hct MCV MCH MCHC RDW Seg Neutrophils % Seg Neuts % (Manual) Lymphocytes % (Manual) Seg Neutrophils # Seg Neutrophils # Man Basophils # (Manual) PT INR POC ABG pH 6.974 L POC ABG pCO2 14.9 L POC ABG pO2 244 H Sodium 150 H Potassium Chloride 108.3 H Carbon Dioxide 4 L* BUN 33 H Creatinine 2.4 H Glucose 663 H* POC Glucose Lactic Acid 8.30 H* Calcium 7.0 L Phosphorus Magnesium Alkaline Phosphatase Ammonia Total Creatine Kinase C-Reactive Protein Albumin TSH Urine WBC (Auto) Salicylates 02/10/26/17 10/26/17 21:26 21:26 23:55 WBC RBC Hgb Hct MCV MCH MCHC RDW Seg Neutrophils % Seg Neuts % (Manual) Lymphocytes % (Manual) Seg Neutrophils # Seg Neutrophils # Man Basophils # (Manual) PT INR POC ABG pH POC ABG pCO2 POC ABG pO2 Sodium 152 H Potassium 3.5 L Chloride 110.4 H Carbon Dioxide 6 L* BUN 32 H Creatinine 2.3 H Glucose 498 H POC Glucose 317 H Lactic Acid 9.00 H* Calcium 7.6 L Phosphorus Magnesium Alkaline Phosphatase Ammonia Total Creatine Kinase C-Reactive Protein Albumin TSH Urine WBC (Auto) Salicylates 10/27/17 10/27/17 10/27/17 01:21 02:26 03:49 WBC RBC Hgb Hct MCV MCH MCHC RDW Seg Neutrophils % Seg Neuts % (Manual) Lymphocytes % (Manual) Seg Neutrophils # Seg Neutrophils # Man Basophils # (Manual) PT INR POC ABG pH POC ABG pCO2 POC ABG pO2 Sodium Potassium Chloride Carbon Dioxide BUN Creatinine Glucose POC Glucose 218 H 172 H 136 H Lactic Acid Calcium Phosphorus Magnesium Alkaline Phosphatase Ammonia Total Creatine Kinase C-Reactive Protein Albumin TSH Urine WBC (Auto) Salicylates 10/27/17 10/27/17 10/27/17 04:50 05:26 06:01 WBC RBC Hgb Hct MCV MCH MCHC RDW Seg Neutrophils % Seg Neuts % (Manual) Lymphocytes % (Manual) Seg Neutrophils # Seg Neutrophils # Man Basophils # (Manual) PT INR POC ABG pH 7.284 L POC ABG pCO2 POC ABG pO2 204 H Sodium 158 H Potassium 3.5 L Chloride 118.2 H Carbon Dioxide 19 L D BUN 27 H Creatinine 1.9 H Glucose 232 H POC Glucose 221 H Lactic Acid Calcium 7.1 L Phosphorus Magnesium Alkaline Phosphatase Ammonia Total Creatine Kinase C-Reactive Protein Albumin TSH Urine WBC (Auto) Salicylates 10/27/17 10/27/17 10/27/17 06:05 07:27 09:28 WBC RBC Hgb Hct MCV MCH MCHC RDW Seg Neutrophils % Seg Neuts % (Manual) Lymphocytes % (Manual) Seg Neutrophils # Seg Neutrophils # Man Basophils # (Manual) PT INR POC ABG pH POC ABG pCO2 POC ABG pO2 Sodium Potassium Chloride Carbon Dioxide BUN Creatinine Glucose POC Glucose 286 H 161 H 123 H Lactic Acid Calcium Phosphorus Magnesium Alkaline Phosphatase Ammonia Total Creatine Kinase C-Reactive Protein Albumin TSH Urine WBC (Auto) Salicylates 10/27/17 10/27/17 10/27/17 12:30 13:07 14:44 WBC RBC Hgb Hct MCV MCH MCHC RDW Seg Neutrophils % Seg Neuts % (Manual) Lymphocytes % (Manual) Seg Neutrophils # Seg Neutrophils # Man Basophils # (Manual) PT INR POC ABG pH POC ABG pCO2 POC ABG pO2 Sodium 158 H Potassium 3.2 L Chloride 120.7 H Carbon Dioxide 16 L BUN 23 H Creatinine 1.9 H Glucose 270 H POC Glucose 274 H 200 H Lactic Acid Calcium 7.1 L Phosphorus Magnesium Alkaline Phosphatase Ammonia Total Creatine Kinase C-Reactive Protein Albumin TSH Urine WBC (Auto) Salicylates 10/27/17 10/27/17 10/27/17 19:03 20:24 20:24 WBC RBC Hgb Hct MCV MCH MCHC RDW Seg Neutrophils % Seg Neuts % (Manual) Lymphocytes % (Manual) Seg Neutrophils # Seg Neutrophils # Man Basophils # (Manual) PT INR POC ABG pH POC ABG pCO2 POC ABG pO2 Sodium 155 H Potassium 3.4 L Chloride 119.3 H Carbon Dioxide 19 L BUN 20 H Creatinine 1.9 H Glucose 272 H POC Glucose 124 H Lactic Acid Calcium 7.0 L Phosphorus 1.50 L D Magnesium Alkaline Phosphatase Ammonia Total Creatine Kinase C-Reactive Protein 1.50 H Albumin TSH Urine WBC (Auto) Salicylates 10/27/17 10/27/17 10/28/17 20:40 21:05 03:02 WBC RBC Hgb Hct MCV MCH MCHC RDW Seg Neutrophils % Seg Neuts % (Manual) Lymphocytes % (Manual) Seg Neutrophils # Seg Neutrophils # Man Basophils # (Manual) PT INR POC ABG pH 7.327 L POC ABG pCO2 32.1 L POC ABG pO2 Sodium 157 H Potassium Chloride 118.8 H Carbon Dioxide 13 L BUN 18 H Creatinine 2.0 H Glucose 560 H* POC Glucose 289 H Lactic Acid Calcium 6.8 L Phosphorus 5.40 H D Magnesium Alkaline Phosphatase Ammonia Total Creatine Kinase C-Reactive Protein Albumin TSH Urine WBC (Auto) Salicylates 10/28/17 10/28/17 10/28/17 06:06 07:46 08:21 WBC RBC Hgb Hct MCV MCH MCHC RDW Seg Neutrophils % Seg Neuts % (Manual) Lymphocytes % (Manual) Seg Neutrophils # Seg Neutrophils # Man Basophils # (Manual) PT INR POC ABG pH POC ABG pCO2 POC ABG pO2 Sodium Potassium Chloride Carbon Dioxide BUN Creatinine Glucose POC Glucose > 500 H 500 H Lactic Acid Calcium Phosphorus 6.70 H D Magnesium Alkaline Phosphatase Ammonia Total Creatine Kinase C-Reactive Protein Albumin TSH Urine WBC (Auto) Salicylates 10/28/17 10/28/17 10/28/17 09:34 11:13 12:55 WBC RBC Hgb Hct MCV MCH MCHC RDW Seg Neutrophils % Seg Neuts % (Manual) Lymphocytes % (Manual) Seg Neutrophils # Seg Neutrophils # Man Basophils # (Manual) PT INR POC ABG pH POC ABG pCO2 POC ABG pO2 Sodium Potassium Chloride Carbon Dioxide BUN Creatinine Glucose POC Glucose 435 H 273 H 149 H Lactic Acid Calcium Phosphorus Magnesium Alkaline Phosphatase Ammonia Total Creatine Kinase C-Reactive Protein Albumin TSH Urine WBC (Auto) Salicylates 10/28/17 10/28/17 10/28/17 14:27 15:39 15:39 WBC 15.5 H RBC 3.59 L Hgb 8.3 L Hct 27.6 L D MCV 77 L MCH 23 L MCHC RDW 20.9 H Seg Neutrophils % 78.5 H Seg Neuts % (Manual) Lymphocytes % (Manual) Seg Neutrophils # 12.2 H Seg Neutrophils # Man Basophils # (Manual) PT INR POC ABG pH POC ABG pCO2 33.9 L POC ABG pO2 138 H Sodium 164 H* Potassium 3.5 L Chloride 125.3 H Carbon Dioxide 18 L BUN Creatinine 1.6 H Glucose 37 L* POC Glucose Lactic Acid Calcium 7.5 L Phosphorus Magnesium Alkaline Phosphatase Ammonia Total Creatine Kinase C-Reactive Protein Albumin TSH Urine WBC (Auto) Salicylates 10/28/17 10/28/17 10/28/17 15:47 15:50 16:28 WBC RBC Hgb Hct MCV MCH MCHC RDW Seg Neutrophils % Seg Neuts % (Manual) Lymphocytes % (Manual) Seg Neutrophils # Seg Neutrophils # Man Basophils # (Manual) PT INR POC ABG pH POC ABG pCO2 POC ABG pO2 Sodium Potassium Chloride Carbon Dioxide BUN Creatinine Glucose POC Glucose < 40 L 114 H Lactic Acid Calcium Phosphorus Magnesium Alkaline Phosphatase Ammonia Total Creatine Kinase C-Reactive Protein 4.40 H Albumin TSH Urine WBC (Auto) Salicylates 10/28/17 10/28/17 10/28/17 19:07 23:10 23:59 WBC RBC Hgb Hct MCV MCH MCHC RDW Seg Neutrophils % Seg Neuts % (Manual) Lymphocytes % (Manual) Seg Neutrophils # Seg Neutrophils # Man Basophils # (Manual) PT INR POC ABG pH POC ABG pCO2 POC ABG pO2 Sodium 159 H Potassium Chloride 124.1 H Carbon Dioxide 19 L BUN Creatinine 1.4 H Glucose 219 H POC Glucose 111 H 307 H Lactic Acid Calcium 7.1 L Phosphorus Magnesium Alkaline Phosphatase Ammonia Total Creatine Kinase C-Reactive Protein Albumin TSH Urine WBC (Auto) Salicylates 10/29/17 10/29/17 10/29/17 03:41 03:41 04:55 WBC 14.1 H RBC 3.32 L Hgb 7.6 L Hct 25.5 L MCV 77 L MCH 23 L MCHC RDW 20.8 H Seg Neutrophils % Seg Neuts % (Manual) Lymphocytes % (Manual) Seg Neutrophils # Seg Neutrophils # Man Basophils # (Manual) PT INR POC ABG pH POC ABG pCO2 31.2 L POC ABG pO2 123 H Sodium 158 H Potassium Chloride 122.7 H Carbon Dioxide 15 L BUN Creatinine 1.3 H Glucose 176 H POC Glucose Lactic Acid Calcium 7.2 L Phosphorus Magnesium Alkaline Phosphatase Ammonia Total Creatine Kinase C-Reactive Protein Albumin TSH Urine WBC (Auto) Salicylates 10/29/17 10/29/17 10/29/17 05:44 09:28 10:39 WBC RBC Hgb Hct MCV MCH MCHC RDW Seg Neutrophils % Seg Neuts % (Manual) Lymphocytes % (Manual) Seg Neutrophils # Seg Neutrophils # Man Basophils # (Manual) PT INR POC ABG pH POC ABG pCO2 POC ABG pO2 Sodium 151 H Potassium Chloride 117.1 H Carbon Dioxide 17 L BUN Creatinine Glucose 378 H POC Glucose 253 H 418 H Lactic Acid Calcium 7.4 L Phosphorus Magnesium Alkaline Phosphatase Ammonia Total Creatine Kinase C-Reactive Protein Albumin TSH Urine WBC (Auto) Salicylates 10/29/17 10/29/17 10/29/17 13:50 18:35 21:28 WBC RBC Hgb Hct MCV MCH MCHC RDW Seg Neutrophils % Seg Neuts % (Manual) Lymphocytes % (Manual) Seg Neutrophils # Seg Neutrophils # Man Basophils # (Manual) PT INR POC ABG pH POC ABG pCO2 POC ABG pO2 Sodium Potassium Chloride Carbon Dioxide BUN Creatinine Glucose POC Glucose 220 H 184 H Lactic Acid Calcium Phosphorus Magnesium Alkaline Phosphatase Ammonia Total Creatine Kinase C-Reactive Protein Albumin TSH 0.216 L Urine WBC (Auto) Salicylates 10/30/17 10/30/17 10/30/17 00:06 03:58 05:02 WBC RBC Hgb Hct MCV MCH MCHC RDW Seg Neutrophils % Seg Neuts % (Manual) Lymphocytes % (Manual) Seg Neutrophils # Seg Neutrophils # Man Basophils # (Manual) PT INR POC ABG pH POC ABG pCO2 34.8 L POC ABG pO2 107 H Sodium 153 H Potassium Chloride 117.0 H Carbon Dioxide 16 L BUN Creatinine Glucose 165 H POC Glucose 177 H Lactic Acid Calcium 8.0 L Phosphorus Magnesium Alkaline Phosphatase Ammonia Total Creatine Kinase C-Reactive Protein Albumin TSH Urine WBC (Auto) Salicylates 10/30/17 10/30/17 10/30/17 05:42 10:36 12:13 WBC RBC Hgb Hct MCV MCH MCHC RDW Seg Neutrophils % Seg Neuts % (Manual) Lymphocytes % (Manual) Seg Neutrophils # Seg Neutrophils # Man Basophils # (Manual) PT INR POC ABG pH POC ABG pCO2 POC ABG pO2 Sodium 149 H Potassium Chloride 115.5 H Carbon Dioxide 16 L BUN Creatinine Glucose 230 H POC Glucose 192 H 264 H Lactic Acid Calcium 7.6 L Phosphorus Magnesium Alkaline Phosphatase Ammonia Total Creatine Kinase C-Reactive Protein Albumin TSH Urine WBC (Auto) Salicylates 10/30/17 10/30/17 10/31/17 18:02 23:08 01:00 WBC RBC Hgb Hct MCV MCH MCHC RDW Seg Neutrophils % Seg Neuts % (Manual) Lymphocytes % (Manual) Seg Neutrophils # Seg Neutrophils # Man Basophils # (Manual) PT INR POC ABG pH POC ABG pCO2 POC ABG pO2 Sodium Potassium Chloride Carbon Dioxide BUN Creatinine Glucose POC Glucose 213 H 162 H 176 H Lactic Acid Calcium Phosphorus Magnesium Alkaline Phosphatase Ammonia Total Creatine Kinase C-Reactive Protein Albumin TSH Urine WBC (Auto) Salicylates 10/31/17 10/31/17 10/31/17 04:03 07:15 09:24 WBC RBC Hgb Hct MCV MCH MCHC RDW Seg Neutrophils % Seg Neuts % (Manual) Lymphocytes % (Manual) Seg Neutrophils # Seg Neutrophils # Man Basophils # (Manual) PT INR POC ABG pH POC ABG pCO2 29.6 L POC ABG pO2 118 H Sodium 151 H Potassium 3.2 L D Chloride 116.1 H Carbon Dioxide 20 L BUN 6 L Creatinine Glucose 181 H POC Glucose 197 H Lactic Acid Calcium 8.2 L Phosphorus Magnesium Alkaline Phosphatase Ammonia Total Creatine Kinase C-Reactive Protein Albumin TSH Urine WBC (Auto) Salicylates 10/31/17 10/31/17 10/31/17 11:44 17:23 20:30 WBC RBC Hgb Hct MCV MCH MCHC RDW Seg Neutrophils % Seg Neuts % (Manual) Lymphocytes % (Manual) Seg Neutrophils # Seg Neutrophils # Man Basophils # (Manual) PT INR POC ABG pH POC ABG pCO2 POC ABG pO2 Sodium Potassium Chloride Carbon Dioxide BUN Creatinine Glucose POC Glucose 196 H 261 H 212 H Lactic Acid Calcium Phosphorus Magnesium Alkaline Phosphatase Ammonia Total Creatine Kinase C-Reactive Protein Albumin TSH Urine WBC (Auto) Salicylates 10/31/17 11/01/17 11/01/17 23:52 03:28 05:50 WBC RBC Hgb Hct MCV MCH MCHC RDW Seg Neutrophils % Seg Neuts % (Manual) Lymphocytes % (Manual) Seg Neutrophils # Seg Neutrophils # Man Basophils # (Manual) PT INR POC ABG pH POC ABG pCO2 POC ABG pO2 Sodium 150 H Potassium Chloride 113.8 H Carbon Dioxide 20 L BUN 6 L Creatinine Glucose 145 H POC Glucose 157 H 143 H Lactic Acid Calcium Phosphorus Magnesium Alkaline Phosphatase Ammonia Total Creatine Kinase C-Reactive Protein Albumin TSH Urine WBC (Auto) Salicylates Allied health notes reviewed: nursing
[2017-11-01] MEDS: HEPARIN SUB-Q SCH ×2 (09:39→22:09)
[2017-11-01] MEDS: TYLENOL PO PRN ×2 (10:26→17:07)
[2017-11-01] MEDS ORDERED: NACL ONE (12:49)
[2017-11-01 13:16] LABS: Bacteria,Urine 2+ /HPF (Negative); Bilirubin,Urine NEG (Negative); Blood,Urine SM (Negative); Color,Urine Yellow (Yellow); Mucus,Urine FEW /HPF; Protein,Urine <15 mg/dL mg/dL (Negative); Urobilinogen,Urine < 2.0 mg/dL (<2.0)
[2017-11-01 13:18] LABS: RBC,Urine > 182.0 /HPF (0.0-6.0)
--- NOTE | 2017-11-01 17:23 | Progress Note ---
Assessment and Plan Assessment and plan: 22 YO Female with DM, Medication Noncompliance, HTN, Chronic Pain presents to ED for evaluation. Pt unable to provide history, but history taken from ED staff , as well as EMS. Pt was found down and unresponsive by neighbors. EMS notified , and upon arrival the patient was found to be unresponsive. Patient had an empty bottle of oxycodone in her pill bag. Narcan was given without improvement in mental status. Patient transported to [facility] for further care and evaluation. Pt seen and evaluated in ED and found to have Acute Respiratory Failure, as well as DKA, and Sepsis. Pt intubated, sedated, and placed on vent support, as well as DKA and sepsis protocols. Pt admitted to ICU. PT has poor prognosis. Sepsis - likely due to pneumonia - Patient is on IV Levaquin and Flagyl Acute respiratory failure, hypoxic, on MV >96 hours - Pulmonary consulted, Pt intubated placed on vent support, wean vent as tolerated, daily ABG, daily SBT, nebulizer therapy, Acute renal failure/Vasomotor nephropathy continue IV, renal consult pressures and, resolved Metabolic encephalopathy due to DKA - CTH shows no acute findings, neuro consult appreciated Toxic encephalopathy - UDS was positive for benzo Hypothermia - continue buffy huggcesar DKA (diabetic ketoacidoses) - Resolved, currently on sliding scale insulin Hypokalemia, hypophosphatemia - repleted Hypernatremia - continue free water replacement DVT prophylaxis - SCD to BLE,. The high probability of a clinically significant, sudden or life threatening deterioration of the [cardiac, pulmonary, renal, endocrine] system(s) required my full and direct attention, intervention and personal management. The aggregate critical care time was [35] minutes. This time is in addition to time spent performing reported procedures but includes the following: [x] Data Review and interpretation [x] Patient assessment and monitoring of vital signs [x] Documentation [x] Medication orders and management History Interval history: Patient was seen and evaluated this morning, patient is on MV. Hospitalist Physical - Physical exam Narrative exam: Patient is intubated and on mechanical ventilation. Lip swelling gets better. The patient appeared well nourished and normally developed. Vital signs as documented. Head exam is unremarkable. No scleral icterus . Neck is without jugular venous distension, thyromegaly, or carotid bruits. Lungs are clear to auscultation. Cardiac exam reveals regular rate and Rhythm. First and second heart sounds normal. No murmurs, rubs or gallops. Abdominal exam reveals normal bowel sounds, no masses, no organomegaly and no aortic enlargement. Extremities are nonedematous and both femoral and pedal pulses are normal. CYTOMETRY TECHNOLOGIST: Patient open her eyes and alert. - Constitutional Vitals: Temp Pulse Resp BP Pulse Ox 99.1 F 122 H 16 138/96 100 11/01/17 16:00 11/01/17 16:30 11/01/17 17:07 11/01/17 16:30 11/01/17 16:30 General appearance: Present: severe distress, cachectic, disheveled Results - Labs CBC & Chem 7: 10/29/17 03:41 11/01/17 03:28 Labs: Laboratory Last Values WBC 14.1 K/mm3 (4.5-11.0) H 10/29/17 03:41 RBC 3.32 M/mm3 (3.65-5.03) L 10/29/17 03:41 Hgb 7.6 gm/dl (10.1-14.3) L 10/29/17 03:41 Hct 25.5 % (30.3-42.9) L 10/29/17 03:41 MCV 77 fl (79-97) L 10/29/17 03:41 MCH 23 pg (28-32) L 10/29/17 03:41 MCHC 30 % (30-34) 10/29/17 03:41 RDW 20.8 % (13.2-15.2) H 10/29/17 03:41 Plt Count 231 K/mm3 (140-440) 10/29/17 03:41 Lymph % (Auto) 16.4 % (13.4-35.0) 10/28/17 15:39 [place] % (Auto) 3.7 % (0.0-7.3) 10/28/17 15:39 Eos % (Auto) 0.7 % (0.0-4.3) 10/28/17 15:39 Baso % (Auto) 0.7 % (0.0-1.8) 10/28/17 15:39 Lymph # 2.6 K/mm3 (1.2-5.4) 10/28/17 15:39 [place] # 0.6 K/mm3 (0.0-0.8) 10/28/17 15:39 Eos # 0.1 K/mm3 (0.0-0.4) 10/28/17 15:39 Baso # 0.1 K/mm3 (0.0-0.1) 10/28/17 15:39 Add Manual Diff Complete 10/26/17 11:44 Total Counted 100 10/26/17 11:44 Seg Neutrophils % 78.5 % (40.0-70.0) H 10/28/17 15:39 Seg Neuts % (Manual) 76.0 % (40.0-70.0) H 10/26/17 11:44 Band Neutrophils % 2.0 % 10/26/17 11:44 Lymphocytes % (Manual) 11.0 % (13.4-35.0) L 10/26/17 11:44 Reactive Lymphs % (Man) 0 % 10/26/17 11:44 Monocytes % (Manual) 1.0 % (0.0-7.3) 10/26/17 11:44 Eosinophils % (Manual) 0 % (0.0-4.3) 10/26/17 11:44 Basophils % (Manual) 1.0 % (0.0-1.8) 10/26/17 11:44 Metamyelocytes % 8.0 % 10/26/17 11:44 Myelocytes % 1.0 % 10/26/17 11:44 Promyelocytes % 0 % 10/26/17 11:44 Blast Cells % 0 % 10/26/17 11:44 Nucleated RBC % Not Reportable 10/26/17 11:44 Seg Neutrophils # 12.2 K/mm3 (1.8-7.7) H 10/28/17 15:39 Seg Neutrophils # Man 15.7 K/mm3 (1.8-7.7) H 10/26/17 11:44 Band Neutrophils # 0.4 K/mm3 10/26/17 11:44 Lymphocytes # (Manual) 2.3 K/mm3 (1.2-5.4) 10/26/17 11:44 Abs React Lymphs (Man) 0.0 K/mm3 10/26/17 11:44 Monocytes # (Manual) 0.2 K/mm3 (0.0-0.8) 10/26/17 11:44 Eosinophils # (Manual) 0.0 K/mm3 (0.0-0.4) 10/26/17 11:44 Basophils # (Manual) 0.2 K/mm3 (0.0-0.1) H 10/26/17 11:44 Metamyelocytes # 1.6 K/mm3 10/26/17 11:44 Myelocytes # 0.2 K/mm3 10/26/17 11:44 Promyelocytes # 0.0 K/mm3 10/26/17 11:44 Blast Cells # 0.0 K/mm3 10/26/17 11:44 WBC Morphology Not Reportable 10/26/17 11:44 Hypersegmented Neuts Not Reportable 10/26/17 11:44 Hyposegmented Neuts Not Reportable 10/26/17 11:44 Hypogranular Neuts Not Reportable 10/26/17 11:44 Smudge Cells Not Reportable 10/26/17 11:44 Toxic Granulation Not Reportable 10/26/17 11:44 Toxic Vacuolation Not Reportable 10/26/17 11:44 Dohle Bodies Not Reportable 10/26/17 11:44 Pelger-Huet Anomaly Not Reportable 10/26/17 11:44 Gogo Rods Not Reportable 10/26/17 11:44 Platelet Estimate Cons 10/26/17 11:44 Clumped Platelets Not Reportable 10/26/17 11:44 Plt Clumps, EDTA Not Reportable 10/26/17 11:44 Large Platelets Not Reportable 10/26/17 11:44 Giant Platelets Not Reportable 10/26/17 11:44 Platelet Satelliting Not Reportable 10/26/17 11:44 Plt Morphology Comment Not Reportable 10/26/17 11:44 RBC Morphology Not Reportable 10/26/17 11:44 Dimorphic RBCs Not Reportable 10/26/17 11:44 Polychromasia Not Reportable 10/26/17 11:44 Hypochromasia 1+ 10/26/17 11:44 Poikilocytosis Not Reportable 10/26/17 11:44 Anisocytosis 1+ 10/26/17 11:44 Microcytosis Not Reportable 10/26/17 11:44 Macrocytosis Not Reportable 10/26/17 11:44 Spherocytes Not Reportable 10/26/17 11:44 Pappenheimer Bodies Not Reportable 10/26/17 11:44 Sickle Cells Not Reportable 10/26/17 11:44 Target Cells Not Reportable 10/26/17 11:44 Tear Drop Cells Not Reportable 10/26/17 11:44 Ovalocytes Not Reportable 10/26/17 11:44 Helmet Cells Not Reportable 10/26/17 11:44 [place] Bodies Not Reportable 10/26/17 11:44 [place] Rings Not Reportable 10/26/17 11:44 [place] Cells Not Reportable 10/26/17 11:44 Bite Cells Not Reportable 10/26/17 11:44 Crenated Cell Not Reportable 10/26/17 11:44 Elliptocytes Not Reportable 10/26/17 11:44 Acanthocytes (Spur) Not Reportable 10/26/17 11:44 Rouleaux Not Reportable 10/26/17 11:44 Hemoglobin C Crystals Not Reportable 10/26/17 11:44 Schistocytes Not Reportable 10/26/17 11:44 Malaria parasites Not Reportable 10/26/17 11:44 David Bodies Not Reportable 10/26/17 11:44 Hem Pathologist Commnt No 10/26/17 11:44 PT 16.8 Sec. (12.2-14.9) H 10/26/17 11:44 INR 1.29 (0.87-1.13) H 10/26/17 11:44 APTT 24.9 Sec. (24.2-36.6) 10/26/17 11:44 POC ABG pH 7.381 (7.35-7.45) 11/01/17 06:03 POC ABG pCO2 40.1 (35-45) 11/01/17 06:03 POC ABG pO2 95 (80-105) 11/01/17 06:03 POC ABG HCO3 23.8 11/01/17 06:03 POC ABG Total CO2 25 11/01/17 06:03 POC ABG O2 Sat 97 11/01/17 06:03 POC ABG Base Excess -1 11/01/17 06:03 FiO2 35 % 11/01/17 06:03 Sodium 150 mmol/L (137-145) H 11/01/17 03:28 Potassium 4.5 mmol/L (3.6-5.0) D 11/01/17 03:28 Chloride 113.8 mmol/L (98-107) H 11/01/17 03:28 Carbon Dioxide 20 mmol/L (22-30) L 11/01/17 03:28 Anion Gap 21 mmol/L 11/01/17 03:28 BUN 6 mg/dL (7-17) L 11/01/17 03:28 Creatinine 1.1 mg/dL (0.7-1.2) 11/01/17 03:28 Estimated GFR > 60 ml/min 11/01/17 03:28 BUN/Creatinine Ratio 5 % 11/01/17 03:28 Glucose 145 mg/dL (65-100) H 11/01/17 03:28 POC Glucose 273 (70-105) H 11/01/17 12:23 Ketones Quantitative Small (Negative) 10/27/17 20:24 Lactic Acid 1.40 mmol/L (0.7-2.0) 10/27/17 20:34 Calcium 8.8 mg/dL (8.4-10.2) 11/01/17 03:28 Phosphorus 3.30 mg/dL (2.5-4.5) 11/01/17 03:28 Magnesium 2.00 mg/dL (1.7-2.3) 11/01/17 03:28 Total Bilirubin < 0.20 mg/dL (0.1-1.2) 10/26/17 11:44 AST 22 units/L (5-40) 10/26/17 11:44 ALT 56 units/L (7-56) 10/26/17 11:44 Alkaline Phosphatase 196 units/L (35-129) H 10/26/17 11:44 Ammonia 67.0 umol/L (25-60) H 10/26/17 11:44 Total Creatine Kinase 24 units/L (30-135) L 10/26/17 11:44 Troponin T < 0.010 ng/mL (0.00-0.029) 10/26/17 11:44 C-Reactive Protein 4.40 mg/dL (0.00-1.30) H 10/28/17 15:50 Total Protein 6.3 g/dL (6.3-8.2) 10/26/17 11:44 Albumin 3.6 g/dL (3.9-5) L 10/26/17 11:44 Albumin/Globulin Ratio 1.3 % 10/26/17 11:44 Triglycerides 144 mg/dL (2-149) 10/30/17 10:36 TSH 0.216 mlU/mL (0.270-4.200) L 10/29/17 13:50 Total Cortisol 13.6 mcg/dL () 10/29/17 13:50 Urine Color Yellow (Yellow) 11/01/17 12:00 Urine Turbidity Cloudy (Clear) 11/01/17 12:00 Urine pH 5.0 (5.0-7.0) 11/01/17 12:00 Ur Specific [place] 1.007 (1.003-1.030) 11/01/17 12:00 Urine Protein <15 mg/dl mg/dL (Negative) 11/01/17 12:00 Urine Glucose (UA) >=500 mg/dL (Negative) 11/01/17 12:00 Urine Ketones Neg mg/dL (Negative) 11/01/17 12:00 Urine Blood Sm (Negative) 11/01/17 12:00 Urine Nitrite Neg (Negative) 11/01/17 12:00 Urine Bilirubin Neg (Negative) 11/01/17 12:00 Urine Urobilinogen < 2.0 mg/dL (<2.0) 11/01/17 12:00 Ur Leukocyte Esterase Lg (Negative) 11/01/17 12:00 Urine WBC (Auto) 91.0 /HPF (0.0-6.0) H 11/01/17 12:00 Urine RBC (Auto) > 182.0 /HPF (0.0-6.0) 11/01/17 12:00 U Epithel Cells (Auto) < 1.0 /HPF (0-13.0) 11/01/17 12:00 Urine Bacteria (Auto) 2+ /HPF (Negative) 11/01/17 12:00 Urine WBC Clumps 2+ /HPF 11/01/17 12:00 Uric Acid Crystals 3+ 10/26/17 12:59 Granular Casts 3 /LPF 10/26/17 12:59 Urine Mucus Few /HPF 11/01/17 12:00 Ur Yeast w Hyphae Few /HPF 10/26/17 12:59 Urine Yeast (Budding) 3+ /HPF 11/01/17 12:00 Salicylates < 0.3 mg/dL (2.8-20.0) L 10/26/17 11:44 Urine Opiates Screen Presumptive negative 10/26/17 12:59 Urine Methadone Screen Presumptive negative 10/26/17 12:59 Acetaminophen 15.0 ug/mL (10.0-30.0) 10/26/17 11:44 Ur Barbiturates Screen Presumptive negative 10/26/17 12:59 Ur Phencyclidine Scrn Presumptive negative 10/26/17 12:59 Ur Amphetamines Screen Presumptive negative 10/26/17 12:59 U Benzodiazepines Scrn Presumptive positive 10/26/17 12:59 Urine Cocaine Screen Presumptive negative 10/26/17 12:59 U Marijuana (THC) Screen Presumptive negative 10/26/17 12:59 Drugs of Abuse Note Disclamer 10/26/17 12:59 Plasma/Serum Alcohol < 0.01 % (0-0.07) 10/26/17 11:44 HIV 1&2 Antibody Rapid Non react (Non React) 10/28/17 15:50 HIV P24 Antigen Non react (Non React) 10/28/17 15:50 Miscellaneous Test Flexitest 1 H 10/28/17 19:24 Blood Type O POSITIVE 10/26/17 11:54 Antibody Screen Negative 10/26/17 11:54
--- NOTE | 2017-11-01 18:06 | Progress Note ---
Assessment and Plan Assessment: 1) SIRS: still tachycardia; leukocytosis better. Etiology pneumonia+/- UTI? +/- encephalopathy +/- asp pneumonitis +/- dehydration from DKA. CXR negative x 2. Blood cultures negative. CRP=4.4. Procalcitonin-0.8. MARANDA thickened GB and mild pericholecystic fluid 2) Bilateral pneumonia: ? aspiration vs. CAP -CTA + patchy annie ASD L>R, mediastinal fullness with LNs, small right pleural effusion 3) Acute respiratory failure: from encephalopathy / OD -Tracheal asp + Strep group B and Barbie likely a colonizer 4) NUNU - better 5) Uncontrolled DM with DKA 6) Hyperkalemia - resolved 7) Extensive sclerae edema/lip edema ? angioedema ?SVC syndrome. CTA no PE + mediastinal fullness. Clinically better. on IV steroids. 8) UTI- mild. Urine cx + Barbie 9) Encephalopathy: ? from OD 10) Thyroid lesions / mildly low TSH 11) Distended GB ? acalculous cholecystitis 12) Mediastinal fullness ? LNs from pneumonia ? lymphoma. HIV neg Plan: -check LFTs in view of RUQ US findings ? acalculous cholecystitis if elevated obtain abdominal CT -continue levaquin and flagyl - day 5 of 7 -continue fluconazole - day 2 of 7 -f/u cortisol -hopefully will be extubated soon Thank you for your consultation, will follow up with you. Aziza Stanford MD Infectious Diseases Specialist [facility] ([facility]) M [phone] O [phone] Subjective Date of service: 11/01/17 Principal diagnosis: Acute Hypoxemic Respiratory Failure; Acute Encephalopathy Interval history: Remains critically ill, sedated on the vent but alert following commands wants to be extubated. Had a temp 101 overnight. Microbiology: Blood cultures: 10/27 ngtd Urine cultures: 10/28 Barbie 10-50K Respiratory cultures: 10/27 Beta hem group B and Barbie Current Antimicrobials: levaquin and flagyl 10/28 Previous Antimicrobials: Zosyn 10/26 Vancomycin 10/26 Objective - Constitutional Vitals: Vital Signs Temp Pulse Resp BP Pulse Ox 99.1 F 122 H 16 138/96 100 11/01/17 16:00 11/01/17 16:30 11/01/17 17:07 11/01/17 16:30 11/01/17 16:30 Temperature -Last 24 Hours Temperature 99.1 F Temperature 100.0 F Temperature 101.0 F Temperature 98.8 F Temperature 98.1 F Temperature 98.7 F Temperature 98.7 F - Labs CBC & Chem 7: 10/29/17 03:41 11/01/17 03:28 Labs: Abnormal lab results 10/28/17 10/31/17 10/31/17 Range/Units 19:24 07:15 11:44 Sodium (137-145) mmol/L Chloride (98-107) mmol/L Carbon Dioxide (22-30) mmol/L BUN (7-17) mg/dL Glucose (65-100) mg/dL POC Glucose 197 H 196 H (70-105) Urine WBC (Auto) (0.0-6.0) /HPF Miscellaneous Test Flexitest 1 H 10/31/17 10/31/17 10/31/17 Range/Units 17:23 20:30 23:52 Sodium (137-145) mmol/L Chloride (98-107) mmol/L Carbon Dioxide (22-30) mmol/L BUN (7-17) mg/dL Glucose (65-100) mg/dL POC Glucose 261 H 212 H 157 H (70-105) Urine WBC (Auto) (0.0-6.0) /HPF Miscellaneous Test 11/01/17 11/01/17 11/01/17 Range/Units 03:28 05:50 12:00 Sodium 150 H (137-145) mmol/L Chloride 113.8 H (98-107) mmol/L Carbon Dioxide 20 L (22-30) mmol/L BUN 6 L (7-17) mg/dL Glucose 145 H (65-100) mg/dL POC Glucose 143 H (70-105) Urine WBC (Auto) 91.0 H (0.0-6.0) /HPF Miscellaneous Test 11/01/17 Range/Units 12:23 Sodium (137-145) mmol/L Chloride (98-107) mmol/L Carbon Dioxide (22-30) mmol/L BUN (7-17) mg/dL Glucose (65-100) mg/dL POC Glucose 273 H (70-105) Urine WBC (Auto) (0.0-6.0) /HPF Miscellaneous Test
[2017-11-01] MEDS: PEPCID PO SCH ×2 (18:23→22:09)
[2017-11-01 19:12] LABS: Alanine Aminotransferase 17 units/L (7-56); Albumin 2.9 g/dL (3.9-5)
[2017-11-01 19:15] LABS: Bilirubin,Direct < 0.2 mg/dL (0-0.2)
[2017-11-01] MEDS: DIFLUCAN 200 MG/100 ML BAG IV SCH (21:00)
--- NOTE | 2017-11-01 23:08 | Cat Scan Report ---
FINAL REPORT EXAM: CT NECK W CON HISTORY: Neck swelling, rule out abscess. TECHNIQUE: CT evaluation was performed of the neck following intravenous contrast administration. Coronal and sagittal imaging also provided for interpretation. PRIORS: None. FINDINGS: An endotracheal tube is noted in the tip terminates at the mid T2 vertebral body. An orogastric tube is present, tip extends off the inferior margin of the field of view. A right-sided PICC line is present terminates in the mid superior vena cava. Posterior fossa and brainstem unremarkable. Orbits have a normal appearance. Circumferential mucosal thickening of the maxillary sinuses. No mastoid effusion. There is mild mucosal thickening of ethmoid and sphenoid sinuses. There is no focal peripherally enhancing collection within the tonsillar or peritonsillar soft tissues. Mild soft tissue swelling of the nasopharynx adjacent to the endotracheal tube. The parapharyngeal spaces are clear. Carotid and jugular vessels patent. Thyroid gland has a normal appearance. There is no cervical adenopathy by size criteria. Atelectasis and small bilateral pleural effusions will be further discussed on the dedicated CT of the chest. IMPRESSION: There is no focal peripherally enhancing collection within cervical soft tissues to suggest abscess. Orogastric, endotracheal and right-sided PICC lines as above.
--- NOTE | 2017-11-01 23:17 | Cat Scan Report ---
FINAL REPORT EXAM: CT CHEST W CON HISTORY: Mediastinal mass TECHNIQUE: CT evaluation is performed of the chest without the use of intravenous contrast administration. Coronal and sagittal imaging also provided for interpretation. PRIORS: CT pulmonary angiogram dated 10/29/2017. FINDINGS: Tube/lines: Endotracheal tube terminates 2.6 centimeters proximal to the jessica. Orogastric tube terminates in the stomach. Right central line terminates in the mid superior vena cava. Lungs: Left greater than right bibasilar opacities with adjacent pleural effusions. Remaining lungs are clear without lobar consolidation. Thyroid gland appears mildly enlarged and heterogeneous. No axillary adenopathy. There is mild stranding within the anterior mediastinal tissues in fluid within the superior pericardial recess. No pathologically enlarged lymph nodes by size criteria. No central pulmonary arterial filling defect. There is no pericardial effusion. Cardiac size is the upper limits of normal. Abdomen: Homogeneous enhancement of the evaluated liver. Evaluate kidneys, spleen, stomach without focal abnormality. Linear calcifications are noted in the pancreatic body which may be secondary to chronic pancreatitis. No focal mass identified. There is suggested atrophy of the pancreatic tail. Adrenal glands maintain their usual triangular morphology. Neural, mildly distended loops of bowel in the upper splenic flexure. Edema is noted within the subcutaneous tissues. No acute osseous abnormality. IMPRESSION: 1. Left greater than right atelectasis and small bilateral pleural effusions. 2. Stable appearance of the tubes and lines. 3. Anterior mediastinal stranding and fluid within the superior pericardial recess. No pathologically enlarged mediastinal lymph nodes identified. 4. Linear pancreatic body calcifications which may be secondary to chronic pancreatitis. Correlate with clinical history.
[2017-11-02] MEDS ORDERED: BENADRYL IV ONE (02:39)
[2017-11-02] MEDS: FLAGYL 500 MG/100 ML 500 MG/100 ML BAG IV SCH ×3 (06:43→20:59)
[2017-11-02] MEDS: BENADRYL IV SCH ×2 (08:28→20:59)
--- NOTE | 2017-11-02 08:54 | Progress Note ---
Assessment and Plan - Patient Problems (1) Other acute kidney failure Current Visit: Yes Status: Acute Plan to address problem: Acute kidney failure is Pre-renal azotemia versus acute renal necrosis secondary to volume depletion with diabetic ketoacidosis and osmotic diuresis. Kidney function is improving. Continue close monitoring. Follow up electrolytes and renal function (2) DKA (diabetic ketoacidoses) Current Visit: Yes Status: Acute Qualifiers: Diabetes mellitus type: type 1 Diabetes mellitus complication detail: with coma Qualified Code(s): E10.11 - Type 1 diabetes mellitus with ketoacidosis with coma Plan to address problem: Resolved. Continue blood sugar management by primary attending (3) Hypernatremia Current Visit: Yes Status: Acute Plan to address problem: Sodium is unchanged. Would check urine sodium and osmolality. Glycosuria indicates patient still has osmotic diuresis. Needs better control of blood sugar (4) Hypokalemia Current Visit: Yes Status: Acute Plan to address problem: Supplement potassium and follow-up level (5) Anemia Current Visit: Yes Status: Acute Plan to address problem: Dilutional but suspect baseline anemia (6) Acute respiratory failure Current Visit: Yes Status: Acute Qualifiers: Respiratory failure complication: hypoxia Qualified Code(s): J96.01 - Acute respiratory failure with hypoxia Plan to address problem: Weaning by hospitalist/pharmaceutical scientist (7) Metabolic encephalopathy Current Visit: Yes Status: Acute Plan to address problem: Improved (8) Sepsis Current Visit: Yes Status: Acute Qualifiers: Sepsis type: sepsis due to unspecified organism Qualified Code(s): A41.9 - Sepsis, unspecified organism Plan to address problem: Continue antibiotics per infectious disease Subjective Date of service: 11/02/17 Principal diagnosis: Acute Hypoxemic Respiratory Failure; Acute Encephalopathy Interval history: Patient seen lying in bed in the ICU. She is intubated on the ventilator. She is off all sedation. Patient is more awake today and communicating nonverbally Objective - Exam Narrative Exam: Young -Serbian female lying in bed intubated on ventilator HEENT: Facial edema, Chemosis resolving, endotracheal tube intact, Neck: Supple, no venous distention CVS: S1S2 RRR with no murmur, rub or gallop Chest: Good chest expansion, faint rhonchi Abdomen: Protuberant, soft, nontender, no organomegaly, bowel sounds are present Extremities: Mild edema upper extremities, no clubbing Skin warm and dry with no rash Neuro: Communicating nonverbally - Vital Signs Vital signs: Vital Signs - 12hr 11/01/17 11/01/17 11/01/17 21:00 21:15 21:30 Temperature Pulse Rate 119 H 109 H 108 H Respiratory 12 18 18 Rate Blood Pressure 151/100 151/100 160/108 O2 Sat by Pulse 100 100 100 Oximetry 11/01/17 11/01/17 11/01/17 21:45 22:00 22:15 Temperature Pulse Rate 141 H 117 H 109 H Respiratory 25 H 15 15 Rate Blood Pressure 160/108 154/102 154/102 O2 Sat by Pulse 99 98 99 Oximetry 11/01/17 11/01/17 11/01/17 22:30 22:45 23:00 Temperature Pulse Rate 109 H 116 H 111 H Respiratory 16 18 18 Rate Blood Pressure 156/108 156/108 150/100 O2 Sat by Pulse 100 100 100 Oximetry 11/01/17 11/01/17 11/01/17 23:15 23:29 23:30 Temperature Pulse Rate 112 H 113 H 112 H Respiratory 16 16 16 Rate Blood Pressure 150/100 150/100 149/101 O2 Sat by Pulse 100 100 100 Oximetry 11/01/17 11/02/17 11/02/17 23:45 00:00 00:01 Temperature 97.9 F Pulse Rate 110 H 110 H Respiratory 17 13 16 Rate Blood Pressure 149/101 140/92 O2 Sat by Pulse 100 100 97 Oximetry 11/02/17 11/02/17 11/02/17 00:15 00:30 00:45 Temperature Pulse Rate 110 H 105 H 109 H Respiratory 18 16 16 Rate Blood Pressure 140/92 152/99 152/99 O2 Sat by Pulse 100 100 100 Oximetry 11/02/17 11/02/17 11/02/17 00:51 01:00 01:15 Temperature Pulse Rate 111 H 110 H 115 H Respiratory 16 17 Rate Blood Pressure 152/99 139/92 139/92 O2 Sat by Pulse 100 100 99 Oximetry 11/02/17 11/02/17 11/02/17 01:30 01:45 02:00 Temperature Pulse Rate 111 H 111 H Respiratory 16 15 13 Rate Blood Pressure 140/87 140/87 140/87 O2 Sat by Pulse 99 100 99 Oximetry 03/02/18 03/02/18 03/02/18 02:15 02:30 02:45 Temperature Pulse Rate 108 H 110 H 105 H Respiratory 15 12 16 Rate Blood Pressure 140/87 146/98 146/98 O2 Sat by Pulse 100 92 97 Oximetry 11/02/17 11/02/17 11/02/17 03:01 03:15 03:30 Temperature Pulse Rate 105 H 106 H 103 H Respiratory 15 16 18 Rate Blood Pressure 146/98 146/98 157/100 O2 Sat by Pulse 99 91 100 Oximetry 11/02/17 11/02/17 11/02/17 03:45 04:00 04:15 Temperature 97.9 F Pulse Rate 98 H 95 H 93 H Respiratory 16 16 16 Rate Blood Pressure 157/100 155/104 155/104 O2 Sat by Pulse 100 100 100 Oximetry 11/02/17 11/02/17 11/02/17 04:30 04:45 05:01 Temperature Pulse Rate 110 H 101 H 98 H Respiratory 18 16 16 Rate Blood Pressure 165/111 165/111 152/103 O2 Sat by Pulse 100 97 100 Oximetry 11/02/17 11/02/17 11/02/17 05:15 05:30 05:45 Temperature Pulse Rate 103 H 103 H 118 H Respiratory 17 16 17 Rate Blood Pressure 165/111 158/105 158/105 O2 Sat by Pulse 96 95 85 Oximetry 11/02/17 11/02/17 11/02/17 06:00 06:03 06:15 Temperature Pulse Rate 120 H 115 H 120 H Respiratory 17 18 Rate Blood Pressure 154/102 154/102 154/102 O2 Sat by Pulse 100 100 76 L Oximetry 11/02/17 11/02/17 11/02/17 06:30 06:45 07:00 Temperature Pulse Rate 110 H 102 H 101 H Respiratory 16 14 15 Rate Blood Pressure 156/105 156/105 138/93 O2 Sat by Pulse 99 98 99 Oximetry 11/02/17 11/02/17 11/02/17 07:15 07:30 07:45 Temperature Pulse Rate 101 H 101 H 105 H Respiratory 16 17 17 Rate Blood Pressure 138/93 143/92 143/92 O2 Sat by Pulse 97 98 Oximetry 11/02/17 11/02/17 11/02/17 08:00 08:15 08:30 Temperature 98.9 F Pulse Rate 103 H 106 H 103 H Respiratory 16 14 17 Rate Blood Pressure 147/102 147/102 157/100 O2 Sat by Pulse 98 99 Oximetry - Lab 10/29/17 03:41 11/01/17 03:28 Most recent lab results Calcium 8.8 mg/dL (8.4-10.2) 11/01/17 03:28 Phosphorus 3.30 mg/dL (2.5-4.5) 11/01/17 03:28 Magnesium 2.00 mg/dL (1.7-2.3) 11/01/17 03:28
[2017-11-02 09:08] LABS: BUN/Creatinine Ratio 10; Blood Urea Nitrogen 10 mg/dL (7-17); Calcium 8.4 mg/dL (8.4-10.2); Hemolysis Index 1
[2017-11-02] MEDS: HEPARIN SUB-Q SCH ×2 (09:59→21:02)
[2017-11-02] MEDS: PEPCID PO SCH ×2 (09:59→21:02)
[2017-11-02] MEDS: LEVAQUIN 750MG/150ML 750 MG/150 ML BAG IV SCH (10:00)
[2017-11-02] MEDS ORDERED: ZOFRAN ONE (10:52)
--- NOTE | 2017-11-02 11:17 | Progress Note ---
Assessment and Plan Assessment: 1) SIRS: still tachycardia; leukocytosis better. Etiology pneumonia+/- UTI? +/- encephalopathy +/- asp pneumonitis +/- dehydration from DKA. CXR negative x 2. Blood cultures negative. CRP=4.4. Procalcitonin-0.8. MARANDA thickened GB and mild pericholecystic fluid 2) Bilateral pneumonia: ? aspiration vs. CAP -CTA + patchy annie ASD L>R, mediastinal fullness with LNs, small right pleural effusion 3) Acute respiratory failure: from encephalopathy / OD -Tracheal asp + Strep group B and Barbie likely a colonizer 4) NUNU - better 5) Uncontrolled DM with DKA 6) Hyperkalemia - resolved 7) Extensive sclerae edema/lip edema ? angioedema ?SVC syndrome. CTA no PE + mediastinal fullness. Clinically better. on IV steroids. 8) UTI- mild. Urine cx + Barbie 9) Encephalopathy: ? from OD 10) Thyroid lesions / mildly low TSH 11) Distended GB ? acalculous cholecystitis 12) Mediastinal fullness ? small LNs. HIV neg. Repeat CT chest +anterior mediastinal stranding and no pathologic LN. CT neck normal. Plan: -continue levaquin and flagyl - day 6 of 7 -continue fluconazole - day 3 of 7 -f/u cortisol -check ELLIE, ANCA, C3/C4, repeat CRP I am covering this weekend Thank you for your consultation, will follow up with you. Aziza Stanford MD Infectious Diseases Specialist [facility] [phone] O [phone] Subjective Date of service: 11/02/17 Principal diagnosis: Acute Hypoxemic Respiratory Failure; Acute Encephalopathy Interval history: Remains on the vent but alert anxious following commands, no fever overnight. Microbiology: Blood cultures: 10/27 ngtd Urine cultures: 10/28 Barbie 10-50K Respiratory cultures: 10/27 Beta hem group B and Barbie Current Antimicrobials: levaquin and flagyl 10/28 Previous Antimicrobials: Zosyn 10/26 Vancomycin 10/26 Objective - Exam Narrative Exam: General appearance: alert anxious eye open following simple commands Eyes: anicteric +decreased sclerae edema, moist conjunctivae; no lid-lag; PERRLA HENT: Atraumatic; +decreased lips edema, oropharynx +ETT Neck: Trachea midline; supple, no thyromegaly or lymphadenopathy Lungs: CTA, with normal respiratory effort and no intercostal retractions CV: RRR Abdomen: Soft, non-tender; no masses or hepatosplenomegaly Extremities: No peripheral edema or extremity lymphadenopathy Skin: Normal temperature, turgor and texture; no rash, ulcers or subcutaneous nodules Psych: sedated Neuro: sedated but eye open and Moving all extermities Lines: - Constitutional Vitals: Vital Signs Temp Pulse Resp BP Pulse Ox 98.9 F 111 H 16 134/95 97 11/02/17 08:00 11/02/17 10:58 11/02/17 10:58 11/02/17 10:58 11/02/17 10:58 Temperature -Last 24 Hours Temperature 98.9 F Temperature 97.9 F Temperature 97.9 F Temperature 98.7 F Temperature 99.1 F Temperature 100.0 F - Labs CBC & Chem 7: 10/29/17 03:41 11/02/17 08:40 Labs: Abnormal lab results 11/01/17 11/01/17 11/01/17 Range/Units 12:00 12:23 18:12 Potassium (3.6-5.0) mmol/L Chloride (98-107) mmol/L Glucose (65-100) mg/dL POC Glucose 273 H 292 H (70-105) Alkaline Phosphatase (35-129) units/L Total Protein (6.3-8.2) g/dL Albumin (3.9-5) g/dL Urine WBC (Auto) 91.0 H (0.0-6.0) /HPF 11/01/17 11/01/17 11/02/17 Range/Units 18:36 20:18 00:23 Potassium (3.6-5.0) mmol/L Chloride (98-107) mmol/L Glucose (65-100) mg/dL POC Glucose 298 H 263 H (70-105) Alkaline Phosphatase 151 H (35-129) units/L Total Protein 5.8 L (6.3-8.2) g/dL Albumin 2.9 L (3.9-5) g/dL Urine WBC (Auto) (0.0-6.0) /HPF 11/02/17 11/02/17 Range/Units 05:39 08:40 Potassium 3.1 L D (3.6-5.0) mmol/L Chloride 107.6 H (98-107) mmol/L Glucose 163 H (65-100) mg/dL POC Glucose 123 H (70-105) Alkaline Phosphatase (35-129) units/L Total Protein (6.3-8.2) g/dL Albumin (3.9-5) g/dL Urine WBC (Auto) (0.0-6.0) /HPF
[2017-11-02 11:48] LABS: Hematocrit 22.1 % (30.3-42.9); Hemoglobin 7.1 gm/dl (10.1-14.3); Mean Corpuscular HGB Conc 32 % (30-34); Mean Corpuscular Volume 75 fl (79-97); Platelet Count 265 K/mm3 (140-440); Red Blood Count 2.95 M/mm3 (3.65-5.03); Red Cell Distribution Width 19.5 % (13.2-15.2)
[2017-11-02 11:53] LABS: Mean Corpuscular Hemoglobin 24 pg (28-32)
--- NOTE | 2017-11-02 12:18 | Progress Note ---
Assessment and Plan Acute respiratory failure, on mechanical ventilatory support. Acute encephalopathy, appears toxic metabolic at this point. Diabetic ketoacidosis. Sepsis syndrome. History of chronic pain. Possible drug abuse. Anemia. Leukocytosis. Hyperammonemia. Severe metabolic acidosis with a lactic acid component. - continue daily SBT's / SAT's but hold on extubation till cuffleak improved - continue PPI, antihistamine therapy and increase steroids dose and frequency re: possible angioedema element - wean oxygen to keep sats > 90% - continue GI & VTE prophylaxis - azotemia per nephrology (improved) - replace potasium (40meq - free water for hypernatremia - daily SAT's & SBT's shortly - continue bronchodilators and pulmonary hygiene per RT - VAP bundle addressed - continue other care per attending / other consultants ...improved but still critical ...35' CCT Subjective Date of service: 11/02/17 Principal diagnosis: Acute Hypoxemic Respiratory Failure; Acute Encephalopathy Interval history: Patient is seen today for: Acute Hypoxemic Respiratory Failure; Acute Encephalopathy Seen and examined at bedside; 24hour events reviewed; nursing and respiratory care staff consulted; no adverse overnight events reported to me; failed cuff leak test but tolerating PSV very well; denies acute chest pains; tracheostomy scar noted but she denies h/o angioedema Objective Vital Signs - 12hr 11/02/17 11/02/17 11/02/17 00:30 00:45 00:51 Temperature Pulse Rate 105 H 109 H 111 H Respiratory 16 16 Rate Blood Pressure 152/99 152/99 152/99 O2 Sat by Pulse 100 100 100 Oximetry 11/02/17 11/02/17 11/02/17 01:00 01:15 01:30 Temperature Pulse Rate 110 H 115 H 111 H Respiratory 16 17 16 Rate Blood Pressure 139/92 139/92 140/87 O2 Sat by Pulse 100 99 99 Oximetry 11/02/17 11/02/17 11/02/17 01:45 02:00 02:15 Temperature Pulse Rate 111 H 108 H Respiratory 15 13 15 Rate Blood Pressure 140/87 140/87 140/87 O2 Sat by Pulse 100 99 100 Oximetry 11/02/17 11/02/17 11/02/17 02:30 02:45 03:01 Temperature Pulse Rate 110 H 105 H 105 H Respiratory 12 16 15 Rate Blood Pressure 146/98 146/98 146/98 O2 Sat by Pulse 92 97 99 Oximetry 11/02/1711/02/18 11/02/17 03:15 03:30 03:45 Temperature Pulse Rate 106 H 103 H 98 H Respiratory 16 18 16 Rate Blood Pressure 146/98 157/100 157/100 O2 Sat by Pulse 91 100 100 Oximetry 11/02/17 11/02/17 11/02/17 04:00 04:15 04:30 Temperature 97.9 F Pulse Rate 95 H 93 H 110 H Respiratory 16 16 18 Rate Blood Pressure 155/104 155/104 165/111 O2 Sat by Pulse 100 100 100 Oximetry 11/02/17 11/02/17 11/02/17 04:45 05:01 05:15 Temperature Pulse Rate 101 H 98 H 103 H Respiratory 16 16 17 Rate Blood Pressure 165/111 152/103 165/111 O2 Sat by Pulse 97 100 96 Oximetry 11/02/17 11/02/1718 05:30 05:45 06:00 Temperature Pulse Rate 103 H 118 H 120 H Respiratory 16 17 17 Rate Blood Pressure 158/105 158/105 154/102 O2 Sat by Pulse 95 85 100 Oximetry 11/02/1711/02/18 03 06:03 06:15 06:30 Temperature Pulse Rate 115 H 120 H 110 H Respiratory 18 16 Rate Blood Pressure 154/102 154/102 156/105 O2 Sat by Pulse 100 76 L 99 Oximetry 11/02/17 11/02/17 11/02/17 06:45 07:00 07:15 Temperature Pulse Rate 102 H 101 H 101 H Respiratory 14 15 16 Rate Blood Pressure 156/105 138/93 138/93 O2 Sat by Pulse 98 99 97 Oximetry 11/02/1718 11/02/17 07:30 07:45 08:00 Temperature 98.9 F Pulse Rate 101 H 105 H 103 H Respiratory 17 17 16 Rate Blood Pressure 143/92 143/92 147/102 O2 Sat by Pulse 98 98 Oximetry 11/02/17//18 18 08:15 08:30 08:45 Temperature Pulse Rate 106 H 103 H 104 H Respiratory 14 17 16 Rate Blood Pressure 147/102 157/100 157/100 O2 Sat by Pulse 99 99 Oximetry 11/02/1718 11/02/17 09:00 09:15 09:19 Temperature Pulse Rate 108 H 116 H 114 H Respiratory 14 17 17 Rate Blood Pressure 131/77 131/77 131/77 O2 Sat by Pulse 99 98 97 Oximetry 11/02/17 11/02/17 11/02/17 09:30 09:45 10:00 Temperature Pulse Rate 115 H 117 H 113 H Respiratory 16 17 14 Rate Blood Pressure 148/95 148/95 157/106 O2 Sat by Pulse 95 96 97 Oximetry 11/02/17 11/02/17 11/02/17 10:16 10:30 10:46 Temperature Pulse Rate 115 H 116 H 124 H Respiratory 13 21 15 Rate Blood Pressure 157/106 134/95 134/95 O2 Sat by Pulse 96 95 94 Oximetry 11/02/17 11/02/17 11/02/17 10:58 11:00 11:16 Temperature Pulse Rate 111 H 111 H 107 H Respiratory 16 16 17 Rate Blood Pressure 134/95 134/89 134/89 O2 Sat by Pulse 97 97 97 Oximetry 11/02/17 12:00 Temperature 99.0 F Pulse Rate Respiratory Rate Blood Pressure O2 Sat by Pulse Oximetry Constitutional: alert, appears uncomfortable Eyes: non-icteric, injected ENT: oropharynx moist, oropharyngeal exudate pre Neck: supple, no lymphadenopathy, no JVD, other (neck and facial swelling) Effort: mildly labored Ascultation: Bilateral: rhonchi Percussion: Bilateral: not dull Cardiovascular: regular rate and rhythm, other (No palpable HSM) Gastrointestinal: normoactive bowel sounds, soft, non-tender, non-distended, other (no palpable HSM) Integumentary: normal Extremities: no cyanosis, no edema, pulses normal, no ischemia or petechiae Neurologic: normal mental status, non-focal exam, pupils equal and round, motor strength normal and Psychiatric: mood appropriate, affect normal CBC and BMP: 11/02/17 Unknown 11/02/17 08:40 ABG, PT/INR, D-dimer: ABG POC ABG pH 7.381 (7.35-7.45) 11/01/17 06:03 POC ABG pCO2 40.1 (35-45) 11/01/17 06:03 POC ABG pO2 95 (80-105) 11/01/17 06:03 POC ABG HCO3 23.8 11/01/17 06:03 POC ABG Total CO2 25 11/01/17 06:03 POC ABG O2 Sat 97 11/01/17 06:03 PT/INR, D-dimer PT 16.8 Sec. (12.2-14.9) H 10/26/17 11:44 INR 1.29 (0.87-1.13) H 10/26/17 11:44 Abnormal lab findings: Abnormal Labs 10/26/17 10/26/17 10/26/17 11:23 11:44 11:44 WBC 20.6 H RBC 3.62 L Hgb 8.3 L Hct MCV MCH 23 L MCHC 24 L RDW 21.7 H Seg Neutrophils % Seg Neuts % (Manual) 76.0 H Lymphocytes % (Manual) 11.0 L Seg Neutrophils # Seg Neutrophils # Man 15.7 H Basophils # (Manual) 0.2 H PT INR POC ABG pH POC ABG pCO2 POC ABG pO2 Sodium Potassium Chloride Carbon Dioxide BUN Creatinine Glucose POC Glucose > 500 H Lactic Acid 4.10 H* Calcium Phosphorus Magnesium Alkaline Phosphatase Ammonia Total Creatine Kinase C-Reactive Protein Total Protein Albumin TSH Urine WBC (Auto) Salicylates Miscellaneous Test 10/26/17 10/26/17 10/26/17 11:44 11:44 11:44 WBC RBC Hgb Hct MCV MCH MCHC RDW Seg Neutrophils % Seg Neuts % (Manual) Lymphocytes % (Manual) Seg Neutrophils # Seg Neutrophils # Man Basophils # (Manual) PT 16.8 H INR 1.29 H POC ABG pH POC ABG pCO2 POC ABG pO2 Sodium 146 H Potassium 6.6 H* Chloride Carbon Dioxide 3 L* BUN 34 H Creatinine 2.2 H Glucose 1281 H* POC Glucose Lactic Acid Calcium 8.0 L Phosphorus Magnesium Alkaline Phosphatase 196 H Ammonia 67.0 H Total Creatine Kinase 24 L C-Reactive Protein Total Protein Albumin 3.6 L TSH Urine WBC (Auto) Salicylates Miscellaneous Test 10/26/17 10/26/17 10/26/17 11:44 12:01 12:59 WBC RBC Hgb Hct MCV MCH MCHC RDW Seg Neutrophils % Seg Neuts % (Manual) Lymphocytes % (Manual) Seg Neutrophils # Seg Neutrophils # Man Basophils # (Manual) PT INR POC ABG pH 6.895 L POC ABG pCO2 12.3 L POC ABG pO2 311 H Sodium Potassium Chloride Carbon Dioxide BUN Creatinine Glucose POC Glucose Lactic Acid Calcium Phosphorus Magnesium Alkaline Phosphatase Ammonia Total Creatine Kinase C-Reactive Protein Total Protein Albumin TSH Urine WBC (Auto) 42.0 H Salicylates < 0.3 L Miscellaneous Test 10/26/17 10/26/17 10/26/17 13:06 13:17 13:17 WBC RBC Hgb Hct MCV MCH MCHC RDW Seg Neutrophils % Seg Neuts % (Manual) Lymphocytes % (Manual) Seg Neutrophils # Seg Neutrophils # Man Basophils # (Manual) PT INR POC ABG pH POC ABG pCO2 POC ABG pO2 Sodium 146 H Potassium 7.1 H* Chloride Carbon Dioxide 2 L* BUN 35 H Creatinine 2.3 H Glucose 1330 H* POC Glucose Lactic Acid 4.10 H* Calcium 7.7 L Phosphorus 11.10 H Magnesium 2.70 H Alkaline Phosphatase Ammonia Total Creatine Kinase C-Reactive Protein Total Protein Albumin TSH Urine WBC (Auto) Salicylates Miscellaneous Test 10/26/17 10/26/17 10/26/17 14:57 15:26 15:26 WBC RBC Hgb Hct MCV MCH MCHC RDW Seg Neutrophils % Seg Neuts % (Manual) Lymphocytes % (Manual) Seg Neutrophils # Seg Neutrophils # Man Basophils # (Manual) PT INR POC ABG pH POC ABG pCO2 POC ABG pO2 Sodium 147 H Potassium 6.3 H* Chloride Carbon Dioxide < 2.0 L* BUN 37 H Creatinine 2.4 H Glucose 1115 H* POC Glucose > 500 H Lactic Acid 3.70 H* Calcium 7.2 L Phosphorus Magnesium Alkaline Phosphatase Ammonia Total Creatine Kinase C-Reactive Protein Total Protein Albumin TSH Urine WBC (Auto) Salicylates Miscellaneous Test 10/26/17 10/26/17 10/26/17 16:02 17:51 17:51 WBC RBC Hgb Hct MCV MCH MCHC RDW Seg Neutrophils % Seg Neuts % (Manual) Lymphocytes % (Manual) Seg Neutrophils # Seg Neutrophils # Man Basophils # (Manual) PT INR POC ABG pH POC ABG pCO2 POC ABG pO2 Sodium 149 H Potassium Chloride Carbon Dioxide 2 L* BUN 36 H Creatinine 2.6 H Glucose 1063 H* POC Glucose > 500 H Lactic Acid 6.50 H* Calcium 7.0 L Phosphorus Magnesium Alkaline Phosphatase Ammonia Total Creatine Kinase C-Reactive Protein Total Protein Albumin TSH Urine WBC (Auto) Salicylates Miscellaneous Test 10/26/17 10/26/17 10/26/17 18:42 19:55 19:55 WBC RBC Hgb Hct MCV MCH MCHC RDW Seg Neutrophils % Seg Neuts % (Manual) Lymphocytes % (Manual) Seg Neutrophils # Seg Neutrophils # Man Basophils # (Manual) PT INR POC ABG pH 6.974 L POC ABG pCO2 14.9 L POC ABG pO2 244 H Sodium 150 H Potassium Chloride 108.3 H Carbon Dioxide 4 L* BUN 33 H Creatinine 2.4 H Glucose 663 H* POC Glucose Lactic Acid 8.30 H* Calcium 7.0 L Phosphorus Magnesium Alkaline Phosphatase Ammonia Total Creatine Kinase C-Reactive Protein Total Protein Albumin TSH Urine WBC (Auto) Salicylates Miscellaneous Test 10/26/17 10/26/17 10/26/17 21:26 21:26 23:55 WBC RBC Hgb Hct MCV MCH MCHC RDW Seg Neutrophils % Seg Neuts % (Manual) Lymphocytes % (Manual) Seg Neutrophils # Seg Neutrophils # Man Basophils # (Manual) PT INR POC ABG pH POC ABG pCO2 POC ABG pO2 Sodium 152 H Potassium 3.5 L Chloride 110.4 H Carbon Dioxide 6 L* BUN 32 H Creatinine 2.3 H Glucose 498 H POC Glucose 317 H Lactic Acid 9.00 H* Calcium 7.6 L Phosphorus Magnesium Alkaline Phosphatase Ammonia Total Creatine Kinase C-Reactive Protein Total Protein Albumin TSH Urine WBC (Auto) Salicylates Miscellaneous Test 10/27/17 10/27/17 10/27/17 01:21 02:26 03:49 WBC RBC Hgb Hct MCV MCH MCHC RDW Seg Neutrophils % Seg Neuts % (Manual) Lymphocytes % (Manual) Seg Neutrophils # Seg Neutrophils # Man Basophils # (Manual) PT INR POC ABG pH POC ABG pCO2 POC ABG pO2 Sodium Potassium Chloride Carbon Dioxide BUN Creatinine Glucose POC Glucose 218 H 172 H 136 H Lactic Acid Calcium Phosphorus Magnesium Alkaline Phosphatase Ammonia Total Creatine Kinase C-Reactive Protein Total Protein Albumin TSH Urine WBC (Auto) Salicylates Miscellaneous Test 10/27/17 10/27/17 10/27/17 04:50 05:26 06:01 WBC RBC Hgb Hct MCV MCH MCHC RDW Seg Neutrophils % Seg Neuts % (Manual) Lymphocytes % (Manual) Seg Neutrophils # Seg Neutrophils # Man Basophils # (Manual) PT INR POC ABG pH 7.284 L POC ABG pCO2 POC ABG pO2 204 H Sodium 158 H Potassium 3.5 L Chloride 118.2 H Carbon Dioxide 19 L D BUN 27 H Creatinine 1.9 H Glucose 232 H POC Glucose 221 H Lactic Acid Calcium 7.1 L Phosphorus Magnesium Alkaline Phosphatase Ammonia Total Creatine Kinase C-Reactive Protein Total Protein Albumin TSH Urine WBC (Auto) Salicylates Miscellaneous Test 10/27/17 10/27/17 10/27/17 06:05 07:27 09:28 WBC RBC Hgb Hct MCV MCH MCHC RDW Seg Neutrophils % Seg Neuts % (Manual) Lymphocytes % (Manual) Seg Neutrophils # Seg Neutrophils # Man Basophils # (Manual) PT INR POC ABG pH POC ABG pCO2 POC ABG pO2 Sodium Potassium Chloride Carbon Dioxide BUN Creatinine Glucose POC Glucose 286 H 161 H 123 H Lactic Acid Calcium Phosphorus Magnesium Alkaline Phosphatase Ammonia Total Creatine Kinase C-Reactive Protein Total Protein Albumin TSH Urine WBC (Auto) Salicylates Miscellaneous Test 10/27/17 10/27/17 10/27/17 12:30 13:07 14:44 WBC RBC Hgb Hct MCV MCH MCHC RDW Seg Neutrophils % Seg Neuts % (Manual) Lymphocytes % (Manual) Seg Neutrophils # Seg Neutrophils # Man Basophils # (Manual) PT INR POC ABG pH POC ABG pCO2 POC ABG pO2 Sodium 158 H Potassium 3.2 L Chloride 120.7 H Carbon Dioxide 16 L BUN 23 H Creatinine 1.9 H Glucose 270 H POC Glucose 274 H 200 H Lactic Acid Calcium 7.1 L Phosphorus Magnesium Alkaline Phosphatase Ammonia Total Creatine Kinase C-Reactive Protein Total Protein Albumin TSH Urine WBC (Auto) Salicylates Miscellaneous Test 10/27/17 10/27/17 10/27/17 19:03 20:24 20:24 WBC RBC Hgb Hct MCV MCH MCHC RDW Seg Neutrophils % Seg Neuts % (Manual) Lymphocytes % (Manual) Seg Neutrophils # Seg Neutrophils # Man Basophils # (Manual) PT INR POC ABG pH POC ABG pCO2 POC ABG pO2 Sodium 155 H Potassium 3.4 L Chloride 119.3 H Carbon Dioxide 19 L BUN 20 H Creatinine 1.9 H Glucose 272 H POC Glucose 124 H Lactic Acid Calcium 7.0 L Phosphorus 1.50 L D Magnesium Alkaline Phosphatase Ammonia Total Creatine Kinase C-Reactive Protein 1.50 H Total Protein Albumin TSH Urine WBC (Auto) Salicylates Miscellaneous Test 10/27/17 10/27/17 10/28/17 20:40 21:05 03:02 WBC RBC Hgb Hct MCV MCH MCHC RDW Seg Neutrophils % Seg Neuts % (Manual) Lymphocytes % (Manual) Seg Neutrophils # Seg Neutrophils # Man Basophils # (Manual) PT INR POC ABG pH 7.327 L POC ABG pCO2 32.1 L POC ABG pO2 Sodium 157 H Potassium Chloride 118.8 H Carbon Dioxide 13 L BUN 18 H Creatinine 2.0 H Glucose 560 H* POC Glucose 289 H Lactic Acid Calcium 6.8 L Phosphorus 5.40 H D Magnesium Alkaline Phosphatase Ammonia Total Creatine Kinase C-Reactive Protein Total Protein Albumin TSH Urine WBC (Auto) Salicylates Miscellaneous Test 10/28/17 10/28/17 10/28/17 06:06 07:46 08:21 WBC RBC Hgb Hct MCV MCH MCHC RDW Seg Neutrophils % Seg Neuts % (Manual) Lymphocytes % (Manual) Seg Neutrophils # Seg Neutrophils # Man Basophils # (Manual) PT INR POC ABG pH POC ABG pCO2 POC ABG pO2 Sodium Potassium Chloride Carbon Dioxide BUN Creatinine Glucose POC Glucose > 500 H 500 H Lactic Acid Calcium Phosphorus 6.70 H D Magnesium Alkaline Phosphatase Ammonia Total Creatine Kinase C-Reactive Protein Total Protein Albumin TSH Urine WBC (Auto) Salicylates Miscellaneous Test 10/28/17 10/28/17 10/28/17 09:34 11:13 12:55 WBC RBC Hgb Hct MCV MCH MCHC RDW Seg Neutrophils % Seg Neuts % (Manual) Lymphocytes % (Manual) Seg Neutrophils # Seg Neutrophils # Man Basophils # (Manual) PT INR POC ABG pH POC ABG pCO2 POC ABG pO2 Sodium Potassium Chloride Carbon Dioxide BUN Creatinine Glucose POC Glucose 435 H 273 H 149 H Lactic Acid Calcium Phosphorus Magnesium Alkaline Phosphatase Ammonia Total Creatine Kinase C-Reactive Protein Total Protein Albumin TSH Urine WBC (Auto) Salicylates Miscellaneous Test 10/28/17 10/28/17 10/28/17 14:27 15:39 15:39 WBC 15.5 H RBC 3.59 L Hgb 8.3 L Hct 27.6 L D MCV 77 L MCH 23 L MCHC RDW 20.9 H Seg Neutrophils % 78.5 H Seg Neuts % (Manual) Lymphocytes % (Manual) Seg Neutrophils # 12.2 H Seg Neutrophils # Man Basophils # (Manual) PT INR POC ABG pH POC ABG pCO2 33.9 L POC ABG pO2 138 H Sodium 164 H* Potassium 3.5 L Chloride 125.3 H Carbon Dioxide 18 L BUN Creatinine 1.6 H Glucose 37 L* POC Glucose Lactic Acid Calcium 7.5 L Phosphorus Magnesium Alkaline Phosphatase Ammonia Total Creatine Kinase C-Reactive Protein Total Protein Albumin TSH Urine WBC (Auto) Salicylates Miscellaneous Test 10/28/17 10/28/17 10/28/17 15:47 15:50 16:28 WBC RBC Hgb Hct MCV MCH MCHC RDW Seg Neutrophils % Seg Neuts % (Manual) Lymphocytes % (Manual) Seg Neutrophils # Seg Neutrophils # Man Basophils # (Manual) PT INR POC ABG pH POC ABG pCO2 POC ABG pO2 Sodium Potassium Chloride Carbon Dioxide BUN Creatinine Glucose POC Glucose < 40 L 114 H Lactic Acid Calcium Phosphorus Magnesium Alkaline Phosphatase Ammonia Total Creatine Kinase C-Reactive Protein 4.40 H Total Protein Albumin TSH Urine WBC (Auto) Salicylates Miscellaneous Test 10/28/17 10/28/17 10/28/17 19:07 19:24 23:10 WBC RBC Hgb Hct MCV MCH MCHC RDW Seg Neutrophils % Seg Neuts % (Manual) Lymphocytes % (Manual) Seg Neutrophils # Seg Neutrophils # Man Basophils # (Manual) PT INR POC ABG pH POC ABG pCO2 POC ABG pO2 Sodium 159 H Potassium Chloride 124.1 H Carbon Dioxide 19 L BUN Creatinine 1.4 H Glucose 219 H POC Glucose 111 H Lactic Acid Calcium 7.1 L Phosphorus Magnesium Alkaline Phosphatase Ammonia Total Creatine Kinase C-Reactive Protein Total Protein Albumin TSH Urine WBC (Auto) Salicylates Miscellaneous Test Flexitest 1 H 10/28/17 10/29/17 10/29/17 23:59 03:41 03:41 WBC 14.1 H RBC 3.32 L Hgb 7.6 L Hct 25.5 L MCV 77 L MCH 23 L MCHC RDW 20.8 H Seg Neutrophils % Seg Neuts % (Manual) Lymphocytes % (Manual) Seg Neutrophils # Seg Neutrophils # Man Basophils # (Manual) PT INR POC ABG pH POC ABG pCO2 POC ABG pO2 Sodium 158 H Potassium Chloride 122.7 H Carbon Dioxide 15 L BUN Creatinine 1.3 H Glucose 176 H POC Glucose 307 H Lactic Acid Calcium 7.2 L Phosphorus Magnesium Alkaline Phosphatase Ammonia Total Creatine Kinase C-Reactive Protein Total Protein Albumin TSH Urine WBC (Auto) Salicylates Miscellaneous Test 10/29/17 10/29/17 10/29/17 04:55 05:44 09:28 WBC RBC Hgb Hct MCV MCH MCHC RDW Seg Neutrophils % Seg Neuts % (Manual) Lymphocytes % (Manual) Seg Neutrophils # Seg Neutrophils # Man Basophils # (Manual) PT INR POC ABG pH POC ABG pCO2 31.2 L POC ABG pO2 123 H Sodium 151 H Potassium Chloride 117.1 H Carbon Dioxide 17 L BUN Creatinine Glucose 378 H POC Glucose 253 H Lactic Acid Calcium 7.4 L Phosphorus Magnesium Alkaline Phosphatase Ammonia Total Creatine Kinase C-Reactive Protein Total Protein Albumin TSH Urine WBC (Auto) Salicylates Miscellaneous Test 10/29/17 10/29/17 10/29/17 10:39 13:50 18:35 WBC RBC Hgb Hct MCV MCH MCHC RDW Seg Neutrophils % Seg Neuts % (Manual) Lymphocytes % (Manual) Seg Neutrophils # Seg Neutrophils # Man Basophils # (Manual) PT INR POC ABG pH POC ABG pCO2 POC ABG pO2 Sodium Potassium Chloride Carbon Dioxide BUN Creatinine Glucose POC Glucose 418 H 220 H Lactic Acid Calcium Phosphorus Magnesium Alkaline Phosphatase Ammonia Total Creatine Kinase C-Reactive Protein Total Protein Albumin TSH 0.216 L Urine WBC (Auto) Salicylates Miscellaneous Test 10/29/17 10/30/17 10/30/17 21:28 00:06 03:58 WBC RBC Hgb Hct MCV MCH MCHC RDW Seg Neutrophils % Seg Neuts % (Manual) Lymphocytes % (Manual) Seg Neutrophils # Seg Neutrophils # Man Basophils # (Manual) PT INR POC ABG pH POC ABG pCO2 POC ABG pO2 Sodium 153 H Potassium Chloride 117.0 H Carbon Dioxide 16 L BUN Creatinine Glucose 165 H POC Glucose 184 H 177 H Lactic Acid Calcium 8.0 L Phosphorus Magnesium Alkaline Phosphatase Ammonia Total Creatine Kinase C-Reactive Protein Total Protein Albumin TSH Urine WBC (Auto) Salicylates Miscellaneous Test 10/30/17 10/30/17 10/30/17 05:02 05:42 10:36 WBC RBC Hgb Hct MCV MCH MCHC RDW Seg Neutrophils % Seg Neuts % (Manual) Lymphocytes % (Manual) Seg Neutrophils # Seg Neutrophils # Man Basophils # (Manual) PT INR POC ABG pH POC ABG pCO2 34.8 L POC ABG pO2 107 H Sodium 149 H Potassium Chloride 115.5 H Carbon Dioxide 16 L BUN Creatinine Glucose 230 H POC Glucose 192 H Lactic Acid Calcium 7.6 L Phosphorus Magnesium Alkaline Phosphatase Ammonia Total Creatine Kinase C-Reactive Protein Total Protein Albumin TSH Urine WBC (Auto) Salicylates Miscellaneous Test 10/30/17 10/30/17 10/30/17 12:13 18:02 23:08 WBC RBC Hgb Hct MCV MCH MCHC RDW Seg Neutrophils % Seg Neuts % (Manual) Lymphocytes % (Manual) Seg Neutrophils # Seg Neutrophils # Man Basophils # (Manual) PT INR POC ABG pH POC ABG pCO2 POC ABG pO2 Sodium Potassium Chloride Carbon Dioxide BUN Creatinine Glucose POC Glucose 264 H 213 H 162 H Lactic Acid Calcium Phosphorus Magnesium Alkaline Phosphatase Ammonia Total Creatine Kinase C-Reactive Protein Total Protein Albumin TSH Urine WBC (Auto) Salicylates Miscellaneous Test 10/31/17 10/31/17 10/31/17 01:00 04:03 07:15 WBC RBC Hgb Hct MCV MCH MCHC RDW Seg Neutrophils % Seg Neuts % (Manual) Lymphocytes % (Manual) Seg Neutrophils # Seg Neutrophils # Man Basophils # (Manual) PT INR POC ABG pH POC ABG pCO2 29.6 L POC ABG pO2 118 H Sodium Potassium Chloride Carbon Dioxide BUN Creatinine Glucose POC Glucose 176 H 197 H Lactic Acid Calcium Phosphorus Magnesium Alkaline Phosphatase Ammonia Total Creatine Kinase C-Reactive Protein Total Protein Albumin TSH Urine WBC (Auto) Salicylates Miscellaneous Test 10/31/17 10/31/17 10/31/17 09:24 11:44 17:23 WBC RBC Hgb Hct MCV MCH MCHC RDW Seg Neutrophils % Seg Neuts % (Manual) Lymphocytes % (Manual) Seg Neutrophils # Seg Neutrophils # Man Basophils # (Manual) PT INR POC ABG pH POC ABG pCO2 POC ABG pO2 Sodium 151 H Potassium 3.2 L D Chloride 116.1 H Carbon Dioxide 20 L BUN 6 L Creatinine Glucose 181 H POC Glucose 196 H 261 H Lactic Acid Calcium 8.2 L Phosphorus Magnesium Alkaline Phosphatase Ammonia Total Creatine Kinase C-Reactive Protein Total Protein Albumin TSH Urine WBC (Auto) Salicylates Miscellaneous Test 10/31/17 10/31/17 11/01/17 20:30 23:52 03:28 WBC RBC Hgb Hct MCV MCH MCHC RDW Seg Neutrophils % Seg Neuts % (Manual) Lymphocytes % (Manual) Seg Neutrophils # Seg Neutrophils # Man Basophils # (Manual) PT INR POC ABG pH POC ABG pCO2 POC ABG pO2 Sodium 150 H Potassium Chloride 113.8 H Carbon Dioxide 20 L BUN 6 L Creatinine Glucose 145 H POC Glucose 212 H 157 H Lactic Acid Calcium Phosphorus Magnesium Alkaline Phosphatase Ammonia Total Creatine Kinase C-Reactive Protein Total Protein Albumin TSH Urine WBC (Auto) Salicylates Miscellaneous Test 11/01/17 11/01/17 11/01/17 05:50 12:00 12:23 WBC RBC Hgb Hct MCV MCH MCHC RDW Seg Neutrophils % Seg Neuts % (Manual) Lymphocytes % (Manual) Seg Neutrophils # Seg Neutrophils # Man Basophils # (Manual) PT INR POC ABG pH POC ABG pCO2 POC ABG pO2 Sodium Potassium Chloride Carbon Dioxide BUN Creatinine Glucose POC Glucose 143 H 273 H Lactic Acid Calcium Phosphorus Magnesium Alkaline Phosphatase Ammonia Total Creatine Kinase C-Reactive Protein Total Protein Albumin TSH Urine WBC (Auto) 91.0 H Salicylates Miscellaneous Test 11/01/17 11/01/17 11/01/17 18:12 18:36 20:18 WBC RBC Hgb Hct MCV MCH MCHC RDW Seg Neutrophils % Seg Neuts % (Manual) Lymphocytes % (Manual) Seg Neutrophils # Seg Neutrophils # Man Basophils # (Manual) PT INR POC ABG pH POC ABG pCO2 POC ABG pO2 Sodium Potassium Chloride Carbon Dioxide BUN Creatinine Glucose POC Glucose 292 H 298 H Lactic Acid Calcium Phosphorus Magnesium Alkaline Phosphatase 151 H Ammonia Total Creatine Kinase C-Reactive Protein Total Protein 5.8 L Albumin 2.9 L TSH Urine WBC (Auto) Salicylates Miscellaneous Test 11/02/17 11/02/17 11/02/17 00:23 05:39 08:40 WBC RBC Hgb Hct MCV MCH MCHC RDW Seg Neutrophils % Seg Neuts % (Manual) Lymphocytes % (Manual) Seg Neutrophils # Seg Neutrophils # Man Basophils # (Manual) PT INR POC ABG pH POC ABG pCO2 POC ABG pO2 Sodium Potassium 3.1 L D Chloride 107.6 H Carbon Dioxide BUN Creatinine Glucose 163 H POC Glucose 263 H 123 H Lactic Acid Calcium Phosphorus Magnesium Alkaline Phosphatase Ammonia Total Creatine Kinase C-Reactive Protein Total Protein Albumin TSH Urine WBC (Auto) Salicylates Miscellaneous Test 11/02/17 Unknown WBC RBC 2.95 L Hgb 7.1 L Hct 22.1 L MCV 75 L MCH 24 L MCHC RDW 19.5 H Seg Neutrophils % Seg Neuts % (Manual) Lymphocytes % (Manual) Seg Neutrophils # Seg Neutrophils # Man Basophils # (Manual) PT INR POC ABG pH POC ABG pCO2 POC ABG pO2 Sodium Potassium Chloride Carbon Dioxide BUN Creatinine Glucose POC Glucose Lactic Acid Calcium Phosphorus Magnesium Alkaline Phosphatase Ammonia Total Creatine Kinase C-Reactive Protein Total Protein Albumin TSH Urine WBC (Auto) Salicylates Miscellaneous Test CT scan - chest: image reviewed (CT Chest and neck without lymphadenopathy or collection with compressive features) Allied health notes reviewed: nursing
[2017-11-02 12:37] LABS: Basophils % (Manual) 0 % (0.0-1.8); Total Cells Counted 100
[2017-11-02 12:38] LABS: RBC Morphology Normal
[2017-11-02] MEDS ORDERED: POTASSIUM CHLORIDE FEEDTUBE ONE (13:17)
[2017-11-02] MEDS: NORCO 5/325 PO PRN (13:47)
[2017-11-02] MEDS: POTASSIUM CHLORIDE FEEDTUBE SCH ×2 (13:47→17:49)
--- NOTE | 2017-11-02 16:39 | Progress Note ---
Assessment and Plan Assessment and plan: 22 YO Female with DM, Medication Noncompliance, HTN, Chronic Pain presents to ED for evaluation. Pt unable to provide history, but history taken from ED staff , as well as EMS. Pt was found down and unresponsive by neighbors. EMS notified , and upon arrival the patient was found to be unresponsive. Patient had an empty bottle of oxycodone in her pill bag. Narcan was given without improvement in mental status. Patient transported to [facility] for further care and evaluation. Pt seen and evaluated in ED and found to have Acute Respiratory Failure, as well as DKA, and Sepsis. Pt intubated, sedated, and placed on vent support, as well as DKA and sepsis protocols. Pt admitted to ICU. PT has poor prognosis. Sepsis - likely due to pneumonia - Patient is on IV Levaquin and Flagyl Acute respiratory failure, hypoxic, on MV >96 hours - Pulmonary consulted, Pt intubated placed on vent support, wean vent as tolerated, daily ABG, daily SBT, nebulizer therapy, Acute renal failure/Vasomotor nephropathy continue IV, renal consult pressures and, resolved Metabolic encephalopathy due to DKA - CTH shows no acute findings, neuro consult appreciated Toxic encephalopathy - UDS was positive for benzo Hypothermia - Resolved DKA (diabetic ketoacidoses) - Resolved, currently on sliding scale insulin Hypokalemia, hypophosphatemia - repleted, will repeat BMP and Magnesium in the morning Hypernatremia - continue free water replacement DVT prophylaxis - SCD to BLE,. The high probability of a clinically significant, sudden or life threatening deterioration of the [cardiac, pulmonary, renal, endocrine] system(s) required my full and direct attention, intervention and personal management. The aggregate critical care time was [35] minutes. This time is in addition to time spent performing reported procedures but includes the following: [x] Data Review and interpretation [x] Patient assessment and monitoring of vital signs [x] Documentation [x] Medication orders and management History Interval history: Patient was seen and evaluated this morning, patient is on MV. patient follow commands. Hospitalist Physical - Physical exam Narrative exam: Patient is intubated and on mechanical ventilation. Lip swelling gets better. The patient appeared well nourished and normally developed. Vital signs as documented. Head exam is unremarkable. No scleral icterus . Neck is without jugular venous distension, thyromegaly, or carotid bruits. Lungs are clear to auscultation. Cardiac exam reveals regular rate and Rhythm. First and second heart sounds normal. No murmurs, rubs or gallops. Abdominal exam reveals normal bowel sounds, no masses, no organomegaly and no aortic enlargement. Extremities are nonedematous and both femoral and pedal pulses are normal. [employer] MA[employer]GER: Patient open her eyes and alert. - Constitutional Vitals: Temp Pulse Resp BP Pulse Ox 98.8 F 112 H 17 144/104 99 11/02/17 16:00 11/02/17 15:47 11/02/17 15:47 11/02/17 15:47 11/02/17 15:47 General appearance: Present: severe distress, cachectic, disheveled Results - Labs CBC & Chem 7: 11/02/17 Unknown 11/02/17 08:40 Labs: Laboratory Last Values WBC 9.4 K/mm3 (4.5-11.0) 11/02/17 Unknown RBC 2.95 M/mm3 (3.65-5.03) L 11/02/17 Unknown Hgb 7.1 gm/dl (10.1-14.3) L 11/02/17 Unknown Hct 22.1 % (30.3-42.9) L 11/02/17 Unknown MCV 75 fl (79-97) L 11/02/17 Unknown MCH 24 pg (28-32) L 11/02/17 Unknown MCHC 32 % (30-34) 11/02/17 Unknown RDW 19.5 % (13.2-15.2) H 11/02/17 Unknown Plt Count 265 K/mm3 (140-440) 11/02/17 Unknown Lymph % (Auto) 16.4 % (13.4-35.0) 10/28/17 15:39 [place] % (Auto) 3.7 % (0.0-7.3) 10/28/17 15:39 Eos % (Auto) 0.7 % (0.0-4.3) 10/28/17 15:39 Baso % (Auto) 0.7 % (0.0-1.8) 10/28/17 15:39 Lymph # 2.6 K/mm3 (1.2-5.4) 10/28/17 15:39 [place] # 0.6 K/mm3 (0.0-0.8) 10/28/17 15:39 Eos # 0.1 K/mm3 (0.0-0.4) 10/28/17 15:39 Baso # 0.1 K/mm3 (0.0-0.1) 10/28/17 15:39 Add Manual Diff Complete 11/02/17 Unknown Total Counted 100 11/02/17 Unknown Seg Neutrophils % 78.5 % (40.0-70.0) H 10/28/17 15:39 Seg Neuts % (Manual) 75.0 % (40.0-70.0) H 11/02/17 Unknown Band Neutrophils % 0 % 11/02/17 Unknown Lymphocytes % (Manual) 20.0 % (13.4-35.0) 11/02/17 Unknown Reactive Lymphs % (Man) 0 % 11/02/17 Unknown Monocytes % (Manual) 1.0 % (0.0-7.3) 11/02/17 Unknown Eosinophils % (Manual) 4.0 % (0.0-4.3) 11/02/17 Unknown Basophils % (Manual) 0 % (0.0-1.8) 11/02/17 Unknown Metamyelocytes % 0 % 11/02/17 Unknown Myelocytes % 0 % 11/02/17 Unknown Promyelocytes % 0 % 11/02/17 Unknown Blast Cells % 0 % 11/02/17 Unknown Nucleated RBC % Not Reportable 11/02/17 Unknown Seg Neutrophils # 12.2 K/mm3 (1.8-7.7) H 10/28/17 15:39 Seg Neutrophils # Man 7.1 K/mm3 (1.8-7.7) 11/02/17 Unknown Band Neutrophils # 0.0 K/mm3 11/02/17 Unknown Lymphocytes # (Manual) 1.9 K/mm3 (1.2-5.4) 11/02/17 Unknown Abs React Lymphs (Man) 0.0 K/mm3 11/02/17 Unknown Monocytes # (Manual) 0.1 K/mm3 (0.0-0.8) 11/02/17 Unknown Eosinophils # (Manual) 0.4 K/mm3 (0.0-0.4) 11/02/17 Unknown Basophils # (Manual) 0.0 K/mm3 (0.0-0.1) 11/02/17 Unknown Metamyelocytes # 0.0 K/mm3 11/02/17 Unknown Myelocytes # 0.0 K/mm3 11/02/17 Unknown Promyelocytes # 0.0 K/mm3 11/02/17 Unknown Blast Cells # 0.0 K/mm3 11/02/17 Unknown WBC Morphology Not Reportable 11/02/17 Unknown Hypersegmented Neuts Not Reportable 11/02/17 Unknown Hyposegmented Neuts Not Reportable 11/02/17 Unknown Hypogranular Neuts Not Reportable 11/02/17 Unknown Smudge Cells Not Reportable 11/02/17 Unknown Toxic Granulation Not Reportable 11/02/17 Unknown Toxic Vacuolation Not Reportable 11/02/17 Unknown Dohle Bodies Not Reportable 11/02/17 Unknown Pelger-Huet Anomaly Not Reportable 11/02/17 Unknown Gogo Rods Not Reportable 11/02/17 Unknown Platelet Estimate Not Reportable 11/02/17 Unknown Clumped Platelets Not Reportable 11/02/17 Unknown Plt Clumps, EDTA Not Reportable 11/02/17 Unknown Large Platelets Not Reportable 11/02/17 Unknown Giant Platelets Not Reportable 11/02/17 Unknown Platelet Satelliting Not Reportable 11/02/17 Unknown Plt Morphology Comment Not Reportable 11/02/17 Unknown RBC Morphology Normal 11/02/17 Unknown Dimorphic RBCs Not Reportable 11/02/17 Unknown Polychromasia Not Reportable 11/02/17 Unknown Hypochromasia Not Reportable 11/02/17 Unknown Poikilocytosis Not Reportable 11/02/17 Unknown Anisocytosis Not Reportable 11/02/17 Unknown Microcytosis Not Reportable 11/02/17 Unknown Macrocytosis Not Reportable 11/02/17 Unknown Spherocytes Not Reportable 11/02/17 Unknown Pappenheimer Bodies Not Reportable 11/02/17 Unknown Sickle Cells Not Reportable 11/02/17 Unknown Target Cells Not Reportable 11/02/17 Unknown Tear Drop Cells Not Reportable 11/02/17 Unknown Ovalocytes Not Reportable 11/02/17 Unknown Helmet Cells Not Reportable 11/02/17 Unknown Paulino-Prince Bodies Not Reportable 11/02/17 Unknown [place] Rings Not Reportable 11/02/17 Unknown [place] Cells Not Reportable 11/02/17 Unknown Bite Cells Not Reportable 11/02/17 Unknown Crenated Cell Not Reportable 11/02/17 Unknown Elliptocytes Not Reportable 11/02/17 Unknown Acanthocytes (Spur) Not Reportable 11/02/17 Unknown Rouleaux Not Reportable 11/02/17 Unknown Hemoglobin C Crystals Not Reportable 11/02/17 Unknown Schistocytes Not Reportable 11/02/17 Unknown Malaria parasites Not Reportable 11/02/17 Unknown David Bodies Not Reportable 11/02/17 Unknown Hem Pathologist Commnt No 11/02/17 Unknown PT 16.8 Sec. (12.2-14.9) H 10/26/17 11:44 INR 1.29 (0.87-1.13) H 10/26/17 11:44 APTT 24.9 Sec. (24.2-36.6) 10/26/17 11:44 POC ABG pH 7.381 (7.35-7.45) 11/01/17 06:03 POC ABG pCO2 40.1 (35-45) 11/01/17 06:03 POC ABG pO2 95 (80-105) 11/01/17 06:03 POC ABG HCO3 23.8 11/01/17 06:03 POC ABG Total CO2 25 11/01/17 06:03 POC ABG O2 Sat 97 11/01/17 06:03 POC ABG Base Excess -1 11/01/17 06:03 FiO2 35 % 11/01/17 06:03 Sodium 145 mmol/L (137-145) 11/02/17 08:40 Potassium 3.1 mmol/L (3.6-5.0) L D 11/02/17 08:40 Chloride 107.6 mmol/L (98-107) H 11/02/17 08:40 Carbon Dioxide 28 mmol/L (22-30) D 11/02/17 08:40 Anion Gap 13 mmol/L 11/02/17 08:40 BUN 10 mg/dL (7-17) 11/02/17 08:40 Creatinine 1.0 mg/dL (0.7-1.2) 11/02/17 08:40 Estimated GFR > 60 ml/min 11/02/17 08:40 BUN/Creatinine Ratio 10 % 11/02/17 08:40 Glucose 163 mg/dL (65-100) H 11/02/17 08:40 POC Glucose 123 (70-105) H 11/02/17 05:39 Ketones Quantitative Small (Negative) 10/27/17 20:24 Lactic Acid 1.40 mmol/L (0.7-2.0) 10/27/17 20:34 Calcium 8.4 mg/dL (8.4-10.2) 11/02/17 08:40 Phosphorus 3.30 mg/dL (2.5-4.5) 11/01/17 03:28 Magnesium 2.00 mg/dL (1.7-2.3) 11/01/17 03:28 Total Bilirubin < 0.20 mg/dL (0.1-1.2) 11/01/17 18:36 Direct Bilirubin < 0.2 mg/dL (0-0.2) 11/01/17 18:36 Indirect Bilirubin 0.0 mg/dL 11/01/17 18:36 AST 12 units/L (5-40) 11/01/17 18:36 ALT 17 units/L (7-56) 11/01/17 18:36 Alkaline Phosphatase 151 units/L (35-129) H 11/01/17 18:36 Ammonia 67.0 umol/L (25-60) H 10/26/17 11:44 Total Creatine Kinase 24 units/L (30-135) L 10/26/17 11:44 Troponin T < 0.010 ng/mL (0.00-0.029) 10/26/17 11:44 C-Reactive Protein 4.40 mg/dL (0.00-1.30) H 10/28/17 15:50 Total Protein 5.8 g/dL (6.3-8.2) L 11/01/17 18:36 Albumin 2.9 g/dL (3.9-5) L 11/01/17 18:36 Albumin/Globulin Ratio 1.0 % 11/01/17 18:36 Triglycerides 144 mg/dL (2-149) 10/30/17 10:36 TSH 0.216 mlU/mL (0.270-4.200) L 10/29/17 13:50 Total Cortisol 13.6 mcg/dL () 10/29/17 13:50 Urine Color Yellow (Yellow) 11/01/17 12:00 Urine Turbidity Cloudy (Clear) 11/01/17 12:00 Urine pH 5.0 (5.0-7.0) 11/01/17 12:00 Ur Specific [place] 1.007 (1.003-1.030) 11/01/17 12:00 Urine Protein <15 mg/dl mg/dL (Negative) 11/01/17 12:00 Urine Glucose (UA) >=500 mg/dL (Negative) 11/01/17 12:00 Urine Ketones Neg mg/dL (Negative) 11/01/17 12:00 Urine Blood Sm (Negative) 11/01/17 12:00 Urine Nitrite Neg (Negative) 11/01/17 12:00 Urine Bilirubin Neg (Negative) 11/01/17 12:00 Urine Urobilinogen < 2.0 mg/dL (<2.0) 11/01/17 12:00 Ur Leukocyte Esterase Lg (Negative) 11/01/17 12:00 Urine WBC (Auto) 91.0 /HPF (0.0-6.0) H 11/01/17 12:00 Urine RBC (Auto) > 182.0 /HPF (0.0-6.0) 11/01/17 12:00 U Epithel Cells (Auto) < 1.0 /HPF (0-13.0) 11/01/17 12:00 Urine Bacteria (Auto) 2+ /HPF (Negative) 11/01/17 12:00 Urine WBC Clumps 2+ /HPF 11/01/17 12:00 Uric Acid Crystals 3+ 10/26/17 12:59 Granular Casts 3 /LPF 10/26/17 12:59 Urine Mucus Few /HPF 11/01/17 12:00 Ur Yeast w Hyphae Few /HPF 10/26/17 12:59 Urine Yeast (Budding) 3+ /HPF 11/01/17 12:00 Salicylates < 0.3 mg/dL (2.8-20.0) L 10/26/17 11:44 Urine Opiates Screen Presumptive negative 10/26/17 12:59 Urine Methadone Screen Presumptive negative 10/26/17 12:59 Acetaminophen 15.0 ug/mL (10.0-30.0) 10/26/17 11:44 Ur Barbiturates Screen Presumptive negative 10/26/17 12:59 Ur Phencyclidine Scrn Presumptive negative 10/26/17 12:59 Ur Amphetamines Screen Presumptive negative 10/26/17 12:59 U Benzodiazepines Scrn Presumptive positive 10/26/17 12:59 Urine Cocaine Screen Presumptive negative 10/26/17 12:59 U Marijuana (THC) Screen Presumptive negative 10/26/17 12:59 Drugs of Abuse Note Disclamer 10/26/17 12:59 Plasma/Serum Alcohol < 0.01 % (0-0.07) 10/26/17 11:44 HIV 1&2 Antibody Rapid Non react (Non React) 10/28/17 15:50 HIV P24 Antigen Non react (Non React) 10/28/17 15:50 Miscellaneous Test Flexitest 1 H 10/28/17 19:24 Blood Type O POSITIVE 10/26/17 11:54 Antibody Screen Negative 10/26/17 11:54
[2017-11-03] MEDS: NORMODYNE IV PRN ×3 (00:02→22:14)
[2017-11-03] MEDS: DIFLUCAN 200 MG/100 ML BAG IV SCH ×2 (00:04→21:20)
[2017-11-03] MEDS: NORCO 5/325 PO PRN ×3 (00:08→18:29)
[2017-11-03] MEDS: ZOFRAN IV PRN ×3 (00:12→21:05)
[2017-11-03 05:00] LABS: BUN/Creatinine Ratio 15; Blood Urea Nitrogen 17 mg/dL (7-17); Hemolysis Index 0
[2017-11-03] MEDS: FLAGYL 500 MG/100 ML 500 MG/100 ML BAG IV SCH ×2 (06:00→13:19)
[2017-11-03] MEDS: LEVAQUIN 750MG/150ML 750 MG/150 ML BAG IV SCH (09:07)
[2017-11-03] MEDS: HEPARIN SUB-Q SCH ×2 (09:08→21:18)
[2017-11-03] MEDS: BENADRYL IV SCH ×2 (09:10→21:12)
[2017-11-03] MEDS: PEPCID PO SCH ×2 (09:10→21:05)
--- NOTE | 2017-11-03 11:49 | Progress Note ---
Assessment and Plan - Patient Problems (1) Acute renal failure Current Visit: Yes Status: Acute Qualifiers: Acute renal failure type: with acute tubular necrosis Qualified Code(s): N17.0 - Acute kidney failure with tubular necrosis Plan to address problem: Acute kidney failure is Pre-renal azotemia versus acute renal necrosis secondary to volume depletion with diabetic ketoacidosis and osmotic diuresis. Kidney function is improving. (2) DKA (diabetic ketoacidoses) Current Visit: Yes Status: Acute Qualifiers: Diabetes mellitus type: type 1 Diabetes mellitus complication detail: with coma Qualified Code(s): E10.11 - Type 1 diabetes mellitus with ketoacidosis with coma Plan to address problem: Resolved. Continue blood sugar management by primary attending (3) Hypernatremia Current Visit: Yes Status: Acute Plan to address problem: improved, cont free water flushes via OGT (4) Hypokalemia Current Visit: Yes Status: Acute Plan to address problem: normalized (5) Acute respiratory failure Current Visit: Yes Status: Acute Qualifiers: Respiratory failure complication: hypoxia Qualified Code(s): J96.01 - Acute respiratory failure with hypoxia Plan to address problem: Weaning by hospitalist/uat tester (6) Metabolic encephalopathy Current Visit: Yes Status: Acute Plan to address problem: Improved (7) Sepsis Current Visit: Yes Status: Acute Qualifiers: Sepsis type: sepsis due to unspecified organism Qualified Code(s): A41.9 - Sepsis, unspecified organism Plan to address problem: Continue antibiotics per infectious disease Subjective Date of service: 11/03/17 Principal diagnosis: Acute Hypoxemic Respiratory Failure; Acute Encephalopathy Interval history: Pt remains on vent, however awake, communicating with nodding, following commands. Objective - Vital Signs Vital signs: Vital Signs - 12hr 11/02/17 11/03/17 11/03/17 23:46 00:00 00:02 Temperature Pulse Rate 113 H 106 H 104 H Respiratory 16 16 Rate Blood Pressure 161/106 159/106 161/106 O2 Sat by Pulse 97 96 Oximetry 11/03/17 11/03/17 11/03/17 00:08 00:16 00:30 Temperature Pulse Rate 102 H 113 H Respiratory 16 16 18 Rate Blood Pressure 159/106 139/95 O2 Sat by Pulse 94 100 Oximetry 11/03/17 11/03/17 11/03/17 00:46 01:00 01:04 Temperature 98.8 F Pulse Rate 108 H 108 H Respiratory 16 16 Rate Blood Pressure 139/95 132/93 O2 Sat by Pulse 97 96 Oximetry 11/03/17 11/03/17 11/03/17 01:08 01:16 01:24 Temperature 99.2 F Pulse Rate 106 H Respiratory 17 15 Rate Blood Pressure 132/93 O2 Sat by Pulse 97 Oximetry 11/03/17 11/03/17 11/03/17 01:30 01:46 02:00 Temperature Pulse Rate 105 H 105 H 113 H Respiratory 17 16 16 Rate Blood Pressure 154/97 154/97 148/99 O2 Sat by Pulse 97 96 97 Oximetry 11/03/17 11/03/17 11/03/17 02:16 02:30 02:46 Temperature Pulse Rate 105 H 104 H 105 H Respiratory 17 14 25 H Rate Blood Pressure 148/99 149/96 149/96 O2 Sat by Pulse 97 97 97 Oximetry 11/03/17 11/03/17 11/03/17 03:00 03:16 03:30 Temperature Pulse Rate 107 H 103 H Respiratory 16 17 Rate Blood Pressure 170/109 170/109 152/102 O2 Sat by Pulse 96 95 97 Oximetry 11/03/17 11/03/17 11/03/17 03:46 04:00 04:16 Temperature Pulse Rate 105 H 108 H 113 H Respiratory 16 16 20 Rate Blood Pressure 152/102 150/99 150/99 O2 Sat by Pulse 98 98 97 Oximetry 11/03/17 11/03/17 11/03/17 04:19 04:30 04:46 Temperature 99.2 F Pulse Rate 105 H 108 H Respiratory 16 16 Rate Blood Pressure 154/101 154/101 O2 Sat by Pulse 98 98 Oximetry 11/03/17 11/03/17 11/03/17 05:00 05:12 05:16 Temperature Pulse Rate 108 H 116 H 111 H Respiratory 16 19 Rate Blood Pressure 152/99 152/99 152/99 O2 Sat by Pulse 98 98 98 Oximetry 11/03/17 11/03/17 11/03/17 05:30 06:00 06:30 Temperature Pulse Rate 109 H 112 H 109 H Respiratory 16 17 16 Rate Blood Pressure 151/102 148/100 146/95 O2 Sat by Pulse 97 98 97 Oximetry 11/03/17 11/03/17 11/03/17 07:00 07:30 08:00 Temperature 98.6 F Pulse Rate 109 H 109 H 124 H Respiratory 16 17 14 Rate Blood Pressure 155/97 156/104 164/103 O2 Sat by Pulse 98 96 98 Oximetry 11/03/17 11/03/17 11/03/17 08:30 09:00 09:30 Temperature Pulse Rate 121 H 121 H 118 H Respiratory 19 18 22 Rate Blood Pressure 135/93 145/98 152/103 O2 Sat by Pulse 97 97 97 Oximetry 11/03/17 11/03/17 11/03/17 09:31 09:45 10:00 Temperature Pulse Rate 119 H 117 H 132 H Respiratory 22 24 Rate Blood Pressure 152/103 152/99 138/92 O2 Sat by Pulse 97 98 97 Oximetry 11/03/17 11/03/17 11/03/17 10:30 11:00 11:30 Temperature Pulse Rate 118 H 112 H 105 H Respiratory 21 22 19 Rate Blood Pressure 152/99 150/99 158/103 O2 Sat by Pulse 97 96 96 Oximetry - General Appearance General appearance: well-developed, well-nourished, appears stated age, intubated EENT: ATNC, PERRL, mucous membranes moist Neck: no JVD Respiratory: Present: Decreased Breath Sounds Cardiology: regular, S1S2 Gastrointestinal: normoactive bowel sounds Integumentary: no rash, other (no edema ) Neurologic: no focal deficit, alert and oriented x3, strength 5/5, CN 3-12 intact Psychiatric: mood/affect appropriate, cooperative - Lab 11/02/17 Unknown 11/03/17 04:00 Most recent lab results Calcium 9.0 mg/dL (8.4-10.2) 11/03/17 04:00 Phosphorus 3.30 mg/dL (2.5-4.5) 11/01/17 03:28 Magnesium 2.20 mg/dL (1.7-2.3) 11/03/17 04:00
--- NOTE | 2017-11-03 15:00 | Progress Note ---
Assessment and Plan Assessment: 1) SIRS:better. Etiology pneumonia+/- UTI? +/- encephalopathy +/- asp pneumonitis +/- dehydration from DKA. CXR negative x 2. Blood cultures negative. CRP=4.4. Procalcitonin-0.8. MARANDA thickened GB and mild pericholecystic fluid 2) Bilateral pneumonia: ? aspiration vs. CAP -CTA + patchy annie ASD L>R, mediastinal fullness with LNs, small right pleural effusion 3) Acute respiratory failure: from encephalopathy / OD -Tracheal asp + Strep group B and Barbie likely a colonizer 4) NUNU - better 5) Uncontrolled DM with DKA 6) Hyperkalemia - resolved 7) Extensive sclerae edema/lip edema ? angioedema ?SVC syndrome. CTA no PE + mediastinal fullness. Clinically better. on IV steroids. 8) UTI- mild. Urine cx + Barbie 9) Encephalopathy: ? from OD 10) Thyroid lesions / mildly low TSH 11) Distended GB ? acalculous cholecystitis 12) Mediastinal fullness ? small LNs. HIV neg. Repeat CT chest +anterior mediastinal stranding and no pathologic LN. CT neck normal. Plan: -stop levaquin and flagyl - day 7of 7 -continue fluconazole - day 4 of 5 -f/u cortisol, ELLIE, ANCA, C3/C4, repeat CRP I am rounding on Sunday Thank you for your consultation, will follow up with you. Aziza Stanford MD Infectious Diseases Specialist [facility] [phone] O [phone] Subjective Date of service: 11/03/17 Principal diagnosis: Acute Hypoxemic Respiratory Failure; Acute Encephalopathy Interval history: Remains on the vent but alert following commands, no fever overnight. Microbiology: Blood cultures: 10/27 ngtd Urine cultures: 10/28 Barbie 10-50K Respiratory cultures: 10/27 Beta hem group B and Barbie Current Antimicrobials: levaquin and flagyl 10/28 Previous Antimicrobials: Zosyn 10/26 Vancomycin 10/26 Objective - Exam Narrative Exam: General appearance: alert anxious eye open following simple commands on CPAP Eyes: anicteric no sclerae edema, moist conjunctivae; no lid-lag; PERRLA HENT: Atraumatic; no lips edema, oropharynx +ETT Neck: Trachea midline; supple, no thyromegaly or lymphadenopathy Lungs: CTA, with normal respiratory effort and no intercostal retractions CV: RRR Abdomen: Soft, non-tender; no masses or hepatosplenomegaly Extremities: No peripheral edema or extremity lymphadenopathy Skin: Normal temperature, turgor and texture; no rash, ulcers or subcutaneous nodules Psych: alert, calm/ Neuro: alert, following commnads. Moving all extermities Lines: - Constitutional Vitals: Vital Signs Temp Pulse Resp BP Pulse Ox 99.1 F 103 H 21 144/95 98 11/03/17 12:00 11/03/17 13:04 11/03/17 13:04 11/03/17 13:04 11/03/17 13:04 Temperature -Last 24 Hours Temperature 99.1 F Temperature 98.6 F Temperature 99.2 F Temperature 99.2 F Temperature 98.8 F Temperature 98.8 F - Labs CBC & Chem 7: 11/02/17 Unknown 11/03/17 04:00 Labs: Abnormal lab results 11/02/17 11/02/17 11/02/17 Range/Units 11:56 17:30 20:43 Glucose (65-100) mg/dL POC Glucose 252 H 233 H 274 H (70-105) 11/03/17 11/03/17 11/03/17 Range/Units 00:22 04:00 05:49 Glucose 254 H (65-100) mg/dL POC Glucose 310 H 260 H (70-105) 11/03/17 11/03/17 Range/Units 08:19 12:19 Glucose (65-100) mg/dL POC Glucose 235 H 293 H (70-105)
--- NOTE | 2017-11-03 16:18 | Progress Note ---
Assessment and Plan Acute respiratory failure, on mechanical ventilatory support. Acute encephalopathy, appears toxic metabolic at this point. Diabetic ketoacidosis. Sepsis syndrome. History of chronic pain. Possible drug abuse. Anemia. Leukocytosis. Hyperammonemia. Severe metabolic acidosis with a lactic acid component. - continue daily SBT's / SAT's but hold on extubation till cuffleak improved - continue PPI, antihistamine therapy and increase steroids dose and frequency re: possible angioedema element - continue to wean oxygen to keep sats > 90% - continue GI & VTE prophylaxis - azotemia per nephrology (improved) - free water for hypernatremia - daily SAT's & SBT's shortly - continue bronchodilators and pulmonary hygiene per RT - VAP bundle addressed - continue other care per attending / other consultants ...improved but still critical ...35' CCT Subjective Date of service: 11/03/17 Principal diagnosis: Acute Hypoxemic Respiratory Failure; Acute Encephalopathy Interval history: Patient is seen today for: Acute Hypoxemic Respiratory Failure; Acute Encephalopathy Seen and examined at bedside; 24hour events reviewed; nursing and respiratory care staff consulted; no adverse overnight events reported to me; failed cuff leak test but tolerating PSV very well; No N/V/F/C; father visiting also Objective Vital Signs - 12hr 11/03/17 11/03/17 11/03/17 04:19 04:30 04:46 Temperature 99.2 F Pulse Rate 105 H 108 H Respiratory 16 16 Rate Respiratory Rate [ Generalized] Blood Pressure 154/101 154/101 O2 Sat by Pulse 98 98 Oximetry 11/03/17 11/03/17 11/03/17 05:00 05:12 05:16 Temperature Pulse Rate 108 H 116 H 111 H Respiratory 16 19 Rate Respiratory Rate [ Generalized] Blood Pressure 152/99 152/99 152/99 O2 Sat by Pulse 98 98 98 Oximetry 11/03/17 11/03/17 11/03/17 05:30 06:00 06:30 Temperature Pulse Rate 109 H 112 H 109 H Respiratory 16 17 16 Rate Respiratory Rate [ Generalized] Blood Pressure 151/102 148/100 146/95 O2 Sat by Pulse 97 98 97 Oximetry 11/03/17 11/03/17 11/03/17 07:00 07:30 08:00 Temperature 98.6 F Pulse Rate 109 H 109 H 124 H Respiratory 16 17 14 Rate Respiratory Rate [ Generalized] Blood Pressure 155/97 156/104 164/103 O2 Sat by Pulse 98 96 98 Oximetry 11/03/17 11/03/17 11/03/17 08:30 09:00 09:30 Temperature Pulse Rate 121 H 121 H 118 H Respiratory 19 18 22 Rate Respiratory Rate [ Generalized] Blood Pressure 135/93 145/98 152/103 O2 Sat by Pulse 97 97 97 Oximetry 11/03/17 11/03/17 11/03/17 09:31 09:45 10:00 Temperature Pulse Rate 119 H 117 H 102 H Respiratory 22 24 Rate Respiratory Rate [ Generalized] Blood Pressure 152/103 152/99 138/92 O2 Sat by Pulse 97 98 97 Oximetry 11/03/17 11/03/17 11/03/17 10:30 11:00 11:30 Temperature Pulse Rate 118 H 112 H 105 H Respiratory 21 22 19 Rate Respiratory Rate [ Generalized] Blood Pressure 152/99 150/99 158/103 O2 Sat by Pulse 97 96 96 Oximetry 11/03/17 11/03/17 11/03/17 11:59 12:00 12:30 Temperature 99.1 F Pulse Rate 105 H 99 H Respiratory 13 30 H Rate Respiratory 12 Rate [ Generalized] Blood Pressure 160/105 157/102 O2 Sat by Pulse 96 95 Oximetry 11/03/17 11/03/17 11/03/17 13:00 13:04 13:30 Temperature Pulse Rate 103 H 103 H 106 H Respiratory 25 H 21 16 Rate Respiratory Rate [ Generalized] Blood Pressure 144/95 144/95 147/102 O2 Sat by Pulse 98 98 97 Oximetry 11/03/17 11/03/17 11/03/17 14:00 14:30 15:00 Temperature Pulse Rate 113 H 105 H 103 H Respiratory 24 21 21 Rate Respiratory Rate [ Generalized] Blood Pressure 143/101 155/105 161/107 O2 Sat by Pulse 98 97 97 Oximetry 11/03/17 11/03/17 15:16 15:22 Temperature 99.1 F Pulse Rate 106 H Respiratory Rate Respiratory Rate [ Generalized] Blood Pressure 161/107 O2 Sat by Pulse Oximetry Constitutional: no acute distress, alert Eyes: non-icteric, other (orbital phimosis) ENT: oropharynx moist, oropharyngeal exudate pre Neck: supple, no lymphadenopathy, no JVD, other (neck and facial swelling improved) Effort: mildly labored Ascultation: Bilateral: rhonchi Percussion: Bilateral: not dull Cardiovascular: regular rate and rhythm, other (No palpable HSM) Gastrointestinal: normoactive bowel sounds, soft, non-tender, non-distended, other (no palpable HSM) Integumentary: normal Extremities: no cyanosis, no edema, pulses normal, no ischemia or petechiae Neurologic: normal mental status, non-focal exam, pupils equal and round, motor strength normal and Psychiatric: mood appropriate, affect normal CBC and BMP: 11/05/17 04:00 11/05/17 04:00 ABG, PT/INR, D-dimer: ABG POC ABG pH 7.381 (7.35-7.45) 11/01/17 06:03 POC ABG pCO2 40.1 (35-45) 11/01/17 06:03 POC ABG pO2 95 (80-105) 11/01/17 06:03 POC ABG HCO3 23.8 11/01/17 06:03 POC ABG Total CO2 25 11/01/17 06:03 POC ABG O2 Sat 97 11/01/17 06:03 PT/INR, D-dimer PT 16.8 Sec. (12.2-14.9) H 10/26/17 11:44 INR 1.29 (0.87-1.13) H 10/26/17 11:44 Abnormal lab findings: Abnormal Labs 10/26/17 10/26/17 10/26/17 11:23 11:44 11:44 WBC 20.6 H RBC 3.62 L Hgb 8.3 L Hct MCV MCH 23 L MCHC 24 L RDW 21.7 H Seg Neutrophils % Seg Neuts % (Manual) 76.0 H Lymphocytes % (Manual) 11.0 L Seg Neutrophils # Seg Neutrophils # Man 15.7 H Basophils # (Manual) 0.2 H PT INR POC ABG pH POC ABG pCO2 POC ABG pO2 Sodium Potassium Chloride Carbon Dioxide BUN Creatinine Glucose POC Glucose > 500 H Lactic Acid 4.10 H* Calcium Phosphorus Magnesium Alkaline Phosphatase Ammonia Total Creatine Kinase C-Reactive Protein Total Protein Albumin TSH Urine WBC (Auto) Salicylates Miscellaneous Test 10/26/17 10/26/17 10/26/17 11:44 11:44 11:44 WBC RBC Hgb Hct MCV MCH MCHC RDW Seg Neutrophils % Seg Neuts % (Manual) Lymphocytes % (Manual) Seg Neutrophils # Seg Neutrophils # Man Basophils # (Manual) PT 16.8 H INR 1.29 H POC ABG pH POC ABG pCO2 POC ABG pO2 Sodium 146 H Potassium 6.6 H* Chloride Carbon Dioxide 3 L* BUN 34 H Creatinine 2.2 H Glucose 1281 H* POC Glucose Lactic Acid Calcium 8.0 L Phosphorus Magnesium Alkaline Phosphatase 196 H Ammonia 67.0 H Total Creatine Kinase 24 L C-Reactive Protein Total Protein Albumin 3.6 L TSH Urine WBC (Auto) Salicylates Miscellaneous Test 10/26/17 10/26/17 10/26/17 11:44 12:01 12:59 WBC RBC Hgb Hct MCV MCH MCHC RDW Seg Neutrophils % Seg Neuts % (Manual) Lymphocytes % (Manual) Seg Neutrophils # Seg Neutrophils # Man Basophils # (Manual) PT INR POC ABG pH 6.895 L POC ABG pCO2 12.3 L POC ABG pO2 311 H Sodium Potassium Chloride Carbon Dioxide BUN Creatinine Glucose POC Glucose Lactic Acid Calcium Phosphorus Magnesium Alkaline Phosphatase Ammonia Total Creatine Kinase C-Reactive Protein Total Protein Albumin TSH Urine WBC (Auto) 42.0 H Salicylates < 0.3 L Miscellaneous Test 10/26/17 10/26/17 10/26/17 13:06 13:17 13:17 WBC RBC Hgb Hct MCV MCH MCHC RDW Seg Neutrophils % Seg Neuts % (Manual) Lymphocytes % (Manual) Seg Neutrophils # Seg Neutrophils # Man Basophils # (Manual) PT INR POC ABG pH POC ABG pCO2 POC ABG pO2 Sodium 146 H Potassium 7.1 H* Chloride Carbon Dioxide 2 L* BUN 35 H Creatinine 2.3 H Glucose 1330 H* POC Glucose Lactic Acid 4.10 H* Calcium 7.7 L Phosphorus 11.10 H Magnesium 2.70 H Alkaline Phosphatase Ammonia Total Creatine Kinase C-Reactive Protein Total Protein Albumin TSH Urine WBC (Auto) Salicylates Miscellaneous Test 10/26/17 10/26/17 10/26/17 14:57 15:26 15:26 WBC RBC Hgb Hct MCV MCH MCHC RDW Seg Neutrophils % Seg Neuts % (Manual) Lymphocytes % (Manual) Seg Neutrophils # Seg Neutrophils # Man Basophils # (Manual) PT INR POC ABG pH POC ABG pCO2 POC ABG pO2 Sodium 147 H Potassium 6.3 H* Chloride Carbon Dioxide < 2.0 L* BUN 37 H Creatinine 2.4 H Glucose 1115 H* POC Glucose > 500 H Lactic Acid 3.70 H* Calcium 7.2 L Phosphorus Magnesium Alkaline Phosphatase Ammonia Total Creatine Kinase C-Reactive Protein Total Protein Albumin TSH Urine WBC (Auto) Salicylates Miscellaneous Test 10/26/17 10/26/17 10/26/17 16:02 17:51 17:51 WBC RBC Hgb Hct MCV MCH MCHC RDW Seg Neutrophils % Seg Neuts % (Manual) Lymphocytes % (Manual) Seg Neutrophils # Seg Neutrophils # Man Basophils # (Manual) PT INR POC ABG pH POC ABG pCO2 POC ABG pO2 Sodium 149 H Potassium Chloride Carbon Dioxide 2 L* BUN 36 H Creatinine 2.6 H Glucose 1063 H* POC Glucose > 500 H Lactic Acid 6.50 H* Calcium 7.0 L Phosphorus Magnesium Alkaline Phosphatase Ammonia Total Creatine Kinase C-Reactive Protein Total Protein Albumin TSH Urine WBC (Auto) Salicylates Miscellaneous Test 10/26/17 10/26/17 10/26/17 18:42 19:55 19:55 WBC RBC Hgb Hct MCV MCH MCHC RDW Seg Neutrophils % Seg Neuts % (Manual) Lymphocytes % (Manual) Seg Neutrophils # Seg Neutrophils # Man Basophils # (Manual) PT INR POC ABG pH 6.974 L POC ABG pCO2 14.9 L POC ABG pO2 244 H Sodium 150 H Potassium Chloride 108.3 H Carbon Dioxide 4 L* BUN 33 H Creatinine 2.4 H Glucose 663 H* POC Glucose Lactic Acid 8.30 H* Calcium 7.0 L Phosphorus Magnesium Alkaline Phosphatase Ammonia Total Creatine Kinase C-Reactive Protein Total Protein Albumin TSH Urine WBC (Auto) Salicylates Miscellaneous Test 10/26/17 10/26/17 10/26/17 21:26 21:26 23:55 WBC RBC Hgb Hct MCV MCH MCHC RDW Seg Neutrophils % Seg Neuts % (Manual) Lymphocytes % (Manual) Seg Neutrophils # Seg Neutrophils # Man Basophils # (Manual) PT INR POC ABG pH POC ABG pCO2 POC ABG pO2 Sodium 152 H Potassium 3.5 L Chloride 110.4 H Carbon Dioxide 6 L* BUN 32 H Creatinine 2.3 H Glucose 498 H POC Glucose 317 H Lactic Acid 9.00 H* Calcium 7.6 L Phosphorus Magnesium Alkaline Phosphatase Ammonia Total Creatine Kinase C-Reactive Protein Total Protein Albumin TSH Urine WBC (Auto) Salicylates Miscellaneous Test 10/27/17 10/27/17 10/27/17 01:21 02:26 03:49 WBC RBC Hgb Hct MCV MCH MCHC RDW Seg Neutrophils % Seg Neuts % (Manual) Lymphocytes % (Manual) Seg Neutrophils # Seg Neutrophils # Man Basophils # (Manual) PT INR POC ABG pH POC ABG pCO2 POC ABG pO2 Sodium Potassium Chloride Carbon Dioxide BUN Creatinine Glucose POC Glucose 218 H 172 H 136 H Lactic Acid Calcium Phosphorus Magnesium Alkaline Phosphatase Ammonia Total Creatine Kinase C-Reactive Protein Total Protein Albumin TSH Urine WBC (Auto) Salicylates Miscellaneous Test 10/27/17 10/27/17 10/27/17 04:50 05:26 06:01 WBC RBC Hgb Hct MCV MCH MCHC RDW Seg Neutrophils % Seg Neuts % (Manual) Lymphocytes % (Manual) Seg Neutrophils # Seg Neutrophils # Man Basophils # (Manual) PT INR POC ABG pH 7.284 L POC ABG pCO2 POC ABG pO2 204 H Sodium 158 H Potassium 3.5 L Chloride 118.2 H Carbon Dioxide 19 L D BUN 27 H Creatinine 1.9 H Glucose 232 H POC Glucose 221 H Lactic Acid Calcium 7.1 L Phosphorus Magnesium Alkaline Phosphatase Ammonia Total Creatine Kinase C-Reactive Protein Total Protein Albumin TSH Urine WBC (Auto) Salicylates Miscellaneous Test 10/27/17 10/27/17 10/27/17 06:05 07:27 09:28 WBC RBC Hgb Hct MCV MCH MCHC RDW Seg Neutrophils % Seg Neuts % (Manual) Lymphocytes % (Manual) Seg Neutrophils # Seg Neutrophils # Man Basophils # (Manual) PT INR POC ABG pH POC ABG pCO2 POC ABG pO2 Sodium Potassium Chloride Carbon Dioxide BUN Creatinine Glucose POC Glucose 286 H 161 H 123 H Lactic Acid Calcium Phosphorus Magnesium Alkaline Phosphatase Ammonia Total Creatine Kinase C-Reactive Protein Total Protein Albumin TSH Urine WBC (Auto) Salicylates Miscellaneous Test 10/27/17 10/27/17 10/27/17 12:30 13:07 14:44 WBC RBC Hgb Hct MCV MCH MCHC RDW Seg Neutrophils % Seg Neuts % (Manual) Lymphocytes % (Manual) Seg Neutrophils # Seg Neutrophils # Man Basophils # (Manual) PT INR POC ABG pH POC ABG pCO2 POC ABG pO2 Sodium 158 H Potassium 3.2 L Chloride 120.7 H Carbon Dioxide 16 L BUN 23 H Creatinine 1.9 H Glucose 270 H POC Glucose 274 H 200 H Lactic Acid Calcium 7.1 L Phosphorus Magnesium Alkaline Phosphatase Ammonia Total Creatine Kinase C-Reactive Protein Total Protein Albumin TSH Urine WBC (Auto) Salicylates Miscellaneous Test 10/27/17 10/27/17 10/27/17 19:03 20:24 20:24 WBC RBC Hgb Hct MCV MCH MCHC RDW Seg Neutrophils % Seg Neuts % (Manual) Lymphocytes % (Manual) Seg Neutrophils # Seg Neutrophils # Man Basophils # (Manual) PT INR POC ABG pH POC ABG pCO2 POC ABG pO2 Sodium 155 H Potassium 3.4 L Chloride 119.3 H Carbon Dioxide 19 L BUN 20 H Creatinine 1.9 H Glucose 272 H POC Glucose 124 H Lactic Acid Calcium 7.0 L Phosphorus 1.50 L D Magnesium Alkaline Phosphatase Ammonia Total Creatine Kinase C-Reactive Protein 1.50 H Total Protein Albumin TSH Urine WBC (Auto) Salicylates Miscellaneous Test 10/27/17 10/27/17 10/28/17 20:40 21:05 03:02 WBC RBC Hgb Hct MCV MCH MCHC RDW Seg Neutrophils % Seg Neuts % (Manual) Lymphocytes % (Manual) Seg Neutrophils # Seg Neutrophils # Man Basophils # (Manual) PT INR POC ABG pH 7.327 L POC ABG pCO2 32.1 L POC ABG pO2 Sodium 157 H Potassium Chloride 118.8 H Carbon Dioxide 13 L BUN 18 H Creatinine 2.0 H Glucose 560 H* POC Glucose 289 H Lactic Acid Calcium 6.8 L Phosphorus 5.40 H D Magnesium Alkaline Phosphatase Ammonia Total Creatine Kinase C-Reactive Protein Total Protein Albumin TSH Urine WBC (Auto) Salicylates Miscellaneous Test 10/28/17 10/28/17 10/28/17 06:06 07:46 08:21 WBC RBC Hgb Hct MCV MCH MCHC RDW Seg Neutrophils % Seg Neuts % (Manual) Lymphocytes % (Manual) Seg Neutrophils # Seg Neutrophils # Man Basophils # (Manual) PT INR POC ABG pH POC ABG pCO2 POC ABG pO2 Sodium Potassium Chloride Carbon Dioxide BUN Creatinine Glucose POC Glucose > 500 H 500 H Lactic Acid Calcium Phosphorus 6.70 H D Magnesium Alkaline Phosphatase Ammonia Total Creatine Kinase C-Reactive Protein Total Protein Albumin TSH Urine WBC (Auto) Salicylates Miscellaneous Test 10/28/17 10/28/1710/28/18 09:34 11:13 12:55 WBC RBC Hgb Hct MCV MCH MCHC RDW Seg Neutrophils % Seg Neuts % (Manual) Lymphocytes % (Manual) Seg Neutrophils # Seg Neutrophils # Man Basophils # (Manual) PT INR POC ABG pH POC ABG pCO2 POC ABG pO2 Sodium Potassium Chloride Carbon Dioxide BUN Creatinine Glucose POC Glucose 435 H 273 H 149 H Lactic Acid Calcium Phosphorus Magnesium Alkaline Phosphatase Ammonia Total Creatine Kinase C-Reactive Protein Total Protein Albumin TSH Urine WBC (Auto) Salicylates Miscellaneous Test 10/28/17 10/28/17 10/28/17 14:27 15:39 15:39 WBC 15.5 H RBC 3.59 L Hgb 8.3 L Hct 27.6 L D MCV 77 L MCH 23 L MCHC RDW 20.9 H Seg Neutrophils % 78.5 H Seg Neuts % (Manual) Lymphocytes % (Manual) Seg Neutrophils # 12.2 H Seg Neutrophils # Man Basophils # (Manual) PT INR POC ABG pH POC ABG pCO2 33.9 L POC ABG pO2 138 H Sodium 164 H* Potassium 3.5 L Chloride 125.3 H Carbon Dioxide 18 L BUN Creatinine 1.6 H Glucose 37 L* POC Glucose Lactic Acid Calcium 7.5 L Phosphorus Magnesium Alkaline Phosphatase Ammonia Total Creatine Kinase C-Reactive Protein Total Protein Albumin TSH Urine WBC (Auto) Salicylates Miscellaneous Test 10/28/17 10/28/17 10/28/17 15:47 15:50 16:28 WBC RBC Hgb Hct MCV MCH MCHC RDW Seg Neutrophils % Seg Neuts % (Manual) Lymphocytes % (Manual) Seg Neutrophils # Seg Neutrophils # Man Basophils # (Manual) PT INR POC ABG pH POC ABG pCO2 POC ABG pO2 Sodium Potassium Chloride Carbon Dioxide BUN Creatinine Glucose POC Glucose < 40 L 114 H Lactic Acid Calcium Phosphorus Magnesium Alkaline Phosphatase Ammonia Total Creatine Kinase C-Reactive Protein 4.40 H Total Protein Albumin TSH Urine WBC (Auto) Salicylates Miscellaneous Test 10/28/17 10/28/17 10/28/17 19:07 19:24 23:10 WBC RBC Hgb Hct MCV MCH MCHC RDW Seg Neutrophils % Seg Neuts % (Manual) Lymphocytes % (Manual) Seg Neutrophils # Seg Neutrophils # Man Basophils # (Manual) PT INR POC ABG pH POC ABG pCO2 POC ABG pO2 Sodium 159 H Potassium Chloride 124.1 H Carbon Dioxide 19 L BUN Creatinine 1.4 H Glucose 219 H POC Glucose 111 H Lactic Acid Calcium 7.1 L Phosphorus Magnesium Alkaline Phosphatase Ammonia Total Creatine Kinase C-Reactive Protein Total Protein Albumin TSH Urine WBC (Auto) Salicylates Miscellaneous Test Flexitest 1 H 10/28/17 10/29/17 10/29/17 23:59 03:41 03:41 WBC 14.1 H RBC 3.32 L Hgb 7.6 L Hct 25.5 L MCV 77 L MCH 23 L MCHC RDW 20.8 H Seg Neutrophils % Seg Neuts % (Manual) Lymphocytes % (Manual) Seg Neutrophils # Seg Neutrophils # Man Basophils # (Manual) PT INR POC ABG pH POC ABG pCO2 POC ABG pO2 Sodium 158 H Potassium Chloride 122.7 H Carbon Dioxide 15 L BUN Creatinine 1.3 H Glucose 176 H POC Glucose 307 H Lactic Acid Calcium 7.2 L Phosphorus Magnesium Alkaline Phosphatase Ammonia Total Creatine Kinase C-Reactive Protein Total Protein Albumin TSH Urine WBC (Auto) Salicylates Miscellaneous Test 10/29/17 10/29/17 10/29/17 04:55 05:44 09:28 WBC RBC Hgb Hct MCV MCH MCHC RDW Seg Neutrophils % Seg Neuts % (Manual) Lymphocytes % (Manual) Seg Neutrophils # Seg Neutrophils # Man Basophils # (Manual) PT INR POC ABG pH POC ABG pCO2 31.2 L POC ABG pO2 123 H Sodium 151 H Potassium Chloride 117.1 H Carbon Dioxide 17 L BUN Creatinine Glucose 378 H POC Glucose 253 H Lactic Acid Calcium 7.4 L Phosphorus Magnesium Alkaline Phosphatase Ammonia Total Creatine Kinase C-Reactive Protein Total Protein Albumin TSH Urine WBC (Auto) Salicylates Miscellaneous Test 10/29/17 10/29/17 10/29/17 10:39 13:50 18:35 WBC RBC Hgb Hct MCV MCH MCHC RDW Seg Neutrophils % Seg Neuts % (Manual) Lymphocytes % (Manual) Seg Neutrophils # Seg Neutrophils # Man Basophils # (Manual) PT INR POC ABG pH POC ABG pCO2 POC ABG pO2 Sodium Potassium Chloride Carbon Dioxide BUN Creatinine Glucose POC Glucose 418 H 220 H Lactic Acid Calcium Phosphorus Magnesium Alkaline Phosphatase Ammonia Total Creatine Kinase C-Reactive Protein Total Protein Albumin TSH 0.216 L Urine WBC (Auto) Salicylates Miscellaneous Test 10/29/17 10/30/17 10/30/17 21:28 00:06 03:58 WBC RBC Hgb Hct MCV MCH MCHC RDW Seg Neutrophils % Seg Neuts % (Manual) Lymphocytes % (Manual) Seg Neutrophils # Seg Neutrophils # Man Basophils # (Manual) PT INR POC ABG pH POC ABG pCO2 POC ABG pO2 Sodium 153 H Potassium Chloride 117.0 H Carbon Dioxide 16 L BUN Creatinine Glucose 165 H POC Glucose 184 H 177 H Lactic Acid Calcium 8.0 L Phosphorus Magnesium Alkaline Phosphatase Ammonia Total Creatine Kinase C-Reactive Protein Total Protein Albumin TSH Urine WBC (Auto) Salicylates Miscellaneous Test 10/30/17 10/30/17 10/30/17 05:02 05:42 10:36 WBC RBC Hgb Hct MCV MCH MCHC RDW Seg Neutrophils % Seg Neuts % (Manual) Lymphocytes % (Manual) Seg Neutrophils # Seg Neutrophils # Man Basophils # (Manual) PT INR POC ABG pH POC ABG pCO2 34.8 L POC ABG pO2 107 H Sodium 149 H Potassium Chloride 115.5 H Carbon Dioxide 16 L BUN Creatinine Glucose 230 H POC Glucose 192 H Lactic Acid Calcium 7.6 L Phosphorus Magnesium Alkaline Phosphatase Ammonia Total Creatine Kinase C-Reactive Protein Total Protein Albumin TSH Urine WBC (Auto) Salicylates Miscellaneous Test 10/30/17 10/30/17 10/30/17 12:13 18:02 23:08 WBC RBC Hgb Hct MCV MCH MCHC RDW Seg Neutrophils % Seg Neuts % (Manual) Lymphocytes % (Manual) Seg Neutrophils # Seg Neutrophils # Man Basophils # (Manual) PT INR POC ABG pH POC ABG pCO2 POC ABG pO2 Sodium Potassium Chloride Carbon Dioxide BUN Creatinine Glucose POC Glucose 264 H 213 H 162 H Lactic Acid Calcium Phosphorus Magnesium Alkaline Phosphatase Ammonia Total Creatine Kinase C-Reactive Protein Total Protein Albumin TSH Urine WBC (Auto) Salicylates Miscellaneous Test 10/31/17 10/31/17 10/31/17 01:00 04:03 07:15 WBC RBC Hgb Hct MCV MCH MCHC RDW Seg Neutrophils % Seg Neuts % (Manual) Lymphocytes % (Manual) Seg Neutrophils # Seg Neutrophils # Man Basophils # (Manual) PT INR POC ABG pH POC ABG pCO2 29.6 L POC ABG pO2 118 H Sodium Potassium Chloride Carbon Dioxide BUN Creatinine Glucose POC Glucose 176 H 197 H Lactic Acid Calcium Phosphorus Magnesium Alkaline Phosphatase Ammonia Total Creatine Kinase C-Reactive Protein Total Protein Albumin TSH Urine WBC (Auto) Salicylates Miscellaneous Test 10/31/17 10/31/17 10/31/17 09:24 11:44 17:23 WBC RBC Hgb Hct MCV MCH MCHC RDW Seg Neutrophils % Seg Neuts % (Manual) Lymphocytes % (Manual) Seg Neutrophils # Seg Neutrophils # Man Basophils # (Manual) PT INR POC ABG pH POC ABG pCO2 POC ABG pO2 Sodium 151 H Potassium 3.2 L D Chloride 116.1 H Carbon Dioxide 20 L BUN 6 L Creatinine Glucose 181 H POC Glucose 196 H 261 H Lactic Acid Calcium 8.2 L Phosphorus Magnesium Alkaline Phosphatase Ammonia Total Creatine Kinase C-Reactive Protein Total Protein Albumin TSH Urine WBC (Auto) Salicylates Miscellaneous Test 10/31/17 10/31/17 11/01/17 20:30 23:52 03:28 WBC RBC Hgb Hct MCV MCH MCHC RDW Seg Neutrophils % Seg Neuts % (Manual) Lymphocytes % (Manual) Seg Neutrophils # Seg Neutrophils # Man Basophils # (Manual) PT INR POC ABG pH POC ABG pCO2 POC ABG pO2 Sodium 150 H Potassium Chloride 113.8 H Carbon Dioxide 20 L BUN 6 L Creatinine Glucose 145 H POC Glucose 212 H 157 H Lactic Acid Calcium Phosphorus Magnesium Alkaline Phosphatase Ammonia Total Creatine Kinase C-Reactive Protein Total Protein Albumin TSH Urine WBC (Auto) Salicylates Miscellaneous Test 11/01/17 11/01/17 11/01/17 05:50 12:00 12:23 WBC RBC Hgb Hct MCV MCH MCHC RDW Seg Neutrophils % Seg Neuts % (Manual) Lymphocytes % (Manual) Seg Neutrophils # Seg Neutrophils # Man Basophils # (Manual) PT INR POC ABG pH POC ABG pCO2 POC ABG pO2 Sodium Potassium Chloride Carbon Dioxide BUN Creatinine Glucose POC Glucose 143 H 273 H Lactic Acid Calcium Phosphorus Magnesium Alkaline Phosphatase Ammonia Total Creatine Kinase C-Reactive Protein Total Protein Albumin TSH Urine WBC (Auto) 91.0 H Salicylates Miscellaneous Test 11/01/17 11/01/17 11/01/17 18:12 18:36 20:18 WBC RBC Hgb Hct MCV MCH MCHC RDW Seg Neutrophils % Seg Neuts % (Manual) Lymphocytes % (Manual) Seg Neutrophils # Seg Neutrophils # Man Basophils # (Manual) PT INR POC ABG pH POC ABG pCO2 POC ABG pO2 Sodium Potassium Chloride Carbon Dioxide BUN Creatinine Glucose POC Glucose 292 H 298 H Lactic Acid Calcium Phosphorus Magnesium Alkaline Phosphatase 151 H Ammonia Total Creatine Kinase C-Reactive Protein Total Protein 5.8 L Albumin 2.9 L TSH Urine WBC (Auto) Salicylates Miscellaneous Test 11/02/17 11/02/17 11/02/17 00:23 05:39 08:40 WBC RBC Hgb Hct MCV MCH MCHC RDW Seg Neutrophils % Seg Neuts % (Manual) Lymphocytes % (Manual) Seg Neutrophils # Seg Neutrophils # Man Basophils # (Manual) PT INR POC ABG pH POC ABG pCO2 POC ABG pO2 Sodium Potassium 3.1 L D Chloride 107.6 H Carbon Dioxide BUN Creatinine Glucose 163 H POC Glucose 263 H 123 H Lactic Acid Calcium Phosphorus Magnesium Alkaline Phosphatase Ammonia Total Creatine Kinase C-Reactive Protein Total Protein Albumin TSH Urine WBC (Auto) Salicylates Miscellaneous Test 11/02/17 11/02/17 11/02/17 11:56 17:30 20:43 WBC RBC Hgb Hct MCV MCH MCHC RDW Seg Neutrophils % Seg Neuts % (Manual) Lymphocytes % (Manual) Seg Neutrophils # Seg Neutrophils # Man Basophils # (Manual) PT INR POC ABG pH POC ABG pCO2 POC ABG pO2 Sodium Potassium Chloride Carbon Dioxide BUN Creatinine Glucose POC Glucose 252 H 233 H 274 H Lactic Acid Calcium Phosphorus Magnesium Alkaline Phosphatase Ammonia Total Creatine Kinase C-Reactive Protein Total Protein Albumin TSH Urine WBC (Auto) Salicylates Miscellaneous Test 11/02/17 11/03/17 11/03/17 Unknown 00:22 04:00 WBC RBC 2.95 L Hgb 7.1 L Hct 22.1 L MCV 75 L MCH 24 L MCHC RDW 19.5 H Seg Neutrophils % Seg Neuts % (Manual) 75.0 H Lymphocytes % (Manual) Seg Neutrophils # Seg Neutrophils # Man Basophils # (Manual) PT INR POC ABG pH POC ABG pCO2 POC ABG pO2 Sodium Potassium Chloride Carbon Dioxide BUN Creatinine Glucose 254 H POC Glucose 310 H Lactic Acid Calcium Phosphorus Magnesium Alkaline Phosphatase Ammonia Total Creatine Kinase C-Reactive Protein Total Protein Albumin TSH Urine WBC (Auto) Salicylates Miscellaneous Test 11/03/17 11/03/17 11/03/17 05:49 08:19 12:19 WBC RBC Hgb Hct MCV MCH MCHC RDW Seg Neutrophils % Seg Neuts % (Manual) Lymphocytes % (Manual) Seg Neutrophils # Seg Neutrophils # Man Basophils # (Manual) PT INR POC ABG pH POC ABG pCO2 POC ABG pO2 Sodium Potassium Chloride Carbon Dioxide BUN Creatinine Glucose POC Glucose 260 H 235 H 293 H Lactic Acid Calcium Phosphorus Magnesium Alkaline Phosphatase Ammonia Total Creatine Kinase C-Reactive Protein Total Protein Albumin TSH Urine WBC (Auto) Salicylates Miscellaneous Test Chest x-ray: pending Allied health notes reviewed: nursing
[2017-11-03] MEDS ORDERED: NORCO 5/325 ONE (17:42)
[2017-11-03] MEDS ORDERED: NACL 0.9% 500 ML 500 ML IV SCH (17:58)
--- NOTE | 2017-11-03 18:05 | Progress Note ---
Assessment and Plan Assessment and plan: 22 YO Female with DM, Medication Noncompliance, HTN, Chronic Pain presents to ED for evaluation. Pt unable to provide history, but history taken from ED staff , as well as EMS. Pt was found down and unresponsive by neighbors. EMS notified , and upon arrival the patient was found to be unresponsive. Patient had an empty bottle of oxycodone in her pill bag. Narcan was given without improvement in mental status. Patient transported to [facility] for further care and evaluation. Pt seen and evaluated in ED and found to have Acute Respiratory Failure, as well as DKA, and Sepsis. Pt intubated, sedated, and placed on vent support, as well as DKA and sepsis protocols. Pt admitted to ICU. PT has poor prognosis. Sepsis - likely due to pneumonia - Patient is on IV Levaquin and Flagyl Acute respiratory failure, hypoxic, on MV >96 hours, angioedema - Pulmonary consulted, Pt intubated placed on vent support, wean vent as tolerated, daily ABG, daily SBT, nebulizer therapy, Acute renal failure/Vasomotor nephropathy continue IV, renal consult pressures and, resolved Metabolic encephalopathy due to DKA - CTH shows no acute findings, neuro consult appreciated Toxic encephalopathy - UDS was positive for benzo Severe anemia - We'll transfuse 1 unit of blood - Anemia workup - GI consult Hypothermia - Resolved DKA (diabetic ketoacidoses) - Resolved, currently on sliding scale insulin Hypokalemia, hypophosphatemia - repleted, will repeat BMP and Magnesium in the morning Hypernatremia - continue free water replacement Generalized pain - Increase her pain medications DVT prophylaxis - SCD to BLE,. The high probability of a clinically significant, sudden or life threatening deterioration of the [cardiac, pulmonary, renal, endocrine] system(s) required my full and direct attention, intervention and personal management. The aggregate critical care time was [35] minutes. This time is in addition to time spent performing reported procedures but includes the following: [x] Data Review and interpretation [x] Patient assessment and monitoring of vital signs [x] Documentation [x] Medication orders and management History Interval history: Patient was seen and evaluated this morning, patient is on MV. patient follow commands. Patient expressed what she wants in writing. Patient complains generalized pain and her pain medications has been increased. Hospitalist Physical - Physical exam Narrative exam: Patient is intubated and on mechanical ventilation. Lip swelling gets better. The patient appeared well nourished and normally developed. Vital signs as documented. Head exam is unremarkable. No scleral icterus . Neck is without jugular venous distension, thyromegaly, or carotid bruits. Lungs are clear to auscultation. Cardiac exam reveals regular rate and Rhythm. First and second heart sounds normal. No murmurs, rubs or gallops. Abdominal exam reveals normal bowel sounds, no masses, no organomegaly and no aortic enlargement. Extremities are nonedematous and both femoral and pedal pulses are normal. PHYSICIAN ASSISTANT SURGERY: Patient open her eyes and alert. - Constitutional Vitals: Temp Pulse Resp BP Pulse Ox 99.1 F 108 H 22 162/104 97 11/03/17 15:16 11/03/17 17:00 11/03/17 17:00 11/03/17 17:00 11/03/17 17:00 General appearance: Present: severe distress, cachectic, disheveled Results - Labs CBC & Chem 7: 11/02/17 Unknown 11/03/17 04:00 Labs: Laboratory Last Values WBC 9.4 K/mm3 (4.5-11.0) 11/02/17 Unknown RBC 2.95 M/mm3 (3.65-5.03) L 11/02/17 Unknown Hgb 7.1 gm/dl (10.1-14.3) L 11/02/17 Unknown Hct 22.1 % (30.3-42.9) L 11/02/17 Unknown MCV 75 fl (79-97) L 11/02/17 Unknown MCH 24 pg (28-32) L 11/02/17 Unknown MCHC 32 % (30-34) 11/02/17 Unknown RDW 19.5 % (13.2-15.2) H 11/02/17 Unknown Plt Count 265 K/mm3 (140-440) 11/02/17 Unknown Lymph % (Auto) 16.4 % (13.4-35.0) 10/28/17 15:39 [place] % (Auto) 3.7 % (0.0-7.3) 10/28/17 15:39 Eos % (Auto) 0.7 % (0.0-4.3) 10/28/17 15:39 Baso % (Auto) 0.7 % (0.0-1.8) 10/28/17 15:39 Lymph # 2.6 K/mm3 (1.2-5.4) 10/28/17 15:39 [place] # 0.6 K/mm3 (0.0-0.8) 10/28/17 15:39 Eos # 0.1 K/mm3 (0.0-0.4) 10/28/17 15:39 Baso # 0.1 K/mm3 (0.0-0.1) 10/28/17 15:39 Add Manual Diff Complete 11/02/17 Unknown Total Counted 100 11/02/17 Unknown Seg Neutrophils % 78.5 % (40.0-70.0) H 10/28/17 15:39 Seg Neuts % (Manual) 75.0 % (40.0-70.0) H 11/02/17 Unknown Band Neutrophils % 0 % 11/02/17 Unknown Lymphocytes % (Manual) 20.0 % (13.4-35.0) 11/02/17 Unknown Reactive Lymphs % (Man) 0 % 11/02/17 Unknown Monocytes % (Manual) 1.0 % (0.0-7.3) 11/02/17 Unknown Eosinophils % (Manual) 4.0 % (0.0-4.3) 11/02/17 Unknown Basophils % (Manual) 0 % (0.0-1.8) 11/02/17 Unknown Metamyelocytes % 0 % 11/02/17 Unknown Myelocytes % 0 % 11/02/17 Unknown Promyelocytes % 0 % 11/02/17 Unknown Blast Cells % 0 % 11/02/17 Unknown Nucleated RBC % Not Reportable 11/02/17 Unknown Seg Neutrophils # 12.2 K/mm3 (1.8-7.7) H 10/28/17 15:39 Seg Neutrophils # Man 7.1 K/mm3 (1.8-7.7) 11/02/17 Unknown Band Neutrophils # 0.0 K/mm3 11/02/17 Unknown Lymphocytes # (Manual) 1.9 K/mm3 (1.2-5.4) 11/02/17 Unknown Abs React Lymphs (Man) 0.0 K/mm3 11/02/17 Unknown Monocytes # (Manual) 0.1 K/mm3 (0.0-0.8) 11/02/17 Unknown Eosinophils # (Manual) 0.4 K/mm3 (0.0-0.4) 11/02/17 Unknown Basophils # (Manual) 0.0 K/mm3 (0.0-0.1) 11/02/17 Unknown Metamyelocytes # 0.0 K/mm3 11/02/17 Unknown Myelocytes # 0.0 K/mm3 11/02/17 Unknown Promyelocytes # 0.0 K/mm3 11/02/17 Unknown Blast Cells # 0.0 K/mm3 11/02/17 Unknown WBC Morphology Not Reportable 11/02/17 Unknown Hypersegmented Neuts Not Reportable 11/02/17 Unknown Hyposegmented Neuts Not Reportable 11/02/17 Unknown Hypogranular Neuts Not Reportable 11/02/17 Unknown Smudge Cells Not Reportable 11/02/17 Unknown Toxic Granulation Not Reportable 11/02/17 Unknown Toxic Vacuolation Not Reportable 11/02/17 Unknown Dohle Bodies Not Reportable 11/02/17 Unknown Pelger-Huet Anomaly Not Reportable 11/02/17 Unknown Gogo Rods Not Reportable 11/02/17 Unknown Platelet Estimate Not Reportable 11/02/17 Unknown Clumped Platelets Not Reportable 11/02/17 Unknown Plt Clumps, EDTA Not Reportable 11/02/17 Unknown Large Platelets Not Reportable 11/02/17 Unknown Giant Platelets Not Reportable 11/02/17 Unknown Platelet Satelliting Not Reportable 11/02/17 Unknown Plt Morphology Comment Not Reportable 11/02/17 Unknown RBC Morphology Normal 11/02/17 Unknown Dimorphic RBCs Not Reportable 11/02/17 Unknown Polychromasia Not Reportable 11/02/17 Unknown Hypochromasia Not Reportable 11/02/17 Unknown Poikilocytosis Not Reportable 11/02/17 Unknown Anisocytosis Not Reportable 11/02/17 Unknown Microcytosis Not Reportable 11/02/17 Unknown Macrocytosis Not Reportable 11/02/17 Unknown Spherocytes Not Reportable 11/02/17 Unknown Pappenheimer Bodies Not Reportable 11/02/17 Unknown Sickle Cells Not Reportable 11/02/17 Unknown Target Cells Not Reportable 11/02/17 Unknown Tear Drop Cells Not Reportable 11/02/17 Unknown Ovalocytes Not Reportable 11/02/17 Unknown Helmet Cells Not Reportable 11/02/17 Unknown Paulino-Carpinter[place] Bodies Not Reportable 11/02/17 Unknown [place] Rings Not Reportable 11/02/17 Unknown Caprice Cells Not Reportable 11/02/17 Unknown Bite Cells Not Reportable 11/02/17 Unknown Crenated Cell Not Reportable 11/02/17 Unknown Elliptocytes Not Reportable 11/02/17 Unknown Acanthocytes (Spur) Not Reportable 11/02/17 Unknown Rouleaux Not Reportable 11/02/17 Unknown Hemoglobin C Crystals Not Reportable 11/02/17 Unknown Schistocytes Not Reportable 11/02/17 Unknown Malaria parasites Not Reportable 11/02/17 Unknown David Bodies Not Reportable 11/02/17 Unknown Hem Pathologist Commnt No 11/02/17 Unknown PT 16.8 Sec. (12.2-14.9) H 10/26/17 11:44 INR 1.29 (0.87-1.13) H 10/26/17 11:44 APTT 24.9 Sec. (24.2-36.6) 10/26/17 11:44 POC ABG pH 7.381 (7.35-7.45) 11/01/17 06:03 POC ABG pCO2 40.1 (35-45) 11/01/17 06:03 POC ABG pO2 95 (80-105) 11/01/17 06:03 POC ABG HCO3 23.8 11/01/17 06:03 POC ABG Total CO2 25 11/01/17 06:03 POC ABG O2 Sat 97 11/01/17 06:03 POC ABG Base Excess -1 11/01/17 06:03 FiO2 35 % 11/01/17 06:03 Sodium 145 mmol/L (137-145) 11/03/17 04:00 Potassium 4.3 mmol/L (3.6-5.0) D 11/03/17 04:00 Chloride 101.7 mmol/L (98-107) 11/03/17 04:00 Carbon Dioxide 28 mmol/L (22-30) 11/03/17 04:00 Anion Gap 20 mmol/L 11/03/17 04:00 BUN 17 mg/dL (7-17) 11/03/17 04:00 Creatinine 1.1 mg/dL (0.7-1.2) 11/03/17 04:00 Estimated GFR > 60 ml/min 11/03/17 04:00 BUN/Creatinine Ratio 15 % 11/03/17 04:00 Glucose 254 mg/dL (65-100) H 11/03/17 04:00 POC Glucose 293 (70-105) H 11/03/17 12:19 Ketones Quantitative Small (Negative) 10/27/17 20:24 Lactic Acid 1.40 mmol/L (0.7-2.0) 10/27/17 20:34 Calcium 9.0 mg/dL (8.4-10.2) 11/03/17 04:00 Phosphorus 3.30 mg/dL (2.5-4.5) 11/01/17 03:28 Magnesium 2.20 mg/dL (1.7-2.3) 11/03/17 04:00 Total Bilirubin < 0.20 mg/dL (0.1-1.2) 11/01/17 18:36 Direct Bilirubin < 0.2 mg/dL (0-0.2) 11/01/17 18:36 Indirect Bilirubin 0.0 mg/dL 11/01/17 18:36 AST 12 units/L (5-40) 11/01/17 18:36 ALT 17 units/L (7-56) 11/01/17 18:36 Alkaline Phosphatase 151 units/L (35-129) H 11/01/17 18:36 Ammonia 67.0 umol/L (25-60) H 10/26/17 11:44 Total Creatine Kinase 24 units/L (30-135) L 10/26/17 11:44 Troponin T < 0.010 ng/mL (0.00-0.029) 10/26/17 11:44 C-Reactive Protein 0.30 mg/dL (0.00-1.30) 11/03/17 15:30 Total Protein 5.8 g/dL (6.3-8.2) L 11/01/17 18:36 Albumin 2.9 g/dL (3.9-5) L 11/01/17 18:36 Albumin/Globulin Ratio 1.0 % 11/01/17 18:36 Triglycerides 144 mg/dL (2-149) 10/30/17 10:36 TSH 0.216 mlU/mL (0.270-4.200) L 10/29/17 13:50 Total Cortisol 13.6 mcg/dL () 10/29/17 13:50 Urine Color Yellow (Yellow) 11/01/17 12:00 Urine Turbidity Cloudy (Clear) 11/01/17 12:00 Urine pH 5.0 (5.0-7.0) 11/01/17 12:00 Ur Specific [place] 1.007 (1.003-1.030) 11/01/17 12:00 Urine Protein <15 mg/dl mg/dL (Negative) 11/01/17 12:00 Urine Glucose (UA) >=500 mg/dL (Negative) 11/01/17 12:00 Urine Ketones Neg mg/dL (Negative) 11/01/17 12:00 Urine Blood Sm (Negative) 11/01/17 12:00 Urine Nitrite Neg (Negative) 11/01/17 12:00 Urine Bilirubin Neg (Negative) 11/01/17 12:00 Urine Urobilinogen < 2.0 mg/dL (<2.0) 11/01/17 12:00 Ur Leukocyte Esterase Lg (Negative) 11/01/17 12:00 Urine WBC (Auto) 91.0 /HPF (0.0-6.0) H 11/01/17 12:00 Urine RBC (Auto) > 182.0 /HPF (0.0-6.0) 11/01/17 12:00 U Epithel Cells (Auto) < 1.0 /HPF (0-13.0) 11/01/17 12:00 Urine Bacteria (Auto) 2+ /HPF (Negative) 11/01/17 12:00 Urine WBC Clumps 2+ /HPF 11/01/17 12:00 Uric Acid Crystals 3+ 10/26/17 12:59 Granular Casts 3 /LPF 10/26/17 12:59 Urine Mucus Few /HPF 11/01/17 12:00 Ur Yeast w Hyphae Few /HPF 10/26/17 12:59 Urine Yeast (Budding) 3+ /HPF 11/01/17 12:00 Salicylates < 0.3 mg/dL (2.8-20.0) L 10/26/17 11:44 Urine Opiates Screen Presumptive negative 10/26/17 12:59 Urine Methadone Screen Presumptive negative 10/26/17 12:59 Acetaminophen 15.0 ug/mL (10.0-30.0) 10/26/17 11:44 Ur Barbiturates Screen Presumptive negative 10/26/17 12:59 Ur Phencyclidine Scrn Presumptive negative 10/26/17 12:59 Ur Amphetamines Screen Presumptive negative 10/26/17 12:59 U Benzodiazepines Scrn Presumptive positive 10/26/17 12:59 Urine Cocaine Screen Presumptive negative 10/26/17 12:59 U Marijuana (THC) Screen Presumptive negative 10/26/17 12:59 Drugs of Abuse Note Disclamer 10/26/17 12:59 Plasma/Serum Alcohol < 0.01 % (0-0.07) 10/26/17 11:44 HIV 1&2 Antibody Rapid Non react (Non React) 10/28/17 15:50 HIV P24 Antigen Non react (Non React) 10/28/17 15:50 Miscellaneous Test Flexitest 1 H 10/28/17 19:24 Blood Type O POSITIVE 10/26/17 11:54 Antibody Screen Negative 10/26/17 11:54
[2017-11-03 18:59] LABS: Iron 67 ug/dL (37-170); Total Iron Binding Capacity 333 mcg/dL (250-450)
[2017-11-04] MEDS: NORCO 5/325 PO PRN ×4 (00:37→18:51)
[2017-11-04] MEDS: NORMODYNE IV PRN ×6 (03:04→21:32)
[2017-11-04 04:03] LABS: Hematocrit 28.3 % (30.3-42.9); Hemoglobin 8.9 gm/dl (10.1-14.3); Mean Corpuscular HGB Conc 32 % (30-34); Mean Corpuscular Volume 76 fl (79-97); Platelet Count 432 K/mm3 (140-440); Red Blood Count 3.74 M/mm3 (3.65-5.03)
[2017-11-04 04:05] LABS: Mean Corpuscular Hemoglobin 24 pg (28-32); Red Cell Distribution Width 20.2 % (13.2-15.2)
[2017-11-04 04:21] LABS: BUN/Creatinine Ratio 21; Blood Urea Nitrogen 19 mg/dL (7-17); Calcium 9.1 mg/dL (8.4-10.2); Hemolysis Index 5
[2017-11-04 04:47] LABS: Band Neutrophils # (Manual) 0.6 K/mm3; Basophils % (Manual) 0 % (0.0-1.8); Eosinophils % (Manual) 0 % (0.0-4.3); Total Cells Counted 100
[2017-11-04 04:48] LABS: Anisocytosis 1+; Hypochromasia 1+; Platelet Estimate Consistent w Auto
[2017-11-04] MEDS: BENADRYL IV SCH ×2 (09:30→21:04)
--- NOTE | 2017-11-04 09:33 | Progress Note ---
Assessment and Plan - Patient Problems (1) Acute renal failure Current Visit: Yes Status: Acute Qualifiers: Acute renal failure type: with acute tubular necrosis Qualified Code(s): N17.0 - Acute kidney failure with tubular necrosis Plan to address problem: Acute kidney failure is Pre-renal azotemia versus acute renal necrosis secondary to volume depletion with diabetic ketoacidosis and osmotic diuresis. Kidney function is improving. (2) DKA (diabetic ketoacidoses) Current Visit: Yes Status: Acute Qualifiers: Diabetes mellitus type: type 1 Diabetes mellitus complication detail: with coma Qualified Code(s): E10.11 - Type 1 diabetes mellitus with ketoacidosis with coma Plan to address problem: Resolved. Continue blood sugar management by primary attending (3) Hypernatremia Current Visit: Yes Status: Acute Plan to address problem: improved, cont free water flushes via OGT (4) Hypokalemia Current Visit: Yes Status: Acute Plan to address problem: normalized (5) Acute respiratory failure Current Visit: Yes Status: Acute Qualifiers: Respiratory failure complication: hypoxia Qualified Code(s): J96.01 - Acute respiratory failure with hypoxia Plan to address problem: Weaning by hospitalist/ap operator (6) Metabolic encephalopathy Current Visit: Yes Status: Acute Plan to address problem: Improved (7) Sepsis Current Visit: Yes Status: Acute Qualifiers: Sepsis type: sepsis due to unspecified organism Qualified Code(s): A41.9 - Sepsis, unspecified organism Plan to address problem: Continue antibiotics per infectious disease Subjective Date of service: 11/04/17 Principal diagnosis: Acute Hypoxemic Respiratory Failure; Acute Encephalopathy Interval history: Pt remains on vent, however awake, communicating with nodding, following commands. Objective - Vital Signs Vital signs: Vital Signs - 12hr 11/03/17 11/03/17 11/03/17 21:43 21:45 22:00 Temperature 99.0 F 99.1 F Pulse Rate 112 H 100 H 103 H Respiratory 18 18 20 Rate Respiratory Rate [ Generalized] Blood Pressure 158/105 161/103 161/103 O2 Sat by Pulse 97 97 96 Oximetry 11/03/17 11/03/17 11/03/17 22:14 22:15 22:30 Temperature 99.1 F Pulse Rate 100 H 100 H 92 H Respiratory 18 17 Rate Respiratory Rate [ Generalized] Blood Pressure 161/103 161/103 157/101 O2 Sat by Pulse 97 98 Oximetry 11/03/17 11/03/17 11/03/17 22:45 23:00 23:15 Temperature 99.1 F 99.1 F Pulse Rate 94 H 97 H 94 H Respiratory 16 16 16 Rate Respiratory Rate [ Generalized] Blood Pressure 156/102 162/102 156/102 O2 Sat by Pulse 98 97 98 Oximetry 11/03/17 11/03/17 11/03/17 23:26 23:30 23:35 Temperature Pulse Rate 92 H 94 H 94 H Respiratory 16 16 17 Rate Respiratory Rate [ Generalized] Blood Pressure 160/105 156/102 156/102 O2 Sat by Pulse 98 98 97 Oximetry 11/03/17 11/04/17 11/04/17 23:45 00:00 00:30 Temperature 99.1 F 99.1 F Pulse Rate 94 H 92 H 92 H Respiratory 16 17 17 Rate Respiratory Rate [ Generalized] Blood Pressure 158/102 166/106 O2 Sat by Pulse 98 97 98 Oximetry 11/04/17 11/04/17 11/04/17 00:31 00:37 01:00 Temperature Pulse Rate 92 H 92 H Respiratory 17 18 13 Rate Respiratory Rate [ Generalized] Blood Pressure 184/99 O2 Sat by Pulse 98 98 Oximetry 11/04/17 11/04/17 11/04/17 01:10 01:31 01:37 Temperature Pulse Rate 96 H Respiratory 13 13 17 Rate Respiratory Rate [ Generalized] Blood Pressure 158/99 184/99 O2 Sat by Pulse 98 96 Oximetry 11/04/17 11/04/17 11/04/17 02:00 02:30 02:31 Temperature Pulse Rate 96 H 92 H 94 H Respiratory 14 17 19 Rate Respiratory 17 Rate [ Generalized] Blood Pressure 169/102 169/102 O2 Sat by Pulse 99 98 97 Oximetry 11/04/17 11/04/17 11/04/17 03:01 03:04 03:31 Temperature Pulse Rate 91 H 92 H 95 H Respiratory 16 20 Rate Respiratory Rate [ Generalized] Blood Pressure 167/105 167/105 167/105 O2 Sat by Pulse 99 98 Oximetry 11/04/17 11/04/17 11/04/17 03:43 04:00 04:31 Temperature 99.1 F Pulse Rate 93 H 92 H 94 H Respiratory 17 22 Rate Respiratory Rate [ Generalized] Blood Pressure 171/105 177/108 177/108 O2 Sat by Pulse 98 96 Oximetry 11/04/17 11/04/17 11/04/17 04:43 05:00 05:04 Temperature Pulse Rate 97 H 95 H 93 H Respiratory 24 17 Rate Respiratory Rate [ Generalized] Blood Pressure 177/108 179/111 O2 Sat by Pulse 97 92 98 Oximetry 11/04/17 11/04/17 11/04/17 05:13 05:31 06:00 Temperature Pulse Rate 94 H 96 H 98 H Respiratory 20 30 H Rate Respiratory Rate [ Generalized] Blood Pressure 179/111 171/105 O2 Sat by Pulse 96 98 Oximetry 11/04/17 11/04/17 11/04/17 06:31 06:44 07:00 Temperature Pulse Rate 96 H 96 H Respiratory 22 21 18 Rate Respiratory Rate [ Generalized] Blood Pressure 171/105 170/109 O2 Sat by Pulse 96 97 Oximetry 11/04/17 11/04/17 11/04/17 07:31 07:57 08:00 Temperature 99.2 F Pulse Rate 97 H 101 H 98 H Respiratory 18 28 H 22 Rate Respiratory Rate [ Generalized] Blood Pressure 170/109 170/109 177/114 O2 Sat by Pulse 96 97 96 Oximetry 11/04/17 11/04/17 08:31 09:00 Temperature Pulse Rate 101 H 96 H Respiratory 23 19 Rate Respiratory Rate [ Generalized] Blood Pressure 177/114 165/95 O2 Sat by Pulse 99 97 Oximetry - General Appearance General appearance: well-developed, well-nourished, appears stated age, intubated EENT: ATNC, PERRL, mucous membranes moist Neck: no JVD Respiratory: Present: Clear to Ascultation Cardiology: regular, S1S2 Gastrointestinal: normoactive bowel sounds Integumentary: no rash, other (no edema ) Neurologic: no focal deficit, alert and oriented x3, strength 5/5, CN 3-12 intact Psychiatric: mood/affect appropriate, cooperative - Lab 11/04/17 03:46 11/04/17 03:46 Most recent lab results Calcium 9.1 mg/dL (8.4-10.2) 11/04/17 03:46 Phosphorus 3.30 mg/dL (2.5-4.5) 11/01/17 03:28 Magnesium 2.20 mg/dL (1.7-2.3) 11/03/17 04:00
[2017-11-04] MEDS: HEPARIN SUB-Q SCH ×2 (10:05→21:04)
[2017-11-04] MEDS: PEPCID PO SCH ×2 (10:06→21:02)
[2017-11-04] MEDS: ZOFRAN IV PRN (12:36)
--- NOTE | 2017-11-04 14:54 | Progress Note ---
Assessment and Plan Assessment and plan: 22 YO Female with DM, Medication Noncompliance, HTN, Chronic Pain presents to ED for evaluation. Pt unable to provide history, but history taken from ED staff , as well as EMS. Pt was found down and unresponsive by neighbors. EMS notified , and upon arrival the patient was found to be unresponsive. Patient had an empty bottle of oxycodone in her pill bag. Narcan was given without improvement in mental status. Patient transported to [facility] for further care and evaluation. Pt seen and evaluated in ED and found to have Acute Respiratory Failure, as well as DKA, and Sepsis. Pt intubated, sedated, and placed on vent support, as well as DKA and sepsis protocols. Pt admitted to ICU. PT has poor prognosis. Sepsis - likely due to pneumonia - Patient is on IV Levaquin and Flagyl Acute respiratory failure, hypoxic, on MV >96 hours, angioedema - Pulmonary consulted, Pt intubated placed on vent support, wean vent as tolerated, daily ABG, daily SBT, nebulizer therapy, Acute renal failure/Vasomotor nephropathy continue IV, renal consult pressures and, resolved Metabolic encephalopathy due to DKA - Resolved Toxic encephalopathy - resolved - UDS was positive for benzo Severe anemia - We'll transfuse 1 unit of blood - Anemia workup - GI consult Hypothermia - Resolved DKA (diabetic ketoacidoses) - Resolved, currently on sliding scale insulin Hypokalemia, hypophosphatemia - repleted, will repeat BMP and Magnesium in the morning Hypernatremia - continue free water replacement Generalized pain - Increase her pain medications DVT prophylaxis - SCD to BLE,. The high probability of a clinically significant, sudden or life threatening deterioration of the [cardiac, pulmonary, renal, endocrine] system(s) required my full and direct attention, intervention and personal management. The aggregate critical care time was [35] minutes. This time is in addition to time spent performing reported procedures but includes the following: [x] Data Review and interpretation [x] Patient assessment and monitoring of vital signs [x] Documentation [x] Medication orders and management History Interval history: Patient was seen and evaluated this morning, patient is on MV. patient follow commands. Patient expressed what she wants in writing. Hospitalist Physical - Physical exam Narrative exam: Patient is intubated and on mechanical ventilation. Lip swelling gets better. The patient appeared well nourished and normally developed. Vital signs as documented. Head exam is unremarkable. No scleral icterus . Neck is without jugular venous distension, thyromegaly, or carotid bruits. Lungs are clear to auscultation. Cardiac exam reveals regular rate and Rhythm. First and second heart sounds normal. No murmurs, rubs or gallops. Abdominal exam reveals normal bowel sounds, no masses, no organomegaly and no aortic enlargement. Extremities are nonedematous and both femoral and pedal pulses are normal. SURGICAL PATHOLOGIST: Patient open her eyes and alert. - Constitutional Vitals: Temp Pulse Resp BP Pulse Ox 99 F 99 H 17 149/106 98 11/04/17 12:00 11/04/17 12:00 11/04/17 12:00 11/04/17 12:00 11/04/17 12:00 General appearance: Present: severe distress, cachectic, disheveled Results - Labs CBC & Chem 7: 11/04/17 03:46 11/04/17 03:46 Labs: Laboratory Last Values WBC 12.9 K/mm3 (4.5-11.0) H 11/04/17 03:46 RBC 3.74 M/mm3 (3.65-5.03) 11/04/17 03:46 Hgb 8.9 gm/dl (10.1-14.3) L 11/04/17 03:46 Hct 28.3 % (30.3-42.9) L D 11/04/17 03:46 MCV 76 fl (79-97) L 11/04/17 03:46 MCH 24 pg (28-32) L 11/04/17 03:46 MCHC 32 % (30-34) 11/04/17 03:46 RDW 20.2 % (13.2-15.2) H 11/04/17 03:46 Plt Count 432 K/mm3 (140-440) 11/04/17 03:46 Lymph % (Auto) 16.4 % (13.4-35.0) 10/28/17 15:39 [place] % (Auto) 3.7 % (0.0-7.3) 10/28/17 15:39 Eos % (Auto) 0.7 % (0.0-4.3) 10/28/17 15:39 Baso % (Auto) 0.7 % (0.0-1.8) 10/28/17 15:39 Lymph # 2.6 K/mm3 (1.2-5.4) 10/28/17 15:39 Linn # 0.6 K/mm3 (0.0-0.8) 10/28/17 15:39 Eos # 0.1 K/mm3 (0.0-0.4) 10/28/17 15:39 Baso # 0.1 K/mm3 (0.0-0.1) 10/28/17 15:39 Add Manual Diff Complete 11/04/17 03:46 Total Counted 100 11/04/17 03:46 Seg Neutrophils % 78.5 % (40.0-70.0) H 10/28/17 15:39 Seg Neuts % (Manual) 64.0 % (40.0-70.0) 11/04/17 03:46 Band Neutrophils % 5.0 % 11/04/17 03:46 Lymphocytes % (Manual) 21.0 % (13.4-35.0) 11/04/17 03:46 Reactive Lymphs % (Man) 0 % 11/04/17 03:46 Monocytes % (Manual) 10.0 % (0.0-7.3) H 11/04/17 03:46 Eosinophils % (Manual) 0 % (0.0-4.3) 11/04/17 03:46 Basophils % (Manual) 0 % (0.0-1.8) 11/04/17 03:46 Metamyelocytes % 0 % 11/04/17 03:46 Myelocytes % 0 % 11/04/17 03:46 Promyelocytes % 0 % 11/04/17 03:46 Blast Cells % 0 % 11/04/17 03:46 Nucleated RBC % Not Reportable 11/04/17 03:46 Seg Neutrophils # 12.2 K/mm3 (1.8-7.7) H 10/28/17 15:39 Seg Neutrophils # Man 8.3 K/mm3 (1.8-7.7) H 11/04/17 03:46 Band Neutrophils # 0.6 K/mm3 11/04/17 03:46 Lymphocytes # (Manual) 2.7 K/mm3 (1.2-5.4) 11/04/17 03:46 Abs React Lymphs (Man) 0.0 K/mm3 11/04/17 03:46 Monocytes # (Manual) 1.3 K/mm3 (0.0-0.8) H 11/04/17 03:46 Eosinophils # (Manual) 0.0 K/mm3 (0.0-0.4) 11/04/17 03:46 Basophils # (Manual) 0.0 K/mm3 (0.0-0.1) 11/04/17 03:46 Metamyelocytes # 0.0 K/mm3 11/04/17 03:46 Myelocytes # 0.0 K/mm3 11/04/17 03:46 Promyelocytes # 0.0 K/mm3 11/04/17 03:46 Blast Cells # 0.0 K/mm3 11/04/17 03:46 WBC Morphology Not Reportable 11/04/17 03:46 Hypersegmented Neuts Not Reportable 11/04/17 03:46 Hyposegmented Neuts Not Reportable 11/04/17 03:46 Hypogranular Neuts Not Reportable 11/04/17 03:46 Smudge Cells Not Reportable 11/04/17 03:46 Toxic Granulation Not Reportable 11/04/17 03:46 Toxic Vacuolation Not Reportable 11/04/17 03:46 Dohle Bodies Not Reportable 11/04/17 03:46 Pelger-Huet Anomaly Not Reportable 11/04/17 03:46 Gogo Rods Not Reportable 11/04/17 03:46 Platelet Estimate Consistent w auto 11/04/17 03:46 Clumped Platelets Not Reportable 11/04/17 03:46 Plt Clumps, EDTA Not Reportable 11/04/17 03:46 Large Platelets Not Reportable 11/04/17 03:46 Giant Platelets Not Reportable 11/04/17 03:46 Platelet Satelliting Not Reportable 11/04/17 03:46 Plt Morphology Comment Not Reportable 11/04/17 03:46 RBC Morphology Not Reportable 11/04/17 03:46 Dimorphic RBCs Not Reportable 11/04/17 03:46 Polychromasia Not Reportable 11/04/17 03:46 Hypochromasia 1+ 11/04/17 03:46 Poikilocytosis Not Reportable 11/04/17 03:46 Anisocytosis 1+ 11/04/17 03:46 Microcytosis Not Reportable 11/04/17 03:46 Macrocytosis Not Reportable 11/04/17 03:46 Spherocytes Not Reportable 11/04/17 03:46 Pappenheimer Bodies Not Reportable 11/04/17 03:46 Sickle Cells Not Reportable 11/04/17 03:46 Target Cells Not Reportable 11/04/17 03:46 Tear Drop Cells Not Reportable 11/04/17 03:46 Ovalocytes Not Reportable 11/04/17 03:46 Helmet Cells Not Reportable 11/04/17 03:46 [place] Bodies Not Reportable 11/04/17 03:46 Savanna Rings Not Reportable 11/04/17 03:46 Caprice Cells Not Reportable 11/04/17 03:46 Bite Cells Not Reportable 11/04/17 03:46 Crenated Cell Not Reportable 11/04/17 03:46 Elliptocytes Not Reportable 11/04/17 03:46 Acanthocytes (Spur) Not Reportable 11/04/17 03:46 Rouleaux Not Reportable 11/04/17 03:46 Hemoglobin C Crystals Not Reportable 11/04/17 03:46 Schistocytes Not Reportable 11/04/17 03:46 Malaria parasites Not Reportable 11/04/17 03:46 David Bodies Not Reportable 11/04/17 03:46 Hem Pathologist Commnt No 11/04/17 03:46 PT 16.8 Sec. (12.2-14.9) H 10/26/17 11:44 INR 1.29 (0.87-1.13) H 10/26/17 11:44 APTT 24.9 Sec. (24.2-36.6) 10/26/17 11:44 POC ABG pH 7.381 (7.35-7.45) 11/01/17 06:03 POC ABG pCO2 40.1 (35-45) 11/01/17 06:03 POC ABG pO2 95 (80-105) 11/01/17 06:03 POC ABG HCO3 23.8 11/01/17 06:03 POC ABG Total CO2 25 11/01/17 06:03 POC ABG O2 Sat 97 11/01/17 06:03 POC ABG Base Excess -1 11/01/17 06:03 FiO2 35 % 11/01/17 06:03 Sodium 142 mmol/L (137-145) 11/04/17 03:46 Potassium 4.0 mmol/L (3.6-5.0) 11/04/17 03:46 Chloride 98.8 mmol/L (98-107) 11/04/17 03:46 Carbon Dioxide 28 mmol/L (22-30) 11/04/17 03:46 Anion Gap 19 mmol/L 11/04/17 03:46 BUN 19 mg/dL (7-17) H 11/04/17 03:46 Creatinine 0.9 mg/dL (0.7-1.2) 11/04/17 03:46 Estimated GFR > 60 ml/min 11/04/17 03:46 BUN/Creatinine Ratio 21 % 11/04/17 03:46 Glucose 197 mg/dL (65-100) H 11/04/17 03:46 POC Glucose 183 (70-105) H 11/04/17 12:28 Ketones Quantitative Small (Negative) 10/27/17 20:24 Lactic Acid 1.40 mmol/L (0.7-2.0) 10/27/17 20:34 Calcium 9.1 mg/dL (8.4-10.2) 11/04/17 03:46 Phosphorus 3.30 mg/dL (2.5-4.5) 11/01/17 03:28 Magnesium 2.20 mg/dL (1.7-2.3) 11/03/17 04:00 Iron 67 ug/dL (37-170) 11/03/17 18:15 TIBC 333 mcg/dL (250-450) 11/03/17 18:15 Ferritin 42.6 ng/mL (13.0-400.0) 11/03/17 18:15 Total Bilirubin < 0.20 mg/dL (0.1-1.2) 11/01/17 18:36 Direct Bilirubin < 0.2 mg/dL (0-0.2) 11/01/17 18:36 Indirect Bilirubin 0.0 mg/dL 11/01/17 18:36 AST 12 units/L (5-40) 11/01/17 18:36 ALT 17 units/L (7-56) 11/01/17 18:36 Alkaline Phosphatase 151 units/L (35-129) H 11/01/17 18:36 Ammonia 67.0 umol/L (25-60) H 10/26/17 11:44 Total Creatine Kinase 24 units/L (30-135) L 10/26/17 11:44 Troponin T < 0.010 ng/mL (0.00-0.029) 10/26/17 11:44 C-Reactive Protein 0.30 mg/dL (0.00-1.30) 11/03/17 15:30 Total Protein 5.8 g/dL (6.3-8.2) L 11/01/17 18:36 Albumin 2.9 g/dL (3.9-5) L 11/01/17 18:36 Albumin/Globulin Ratio 1.0 % 11/01/17 18:36 Triglycerides 144 mg/dL (2-149) 10/30/17 10:36 Vitamin B12 1162 pg/mL (211-911) H 11/03/17 18:15 Folate 17.94 ng/mL (7.3-26.0) 11/03/17 18:15 TSH 0.216 mlU/mL (0.270-4.200) L 10/29/17 13:50 Total Cortisol 12.9 mcg/dL () 10/31/17 21:31 Urine Color Yellow (Yellow) 11/01/17 12:00 Urine Turbidity Cloudy (Clear) 11/01/17 12:00 Urine pH 5.0 (5.0-7.0) 11/01/17 12:00 Ur Specific [place] 1.007 (1.003-1.030) 11/01/17 12:00 Urine Protein <15 mg/dl mg/dL (Negative) 11/01/17 12:00 Urine Glucose (UA) >=500 mg/dL (Negative) 11/01/17 12:00 Urine Ketones Neg mg/dL (Negative) 11/01/17 12:00 Urine Blood Sm (Negative) 11/01/17 12:00 Urine Nitrite Neg (Negative) 11/01/17 12:00 Urine Bilirubin Neg (Negative) 11/01/17 12:00 Urine Urobilinogen < 2.0 mg/dL (<2.0) 11/01/17 12:00 Ur Leukocyte Esterase Lg (Negative) 11/01/17 12:00 Urine WBC (Auto) 91.0 /HPF (0.0-6.0) H 11/01/17 12:00 Urine RBC (Auto) > 182.0 /HPF (0.0-6.0) 11/01/17 12:00 U Epithel Cells (Auto) < 1.0 /HPF (0-13.0) 11/01/17 12:00 Urine Bacteria (Auto) 2+ /HPF (Negative) 11/01/17 12:00 Urine WBC Clumps 2+ /HPF 11/01/17 12:00 Uric Acid Crystals 3+ 10/26/17 12:59 Granular Casts 3 /LPF 10/26/17 12:59 Urine Mucus Few /HPF 11/01/17 12:00 Ur Yeast w Hyphae Few /HPF 10/26/17 12:59 Urine Yeast (Budding) 3+ /HPF 11/01/17 12:00 Salicylates < 0.3 mg/dL (2.8-20.0) L 10/26/17 11:44 Urine Opiates Screen Presumptive negative 10/26/17 12:59 Urine Methadone Screen Presumptive negative 10/26/17 12:59 Acetaminophen 15.0 ug/mL (10.0-30.0) 10/26/17 11:44 Ur Barbiturates Screen Presumptive negative 10/26/17 12:59 Ur Phencyclidine Scrn Presumptive negative 10/26/17 12:59 Ur Amphetamines Screen Presumptive negative 10/26/17 12:59 U Benzodiazepines Scrn Presumptive positive 10/26/17 12:59 Urine Cocaine Screen Presumptive negative 10/26/17 12:59 U Marijuana (THC) Screen Presumptive negative 10/26/17 12:59 Drugs of Abuse Note Disclamer 10/26/17 12:59 Plasma/Serum Alcohol < 0.01 % (0-0.07) 10/26/17 11:44 HIV 1&2 Antibody Rapid Non react (Non React) 10/28/17 15:50 HIV P24 Antigen Non react (Non React) 10/28/17 15:50 Miscellaneous Test Flexitest 1 H 10/28/17 19:24 Blood Type O POSITIVE 11/03/17 18:15 Antibody Screen Negative 11/03/17 18:15 Crossmatch See Detail 11/03/17 18:15
--- NOTE | 2017-11-04 17:46 | Progress Note ---
Assessment and Plan Acute respiratory failure, on mechanical ventilatory support. Acute encephalopathy, appears toxic metabolic at this point. Diabetic ketoacidosis. Sepsis syndrome. History of chronic pain. Possible drug abuse. Anemia. Leukocytosis. Hyperammonemia. Severe metabolic acidosis with a lactic acid component. -VAP bundle addressed -rest on full support tonight, in the morning PSV trail 04/07, get weaning parameters. Goal is to liberate from the ventilator -add clonidine for BP control in the short term - continue GI & VTE prophylaxis - azotemia per nephrology - free water and hypotonic solution for hypernatremia - continue bronchodilators and pulmonary hygiene per RT - continue other care per attending / other consultants -discussed with RT and RN Subjective Date of service: 11/04/17 Principal diagnosis: Acute Hypoxemic Respiratory Failure; Acute Encephalopathy Interval history: Patient is seen today for: Acute Hypoxemic Respiratory Failure; Acute Encephalopathy Seen and examined at bedside; 24hour events reviewed; nursing and respiratory care staff consulted; no adverse overnight events reported to me; Very calm, off all sedation using prn medication. Vitals, labs, medications, chart reviewed. Tolerating PSV trials Objective - Exam Narrative Exam: Patient is intubated and on mechanical ventilation. Lip swelling gets better. The patient appeared well nourished and normally developed. Vital signs as documented. Head exam is unremarkable, no facial or tongue swelling. No scleral icterus . Neck is without jugular venous distension, thyromegaly, or carotid bruits. Lungs are clear to auscultation. Cardiac exam reveals regular rate and Rhythm. First and second heart sounds normal. No murmurs, rubs or gallops. Abdominal exam reveals normal bowel sounds, no masses, no organomegaly and no aortic enlargement. Extremities are non edematous and both femoral and pedal pulses are normal. 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 and alert, obeys commands Vital Signs - 12hr 11/04/17 11/04/17 11/04/17 06:00 06:31 06:44 Temperature Pulse Rate 98 H 96 H Respiratory 30 H 22 21 Rate Blood Pressure 171/105 171/105 O2 Sat by Pulse 98 96 Oximetry 11/04/17 11/04/17 11/04/17 07:00 07:31 07:57 Temperature Pulse Rate 96 H 97 H 101 H Respiratory 18 18 28 H Rate Blood Pressure 170/109 170/109 170/109 O2 Sat by Pulse 97 96 97 Oximetry 11/04/17 11/04/17 11/04/17 08:00 08:31 09:00 Temperature 99.2 F Pulse Rate 98 H 101 H 96 H Respiratory 22 23 19 Rate Blood Pressure 177/114 177/114 165/95 O2 Sat by Pulse 96 99 97 Oximetry 11/04/17 11/04/17 11/04/17 09:31 10:00 10:30 Temperature Pulse Rate 96 H 93 H 100 H Respiratory 21 21 24 Rate Blood Pressure 165/95 175/109 182/120 O2 Sat by Pulse 98 97 98 Oximetry 11/04/17 11/04/17 11/04/17 10:33 11:00 11:30 Temperature Pulse Rate 100 H 98 H 94 H Respiratory 21 20 Rate Blood Pressure 178/116 185/115 168/109 O2 Sat by Pulse 95 97 Oximetry 11/04/17 11/04/17 11/04/17 12:00 12:30 13:00 Temperature 99 F Pulse Rate 99 H 105 H 92 H Respiratory 17 23 Rate Blood Pressure 149/106 144/104 162/105 O2 Sat by Pulse 98 99 99 Oximetry 11/04/17 11/04/17 11/04/17 13:30 14:00 14:30 Temperature Pulse Rate 93 H 91 H 91 H Respiratory 14 18 22 Rate Blood Pressure 176/110 186/117 188/117 O2 Sat by Pulse 100 100 99 Oximetry 11/04/17 11/04/17 11/04/17 15:00 15:30 15:49 Temperature Pulse Rate 91 H 94 H 94 H Respiratory 23 27 H Rate Blood Pressure 182/117 181/112 189/122 O2 Sat by Pulse 99 99 Oximetry 11/04/17 11/04/17 11/04/17 16:00 16:30 16:50 Temperature Pulse Rate 92 H 92 H 95 H Respiratory 21 19 23 Rate Blood Pressure 186/119 182/114 178/114 O2 Sat by Pulse 98 98 98 Oximetry 11/04/17 11/04/17 17:00 17:30 Temperature Pulse Rate 99 H 96 H Respiratory 22 20 Rate Blood Pressure 180/114 172/112 O2 Sat by Pulse 99 99 Oximetry Constitutional: appears uncomfortable, other (sedated) Eyes: non-icteric, other (orbital phimosis) ENT: oropharynx moist, oropharyngeal exudate pre Neck: supple, no lymphadenopathy, no JVD, other (neck and facial swelling) Effort: mildly labored Ascultation: Bilateral: rhonchi Percussion: Bilateral: not dull Cardiovascular: regular rate and rhythm, other (No palpable HSM) Gastrointestinal: normoactive bowel sounds, soft, non-tender, non-distended, other (no palpable HSM) Integumentary: normal Extremities: no cyanosis, no edema, pulses normal, no ischemia or petechiae Neurologic: unable to assess Psychiatric: other (sedated) CBC and BMP: 11/04/17 03:46 11/04/17 03:46 ABG, PT/INR, D-dimer: ABG POC ABG pH 7.381 (7.35-7.45) 11/01/17 06:03 POC ABG pCO2 40.1 (35-45) 11/01/17 06:03 POC ABG pO2 95 (80-105) 11/01/17 06:03 POC ABG HCO3 23.8 11/01/17 06:03 POC ABG Total CO2 25 11/01/17 06:03 POC ABG O2 Sat 97 11/01/17 06:03 PT/INR, D-dimer PT 16.8 Sec. (12.2-14.9) H 10/26/17 11:44 INR 1.29 (0.87-1.13) H 10/26/17 11:44 Abnormal lab findings: Abnormal Labs 10/26/17 10/26/17 10/26/17 11:23 11:44 11:44 WBC 20.6 H RBC 3.62 L Hgb 8.3 L Hct MCV MCH 23 L MCHC 24 L RDW 21.7 H Seg Neutrophils % Seg Neuts % (Manual) 76.0 H Lymphocytes % (Manual) 11.0 L Monocytes % (Manual) Seg Neutrophils # Seg Neutrophils # Man 15.7 H Monocytes # (Manual) Basophils # (Manual) 0.2 H PT INR POC ABG pH POC ABG pCO2 POC ABG pO2 Sodium Potassium Chloride Carbon Dioxide BUN Creatinine Glucose POC Glucose > 500 H Lactic Acid 4.10 H* Calcium Phosphorus Magnesium Alkaline Phosphatase Ammonia Total Creatine Kinase C-Reactive Protein Total Protein Albumin Vitamin B12 TSH Urine WBC (Auto) Salicylates Miscellaneous Test Crossmatch 10/26/17 10/26/17 10/26/17 11:44 11:44 11:44 WBC RBC Hgb Hct MCV MCH MCHC RDW Seg Neutrophils % Seg Neuts % (Manual) Lymphocytes % (Manual) Monocytes % (Manual) Seg Neutrophils # Seg Neutrophils # Man Monocytes # (Manual) Basophils # (Manual) PT 16.8 H INR 1.29 H POC ABG pH POC ABG pCO2 POC ABG pO2 Sodium 146 H Potassium 6.6 H* Chloride Carbon Dioxide 3 L* BUN 34 H Creatinine 2.2 H Glucose 1281 H* POC Glucose Lactic Acid Calcium 8.0 L Phosphorus Magnesium Alkaline Phosphatase 196 H Ammonia 67.0 H Total Creatine Kinase 24 L C-Reactive Protein Total Protein Albumin 3.6 L Vitamin B12 TSH Urine WBC (Auto) Salicylates Miscellaneous Test Crossmatch 10/26/17 10/26/17 10/26/17 11:44 12:01 12:59 WBC RBC Hgb Hct MCV MCH MCHC RDW Seg Neutrophils % Seg Neuts % (Manual) Lymphocytes % (Manual) Monocytes % (Manual) Seg Neutrophils # Seg Neutrophils # Man Monocytes # (Manual) Basophils # (Manual) PT INR POC ABG pH 6.895 L POC ABG pCO2 12.3 L POC ABG pO2 311 H Sodium Potassium Chloride Carbon Dioxide BUN Creatinine Glucose POC Glucose Lactic Acid Calcium Phosphorus Magnesium Alkaline Phosphatase Ammonia Total Creatine Kinase C-Reactive Protein Total Protein Albumin Vitamin B12 TSH Urine WBC (Auto) 42.0 H Salicylates < 0.3 L Miscellaneous Test Crossmatch 10/26/17 10/26/17 10/26/17 13:06 13:17 13:17 WBC RBC Hgb Hct MCV MCH MCHC RDW Seg Neutrophils % Seg Neuts % (Manual) Lymphocytes % (Manual) Monocytes % (Manual) Seg Neutrophils # Seg Neutrophils # Man Monocytes # (Manual) Basophils # (Manual) PT INR POC ABG pH POC ABG pCO2 POC ABG pO2 Sodium 146 H Potassium 7.1 H* Chloride Carbon Dioxide 2 L* BUN 35 H Creatinine 2.3 H Glucose 1330 H* POC Glucose Lactic Acid 4.10 H* Calcium 7.7 L Phosphorus 11.10 H Magnesium 2.70 H Alkaline Phosphatase Ammonia Total Creatine Kinase C-Reactive Protein Total Protein Albumin Vitamin B12 TSH Urine WBC (Auto) Salicylates Miscellaneous Test Crossmatch 02/23/18 02/23/18 02/23/18 14:57 15:26 15:26 WBC RBC Hgb Hct MCV MCH MCHC RDW Seg Neutrophils % Seg Neuts % (Manual) Lymphocytes % (Manual) Monocytes % (Manual) Seg Neutrophils # Seg Neutrophils # Man Monocytes # (Manual) Basophils # (Manual) PT INR POC ABG pH POC ABG pCO2 POC ABG pO2 Sodium 147 H Potassium 6.3 H* Chloride Carbon Dioxide < 2.0 L* BUN 37 H Creatinine 2.4 H Glucose 1115 H* POC Glucose > 500 H Lactic Acid 3.70 H* Calcium 7.2 L Phosphorus Magnesium Alkaline Phosphatase Ammonia Total Creatine Kinase C-Reactive Protein Total Protein Albumin Vitamin B12 TSH Urine WBC (Auto) Salicylates Miscellaneous Test Crossmatch 10/26/17 10/26/17 10/26/17 16:02 17:51 17:51 WBC RBC Hgb Hct MCV MCH MCHC RDW Seg Neutrophils % Seg Neuts % (Manual) Lymphocytes % (Manual) Monocytes % (Manual) Seg Neutrophils # Seg Neutrophils # Man Monocytes # (Manual) Basophils # (Manual) PT INR POC ABG pH POC ABG pCO2 POC ABG pO2 Sodium 149 H Potassium Chloride Carbon Dioxide 2 L* BUN 36 H Creatinine 2.6 H Glucose 1063 H* POC Glucose > 500 H Lactic Acid 6.50 H* Calcium 7.0 L Phosphorus Magnesium Alkaline Phosphatase Ammonia Total Creatine Kinase C-Reactive Protein Total Protein Albumin Vitamin B12 TSH Urine WBC (Auto) Salicylates Miscellaneous Test Crossmatch 10/26/17 10/26/17 10/26/17 18:42 19:55 19:55 WBC RBC Hgb Hct MCV MCH MCHC RDW Seg Neutrophils % Seg Neuts % (Manual) Lymphocytes % (Manual) Monocytes % (Manual) Seg Neutrophils # Seg Neutrophils # Man Monocytes # (Manual) Basophils # (Manual) PT INR POC ABG pH 6.974 L POC ABG pCO2 14.9 L POC ABG pO2 244 H Sodium 150 H Potassium Chloride 108.3 H Carbon Dioxide 4 L* BUN 33 H Creatinine 2.4 H Glucose 663 H* POC Glucose Lactic Acid 8.30 H* Calcium 7.0 L Phosphorus Magnesium Alkaline Phosphatase Ammonia Total Creatine Kinase C-Reactive Protein Total Protein Albumin Vitamin B12 TSH Urine WBC (Auto) Salicylates Miscellaneous Test Crossmatch 10/26/17 10/26/17 10/26/17 21:26 21:26 23:55 WBC RBC Hgb Hct MCV MCH MCHC RDW Seg Neutrophils % Seg Neuts % (Manual) Lymphocytes % (Manual) Monocytes % (Manual) Seg Neutrophils # Seg Neutrophils # Man Monocytes # (Manual) Basophils # (Manual) PT INR POC ABG pH POC ABG pCO2 POC ABG pO2 Sodium 152 H Potassium 3.5 L Chloride 110.4 H Carbon Dioxide 6 L* BUN 32 H Creatinine 2.3 H Glucose 498 H POC Glucose 317 H Lactic Acid 9.00 H* Calcium 7.6 L Phosphorus Magnesium Alkaline Phosphatase Ammonia Total Creatine Kinase C-Reactive Protein Total Protein Albumin Vitamin B12 TSH Urine WBC (Auto) Salicylates Miscellaneous Test Crossmatch 10/27/17 10/27/17 10/27/17 01:21 02:26 03:49 WBC RBC Hgb Hct MCV MCH MCHC RDW Seg Neutrophils % Seg Neuts % (Manual) Lymphocytes % (Manual) Monocytes % (Manual) Seg Neutrophils # Seg Neutrophils # Man Monocytes # (Manual) Basophils # (Manual) PT INR POC ABG pH POC ABG pCO2 POC ABG pO2 Sodium Potassium Chloride Carbon Dioxide BUN Creatinine Glucose POC Glucose 218 H 172 H 136 H Lactic Acid Calcium Phosphorus Magnesium Alkaline Phosphatase Ammonia Total Creatine Kinase C-Reactive Protein Total Protein Albumin Vitamin B12 TSH Urine WBC (Auto) Salicylates Miscellaneous Test Crossmatch 10/27/17 10/27/17 10/27/17 04:50 05:26 06:01 WBC RBC Hgb Hct MCV MCH MCHC RDW Seg Neutrophils % Seg Neuts % (Manual) Lymphocytes % (Manual) Monocytes % (Manual) Seg Neutrophils # Seg Neutrophils # Man Monocytes # (Manual) Basophils # (Manual) PT INR POC ABG pH 7.284 L POC ABG pCO2 POC ABG pO2 204 H Sodium 158 H Potassium 3.5 L Chloride 118.2 H Carbon Dioxide 19 L D BUN 27 H Creatinine 1.9 H Glucose 232 H POC Glucose 221 H Lactic Acid Calcium 7.1 L Phosphorus Magnesium Alkaline Phosphatase Ammonia Total Creatine Kinase C-Reactive Protein Total Protein Albumin Vitamin B12 TSH Urine WBC (Auto) Salicylates Miscellaneous Test Crossmatch 10/27/17 10/27/17 10/27/17 06:05 07:27 09:28 WBC RBC Hgb Hct MCV MCH MCHC RDW Seg Neutrophils % Seg Neuts % (Manual) Lymphocytes % (Manual) Monocytes % (Manual) Seg Neutrophils # Seg Neutrophils # Man Monocytes # (Manual) Basophils # (Manual) PT INR POC ABG pH POC ABG pCO2 POC ABG pO2 Sodium Potassium Chloride Carbon Dioxide BUN Creatinine Glucose POC Glucose 286 H 161 H 123 H Lactic Acid Calcium Phosphorus Magnesium Alkaline Phosphatase Ammonia Total Creatine Kinase C-Reactive Protein Total Protein Albumin Vitamin B12 TSH Urine WBC (Auto) Salicylates Miscellaneous Test Crossmatch 10/27/17 10/27/17 10/27/17 12:30 13:07 14:44 WBC RBC Hgb Hct MCV MCH MCHC RDW Seg Neutrophils % Seg Neuts % (Manual) Lymphocytes % (Manual) Monocytes % (Manual) Seg Neutrophils # Seg Neutrophils # Man Monocytes # (Manual) Basophils # (Manual) PT INR POC ABG pH POC ABG pCO2 POC ABG pO2 Sodium 158 H Potassium 3.2 L Chloride 120.7 H Carbon Dioxide 16 L BUN 23 H Creatinine 1.9 H Glucose 270 H POC Glucose 274 H 200 H Lactic Acid Calcium 7.1 L Phosphorus Magnesium Alkaline Phosphatase Ammonia Total Creatine Kinase C-Reactive Protein Total Protein Albumin Vitamin B12 TSH Urine WBC (Auto) Salicylates Miscellaneous Test Crossmatch 10/27/17 10/27/17 10/27/17 19:03 20:24 20:24 WBC RBC Hgb Hct MCV MCH MCHC RDW Seg Neutrophils % Seg Neuts % (Manual) Lymphocytes % (Manual) Monocytes % (Manual) Seg Neutrophils # Seg Neutrophils # Man Monocytes # (Manual) Basophils # (Manual) PT INR POC ABG pH POC ABG pCO2 POC ABG pO2 Sodium 155 H Potassium 3.4 L Chloride 119.3 H Carbon Dioxide 19 L BUN 20 H Creatinine 1.9 H Glucose 272 H POC Glucose 124 H Lactic Acid Calcium 7.0 L Phosphorus 1.50 L D Magnesium Alkaline Phosphatase Ammonia Total Creatine Kinase C-Reactive Protein 1.50 H Total Protein Albumin Vitamin B12 TSH Urine WBC (Auto) Salicylates Miscellaneous Test Crossmatch 10/27/17 10/27/17 10/28/17 20:40 21:05 03:02 WBC RBC Hgb Hct MCV MCH MCHC RDW Seg Neutrophils % Seg Neuts % (Manual) Lymphocytes % (Manual) Monocytes % (Manual) Seg Neutrophils # Seg Neutrophils # Man Monocytes # (Manual) Basophils # (Manual) PT INR POC ABG pH 7.327 L POC ABG pCO2 32.1 L POC ABG pO2 Sodium 157 H Potassium Chloride 118.8 H Carbon Dioxide 13 L BUN 18 H Creatinine 2.0 H Glucose 560 H* POC Glucose 289 H Lactic Acid Calcium 6.8 L Phosphorus 5.40 H D Magnesium Alkaline Phosphatase Ammonia Total Creatine Kinase C-Reactive Protein Total Protein Albumin Vitamin B12 TSH Urine WBC (Auto) Salicylates Miscellaneous Test Crossmatch 10/28/17 10/28/17 10/28/17 06:06 07:46 08:21 WBC RBC Hgb Hct MCV MCH MCHC RDW Seg Neutrophils % Seg Neuts % (Manual) Lymphocytes % (Manual) Monocytes % (Manual) Seg Neutrophils # Seg Neutrophils # Man Monocytes # (Manual) Basophils # (Manual) PT INR POC ABG pH POC ABG pCO2 POC ABG pO2 Sodium Potassium Chloride Carbon Dioxide BUN Creatinine Glucose POC Glucose > 500 H 500 H Lactic Acid Calcium Phosphorus 6.70 H D Magnesium Alkaline Phosphatase Ammonia Total Creatine Kinase C-Reactive Protein Total Protein Albumin Vitamin B12 TSH Urine WBC (Auto) Salicylates Miscellaneous Test Crossmatch 10/28/17 10/28/17 10/28/17 09:34 11:13 12:55 WBC RBC Hgb Hct MCV MCH MCHC RDW Seg Neutrophils % Seg Neuts % (Manual) Lymphocytes % (Manual) Monocytes % (Manual) Seg Neutrophils # Seg Neutrophils # Man Monocytes # (Manual) Basophils # (Manual) PT INR POC ABG pH POC ABG pCO2 POC ABG pO2 Sodium Potassium Chloride Carbon Dioxide BUN Creatinine Glucose POC Glucose 435 H 273 H 149 H Lactic Acid Calcium Phosphorus Magnesium Alkaline Phosphatase Ammonia Total Creatine Kinase C-Reactive Protein Total Protein Albumin Vitamin B12 TSH Urine WBC (Auto) Salicylates Miscellaneous Test Crossmatch 10/28/17 10/28/17 10/28/17 14:27 15:39 15:39 WBC 15.5 H RBC 3.59 L Hgb 8.3 L Hct 27.6 L D MCV 77 L MCH 23 L MCHC RDW 20.9 H Seg Neutrophils % 78.5 H Seg Neuts % (Manual) Lymphocytes % (Manual) Monocytes % (Manual) Seg Neutrophils # 12.2 H Seg Neutrophils # Man Monocytes # (Manual) Basophils # (Manual) PT INR POC ABG pH POC ABG pCO2 33.9 L POC ABG pO2 138 H Sodium 164 H* Potassium 3.5 L Chloride 125.3 H Carbon Dioxide 18 L BUN Creatinine 1.6 H Glucose 37 L* POC Glucose Lactic Acid Calcium 7.5 L Phosphorus Magnesium Alkaline Phosphatase Ammonia Total Creatine Kinase C-Reactive Protein Total Protein Albumin Vitamin B12 TSH Urine WBC (Auto) Salicylates Miscellaneous Test Crossmatch 10/28/17 10/28/17 10/28/17 15:47 15:50 16:28 WBC RBC Hgb Hct MCV MCH MCHC RDW Seg Neutrophils % Seg Neuts % (Manual) Lymphocytes % (Manual) Monocytes % (Manual) Seg Neutrophils # Seg Neutrophils # Man Monocytes # (Manual) Basophils # (Manual) PT INR POC ABG pH POC ABG pCO2 POC ABG pO2 Sodium Potassium Chloride Carbon Dioxide BUN Creatinine Glucose POC Glucose < 40 L 114 H Lactic Acid Calcium Phosphorus Magnesium Alkaline Phosphatase Ammonia Total Creatine Kinase C-Reactive Protein 4.40 H Total Protein Albumin Vitamin B12 TSH Urine WBC (Auto) Salicylates Miscellaneous Test Crossmatch 10/28/17 10/28/17 10/28/17 19:07 19:24 23:10 WBC RBC Hgb Hct MCV MCH MCHC RDW Seg Neutrophils % Seg Neuts % (Manual) Lymphocytes % (Manual) Monocytes % (Manual) Seg Neutrophils # Seg Neutrophils # Man Monocytes # (Manual) Basophils # (Manual) PT INR POC ABG pH POC ABG pCO2 POC ABG pO2 Sodium 159 H Potassium Chloride 124.1 H Carbon Dioxide 19 L BUN Creatinine 1.4 H Glucose 219 H POC Glucose 111 H Lactic Acid Calcium 7.1 L Phosphorus Magnesium Alkaline Phosphatase Ammonia Total Creatine Kinase C-Reactive Protein Total Protein Albumin Vitamin B12 TSH Urine WBC (Auto) Salicylates Miscellaneous Test Flexitest 1 H Crossmatch 10/28/17 10/29/17 10/29/17 23:59 03:41 03:41 WBC 14.1 H RBC 3.32 L Hgb 7.6 L Hct 25.5 L MCV 77 L MCH 23 L MCHC RDW 20.8 H Seg Neutrophils % Seg Neuts % (Manual) Lymphocytes % (Manual) Monocytes % (Manual) Seg Neutrophils # Seg Neutrophils # Man Monocytes # (Manual) Basophils # (Manual) PT INR POC ABG pH POC ABG pCO2 POC ABG pO2 Sodium 158 H Potassium Chloride 122.7 H Carbon Dioxide 15 L BUN Creatinine 1.3 H Glucose 176 H POC Glucose 307 H Lactic Acid Calcium 7.2 L Phosphorus Magnesium Alkaline Phosphatase Ammonia Total Creatine Kinase C-Reactive Protein Total Protein Albumin Vitamin B12 TSH Urine WBC (Auto) Salicylates Miscellaneous Test Crossmatch 10/29/17 10/29/17 10/29/17 04:55 05:44 09:28 WBC RBC Hgb Hct MCV MCH MCHC RDW Seg Neutrophils % Seg Neuts % (Manual) Lymphocytes % (Manual) Monocytes % (Manual) Seg Neutrophils # Seg Neutrophils # Man Monocytes # (Manual) Basophils # (Manual) PT INR POC ABG pH POC ABG pCO2 31.2 L POC ABG pO2 123 H Sodium 151 H Potassium Chloride 117.1 H Carbon Dioxide 17 L BUN Creatinine Glucose 378 H POC Glucose 253 H Lactic Acid Calcium 7.4 L Phosphorus Magnesium Alkaline Phosphatase Ammonia Total Creatine Kinase C-Reactive Protein Total Protein Albumin Vitamin B12 TSH Urine WBC (Auto) Salicylates Miscellaneous Test Crossmatch 10/29/17 10/29/17 10/29/17 10:39 13:50 18:35 WBC RBC Hgb Hct MCV MCH MCHC RDW Seg Neutrophils % Seg Neuts % (Manual) Lymphocytes % (Manual) Monocytes % (Manual) Seg Neutrophils # Seg Neutrophils # Man Monocytes # (Manual) Basophils # (Manual) PT INR POC ABG pH POC ABG pCO2 POC ABG pO2 Sodium Potassium Chloride Carbon Dioxide BUN Creatinine Glucose POC Glucose 418 H 220 H Lactic Acid Calcium Phosphorus Magnesium Alkaline Phosphatase Ammonia Total Creatine Kinase C-Reactive Protein Total Protein Albumin Vitamin B12 TSH 0.216 L Urine WBC (Auto) Salicylates Miscellaneous Test Crossmatch 10/29/17 10/30/17 10/30/17 21:28 00:06 03:58 WBC RBC Hgb Hct MCV MCH MCHC RDW Seg Neutrophils % Seg Neuts % (Manual) Lymphocytes % (Manual) Monocytes % (Manual) Seg Neutrophils # Seg Neutrophils # Man Monocytes # (Manual) Basophils # (Manual) PT INR POC ABG pH POC ABG pCO2 POC ABG pO2 Sodium 153 H Potassium Chloride 117.0 H Carbon Dioxide 16 L BUN Creatinine Glucose 165 H POC Glucose 184 H 177 H Lactic Acid Calcium 8.0 L Phosphorus Magnesium Alkaline Phosphatase Ammonia Total Creatine Kinase C-Reactive Protein Total Protein Albumin Vitamin B12 TSH Urine WBC (Auto) Salicylates Miscellaneous Test Crossmatch 10/30/17 10/30/17 10/30/17 05:02 05:42 10:36 WBC RBC Hgb Hct MCV MCH MCHC RDW Seg Neutrophils % Seg Neuts % (Manual) Lymphocytes % (Manual) Monocytes % (Manual) Seg Neutrophils # Seg Neutrophils # Man Monocytes # (Manual) Basophils # (Manual) PT INR POC ABG pH POC ABG pCO2 34.8 L POC ABG pO2 107 H Sodium 149 H Potassium Chloride 115.5 H Carbon Dioxide 16 L BUN Creatinine Glucose 230 H POC Glucose 192 H Lactic Acid Calcium 7.6 L Phosphorus Magnesium Alkaline Phosphatase Ammonia Total Creatine Kinase C-Reactive Protein Total Protein Albumin Vitamin B12 TSH Urine WBC (Auto) Salicylates Miscellaneous Test Crossmatch 10/30/17 10/30/17 10/30/17 12:13 18:02 23:08 WBC RBC Hgb Hct MCV MCH MCHC RDW Seg Neutrophils % Seg Neuts % (Manual) Lymphocytes % (Manual) Monocytes % (Manual) Seg Neutrophils # Seg Neutrophils # Man Monocytes # (Manual) Basophils # (Manual) PT INR POC ABG pH POC ABG pCO2 POC ABG pO2 Sodium Potassium Chloride Carbon Dioxide BUN Creatinine Glucose POC Glucose 264 H 213 H 162 H Lactic Acid Calcium Phosphorus Magnesium Alkaline Phosphatase Ammonia Total Creatine Kinase C-Reactive Protein Total Protein Albumin Vitamin B12 TSH Urine WBC (Auto) Salicylates Miscellaneous Test Crossmatch 10/31/17 10/31/17 10/31/17 01:00 04:03 07:15 WBC RBC Hgb Hct MCV MCH MCHC RDW Seg Neutrophils % Seg Neuts % (Manual) Lymphocytes % (Manual) Monocytes % (Manual) Seg Neutrophils # Seg Neutrophils # Man Monocytes # (Manual) Basophils # (Manual) PT INR POC ABG pH POC ABG pCO2 29.6 L POC ABG pO2 118 H Sodium Potassium Chloride Carbon Dioxide BUN Creatinine Glucose POC Glucose 176 H 197 H Lactic Acid Calcium Phosphorus Magnesium Alkaline Phosphatase Ammonia Total Creatine Kinase C-Reactive Protein Total Protein Albumin Vitamin B12 TSH Urine WBC (Auto) Salicylates Miscellaneous Test Crossmatch 10/31/17 10/31/17 10/31/17 09:24 11:44 17:23 WBC RBC Hgb Hct MCV MCH MCHC RDW Seg Neutrophils % Seg Neuts % (Manual) Lymphocytes % (Manual) Monocytes % (Manual) Seg Neutrophils # Seg Neutrophils # Man Monocytes # (Manual) Basophils # (Manual) PT INR POC ABG pH POC ABG pCO2 POC ABG pO2 Sodium 151 H Potassium 3.2 L D Chloride 116.1 H Carbon Dioxide 20 L BUN 6 L Creatinine Glucose 181 H POC Glucose 196 H 261 H Lactic Acid Calcium 8.2 L Phosphorus Magnesium Alkaline Phosphatase Ammonia Total Creatine Kinase C-Reactive Protein Total Protein Albumin Vitamin B12 TSH Urine WBC (Auto) Salicylates Miscellaneous Test Crossmatch 10/31/17 10/31/17 11/01/17 20:30 23:52 03:28 WBC RBC Hgb Hct MCV MCH MCHC RDW Seg Neutrophils % Seg Neuts % (Manual) Lymphocytes % (Manual) Monocytes % (Manual) Seg Neutrophils # Seg Neutrophils # Man Monocytes # (Manual) Basophils # (Manual) PT INR POC ABG pH POC ABG pCO2 POC ABG pO2 Sodium 150 H Potassium Chloride 113.8 H Carbon Dioxide 20 L BUN 6 L Creatinine Glucose 145 H POC Glucose 212 H 157 H Lactic Acid Calcium Phosphorus Magnesium Alkaline Phosphatase Ammonia Total Creatine Kinase C-Reactive Protein Total Protein Albumin Vitamin B12 TSH Urine WBC (Auto) Salicylates Miscellaneous Test Crossmatch 11/01/17 11/01/17 11/01/17 05:50 12:00 12:23 WBC RBC Hgb Hct MCV MCH MCHC RDW Seg Neutrophils % Seg Neuts % (Manual) Lymphocytes % (Manual) Monocytes % (Manual) Seg Neutrophils # Seg Neutrophils # Man Monocytes # (Manual) Basophils # (Manual) PT INR POC ABG pH POC ABG pCO2 POC ABG pO2 Sodium Potassium Chloride Carbon Dioxide BUN Creatinine Glucose POC Glucose 143 H 273 H Lactic Acid Calcium Phosphorus Magnesium Alkaline Phosphatase Ammonia Total Creatine Kinase C-Reactive Protein Total Protein Albumin Vitamin B12 TSH Urine WBC (Auto) 91.0 H Salicylates Miscellaneous Test Crossmatch 11/01/17 11/01/17 11/01/17 18:12 18:36 20:18 WBC RBC Hgb Hct MCV MCH MCHC RDW Seg Neutrophils % Seg Neuts % (Manual) Lymphocytes % (Manual) Monocytes % (Manual) Seg Neutrophils # Seg Neutrophils # Man Monocytes # (Manual) Basophils # (Manual) PT INR POC ABG pH POC ABG pCO2 POC ABG pO2 Sodium Potassium Chloride Carbon Dioxide BUN Creatinine Glucose POC Glucose 292 H 298 H Lactic Acid Calcium Phosphorus Magnesium Alkaline Phosphatase 151 H Ammonia Total Creatine Kinase C-Reactive Protein Total Protein 5.8 L Albumin 2.9 L Vitamin B12 TSH Urine WBC (Auto) Salicylates Miscellaneous Test Crossmatch 11/02/17 11/02/17 11/02/17 00:23 05:39 08:40 WBC RBC Hgb Hct MCV MCH MCHC RDW Seg Neutrophils % Seg Neuts % (Manual) Lymphocytes % (Manual) Monocytes % (Manual) Seg Neutrophils # Seg Neutrophils # Man Monocytes # (Manual) Basophils # (Manual) PT INR POC ABG pH POC ABG pCO2 POC ABG pO2 Sodium Potassium 3.1 L D Chloride 107.6 H Carbon Dioxide BUN Creatinine Glucose 163 H POC Glucose 263 H 123 H Lactic Acid Calcium Phosphorus Magnesium Alkaline Phosphatase Ammonia Total Creatine Kinase C-Reactive Protein Total Protein Albumin Vitamin B12 TSH Urine WBC (Auto) Salicylates Miscellaneous Test Crossmatch 11/02/17 11/02/17 11/02/17 11:56 17:30 20:43 WBC RBC Hgb Hct MCV MCH MCHC RDW Seg Neutrophils % Seg Neuts % (Manual) Lymphocytes % (Manual) Monocytes % (Manual) Seg Neutrophils # Seg Neutrophils # Man Monocytes # (Manual) Basophils # (Manual) PT INR POC ABG pH POC ABG pCO2 POC ABG pO2 Sodium Potassium Chloride Carbon Dioxide BUN Creatinine Glucose POC Glucose 252 H 233 H 274 H Lactic Acid Calcium Phosphorus Magnesium Alkaline Phosphatase Ammonia Total Creatine Kinase C-Reactive Protein Total Protein Albumin Vitamin B12 TSH Urine WBC (Auto) Salicylates Miscellaneous Test Crossmatch 11/02/17 11/03/17 11/03/17 Unknown 00:22 04:00 WBC RBC 2.95 L Hgb 7.1 L Hct 22.1 L MCV 75 L MCH 24 L MCHC RDW 19.5 H Seg Neutrophils % Seg Neuts % (Manual) 75.0 H Lymphocytes % (Manual) Monocytes % (Manual) Seg Neutrophils # Seg Neutrophils # Man Monocytes # (Manual) Basophils # (Manual) PT INR POC ABG pH POC ABG pCO2 POC ABG pO2 Sodium Potassium Chloride Carbon Dioxide BUN Creatinine Glucose 254 H POC Glucose 310 H Lactic Acid Calcium Phosphorus Magnesium Alkaline Phosphatase Ammonia Total Creatine Kinase C-Reactive Protein Total Protein Albumin Vitamin B12 TSH Urine WBC (Auto) Salicylates Miscellaneous Test Crossmatch 11/03/17 11/03/17 11/03/17 05:49 08:19 12:19 WBC RBC Hgb Hct MCV MCH MCHC RDW Seg Neutrophils % Seg Neuts % (Manual) Lymphocytes % (Manual) Monocytes % (Manual) Seg Neutrophils # Seg Neutrophils # Man Monocytes # (Manual) Basophils # (Manual) PT INR POC ABG pH POC ABG pCO2 POC ABG pO2 Sodium Potassium Chloride Carbon Dioxide BUN Creatinine Glucose POC Glucose 260 H 235 H 293 H Lactic Acid Calcium Phosphorus Magnesium Alkaline Phosphatase Ammonia Total Creatine Kinase C-Reactive Protein Total Protein Albumin Vitamin B12 TSH Urine WBC (Auto) Salicylates Miscellaneous Test Crossmatch 11/03/17 11/03/17 11/03/17 17:51 18:15 18:15 WBC RBC Hgb Hct MCV MCH MCHC RDW Seg Neutrophils % Seg Neuts % (Manual) Lymphocytes % (Manual) Monocytes % (Manual) Seg Neutrophils # Seg Neutrophils # Man Monocytes # (Manual) Basophils # (Manual) PT INR POC ABG pH POC ABG pCO2 POC ABG pO2 Sodium Potassium Chloride Carbon Dioxide BUN Creatinine Glucose POC Glucose 259 H Lactic Acid Calcium Phosphorus Magnesium Alkaline Phosphatase Ammonia Total Creatine Kinase C-Reactive Protein Total Protein Albumin Vitamin B12 1162 H TSH Urine WBC (Auto) Salicylates Miscellaneous Test Crossmatch See Detail 11/03/17 11/04/17 11/04/17 20:05 00:33 03:46 WBC 12.9 H RBC Hgb 8.9 L Hct 28.3 L D MCV 76 L MCH 24 L MCHC RDW 20.2 H Seg Neutrophils % Seg Neuts % (Manual) Lymphocytes % (Manual) Monocytes % (Manual) 10.0 H Seg Neutrophils # Seg Neutrophils # Man 8.3 H Monocytes # (Manual) 1.3 H Basophils # (Manual) PT INR POC ABG pH POC ABG pCO2 POC ABG pO2 Sodium Potassium Chloride Carbon Dioxide BUN Creatinine Glucose POC Glucose 298 H 235 H Lactic Acid Calcium Phosphorus Magnesium Alkaline Phosphatase Ammonia Total Creatine Kinase C-Reactive Protein Total Protein Albumin Vitamin B12 TSH Urine WBC (Auto) Salicylates Miscellaneous Test Crossmatch 11/04/17 11/04/17 11/04/17 03:46 05:23 08:36 WBC RBC Hgb Hct MCV MCH MCHC RDW Seg Neutrophils % Seg Neuts % (Manual) Lymphocytes % (Manual) Monocytes % (Manual) Seg Neutrophils # Seg Neutrophils # Man Monocytes # (Manual) Basophils # (Manual) PT INR POC ABG pH POC ABG pCO2 POC ABG pO2 Sodium Potassium Chloride Carbon Dioxide BUN 19 H Creatinine Glucose 197 H POC Glucose 192 H 141 H Lactic Acid Calcium Phosphorus Magnesium Alkaline Phosphatase Ammonia Total Creatine Kinase C-Reactive Protein Total Protein Albumin Vitamin B12 TSH Urine WBC (Auto) Salicylates Miscellaneous Test Crossmatch 11/04/17 12:28 WBC RBC Hgb Hct MCV MCH MCHC RDW Seg Neutrophils % Seg Neuts % (Manual) Lymphocytes % (Manual) Monocytes % (Manual) Seg Neutrophils # Seg Neutrophils # Man Monocytes # (Manual) Basophils # (Manual) PT INR POC ABG pH POC ABG pCO2 POC ABG pO2 Sodium Potassium Chloride Carbon Dioxide BUN Creatinine Glucose POC Glucose 183 H Lactic Acid Calcium Phosphorus Magnesium Alkaline Phosphatase Ammonia Total Creatine Kinase C-Reactive Protein Total Protein Albumin Vitamin B12 TSH Urine WBC (Auto) Salicylates Miscellaneous Test Crossmatch Allied health notes reviewed: RT
[2017-11-04] MEDS: CATAPRES PO SCH (18:03)
[2017-11-04 19:15] LABS: Myeloperoxidase Antibody <1.0 AI (<1.0)
[2017-11-04] MEDS: DIFLUCAN 200 MG/100 ML BAG IV SCH (21:04)
[2017-11-05] MEDS: NORMODYNE IV PRN ×2 (01:09→23:38)
[2017-11-05] MEDS: NORCO 5/325 PO PRN ×3 (04:11→17:37)
[2017-11-05 04:30] LABS: Hematocrit 30.1 % (30.3-42.9); Hemoglobin 9.5 gm/dl (10.1-14.3); Mean Corpuscular HGB Conc 32 % (30-34); Mean Corpuscular Volume 77 fl (79-97); Platelet Count 538 K/mm3 (140-440); Red Blood Count 3.91 M/mm3 (3.65-5.03)
[2017-11-05 04:31] LABS: Mean Corpuscular Hemoglobin 24 pg (28-32); Red Cell Distribution Width 20.4 % (13.2-15.2)
[2017-11-05 05:02] LABS: BUN/Creatinine Ratio 18; Blood Urea Nitrogen 16 mg/dL (7-17); Calcium 8.8 mg/dL (8.4-10.2); Hemolysis Index 0
[2017-11-05 05:38] LABS: Band Neutrophils # (Manual) 0.1 K/mm3; Basophils % (Manual) 0 % (0.0-1.8); Eosinophils % (Manual) 0 % (0.0-4.3); Myelocytes # (Manual) 0.1 K/mm3; Total Cells Counted 100
[2017-11-05 05:39] LABS: Anisocytosis 2+; Spherocytes Few
[2017-11-05 05:42] LABS: Macrocytosis Few; Platelet Estimate Consistent w Auto
--- NOTE | 2017-11-05 09:52 | Progress Note ---
Assessment and Plan Assessment: 1) SIRS:better. Etiology pneumonia+/- UTI? +/- encephalopathy +/- asp pneumonitis +/- dehydration from DKA. CXR negative x 2. Blood cultures negative. CRP=4.4-->0.3. Procalcitonin-0.8. MARANDA thickened GB and mild pericholecystic fluid. ANCA neg. C3=73 (low) 2) Bilateral pneumonia: ? aspiration vs. CAP -CTA + patchy annie ASD L>R, mediastinal fullness with LNs, small right pleural effusion -S/P levaquin and flagyl 7 days 3) Acute respiratory failure: from encephalopathy / OD -Tracheal asp + Strep group B and Barbie likely a colonizer 4) NUNU - better 5) Uncontrolled DM with DKA 6) Hyperkalemia - resolved 7) Extensive sclerae edema/lip edema ? angioedema ?SVC syndrome. CTA no PE + mediastinal fullness. Clinically better. on IV steroids. 8) UTI- mild. Urine cx + Barbie 9) Encephalopathy: ? from OD 10) Thyroid lesions / mildly low TSH 11) Distended GB ? acalculous cholecystitis 12) Mediastinal fullness ? small LNs. HIV neg. Repeat CT chest +anterior mediastinal stranding and no pathologic LN. CT neck normal. 13) Low C3 at 73 ? unclear significance Plan: -stop fluconazole - day 5 of 5 -f/u cortisol, ELLIE, C4 -remove grigsby I am signing off Thank you for your consultation, will follow up with you. Aziza Stanford MD Infectious Diseases Specialist [facility] ([facility]) M [phone] O [phone] Subjective Date of service: 11/05/17 Principal diagnosis: Acute Hypoxemic Respiratory Failure; Acute Encephalopathy Interval history: Remains on the vent but alert following commands, no fever overnight, still tachycardic. Microbiology: Blood cultures: 10/27 ngtd Urine cultures: 10/28 Barbie 10-50K Respiratory cultures: 10/27 Beta hem group B and Barbie Current Antimicrobials: levaquin and flagyl 10/28 Previous Antimicrobials: Zosyn 10/26 Vancomycin 10/26 Objective - Constitutional Vitals: Vital Signs Temp Pulse Resp BP Pulse Ox 98.7 F 101 H 18 171/119 100 11/05/17 08:46 11/05/17 08:00 11/05/17 07:42 11/05/17 08:00 11/05/17 08:00 Temperature -Last 24 Hours Temperature 98.7 F Temperature 98.7 F Temperature 98.5 F Temperature 99.4 F Temperature 98.2 F Temperature 98.8 F Temperature 99 F - Labs CBC & Chem 7: 11/05/17 04:00 11/05/17 04:00 Labs: Abnormal lab results 11/02/17 11/04/17 11/04/17 Range/Units Unknown 12:28 17:45 WBC (4.5-11.0) K/mm3 Hgb (10.1-14.3) gm/dl Hct (30.3-42.9) % MCV (79-97) fl MCH (28-32) pg RDW (13.2-15.2) % Plt Count (140-440) K/mm3 Seg Neuts % (Manual) (40.0-70.0) % Seg Neutrophils # Man (1.8-7.7) K/mm3 Chloride (98-107) mmol/L Glucose (65-100) mg/dL POC Glucose 183 H 172 H (70-105) Complement C3 74 L (83-193) mg/dL 11/05/17 11/05/17 11/05/17 Range/Units 04:00 04:00 05:38 WBC 11.6 H (4.5-11.0) K/mm3 Hgb 9.5 L (10.1-14.3) gm/dl Hct 30.1 L (30.3-42.9) % MCV 77 L (79-97) fl MCH 24 L (28-32) pg RDW 20.4 H (13.2-15.2) % Plt Count 538 H (140-440) K/mm3 Seg Neuts % (Manual) 73.0 H (40.0-70.0) % Seg Neutrophils # Man 8.5 H (1.8-7.7) K/mm3 Chloride 96.6 L (98-107) mmol/L Glucose 193 H (65-100) mg/dL POC Glucose 216 H (70-105) Complement C3 (83-193) mg/dL
[2017-11-05] MEDS: BENADRYL IV SCH ×2 (10:04→22:00)
[2017-11-05] MEDS: HEPARIN SUB-Q SCH ×2 (10:04→22:01)
[2017-11-05] MEDS: CATAPRES PO SCH ×3 (10:05→22:00)
[2017-11-05] MEDS: PEPCID PO SCH ×2 (10:06→21:58)
--- NOTE | 2017-11-05 10:51 | Progress Note ---
Assessment and Plan - Patient Problems (1) Acute renal failure Current Visit: Yes Status: Acute Qualifiers: Acute renal failure type: with acute tubular necrosis Qualified Code(s): N17.0 - Acute kidney failure with tubular necrosis Plan to address problem: Acute kidney failure is Pre-renal azotemia versus acute renal necrosis secondary to volume depletion with diabetic ketoacidosis and osmotic diuresis. Kidney function is back to normal. no further renal recommendations at this time. will sign off, please call with any questions (2) DKA (diabetic ketoacidoses) Current Visit: Yes Status: Acute Qualifiers: Diabetes mellitus type: type 1 Diabetes mellitus complication detail: with coma Qualified Code(s): E10.11 - Type 1 diabetes mellitus with ketoacidosis with coma Plan to address problem: Resolved. 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 Objective - Vital Signs Vital signs: Vital Signs - 12hr 11/04/17 11/04/17 11/04/17 23:00 23:30 23:37 Temperature Pulse Rate 100 H 101 H 100 H Respiratory 16 16 16 Rate Blood Pressure 178/108 178/109 178/109 O2 Sat by Pulse 96 96 98 Oximetry 11/05/17 11/05/17 11/05/17 00:00 00:30 01:00 Temperature 99.4 F Pulse Rate 100 H 101 H 100 H Respiratory 17 17 17 Rate Blood Pressure 187/115 180/110 188/114 O2 Sat by Pulse 96 96 96 Oximetry 11/05/17 11/05/17 11/05/17 01:09 01:25 01:30 Temperature Pulse Rate 100 H 96 H Respiratory 20 16 Rate Blood Pressure 188/114 194/113 O2 Sat by Pulse 99 97 Oximetry 11/05/17 11/05/17 11/05/17 02:00 02:30 03:00 Temperature Pulse Rate 100 H 101 H 98 H Respiratory 13 14 16 Rate Blood Pressure 171/108 187/107 187/111 O2 Sat by Pulse 97 96 96 Oximetry 11/05/17 11/05/17 11/05/17 03:30 04:00 04:30 Temperature 98.5 F Pulse Rate 97 H 101 H 99 H Respiratory 17 20 18 Rate Blood Pressure 190/118 178/114 174/110 O2 Sat by Pulse 97 99 96 Oximetry 11/05/17 11/05/17 11/05/17 05:00 05:22 05:30 Temperature Pulse Rate 101 H 101 H 102 H Respiratory 20 19 Rate Blood Pressure 168/105 173/113 182/113 O2 Sat by Pulse 99 98 99 Oximetry 11/05/17 11/05/17 11/05/17 06:00 06:30 07:00 Temperature Pulse Rate 106 H 95 H 102 H Respiratory 26 H 17 23 Rate Blood Pressure 156/109 185/120 174/109 O2 Sat by Pulse 99 97 95 Oximetry 11/05/17 11/05/17 11/05/17 07:31 07:42 08:00 Temperature 98.7 F Pulse Rate 102 H 101 H Respiratory 17 18 19 Rate Blood Pressure 182/115 171/104 177/114 O2 Sat by Pulse 99 98 99 Oximetry 11/05/17 11/05/17 11/05/17 08:30 08:46 09:00 Temperature 98.7 F Pulse Rate 101 H 102 H Respiratory 19 16 Rate Blood Pressure 175/115 177/117 O2 Sat by Pulse 98 97 Oximetry 11/05/17 11/05/17 11/05/17 09:30 10:00 10:05 Temperature Pulse Rate 102 H 106 H 104 H Respiratory 21 Rate Blood Pressure 167/110 171/120 O2 Sat by Pulse 97 Oximetry - General Appearance General appearance: well-developed, well-nourished, appears stated age, intubated EENT: ATNC, PERRL, mucous membranes moist Neck: no JVD Respiratory: Present: Clear to Ascultation Cardiology: regular, S1S2 Gastrointestinal: normoactive bowel sounds Integumentary: no rash, other (no edema ) Neurologic: no focal deficit, alert and oriented x3, strength 5/5, CN 3-12 intact Psychiatric: mood/affect appropriate, cooperative - Lab 11/05/17 04:00 11/05/17 04:00 Most recent lab results Calcium 8.8 mg/dL (8.4-10.2) 11/05/17 04:00 Phosphorus 3.30 mg/dL (2.5-4.5) 11/01/17 03:28 Magnesium 2.20 mg/dL (1.7-2.3) 11/03/17 04:00
--- NOTE | 2017-11-05 12:04 | Progress Note ---
Assessment and Plan Acute respiratory failure, on mechanical ventilatory support. Acute encephalopathy, appears toxic metabolic at this point. Diabetic ketoacidosis. Sepsis syndrome. History of chronic pain. Possible drug abuse. Anemia. Leukocytosis. Hyperammonemia. Severe metabolic acidosis with a lactic acid component. - reduced sedation and reduced seroquel dose - started reglan to improve GI motility re: regurgitation - avoid opiate overuse - continue PPI, antihistamine therapy and increased steroids dose and frequency - continue to wean oxygen to keep sats > 90% - continue GI & VTE prophylaxis - azotemia per nephrology (improved) - hypernatremia resolved - continue bronchodilators and pulmonary hygiene per RT - continue other care per attending / other consultants - will get a 2 hour SBT - extubate to qhs BIPAP X 24-48hours - prn racemic epinephrine post extubation - increased clonidine dose to 0.2mg q8h via feeding tube ...improved but still critical ....re-evaluate in am & prn ...35' CCT Subjective Date of service: 11/05/17 Principal diagnosis: Acute Hypoxemic Respiratory Failure; Acute Encephalopathy Interval history: Patient is seen today for: Acute Hypoxemic Respiratory Failure; Acute Encephalopathy Seen and examined at bedside; 24hour events reviewed; nursing and respiratory care staff consulted; no adverse overnight events reported to me; cuff leak much better; tolerated PSV trial tenuously earlier though pulling low tidal volumes; denies acute chest pains; tube feeds on hold due to high residuals Objective Vital Signs - 12hr 11/05/17 11/05/17 11/05/17 00:30 01:00 01:09 Temperature Pulse Rate 101 H 100 H 100 H Respiratory 17 17 Rate Blood Pressure 180/110 188/114 188/114 O2 Sat by Pulse 96 96 Oximetry 11/05/17 11/05/17 11/05/17 01:25 01:30 02:00 Temperature Pulse Rate 96 H 100 H Respiratory 20 16 13 Rate Blood Pressure 194/113 171/108 O2 Sat by Pulse 99 97 97 Oximetry 11/05/17 11/05/17 11/05/17 02:30 03:00 03:30 Temperature Pulse Rate 101 H 98 H 97 H Respiratory 14 16 17 Rate Blood Pressure 187/107 187/111 190/118 O2 Sat by Pulse 96 96 97 Oximetry 11/05/17 11/05/17 11/05/17 04:00 04:30 05:00 Temperature 98.5 F Pulse Rate 101 H 99 H 101 H Respiratory 20 18 20 Rate Blood Pressure 178/114 174/110 168/105 O2 Sat by Pulse 99 96 99 Oximetry 11/05/17 11/05/17 11/05/17 05:22 05:30 06:00 Temperature Pulse Rate 101 H 102 H 106 H Respiratory 19 26 H Rate Blood Pressure 173/113 182/113 156/109 O2 Sat by Pulse 98 99 99 Oximetry 11/05/17 11/05/17 11/05/17 06:30 07:00 07:31 Temperature Pulse Rate 95 H 102 H 102 H Respiratory 17 23 17 Rate Blood Pressure 185/120 174/109 182/115 O2 Sat by Pulse 97 95 99 Oximetry 11/05/17 11/05/17 11/05/17 07:42 08:00 08:30 Temperature 98.7 F Pulse Rate 101 H 101 H Respiratory 18 19 19 Rate Blood Pressure 171/104 177/114 175/115 O2 Sat by Pulse 98 99 98 Oximetry 11/05/17 11/05/17 11/05/17 08:46 09:00 09:30 Temperature 98.7 F Pulse Rate 102 H 102 H Respiratory 16 21 Rate Blood Pressure 177/117 167/110 O2 Sat by Pulse 97 97 Oximetry 11/05/17 11/05/17 11/05/17 10:00 10:05 10:30 Temperature Pulse Rate 127 H 104 H 110 H Respiratory 24 18 Rate Blood Pressure 132/112 171/120 173/110 O2 Sat by Pulse 100 99 Oximetry 11/05/17 11:00 Temperature Pulse Rate 104 H Respiratory 16 Rate Blood Pressure 169/108 O2 Sat by Pulse 98 Oximetry Constitutional: no acute distress, alert Eyes: non-icteric, other (orbital phimosis) ENT: oropharynx moist, oropharyngeal exudate pre Neck: supple, no lymphadenopathy, no JVD, other (neck and facial swelling improved) Effort: mildly labored Ascultation: Bilateral: rhonchi (scant in bases) Percussion: Bilateral: not dull Cardiovascular: regular rate and rhythm, other (no rubs / murmurs) Gastrointestinal: normoactive bowel sounds, soft, non-tender, non-distended, other (no palpable HSM) Integumentary: normal Extremities: no cyanosis, no edema, pulses normal, no ischemia or petechiae Neurologic: normal mental status, non-focal exam, pupils equal and round, motor strength normal and Psychiatric: mood appropriate, affect normal CBC and BMP: 11/05/17 04:00 11/05/17 04:00 ABG, PT/INR, D-dimer: ABG POC ABG pH 7.381 (7.35-7.45) 11/01/17 06:03 POC ABG pCO2 40.1 (35-45) 11/01/17 06:03 POC ABG pO2 95 (80-105) 11/01/17 06:03 POC ABG HCO3 23.8 11/01/17 06:03 POC ABG Total CO2 25 11/01/17 06:03 POC ABG O2 Sat 97 11/01/17 06:03 PT/INR, D-dimer PT 16.8 Sec. (12.2-14.9) H 10/26/17 11:44 INR 1.29 (0.87-1.13) H 10/26/17 11:44 Abnormal lab findings: Abnormal Labs 10/26/17 10/26/17 10/26/17 11:23 11:44 11:44 WBC 20.6 H RBC 3.62 L Hgb 8.3 L Hct MCV MCH 23 L MCHC 24 L RDW 21.7 H Plt Count Seg Neutrophils % Seg Neuts % (Manual) 76.0 H Lymphocytes % (Manual) 11.0 L Monocytes % (Manual) Seg Neutrophils # Seg Neutrophils # Man 15.7 H Monocytes # (Manual) Basophils # (Manual) 0.2 H PT INR POC ABG pH POC ABG pCO2 POC ABG pO2 Sodium Potassium Chloride Carbon Dioxide BUN Creatinine Glucose POC Glucose > 500 H Lactic Acid 4.10 H* Calcium Phosphorus Magnesium Alkaline Phosphatase Ammonia Total Creatine Kinase C-Reactive Protein Total Protein Albumin Vitamin B12 TSH Urine WBC (Auto) Salicylates Complement C3 Miscellaneous Test Crossmatch 10/26/17 10/26/17 10/26/17 11:44 11:44 11:44 WBC RBC Hgb Hct MCV MCH MCHC RDW Plt Count Seg Neutrophils % Seg Neuts % (Manual) Lymphocytes % (Manual) Monocytes % (Manual) Seg Neutrophils # Seg Neutrophils # Man Monocytes # (Manual) Basophils # (Manual) PT 16.8 H INR 1.29 H POC ABG pH POC ABG pCO2 POC ABG pO2 Sodium 146 H Potassium 6.6 H* Chloride Carbon Dioxide 3 L* BUN 34 H Creatinine 2.2 H Glucose 1281 H* POC Glucose Lactic Acid Calcium 8.0 L Phosphorus Magnesium Alkaline Phosphatase 196 H Ammonia 67.0 H Total Creatine Kinase 24 L C-Reactive Protein Total Protein Albumin 3.6 L Vitamin B12 TSH Urine WBC (Auto) Salicylates Complement C3 Miscellaneous Test Crossmatch 10/26/17 10/26/17 10/26/17 11:44 12:01 12:59 WBC RBC Hgb Hct MCV MCH MCHC RDW Plt Count Seg Neutrophils % Seg Neuts % (Manual) Lymphocytes % (Manual) Monocytes % (Manual) Seg Neutrophils # Seg Neutrophils # Man Monocytes # (Manual) Basophils # (Manual) PT INR POC ABG pH 6.895 L POC ABG pCO2 12.3 L POC ABG pO2 311 H Sodium Potassium Chloride Carbon Dioxide BUN Creatinine Glucose POC Glucose Lactic Acid Calcium Phosphorus Magnesium Alkaline Phosphatase Ammonia Total Creatine Kinase C-Reactive Protein Total Protein Albumin Vitamin B12 TSH Urine WBC (Auto) 42.0 H Salicylates < 0.3 L Complement C3 Miscellaneous Test Crossmatch 10/26/17 10/26/17 10/26/17 13:06 13:17 13:17 WBC RBC Hgb Hct MCV MCH MCHC RDW Plt Count Seg Neutrophils % Seg Neuts % (Manual) Lymphocytes % (Manual) Monocytes % (Manual) Seg Neutrophils # Seg Neutrophils # Man Monocytes # (Manual) Basophils # (Manual) PT INR POC ABG pH POC ABG pCO2 POC ABG pO2 Sodium 146 H Potassium 7.1 H* Chloride Carbon Dioxide 2 L* BUN 35 H Creatinine 2.3 H Glucose 1330 H* POC Glucose Lactic Acid 4.10 H* Calcium 7.7 L Phosphorus 11.10 H Magnesium 2.70 H Alkaline Phosphatase Ammonia Total Creatine Kinase C-Reactive Protein Total Protein Albumin Vitamin B12 TSH Urine WBC (Auto) Salicylates Complement C3 Miscellaneous Test Crossmatch 10/26/17 10/26/17 10/26/17 14:57 15:26 15:26 WBC RBC Hgb Hct MCV MCH MCHC RDW Plt Count Seg Neutrophils % Seg Neuts % (Manual) Lymphocytes % (Manual) Monocytes % (Manual) Seg Neutrophils # Seg Neutrophils # Man Monocytes # (Manual) Basophils # (Manual) PT INR POC ABG pH POC ABG pCO2 POC ABG pO2 Sodium 147 H Potassium 6.3 H* Chloride Carbon Dioxide < 2.0 L* BUN 37 H Creatinine 2.4 H Glucose 1115 H* POC Glucose > 500 H Lactic Acid 3.70 H* Calcium 7.2 L Phosphorus Magnesium Alkaline Phosphatase Ammonia Total Creatine Kinase C-Reactive Protein Total Protein Albumin Vitamin B12 TSH Urine WBC (Auto) Salicylates Complement C3 Miscellaneous Test Crossmatch 10/26/17 10/26/17 10/26/17 16:02 17:51 17:51 WBC RBC Hgb Hct MCV MCH MCHC RDW Plt Count Seg Neutrophils % Seg Neuts % (Manual) Lymphocytes % (Manual) Monocytes % (Manual) Seg Neutrophils # Seg Neutrophils # Man Monocytes # (Manual) Basophils # (Manual) PT INR POC ABG pH POC ABG pCO2 POC ABG pO2 Sodium 149 H Potassium Chloride Carbon Dioxide 2 L* BUN 36 H Creatinine 2.6 H Glucose 1063 H* POC Glucose > 500 H Lactic Acid 6.50 H* Calcium 7.0 L Phosphorus Magnesium Alkaline Phosphatase Ammonia Total Creatine Kinase C-Reactive Protein Total Protein Albumin Vitamin B12 TSH Urine WBC (Auto) Salicylates Complement C3 Miscellaneous Test Crossmatch 10/26/17 10/26/17 10/26/17 18:42 19:55 19:55 WBC RBC Hgb Hct MCV MCH MCHC RDW Plt Count Seg Neutrophils % Seg Neuts % (Manual) Lymphocytes % (Manual) Monocytes % (Manual) Seg Neutrophils # Seg Neutrophils # Man Monocytes # (Manual) Basophils # (Manual) PT INR POC ABG pH 6.974 L POC ABG pCO2 14.9 L POC ABG pO2 244 H Sodium 150 H Potassium Chloride 108.3 H Carbon Dioxide 4 L* BUN 33 H Creatinine 2.4 H Glucose 663 H* POC Glucose Lactic Acid 8.30 H* Calcium 7.0 L Phosphorus Magnesium Alkaline Phosphatase Ammonia Total Creatine Kinase C-Reactive Protein Total Protein Albumin Vitamin B12 TSH Urine WBC (Auto) Salicylates Complement C3 Miscellaneous Test Crossmatch 10/26/17 10/26/17 10/26/17 21:26 21:26 23:55 WBC RBC Hgb Hct MCV MCH MCHC RDW Plt Count Seg Neutrophils % Seg Neuts % (Manual) Lymphocytes % (Manual) Monocytes % (Manual) Seg Neutrophils # Seg Neutrophils # Man Monocytes # (Manual) Basophils # (Manual) PT INR POC ABG pH POC ABG pCO2 POC ABG pO2 Sodium 152 H Potassium 3.5 L Chloride 110.4 H Carbon Dioxide 6 L* BUN 32 H Creatinine 2.3 H Glucose 498 H POC Glucose 317 H Lactic Acid 9.00 H* Calcium 7.6 L Phosphorus Magnesium Alkaline Phosphatase Ammonia Total Creatine Kinase C-Reactive Protein Total Protein Albumin Vitamin B12 TSH Urine WBC (Auto) Salicylates Complement C3 Miscellaneous Test Crossmatch 10/27/17 10/27/17 10/27/17 01:21 02:26 03:49 WBC RBC Hgb Hct MCV MCH MCHC RDW Plt Count Seg Neutrophils % Seg Neuts % (Manual) Lymphocytes % (Manual) Monocytes % (Manual) Seg Neutrophils # Seg Neutrophils # Man Monocytes # (Manual) Basophils # (Manual) PT INR POC ABG pH POC ABG pCO2 POC ABG pO2 Sodium Potassium Chloride Carbon Dioxide BUN Creatinine Glucose POC Glucose 218 H 172 H 136 H Lactic Acid Calcium Phosphorus Magnesium Alkaline Phosphatase Ammonia Total Creatine Kinase C-Reactive Protein Total Protein Albumin Vitamin B12 TSH Urine WBC (Auto) Salicylates Complement C3 Miscellaneous Test Crossmatch 10/27/17 10/27/17 10/27/17 04:50 05:26 06:01 WBC RBC Hgb Hct MCV MCH MCHC RDW Plt Count Seg Neutrophils % Seg Neuts % (Manual) Lymphocytes % (Manual) Monocytes % (Manual) Seg Neutrophils # Seg Neutrophils # Man Monocytes # (Manual) Basophils # (Manual) PT INR POC ABG pH 7.284 L POC ABG pCO2 POC ABG pO2 204 H Sodium 158 H Potassium 3.5 L Chloride 118.2 H Carbon Dioxide 19 L D BUN 27 H Creatinine 1.9 H Glucose 232 H POC Glucose 221 H Lactic Acid Calcium 7.1 L Phosphorus Magnesium Alkaline Phosphatase Ammonia Total Creatine Kinase C-Reactive Protein Total Protein Albumin Vitamin B12 TSH Urine WBC (Auto) Salicylates Complement C3 Miscellaneous Test Crossmatch 10/27/17 10/27/17 10/27/17 06:05 07:27 09:28 WBC RBC Hgb Hct MCV MCH MCHC RDW Plt Count Seg Neutrophils % Seg Neuts % (Manual) Lymphocytes % (Manual) Monocytes % (Manual) Seg Neutrophils # Seg Neutrophils # Man Monocytes # (Manual) Basophils # (Manual) PT INR POC ABG pH POC ABG pCO2 POC ABG pO2 Sodium Potassium Chloride Carbon Dioxide BUN Creatinine Glucose POC Glucose 286 H 161 H 123 H Lactic Acid Calcium Phosphorus Magnesium Alkaline Phosphatase Ammonia Total Creatine Kinase C-Reactive Protein Total Protein Albumin Vitamin B12 TSH Urine WBC (Auto) Salicylates Complement C3 Miscellaneous Test Crossmatch 10/27/17 10/27/17 10/27/17 12:30 13:07 14:44 WBC RBC Hgb Hct MCV MCH MCHC RDW Plt Count Seg Neutrophils % Seg Neuts % (Manual) Lymphocytes % (Manual) Monocytes % (Manual) Seg Neutrophils # Seg Neutrophils # Man Monocytes # (Manual) Basophils # (Manual) PT INR POC ABG pH POC ABG pCO2 POC ABG pO2 Sodium 158 H Potassium 3.2 L Chloride 120.7 H Carbon Dioxide 16 L BUN 23 H Creatinine 1.9 H Glucose 270 H POC Glucose 274 H 200 H Lactic Acid Calcium 7.1 L Phosphorus Magnesium Alkaline Phosphatase Ammonia Total Creatine Kinase C-Reactive Protein Total Protein Albumin Vitamin B12 TSH Urine WBC (Auto) Salicylates Complement C3 Miscellaneous Test Crossmatch 10/27/17 10/27/17 10/27/17 19:03 20:24 20:24 WBC RBC Hgb Hct MCV MCH MCHC RDW Plt Count Seg Neutrophils % Seg Neuts % (Manual) Lymphocytes % (Manual) Monocytes % (Manual) Seg Neutrophils # Seg Neutrophils # Man Monocytes # (Manual) Basophils # (Manual) PT INR POC ABG pH POC ABG pCO2 POC ABG pO2 Sodium 155 H Potassium 3.4 L Chloride 119.3 H Carbon Dioxide 19 L BUN 20 H Creatinine 1.9 H Glucose 272 H POC Glucose 124 H Lactic Acid Calcium 7.0 L Phosphorus 1.50 L D Magnesium Alkaline Phosphatase Ammonia Total Creatine Kinase C-Reactive Protein 1.50 H Total Protein Albumin Vitamin B12 TSH Urine WBC (Auto) Salicylates Complement C3 Miscellaneous Test Crossmatch 10/27/17 10/27/17 10/28/17 20:40 21:05 03:02 WBC RBC Hgb Hct MCV MCH MCHC RDW Plt Count Seg Neutrophils % Seg Neuts % (Manual) Lymphocytes % (Manual) Monocytes % (Manual) Seg Neutrophils # Seg Neutrophils # Man Monocytes # (Manual) Basophils # (Manual) PT INR POC ABG pH 7.327 L POC ABG pCO2 32.1 L POC ABG pO2 Sodium 157 H Potassium Chloride 118.8 H Carbon Dioxide 13 L BUN 18 H Creatinine 2.0 H Glucose 560 H* POC Glucose 289 H Lactic Acid Calcium 6.8 L Phosphorus 5.40 H D Magnesium Alkaline Phosphatase Ammonia Total Creatine Kinase C-Reactive Protein Total Protein Albumin Vitamin B12 TSH Urine WBC (Auto) Salicylates Complement C3 Miscellaneous Test Crossmatch 10/28/17 10/28/17 10/28/17 06:06 07:46 08:21 WBC RBC Hgb Hct MCV MCH MCHC RDW Plt Count Seg Neutrophils % Seg Neuts % (Manual) Lymphocytes % (Manual) Monocytes % (Manual) Seg Neutrophils # Seg Neutrophils # Man Monocytes # (Manual) Basophils # (Manual) PT INR POC ABG pH POC ABG pCO2 POC ABG pO2 Sodium Potassium Chloride Carbon Dioxide BUN Creatinine Glucose POC Glucose > 500 H 500 H Lactic Acid Calcium Phosphorus 6.70 H D Magnesium Alkaline Phosphatase Ammonia Total Creatine Kinase C-Reactive Protein Total Protein Albumin Vitamin B12 TSH Urine WBC (Auto) Salicylates Complement C3 Miscellaneous Test Crossmatch 10/28/17 10/28/17 10/28/17 09:34 11:13 12:55 WBC RBC Hgb Hct MCV MCH MCHC RDW Plt Count Seg Neutrophils % Seg Neuts % (Manual) Lymphocytes % (Manual) Monocytes % (Manual) Seg Neutrophils # Seg Neutrophils # Man Monocytes # (Manual) Basophils # (Manual) PT INR POC ABG pH POC ABG pCO2 POC ABG pO2 Sodium Potassium Chloride Carbon Dioxide BUN Creatinine Glucose POC Glucose 435 H 273 H 149 H Lactic Acid Calcium Phosphorus Magnesium Alkaline Phosphatase Ammonia Total Creatine Kinase C-Reactive Protein Total Protein Albumin Vitamin B12 TSH Urine WBC (Auto) Salicylates Complement C3 Miscellaneous Test Crossmatch 10/28/17 10/28/17 10/28/17 14:27 15:39 15:39 WBC 15.5 H RBC 3.59 L Hgb 8.3 L Hct 27.6 L D MCV 77 L MCH 23 L MCHC RDW 20.9 H Plt Count Seg Neutrophils % 78.5 H Seg Neuts % (Manual) Lymphocytes % (Manual) Monocytes % (Manual) Seg Neutrophils # 12.2 H Seg Neutrophils # Man Monocytes # (Manual) Basophils # (Manual) PT INR POC ABG pH POC ABG pCO2 33.9 L POC ABG pO2 138 H Sodium 164 H* Potassium 3.5 L Chloride 125.3 H Carbon Dioxide 18 L BUN Creatinine 1.6 H Glucose 37 L* POC Glucose Lactic Acid Calcium 7.5 L Phosphorus Magnesium Alkaline Phosphatase Ammonia Total Creatine Kinase C-Reactive Protein Total Protein Albumin Vitamin B12 TSH Urine WBC (Auto) Salicylates Complement C3 Miscellaneous Test Crossmatch 10/28/17 10/28/17 10/28/17 15:47 15:50 16:28 WBC RBC Hgb Hct MCV MCH MCHC RDW Plt Count Seg Neutrophils % Seg Neuts % (Manual) Lymphocytes % (Manual) Monocytes % (Manual) Seg Neutrophils # Seg Neutrophils # Man Monocytes # (Manual) Basophils # (Manual) PT INR POC ABG pH POC ABG pCO2 POC ABG pO2 Sodium Potassium Chloride Carbon Dioxide BUN Creatinine Glucose POC Glucose < 40 L 114 H Lactic Acid Calcium Phosphorus Magnesium Alkaline Phosphatase Ammonia Total Creatine Kinase C-Reactive Protein 4.40 H Total Protein Albumin Vitamin B12 TSH Urine WBC (Auto) Salicylates Complement C3 Miscellaneous Test Crossmatch 10/28/17 10/28/17 10/28/17 19:07 19:24 23:10 WBC RBC Hgb Hct MCV MCH MCHC RDW Plt Count Seg Neutrophils % Seg Neuts % (Manual) Lymphocytes % (Manual) Monocytes % (Manual) Seg Neutrophils # Seg Neutrophils # Man Monocytes # (Manual) Basophils # (Manual) PT INR POC ABG pH POC ABG pCO2 POC ABG pO2 Sodium 159 H Potassium Chloride 124.1 H Carbon Dioxide 19 L BUN Creatinine 1.4 H Glucose 219 H POC Glucose 111 H Lactic Acid Calcium 7.1 L Phosphorus Magnesium Alkaline Phosphatase Ammonia Total Creatine Kinase C-Reactive Protein Total Protein Albumin Vitamin B12 TSH Urine WBC (Auto) Salicylates Complement C3 Miscellaneous Test Flexitest 1 H Crossmatch 10/28/17 10/29/17 10/29/17 23:59 03:41 03:41 WBC 14.1 H RBC 3.32 L Hgb 7.6 L Hct 25.5 L MCV 77 L MCH 23 L MCHC RDW 20.8 H Plt Count Seg Neutrophils % Seg Neuts % (Manual) Lymphocytes % (Manual) Monocytes % (Manual) Seg Neutrophils # Seg Neutrophils # Man Monocytes # (Manual) Basophils # (Manual) PT INR POC ABG pH POC ABG pCO2 POC ABG pO2 Sodium 158 H Potassium Chloride 122.7 H Carbon Dioxide 15 L BUN Creatinine 1.3 H Glucose 176 H POC Glucose 307 H Lactic Acid Calcium 7.2 L Phosphorus Magnesium Alkaline Phosphatase Ammonia Total Creatine Kinase C-Reactive Protein Total Protein Albumin Vitamin B12 TSH Urine WBC (Auto) Salicylates Complement C3 Miscellaneous Test Crossmatch 10/29/17 10/29/17 10/29/17 04:55 05:44 09:28 WBC RBC Hgb Hct MCV MCH MCHC RDW Plt Count Seg Neutrophils % Seg Neuts % (Manual) Lymphocytes % (Manual) Monocytes % (Manual) Seg Neutrophils # Seg Neutrophils # Man Monocytes # (Manual) Basophils # (Manual) PT INR POC ABG pH POC ABG pCO2 31.2 L POC ABG pO2 123 H Sodium 151 H Potassium Chloride 117.1 H Carbon Dioxide 17 L BUN Creatinine Glucose 378 H POC Glucose 253 H Lactic Acid Calcium 7.4 L Phosphorus Magnesium Alkaline Phosphatase Ammonia Total Creatine Kinase C-Reactive Protein Total Protein Albumin Vitamin B12 TSH Urine WBC (Auto) Salicylates Complement C3 Miscellaneous Test Crossmatch 10/29/17 10/29/17 10/29/17 10:39 13:50 18:35 WBC RBC Hgb Hct MCV MCH MCHC RDW Plt Count Seg Neutrophils % Seg Neuts % (Manual) Lymphocytes % (Manual) Monocytes % (Manual) Seg Neutrophils # Seg Neutrophils # Man Monocytes # (Manual) Basophils # (Manual) PT INR POC ABG pH POC ABG pCO2 POC ABG pO2 Sodium Potassium Chloride Carbon Dioxide BUN Creatinine Glucose POC Glucose 418 H 220 H Lactic Acid Calcium Phosphorus Magnesium Alkaline Phosphatase Ammonia Total Creatine Kinase C-Reactive Protein Total Protein Albumin Vitamin B12 TSH 0.216 L Urine WBC (Auto) Salicylates Complement C3 Miscellaneous Test Crossmatch 10/29/17 10/30/17 10/30/17 21:28 00:06 03:58 WBC RBC Hgb Hct MCV MCH MCHC RDW Plt Count Seg Neutrophils % Seg Neuts % (Manual) Lymphocytes % (Manual) Monocytes % (Manual) Seg Neutrophils # Seg Neutrophils # Man Monocytes # (Manual) Basophils # (Manual) PT INR POC ABG pH POC ABG pCO2 POC ABG pO2 Sodium 153 H Potassium Chloride 117.0 H Carbon Dioxide 16 L BUN Creatinine Glucose 165 H POC Glucose 184 H 177 H Lactic Acid Calcium 8.0 L Phosphorus Magnesium Alkaline Phosphatase Ammonia Total Creatine Kinase C-Reactive Protein Total Protein Albumin Vitamin B12 TSH Urine WBC (Auto) Salicylates Complement C3 Miscellaneous Test Crossmatch 10/30/17 10/30/17 10/30/17 05:02 05:42 10:36 WBC RBC Hgb Hct MCV MCH MCHC RDW Plt Count Seg Neutrophils % Seg Neuts % (Manual) Lymphocytes % (Manual) Monocytes % (Manual) Seg Neutrophils # Seg Neutrophils # Man Monocytes # (Manual) Basophils # (Manual) PT INR POC ABG pH POC ABG pCO2 34.8 L POC ABG pO2 107 H Sodium 149 H Potassium Chloride 115.5 H Carbon Dioxide 16 L BUN Creatinine Glucose 230 H POC Glucose 192 H Lactic Acid Calcium 7.6 L Phosphorus Magnesium Alkaline Phosphatase Ammonia Total Creatine Kinase C-Reactive Protein Total Protein Albumin Vitamin B12 TSH Urine WBC (Auto) Salicylates Complement C3 Miscellaneous Test Crossmatch 10/30/17 10/30/17 10/30/17 12:13 18:02 23:08 WBC RBC Hgb Hct MCV MCH MCHC RDW Plt Count Seg Neutrophils % Seg Neuts % (Manual) Lymphocytes % (Manual) Monocytes % (Manual) Seg Neutrophils # Seg Neutrophils # Man Monocytes # (Manual) Basophils # (Manual) PT INR POC ABG pH POC ABG pCO2 POC ABG pO2 Sodium Potassium Chloride Carbon Dioxide BUN Creatinine Glucose POC Glucose 264 H 213 H 162 H Lactic Acid Calcium Phosphorus Magnesium Alkaline Phosphatase Ammonia Total Creatine Kinase C-Reactive Protein Total Protein Albumin Vitamin B12 TSH Urine WBC (Auto) Salicylates Complement C3 Miscellaneous Test Crossmatch 10/31/17 10/31/17 10/31/17 01:00 04:03 07:15 WBC RBC Hgb Hct MCV MCH MCHC RDW Plt Count Seg Neutrophils % Seg Neuts % (Manual) Lymphocytes % (Manual) Monocytes % (Manual) Seg Neutrophils # Seg Neutrophils # Man Monocytes # (Manual) Basophils # (Manual) PT INR POC ABG pH POC ABG pCO2 29.6 L POC ABG pO2 118 H Sodium Potassium Chloride Carbon Dioxide BUN Creatinine Glucose POC Glucose 176 H 197 H Lactic Acid Calcium Phosphorus Magnesium Alkaline Phosphatase Ammonia Total Creatine Kinase C-Reactive Protein Total Protein Albumin Vitamin B12 TSH Urine WBC (Auto) Salicylates Complement C3 Miscellaneous Test Crossmatch 10/31/17 10/31/17 10/31/17 09:24 11:44 17:23 WBC RBC Hgb Hct MCV MCH MCHC RDW Plt Count Seg Neutrophils % Seg Neuts % (Manual) Lymphocytes % (Manual) Monocytes % (Manual) Seg Neutrophils # Seg Neutrophils # Man Monocytes # (Manual) Basophils # (Manual) PT INR POC ABG pH POC ABG pCO2 POC ABG pO2 Sodium 151 H Potassium 3.2 L D Chloride 116.1 H Carbon Dioxide 20 L BUN 6 L Creatinine Glucose 181 H POC Glucose 196 H 261 H Lactic Acid Calcium 8.2 L Phosphorus Magnesium Alkaline Phosphatase Ammonia Total Creatine Kinase C-Reactive Protein Total Protein Albumin Vitamin B12 TSH Urine WBC (Auto) Salicylates Complement C3 Miscellaneous Test Crossmatch 10/31/17 10/31/17 11/01/17 20:30 23:52 03:28 WBC RBC Hgb Hct MCV MCH MCHC RDW Plt Count Seg Neutrophils % Seg Neuts % (Manual) Lymphocytes % (Manual) Monocytes % (Manual) Seg Neutrophils # Seg Neutrophils # Man Monocytes # (Manual) Basophils # (Manual) PT INR POC ABG pH POC ABG pCO2 POC ABG pO2 Sodium 150 H Potassium Chloride 113.8 H Carbon Dioxide 20 L BUN 6 L Creatinine Glucose 145 H POC Glucose 212 H 157 H Lactic Acid Calcium Phosphorus Magnesium Alkaline Phosphatase Ammonia Total Creatine Kinase C-Reactive Protein Total Protein Albumin Vitamin B12 TSH Urine WBC (Auto) Salicylates Complement C3 Miscellaneous Test Crossmatch 11/01/17 11/01/17 11/01/17 05:50 12:00 12:23 WBC RBC Hgb Hct MCV MCH MCHC RDW Plt Count Seg Neutrophils % Seg Neuts % (Manual) Lymphocytes % (Manual) Monocytes % (Manual) Seg Neutrophils # Seg Neutrophils # Man Monocytes # (Manual) Basophils # (Manual) PT INR POC ABG pH POC ABG pCO2 POC ABG pO2 Sodium Potassium Chloride Carbon Dioxide BUN Creatinine Glucose POC Glucose 143 H 273 H Lactic Acid Calcium Phosphorus Magnesium Alkaline Phosphatase Ammonia Total Creatine Kinase C-Reactive Protein Total Protein Albumin Vitamin B12 TSH Urine WBC (Auto) 91.0 H Salicylates Complement C3 Miscellaneous Test Crossmatch 11/01/17 11/01/17 11/01/17 18:12 18:36 20:18 WBC RBC Hgb Hct MCV MCH MCHC RDW Plt Count Seg Neutrophils % Seg Neuts % (Manual) Lymphocytes % (Manual) Monocytes % (Manual) Seg Neutrophils # Seg Neutrophils # Man Monocytes # (Manual) Basophils # (Manual) PT INR POC ABG pH POC ABG pCO2 POC ABG pO2 Sodium Potassium Chloride Carbon Dioxide BUN Creatinine Glucose POC Glucose 292 H 298 H Lactic Acid Calcium Phosphorus Magnesium Alkaline Phosphatase 151 H Ammonia Total Creatine Kinase C-Reactive Protein Total Protein 5.8 L Albumin 2.9 L Vitamin B12 TSH Urine WBC (Auto) Salicylates Complement C3 Miscellaneous Test Crossmatch 11/02/17 11/02/17 11/02/17 00:23 05:39 08:40 WBC RBC Hgb Hct MCV MCH MCHC RDW Plt Count Seg Neutrophils % Seg Neuts % (Manual) Lymphocytes % (Manual) Monocytes % (Manual) Seg Neutrophils # Seg Neutrophils # Man Monocytes # (Manual) Basophils # (Manual) PT INR POC ABG pH POC ABG pCO2 POC ABG pO2 Sodium Potassium 3.1 L D Chloride 107.6 H Carbon Dioxide BUN Creatinine Glucose 163 H POC Glucose 263 H 123 H Lactic Acid Calcium Phosphorus Magnesium Alkaline Phosphatase Ammonia Total Creatine Kinase C-Reactive Protein Total Protein Albumin Vitamin B12 TSH Urine WBC (Auto) Salicylates Complement C3 Miscellaneous Test Crossmatch 11/02/17 11/02/17 11/02/17 11:56 17:30 20:43 WBC RBC Hgb Hct MCV MCH MCHC RDW Plt Count Seg Neutrophils % Seg Neuts % (Manual) Lymphocytes % (Manual) Monocytes % (Manual) Seg Neutrophils # Seg Neutrophils # Man Monocytes # (Manual) Basophils # (Manual) PT INR POC ABG pH POC ABG pCO2 POC ABG pO2 Sodium Potassium Chloride Carbon Dioxide BUN Creatinine Glucose POC Glucose 252 H 233 H 274 H Lactic Acid Calcium Phosphorus Magnesium Alkaline Phosphatase Ammonia Total Creatine Kinase C-Reactive Protein Total Protein Albumin Vitamin B12 TSH Urine WBC (Auto) Salicylates Complement C3 Miscellaneous Test Crossmatch 11/02/17 11/02/17 11/03/17 Unknown Unknown 00:22 WBC RBC 2.95 L Hgb 7.1 L Hct 22.1 L MCV 75 L MCH 24 L MCHC RDW 19.5 H Plt Count Seg Neutrophils % Seg Neuts % (Manual) 75.0 H Lymphocytes % (Manual) Monocytes % (Manual) Seg Neutrophils # Seg Neutrophils # Man Monocytes # (Manual) Basophils # (Manual) PT INR POC ABG pH POC ABG pCO2 POC ABG pO2 Sodium Potassium Chloride Carbon Dioxide BUN Creatinine Glucose POC Glucose 310 H Lactic Acid Calcium Phosphorus Magnesium Alkaline Phosphatase Ammonia Total Creatine Kinase C-Reactive Protein Total Protein Albumin Vitamin B12 TSH Urine WBC (Auto) Salicylates Complement C3 74 L Miscellaneous Test Crossmatch 11/03/17 11/03/17 11/03/17 04:00 05:49 08:19 WBC RBC Hgb Hct MCV MCH MCHC RDW Plt Count Seg Neutrophils % Seg Neuts % (Manual) Lymphocytes % (Manual) Monocytes % (Manual) Seg Neutrophils # Seg Neutrophils # Man Monocytes # (Manual) Basophils # (Manual) PT INR POC ABG pH POC ABG pCO2 POC ABG pO2 Sodium Potassium Chloride Carbon Dioxide BUN Creatinine Glucose 254 H POC Glucose 260 H 235 H Lactic Acid Calcium Phosphorus Magnesium Alkaline Phosphatase Ammonia Total Creatine Kinase C-Reactive Protein Total Protein Albumin Vitamin B12 TSH Urine WBC (Auto) Salicylates Complement C3 Miscellaneous Test Crossmatch 11/03/17 11/03/17 11/03/17 12:19 17:51 18:15 WBC RBC Hgb Hct MCV MCH MCHC RDW Plt Count Seg Neutrophils % Seg Neuts % (Manual) Lymphocytes % (Manual) Monocytes % (Manual) Seg Neutrophils # Seg Neutrophils # Man Monocytes # (Manual) Basophils # (Manual) PT INR POC ABG pH POC ABG pCO2 POC ABG pO2 Sodium Potassium Chloride Carbon Dioxide BUN Creatinine Glucose POC Glucose 293 H 259 H Lactic Acid Calcium Phosphorus Magnesium Alkaline Phosphatase Ammonia Total Creatine Kinase C-Reactive Protein Total Protein Albumin Vitamin B12 TSH Urine WBC (Auto) Salicylates Complement C3 Miscellaneous Test Crossmatch See Detail 11/03/17 11/03/17 11/04/17 18:15 20:05 00:33 WBC RBC Hgb Hct MCV MCH MCHC RDW Plt Count Seg Neutrophils % Seg Neuts % (Manual) Lymphocytes % (Manual) Monocytes % (Manual) Seg Neutrophils # Seg Neutrophils # Man Monocytes # (Manual) Basophils # (Manual) PT INR POC ABG pH POC ABG pCO2 POC ABG pO2 Sodium Potassium Chloride Carbon Dioxide BUN Creatinine Glucose POC Glucose 298 H 235 H Lactic Acid Calcium Phosphorus Magnesium Alkaline Phosphatase Ammonia Total Creatine Kinase C-Reactive Protein Total Protein Albumin Vitamin B12 1162 H TSH Urine WBC (Auto) Salicylates Complement C3 Miscellaneous Test Crossmatch 11/04/17 11/04/17 11/04/17 03:46 03:46 05:23 WBC 12.9 H RBC Hgb 8.9 L Hct 28.3 L D MCV 76 L MCH 24 L MCHC RDW 20.2 H Plt Count Seg Neutrophils % Seg Neuts % (Manual) Lymphocytes % (Manual) Monocytes % (Manual) 10.0 H Seg Neutrophils # Seg Neutrophils # Man 8.3 H Monocytes # (Manual) 1.3 H Basophils # (Manual) PT INR POC ABG pH POC ABG pCO2 POC ABG pO2 Sodium Potassium Chloride Carbon Dioxide BUN 19 H Creatinine Glucose 197 H POC Glucose 192 H Lactic Acid Calcium Phosphorus Magnesium Alkaline Phosphatase Ammonia Total Creatine Kinase C-Reactive Protein Total Protein Albumin Vitamin B12 TSH Urine WBC (Auto) Salicylates Complement C3 Miscellaneous Test Crossmatch 11/04/17 11/04/17 11/04/17 08:36 12:28 17:45 WBC RBC Hgb Hct MCV MCH MCHC RDW Plt Count Seg Neutrophils % Seg Neuts % (Manual) Lymphocytes % (Manual) Monocytes % (Manual) Seg Neutrophils # Seg Neutrophils # Man Monocytes # (Manual) Basophils # (Manual) PT INR POC ABG pH POC ABG pCO2 POC ABG pO2 Sodium Potassium Chloride Carbon Dioxide BUN Creatinine Glucose POC Glucose 141 H 183 H 172 H Lactic Acid Calcium Phosphorus Magnesium Alkaline Phosphatase Ammonia Total Creatine Kinase C-Reactive Protein Total Protein Albumin Vitamin B12 TSH Urine WBC (Auto) Salicylates Complement C3 Miscellaneous Test Crossmatch 11/05/17 11/05/17 11/05/17 04:00 04:00 05:38 WBC 11.6 H RBC Hgb 9.5 L Hct 30.1 L MCV 77 L MCH 24 L MCHC RDW 20.4 H Plt Count 538 H Seg Neutrophils % Seg Neuts % (Manual) 73.0 H Lymphocytes % (Manual) Monocytes % (Manual) Seg Neutrophils # Seg Neutrophils # Man 8.5 H Monocytes # (Manual) Basophils # (Manual) PT INR POC ABG pH POC ABG pCO2 POC ABG pO2 Sodium Potassium Chloride 96.6 L Carbon Dioxide BUN Creatinine Glucose 193 H POC Glucose 216 H Lactic Acid Calcium Phosphorus Magnesium Alkaline Phosphatase Ammonia Total Creatine Kinase C-Reactive Protein Total Protein Albumin Vitamin B12 TSH Urine WBC (Auto) Salicylates Complement C3 Miscellaneous Test Crossmatch Chest x-ray: image reviewed (PICC tip in distal SVC/RA and no new infiltrates) Allied health notes reviewed: nursing
[2017-11-05] MEDS ORDERED: S2 RACEPINEPHRINE 2.25% IH PRN (12:22)
--- NOTE | 2017-11-05 12:49 | XRay Report ---
AP CHEST: HISTORY: Endotracheal tube position The endotracheal tube terminates 1.5 cm superior to the jessica. The nasogastric tube is followed to the stomach. A right arm PICC terminates in the lower SVC. There is patchy infiltrate at the left lung base which could represent pneumonia or aspiration. The right lung is clear. Heart and mediastinal structures are unremarkable. IMPRESSION: Endotracheal tube as described. Left lower lobe infiltrate.
[2017-11-05] MEDS ORDERED: REGLAN PO SCH (13:00)
--- NOTE | 2017-11-05 16:51 | Progress Note ---
Assessment and Plan Assessment and plan: 22 YO Female with DM, Medication Noncompliance, HTN, Chronic Pain presents to ED for evaluation. Pt unable to provide history, but history taken from ED staff , as well as EMS. Pt was found down and unresponsive by neighbors. EMS notified , and upon arrival the patient was found to be unresponsive. Patient had an empty bottle of oxycodone in her pill bag. Narcan was given without improvement in mental status. Patient transported to [facility] for further care and evaluation. Pt seen and evaluated in ED and found to have Acute Respiratory Failure, as well as DKA, and Sepsis. Pt intubated, sedated, and placed on vent support, as well as DKA and sepsis protocols. Pt admitted to ICU. PT has poor prognosis. Sepsis - likely due to pneumonia - Patient was treated with IV Levaquin and Flagyl - ID following Acute respiratory failure, hypoxic, on MV >96 hours, angioedema - Pulmonary consulted, Pt intubated placed on vent support, wean vent as tolerated, daily ABG, daily SBT, nebulizer therapy, Acute renal failure/Vasomotor nephropathy continue IV, renal consult pressures and, resolved Metabolic encephalopathy due to DKA - Resolved Toxic encephalopathy - resolved - UDS was positive for benzo Severe anemia - We'll transfuse 1 unit of blood, post transfusion hemoglobin this morning was 9.5 - Anemia workup - GI consult Hypothermia - Resolved DKA (diabetic ketoacidoses) - Resolved, currently on sliding scale insulin Hypokalemia, hypophosphatemia - repleted, will repeat BMP and Magnesium in the morning Hypernatremia - continue free water replacement Generalized pain - Increase her pain medications DVT prophylaxis - SCD to BLE,. The high probability of a clinically significant, sudden or life threatening deterioration of the [cardiac, pulmonary, renal, endocrine] system(s) required my full and direct attention, intervention and personal management. The aggregate critical care time was [35] minutes. This time is in addition to time spent performing reported procedures but includes the following: [x] Data Review and interpretation [x] Patient assessment and monitoring of vital signs [x] Documentation [x] Medication orders and management History Interval history: Patient was seen and evaluated this morning, patient is on MV. patient follow commands. Patient expressed what she wants in writing. Patient asked she wants a trach. Hospitalist Physical - Physical exam Narrative exam: Patient is intubated and on mechanical ventilation. Lip swelling is getting better. The patient appeared well nourished and normally developed. Vital signs as documented. Head exam is unremarkable. No scleral icterus . Neck is without jugular venous distension, thyromegaly, or carotid bruits. Lungs are clear to auscultation. Cardiac exam reveals regular rate and Rhythm. First and second heart sounds normal. No murmurs, rubs or gallops. Abdominal exam reveals normal bowel sounds, no masses, no organomegaly and no aortic enlargement. Extremities are nonedematous and both femoral and pedal pulses are normal. ANESTHESIA ATTENDING: Patient is alert and write what she wants. - Constitutional Vitals: Temp Pulse Resp BP Pulse Ox 97.8 F 94 H 21 151/108 100 11/05/17 16:14 11/05/17 16:11 11/05/17 16:00 11/05/17 16:00 11/05/17 16:11 General appearance: Present: severe distress, cachectic, disheveled Results - Labs CBC & Chem 7: 11/05/17 04:00 11/05/17 04:00 Labs: Laboratory Last Values WBC 11.6 K/mm3 (4.5-11.0) H 11/05/17 04:00 RBC 3.91 M/mm3 (3.65-5.03) 11/05/17 04:00 Hgb 9.5 gm/dl (10.1-14.3) L 11/05/17 04:00 Hct 30.1 % (30.3-42.9) L 11/05/17 04:00 MCV 77 fl (79-97) L 11/05/17 04:00 MCH 24 pg (28-32) L 11/05/17 04:00 MCHC 32 % (30-34) 11/05/17 04:00 RDW 20.4 % (13.2-15.2) H 11/05/17 04:00 Plt Count 538 K/mm3 (140-440) H 11/05/17 04:00 Lymph % (Auto) 16.4 % (13.4-35.0) 10/28/17 15:39 Day % (Auto) 3.7 % (0.0-7.3) 10/28/17 15:39 Eos % (Auto) 0.7 % (0.0-4.3) 10/28/17 15:39 Baso % (Auto) 0.7 % (0.0-1.8) 10/28/17 15:39 Lymph # 2.6 K/mm3 (1.2-5.4) 10/28/17 15:39 Day # 0.6 K/mm3 (0.0-0.8) 10/28/17 15:39 Eos # 0.1 K/mm3 (0.0-0.4) 10/28/17 15:39 Baso # 0.1 K/mm3 (0.0-0.1) 10/28/17 15:39 Add Manual Diff Complete 11/05/17 04:00 Total Counted 100 11/05/17 04:00 Seg Neutrophils % 78.5 % (40.0-70.0) H 10/28/17 15:39 Seg Neuts % (Manual) 73.0 % (40.0-70.0) H 11/05/17 04:00 Band Neutrophils % 1.0 % 11/05/17 04:00 Lymphocytes % (Manual) 19.0 % (13.4-35.0) 11/05/17 04:00 Reactive Lymphs % (Man) 0 % 11/05/17 04:00 Monocytes % (Manual) 6.0 % (0.0-7.3) 11/05/17 04:00 Eosinophils % (Manual) 0 % (0.0-4.3) 11/05/17 04:00 Basophils % (Manual) 0 % (0.0-1.8) 11/05/17 04:00 Metamyelocytes % 0 % 11/05/17 04:00 Myelocytes % 1.0 % 11/05/17 04:00 Promyelocytes % 0 % 11/05/17 04:00 Blast Cells % 0 % 11/05/17 04:00 Nucleated RBC % Not Reportable 11/05/17 04:00 Seg Neutrophils # 12.2 K/mm3 (1.8-7.7) H 10/28/17 15:39 Seg Neutrophils # Man 8.5 K/mm3 (1.8-7.7) H 11/05/17 04:00 Band Neutrophils # 0.1 K/mm3 11/05/17 04:00 Lymphocytes # (Manual) 2.2 K/mm3 (1.2-5.4) 11/05/17 04:00 Abs React Lymphs (Man) 0.0 K/mm3 11/05/17 04:00 Monocytes # (Manual) 0.7 K/mm3 (0.0-0.8) 11/05/17 04:00 Eosinophils # (Manual) 0.0 K/mm3 (0.0-0.4) 11/05/17 04:00 Basophils # (Manual) 0.0 K/mm3 (0.0-0.1) 11/05/17 04:00 Metamyelocytes # 0.0 K/mm3 11/05/17 04:00 Myelocytes # 0.1 K/mm3 11/05/17 04:00 Promyelocytes # 0.0 K/mm3 11/05/17 04:00 Blast Cells # 0.0 K/mm3 11/05/17 04:00 WBC Morphology Not Reportable 11/05/17 04:00 Hypersegmented Neuts Not Reportable 11/05/17 04:00 Hyposegmented Neuts Not Reportable 11/05/17 04:00 Hypogranular Neuts Not Reportable 11/05/17 04:00 Smudge Cells Not Reportable 11/05/17 04:00 Toxic Granulation Not Reportable 11/05/17 04:00 Toxic Vacuolation Not Reportable 11/05/17 04:00 Dohle Bodies Not Reportable 11/05/17 04:00 Pelger-Huet Anomaly Not Reportable 11/05/17 04:00 Gogo Rods Not Reportable 11/05/17 04:00 Platelet Estimate Consistent w auto 11/05/17 04:00 Clumped Platelets Not Reportable 11/05/17 04:00 Plt Clumps, EDTA Not Reportable 11/05/17 04:00 Large Platelets Not Reportable 11/05/17 04:00 Giant Platelets Not Reportable 11/05/17 04:00 Platelet Satelliting Not Reportable 11/05/17 04:00 Plt Morphology Comment Not Reportable 11/05/17 04:00 RBC Morphology Not Reportable 11/05/17 04:00 Dimorphic RBCs Not Reportable 11/05/17 04:00 Polychromasia Not Reportable 11/05/17 04:00 Hypochromasia Not Reportable 11/05/17 04:00 Poikilocytosis Not Reportable 11/05/17 04:00 Anisocytosis 2+ 11/05/17 04:00 Microcytosis Not Reportable 11/05/17 04:00 Macrocytosis Few 11/05/17 04:00 Spherocytes Few 11/05/17 04:00 Pappenheimer Bodies Not Reportable 11/05/17 04:00 Sickle Cells Not Reportable 11/05/17 04:00 Target Cells Not Reportable 11/05/17 04:00 Tear Drop Cells Not Reportable 11/05/17 04:00 Ovalocytes Not Reportable 11/05/17 04:00 Helmet Cells Not Reportable 11/05/17 04:00 Paulino-Varna Bodies Not Reportable 11/05/17 04:00 [place] Rings Not Reportable 11/05/17 04:00 Caprice Cells Not Reportable 11/05/17 04:00 Bite Cells Not Reportable 11/05/17 04:00 Crenated Cell Not Reportable 11/05/17 04:00 Elliptocytes Not Reportable 11/05/17 04:00 Acanthocytes (Spur) Not Reportable 11/05/17 04:00 Rouleaux Not Reportable 11/05/17 04:00 Hemoglobin C Crystals Not Reportable 11/05/17 04:00 Schistocytes Not Reportable 11/05/17 04:00 Malaria parasites Not Reportable 11/05/17 04:00 David Bodies Not Reportable 11/05/17 04:00 Hem Pathologist Commnt No 11/05/17 04:00 PT 16.8 Sec. (12.2-14.9) H 10/26/17 11:44 INR 1.29 (0.87-1.13) H 10/26/17 11:44 APTT 24.9 Sec. (24.2-36.6) 10/26/17 11:44 POC ABG pH 7.445 (7.35-7.45) 11/05/17 14:38 POC ABG pCO2 45.4 (35-45) H 11/05/17 14:38 POC ABG pO2 109 (80-105) H 11/05/17 14:38 POC ABG HCO3 31.2 11/05/17 14:38 POC ABG Total CO2 33 11/05/17 14:38 POC ABG O2 Sat 98 11/05/17 14:38 POC ABG Base Excess 7 11/05/17 14:38 FiO2 35 % 11/05/17 14:38 Sodium 141 mmol/L (137-145) 11/05/17 04:00 Potassium 3.6 mmol/L (3.6-5.0) 11/05/17 04:00 Chloride 96.6 mmol/L (98-107) L 11/05/17 04:00 Carbon Dioxide 26 mmol/L (22-30) 11/05/17 04:00 Anion Gap 22 mmol/L 11/05/17 04:00 BUN 16 mg/dL (7-17) 11/05/17 04:00 Creatinine 0.9 mg/dL (0.7-1.2) 11/05/17 04:00 Estimated GFR > 60 ml/min 11/05/17 04:00 BUN/Creatinine Ratio 18 % 11/05/17 04:00 Glucose 193 mg/dL (65-100) H 11/05/17 04:00 POC Glucose 175 (70-105) H 11/05/17 11:56 Ketones Quantitative Small (Negative) 10/27/17 20:24 Lactic Acid 1.40 mmol/L (0.7-2.0) 10/27/17 20:34 Calcium 8.8 mg/dL (8.4-10.2) 11/05/17 04:00 Phosphorus 3.30 mg/dL (2.5-4.5) 11/01/17 03:28 Magnesium 2.20 mg/dL (1.7-2.3) 11/03/17 04:00 Iron 67 ug/dL (37-170) 11/03/17 18:15 TIBC 333 mcg/dL (250-450) 11/03/17 18:15 Ferritin 42.6 ng/mL (13.0-400.0) 11/03/17 18:15 Total Bilirubin < 0.20 mg/dL (0.1-1.2) 11/01/17 18:36 Direct Bilirubin < 0.2 mg/dL (0-0.2) 11/01/17 18:36 Indirect Bilirubin 0.0 mg/dL 11/01/17 18:36 AST 12 units/L (5-40) 11/01/17 18:36 ALT 17 units/L (7-56) 11/01/17 18:36 Alkaline Phosphatase 151 units/L (35-129) H 11/01/17 18:36 Ammonia 67.0 umol/L (25-60) H 10/26/17 11:44 Total Creatine Kinase 24 units/L (30-135) L 10/26/17 11:44 Troponin T < 0.010 ng/mL (0.00-0.029) 10/26/17 11:44 C-Reactive Protein 0.30 mg/dL (0.00-1.30) 11/03/17 15:30 Total Protein 5.8 g/dL (6.3-8.2) L 11/01/17 18:36 Albumin 2.9 g/dL (3.9-5) L 11/01/17 18:36 Albumin/Globulin Ratio 1.0 % 11/01/17 18:36 Triglycerides 144 mg/dL (2-149) 10/30/17 10:36 Vitamin B12 1162 pg/mL (211-911) H 11/03/17 18:15 Folate 17.94 ng/mL (7.3-26.0) 11/03/17 18:15 TSH 0.216 mlU/mL (0.270-4.200) L 10/29/17 13:50 Total Cortisol 12.9 mcg/dL () 10/31/17 21:31 Urine Color Yellow (Yellow) 11/01/17 12:00 Urine Turbidity Cloudy (Clear) 11/01/17 12:00 Urine pH 5.0 (5.0-7.0) 11/01/17 12:00 Ur Specific [place] 1.007 (1.003-1.030) 11/01/17 12:00 Urine Protein <15 mg/dl mg/dL (Negative) 11/01/17 12:00 Urine Glucose (UA) >=500 mg/dL (Negative) 11/01/17 12:00 Urine Ketones Neg mg/dL (Negative) 11/01/17 12:00 Urine Blood Sm (Negative) 11/01/17 12:00 Urine Nitrite Neg (Negative) 11/01/17 12:00 Urine Bilirubin Neg (Negative) 11/01/17 12:00 Urine Urobilinogen < 2.0 mg/dL (<2.0) 11/01/17 12:00 Ur Leukocyte Esterase Lg (Negative) 11/01/17 12:00 Urine WBC (Auto) 91.0 /HPF (0.0-6.0) H 11/01/17 12:00 Urine RBC (Auto) > 182.0 /HPF (0.0-6.0) 11/01/17 12:00 U Epithel Cells (Auto) < 1.0 /HPF (0-13.0) 11/01/17 12:00 Urine Bacteria (Auto) 2+ /HPF (Negative) 11/01/17 12:00 Urine WBC Clumps 2+ /HPF 11/01/17 12:00 Uric Acid Crystals 3+ 10/26/17 12:59 Granular Casts 3 /LPF 10/26/17 12:59 Urine Mucus Few /HPF 11/01/17 12:00 Ur Yeast w Hyphae Few /HPF 10/26/17 12:59 Urine Yeast (Budding) 3+ /HPF 11/01/17 12:00 Salicylates < 0.3 mg/dL (2.8-20.0) L 10/26/17 11:44 Urine Opiates Screen Presumptive negative 10/26/17 12:59 Urine Methadone Screen Presumptive negative 10/26/17 12:59 Acetaminophen 15.0 ug/mL (10.0-30.0) 10/26/17 11:44 Ur Barbiturates Screen Presumptive negative 10/26/17 12:59 Ur Phencyclidine Scrn Presumptive negative 10/26/17 12:59 Ur Amphetamines Screen Presumptive negative 10/26/17 12:59 U Benzodiazepines Scrn Presumptive positive 10/26/17 12:59 Urine Cocaine Screen Presumptive negative 10/26/17 12:59 U Marijuana (THC) Screen Presumptive negative 10/26/17 12:59 Drugs of Abuse Note Disclamer 10/26/17 12:59 Plasma/Serum Alcohol < 0.01 % (0-0.07) 10/26/17 11:44 Proteinase 3 (PR3) Ab <1.0 AI (<1.0) 11/02/17 Unknown Myeloperoxidase Ab <1.0 AI (<1.0) 11/02/17 Unknown Complement C3 74 mg/dL (83-193) L 11/02/17 Unknown Complement C4 25 mg/dL (15-57) 11/02/17 Unknown HIV 1&2 Antibody Rapid Non react (Non React) 10/28/17 15:50 HIV P24 Antigen Non react (Non React) 10/28/17 15:50 Miscellaneous Test Flexitest 1 H 10/28/17 19:24 Blood Type O POSITIVE 11/03/17 18:15 Antibody Screen Negative 11/03/17 18:15 Crossmatch See Detail 11/03/17 18:15
[2017-11-05] MEDS: REGLAN PO SCH (17:39)
[2017-11-05 21:32] LABS: ANA Screen, IFA Negative (Negative)
[2017-11-06] MEDS: REGLAN PO SCH ×2 (00:12→06:22)
[2017-11-06] MEDS: CATAPRES PO SCH ×3 (06:21→22:45)
[2017-11-06] MEDS: NORCO 5/325 PO PRN ×3 (08:36→22:50)
[2017-11-06] MEDS: BENADRYL IV SCH (08:37)
[2017-11-06] MEDS: NORMODYNE IV PRN (08:47)
--- NOTE | 2017-11-06 09:37 | Progress Note ---
Assessment and Plan Assessment and plan: 22 YO Female with DM, Medication Noncompliance, HTN, Chronic Pain presents to ED for evaluation. Pt unable to provide history, but history taken from ED staff , as well as EMS. Pt was found down and unresponsive by neighbors. EMS notified , and upon arrival the patient was found to be unresponsive. Patient had an empty bottle of oxycodone in her pill bag although she denies any overdose. Narcan was given without improvement in mental status. Patient transported to [facility] for further care and evaluation. Pt seen and evaluated in ED and found to have Acute Respiratory Failure, as well as DKA, and Sepsis. Pt intubated, sedated, and placed on vent support, as well as DKA and sepsis protocols. she had a swollen eye and face requiring initiation of bendryle and holding ACEI/ ARBs. Patient was treated for possible pneumonia, UTI with Levaquin and Flagyl for 7 days which she completed. Culture grew For which the patient was treated with fluconazole. The strep group B and Barbie were felt to be colonizers. Infectious disease medical dir and survey chief were all involved in the patient's case. From the vent and is stable for transfer to the medical floor. Sepsis-poa - likely due to pneumonia - Patient was treated with IV Levaquin and Flagyl Acute respiratory failure, hypoxic, on MV >96 hours, angioedema - Pulmonary consulted, Pt intubated -Now librated from the vent,. WIll hold off ACEI/ARBS, Patient to have allergy testing as outpatient -taper steroids Acute renal failure/Vasomotor nephropathy continue IV, renal consult pressures and, resolved Metabolic encephalopathy due to DKA - Resolved Acute metabolic Toxic encephalopathy - resolved - UDS was positive for benzo Hypertensive urgency - increase BB and add HCTZ. and short term clonidin -Hold all ARBS and ACEI Severe anemia - improved post transfusion. will monitor closely - Anemia workup - GI consult Hypothermia - Resolved DKA (diabetic ketoacidoses) - Resolved, currently on sliding scale insulin Hypokalemia, hypophosphatemia - repleted, will repeat BMP and Magnesium in the morning Hypernatremia - continue free water replacement Thyroid lesion -Follow up outpatient. Discussed with patient -CT neck was normal Mediastinal fullness ? small LNs. HIV neg. Repeat CT chest +anterior mediastinal stranding and no pathologic LN. CT neck normal. -Recommend re-evaulation outpatient Generalized pain with chronic pain syndrom - Increase her pain medications DVT prophylaxis - SCD to BLE,. Plan discussed with the patient. Will transfer to medical floor. Anticipate discharge in 24-48 hrs. History Interval history: Patient is seen today for: DKA, unresponsive Seen and examined at bedside; 24hour events reviewed; nursing staff ; no adverse overnight events reported to me; Denies any chest pain, nausea, vomiting , diarrhea No fever noted blood pressure controlled Hospitalist Physical - Physical exam Narrative exam: VITAL SIGNS: Reviewed. GENERAL: The patient appeared well nourished and normally developed. Vital signs as documented. HEAD: No signs of head trauma. EYES: Pupils are equal. Extraocular motions intact. EARS: Hearing grossly intact. MOUTH: Oropharynx is normal. NECK: No adenopathy, no JVD. CHEST: Chest with clear breath sounds bilaterally. No wheezes, rales, or rhonchi. CARDIAC: Regular rate and rhythm. S1 and S2, without murmurs, gallops, or rubs. VASCULAR: No Edema. Peripheral pulses normal and equal in all extremities. ABDOMEN: Soft, without detectable tenderness. No sign of distention. No rebound or guarding, and no masses palpated. Bowel Sounds normal. MUSCULOSKELETAL: Good range of motion of all major joints. Extremities without clubbing, cyanosis or edema. NEUROLOGIC EXAM: Alert and oriented x 3. No focal sensory or strength deficits. Speech normal. Follows commands. PSYCHIATRIC: Mood normal. SKIN: No rash or lesions. - Constitutional Vitals: Temp Pulse Resp BP Pulse Ox 97.8 F 94 H 17 164/114 100 11/06/17 08:00 11/06/17 08:47 11/06/17 08:00 11/06/17 08:47 11/06/17 08:00 General appearance: Present: severe distress, cachectic, disheveled Results - Labs CBC & Chem 7: 11/05/17 04:00 11/05/17 04:00 Labs: Laboratory Last Values WBC 11.6 K/mm3 (4.5-11.0) H 11/05/17 04:00 RBC 3.91 M/mm3 (3.65-5.03) 11/05/17 04:00 Hgb 9.5 gm/dl (10.1-14.3) L 11/05/17 04:00 Hct 30.1 % (30.3-42.9) L 11/05/17 04:00 MCV 77 fl (79-97) L 11/05/17 04:00 MCH 24 pg (28-32) L 11/05/17 04:00 MCHC 32 % (30-34) 11/05/17 04:00 RDW 20.4 % (13.2-15.2) H 11/05/17 04:00 Plt Count 538 K/mm3 (140-440) H 11/05/17 04:00 Lymph % (Auto) 16.4 % (13.4-35.0) 10/28/17 15:39 Smith % (Auto) 3.7 % (0.0-7.3) 10/28/17 15:39 Eos % (Auto) 0.7 % (0.0-4.3) 10/28/17 15:39 Baso % (Auto) 0.7 % (0.0-1.8) 10/28/17 15:39 Lymph # 2.6 K/mm3 (1.2-5.4) 10/28/17 15:39 Smith # 0.6 K/mm3 (0.0-0.8) 10/28/17 15:39 Eos # 0.1 K/mm3 (0.0-0.4) 10/28/17 15:39 Baso # 0.1 K/mm3 (0.0-0.1) 10/28/17 15:39 Add Manual Diff Complete 11/05/17 04:00 Total Counted 100 11/05/17 04:00 Seg Neutrophils % 78.5 % (40.0-70.0) H 10/28/17 15:39 Seg Neuts % (Manual) 73.0 % (40.0-70.0) H 11/05/17 04:00 Band Neutrophils % 1.0 % 11/05/17 04:00 Lymphocytes % (Manual) 19.0 % (13.4-35.0) 11/05/17 04:00 Reactive Lymphs % (Man) 0 % 11/05/17 04:00 Monocytes % (Manual) 6.0 % (0.0-7.3) 11/05/17 04:00 Eosinophils % (Manual) 0 % (0.0-4.3) 11/05/17 04:00 Basophils % (Manual) 0 % (0.0-1.8) 11/05/17 04:00 Metamyelocytes % 0 % 11/05/17 04:00 Myelocytes % 1.0 % 11/05/17 04:00 Promyelocytes % 0 % 11/05/17 04:00 Blast Cells % 0 % 11/05/17 04:00 Nucleated RBC % Not Reportable 11/05/17 04:00 Seg Neutrophils # 12.2 K/mm3 (1.8-7.7) H 10/28/17 15:39 Seg Neutrophils # Man 8.5 K/mm3 (1.8-7.7) H 11/05/17 04:00 Band Neutrophils # 0.1 K/mm3 11/05/17 04:00 Lymphocytes # (Manual) 2.2 K/mm3 (1.2-5.4) 11/05/17 04:00 Abs React Lymphs (Man) 0.0 K/mm3 11/05/17 04:00 Monocytes # (Manual) 0.7 K/mm3 (0.0-0.8) 11/05/17 04:00 Eosinophils # (Manual) 0.0 K/mm3 (0.0-0.4) 11/05/17 04:00 Basophils # (Manual) 0.0 K/mm3 (0.0-0.1) 11/05/17 04:00 Metamyelocytes # 0.0 K/mm3 11/05/17 04:00 Myelocytes # 0.1 K/mm3 11/05/17 04:00 Promyelocytes # 0.0 K/mm3 11/05/17 04:00 Blast Cells # 0.0 K/mm3 11/05/17 04:00 WBC Morphology Not Reportable 11/05/17 04:00 Hypersegmented Neuts Not Reportable 11/05/17 04:00 Hyposegmented Neuts Not Reportable 11/05/17 04:00 Hypogranular Neuts Not Reportable 11/05/17 04:00 Smudge Cells Not Reportable 11/05/17 04:00 Toxic Granulation Not Reportable 11/05/17 04:00 Toxic Vacuolation Not Reportable 11/05/17 04:00 Dohle Bodies Not Reportable 11/05/17 04:00 Pelger-Huet Anomaly Not Reportable 11/05/17 04:00 Gogo Rods Not Reportable 11/05/17 04:00 Platelet Estimate Consistent w auto 11/05/17 04:00 Clumped Platelets Not Reportable 11/05/17 04:00 Plt Clumps, EDTA Not Reportable 11/05/17 04:00 Large Platelets Not Reportable 11/05/17 04:00 Giant Platelets Not Reportable 11/05/17 04:00 Platelet Satelliting Not Reportable 11/05/17 04:00 Plt Morphology Comment Not Reportable 11/05/17 04:00 RBC Morphology Not Reportable 11/05/17 04:00 Dimorphic RBCs Not Reportable 11/05/17 04:00 Polychromasia Not Reportable 11/05/17 04:00 Hypochromasia Not Reportable 11/05/17 04:00 Poikilocytosis Not Reportable 11/05/17 04:00 Anisocytosis 2+ 11/05/17 04:00 Microcytosis Not Reportable 11/05/17 04:00 Macrocytosis Few 11/05/17 04:00 Spherocytes Few 11/05/17 04:00 Pappenheimer Bodies Not Reportable 11/05/17 04:00 Sickle Cells Not Reportable 11/05/17 04:00 Target Cells Not Reportable 11/05/17 04:00 Tear Drop Cells Not Reportable 11/05/17 04:00 Ovalocytes Not Reportable 11/05/17 04:00 Helmet Cells Not Reportable 11/05/17 04:00 [place] Bodies Not Reportable 11/05/17 04:00 [place] Rings Not Reportable 11/05/17 04:00 Caprice Cells Not Reportable 11/05/17 04:00 Bite Cells Not Reportable 11/05/17 04:00 Crenated Cell Not Reportable 11/05/17 04:00 Elliptocytes Not Reportable 11/05/17 04:00 Acanthocytes (Spur) Not Reportable 11/05/17 04:00 Rouleaux Not Reportable 11/05/17 04:00 Hemoglobin C Crystals Not Reportable 11/05/17 04:00 Schistocytes Not Reportable 11/05/17 04:00 Malaria parasites Not Reportable 11/05/17 04:00 David Bodies Not Reportable 11/05/17 04:00 Hem Pathologist Commnt No 11/05/17 04:00 PT 16.8 Sec. (12.2-14.9) H 10/26/17 11:44 INR 1.29 (0.87-1.13) H 10/26/17 11:44 APTT 24.9 Sec. (24.2-36.6) 10/26/17 11:44 POC ABG pH 7.445 (7.35-7.45) 11/05/17 14:38 POC ABG pCO2 45.4 (35-45) H 11/05/17 14:38 POC ABG pO2 109 (80-105) H 11/05/17 14:38 POC ABG HCO3 31.2 11/05/17 14:38 POC ABG Total CO2 33 11/05/17 14:38 POC ABG O2 Sat 98 11/05/17 14:38 POC ABG Base Excess 7 11/05/17 14:38 FiO2 35 % 11/05/17 14:38 Sodium 141 mmol/L (137-145) 11/05/17 04:00 Potassium 3.6 mmol/L (3.6-5.0) 11/05/17 04:00 Chloride 96.6 mmol/L (98-107) L 11/05/17 04:00 Carbon Dioxide 26 mmol/L (22-30) 11/05/17 04:00 Anion Gap 22 mmol/L 11/05/17 04:00 BUN 16 mg/dL (7-17) 11/05/17 04:00 Creatinine 0.9 mg/dL (0.7-1.2) 11/05/17 04:00 Estimated GFR > 60 ml/min 11/05/17 04:00 BUN/Creatinine Ratio 18 % 11/05/17 04:00 Glucose 193 mg/dL (65-100) H 11/05/17 04:00 POC Glucose 246 (70-105) H 11/06/17 04:16 Ketones Quantitative Small (Negative) 10/27/17 20:24 Lactic Acid 1.40 mmol/L (0.7-2.0) 10/27/17 20:34 Calcium 8.8 mg/dL (8.4-10.2) 11/05/17 04:00 Phosphorus 3.30 mg/dL (2.5-4.5) 11/01/17 03:28 Magnesium 2.20 mg/dL (1.7-2.3) 11/03/17 04:00 Iron 67 ug/dL (37-170) 11/03/17 18:15 TIBC 333 mcg/dL (250-450) 11/03/17 18:15 Ferritin 42.6 ng/mL (13.0-400.0) 11/03/17 18:15 Total Bilirubin < 0.20 mg/dL (0.1-1.2) 11/01/17 18:36 Direct Bilirubin < 0.2 mg/dL (0-0.2) 11/01/17 18:36 Indirect Bilirubin 0.0 mg/dL 11/01/17 18:36 AST 12 units/L (5-40) 11/01/17 18:36 ALT 17 units/L (7-56) 11/01/17 18:36 Alkaline Phosphatase 151 units/L (35-129) H 11/01/17 18:36 Ammonia 67.0 umol/L (25-60) H 10/26/17 11:44 Total Creatine Kinase 24 units/L (30-135) L 10/26/17 11:44 Troponin T < 0.010 ng/mL (0.00-0.029) 10/26/17 11:44 C-Reactive Protein 0.30 mg/dL (0.00-1.30) 11/03/17 15:30 Total Protein 5.8 g/dL (6.3-8.2) L 11/01/17 18:36 Albumin 2.9 g/dL (3.9-5) L 11/01/17 18:36 Albumin/Globulin Ratio 1.0 % 11/01/17 18:36 Triglycerides 144 mg/dL (2-149) 10/30/17 10:36 Vitamin B12 1162 pg/mL (211-911) H 11/03/17 18:15 Folate 17.94 ng/mL (7.3-26.0) 11/03/17 18:15 TSH 0.216 mlU/mL (0.270-4.200) L 10/29/17 13:50 Total Cortisol 12.9 mcg/dL () 10/31/17 21:31 Urine Color Yellow (Yellow) 11/01/17 12:00 Urine Turbidity Cloudy (Clear) 11/01/17 12:00 Urine pH 5.0 (5.0-7.0) 11/01/17 12:00 Ur Specific [place] 1.007 (1.003-1.030) 11/01/17 12:00 Urine Protein <15 mg/dl mg/dL (Negative) 11/01/17 12:00 Urine Glucose (UA) >=500 mg/dL (Negative) 11/01/17 12:00 Urine Ketones Neg mg/dL (Negative) 11/01/17 12:00 Urine Blood Sm (Negative) 11/01/17 12:00 Urine Nitrite Neg (Negative) 11/01/17 12:00 Urine Bilirubin Neg (Negative) 11/01/17 12:00 Urine Urobilinogen < 2.0 mg/dL (<2.0) 11/01/17 12:00 Ur Leukocyte Esterase Lg (Negative) 11/01/17 12:00 Urine WBC (Auto) 91.0 /HPF (0.0-6.0) H 11/01/17 12:00 Urine RBC (Auto) > 182.0 /HPF (0.0-6.0) 11/01/17 12:00 U Epithel Cells (Auto) < 1.0 /HPF (0-13.0) 11/01/17 12:00 Urine Bacteria (Auto) 2+ /HPF (Negative) 11/01/17 12:00 Urine WBC Clumps 2+ /HPF 11/01/17 12:00 Uric Acid Crystals 3+ 10/26/17 12:59 Granular Casts 3 /LPF 10/26/17 12:59 Urine Mucus Few /HPF 11/01/17 12:00 Ur Yeast w Hypha[place] Few /HPF 10/26/17 12:59 Urine Yeast (Budding) 3+ /HPF 11/01/17 12:00 Salicylates < 0.3 mg/dL (2.8-20.0) L 10/26/17 11:44 Urine Opiates Screen Presumptive negative 10/26/17 12:59 Urine Methadone Screen Presumptive negative 10/26/17 12:59 Acetaminophen 15.0 ug/mL (10.0-30.0) 10/26/17 11:44 Ur Barbiturates Screen Presumptive negative 10/26/17 12:59 Ur Phencyclidine Scrn Presumptive negative 10/26/17 12:59 Ur Amphetamines Screen Presumptive negative 10/26/17 12:59 U Benzodiazepines Scrn Presumptive positive 10/26/17 12:59 Urine Cocaine Screen Presumptive negative 10/26/17 12:59 U Marijuana (THC) Screen Presumptive negative 10/26/17 12:59 Drugs of Abuse Note Disclamer 10/26/17 12:59 Plasma/Serum Alcohol < 0.01 % (0-0.07) 10/26/17 11:44 ELLIE Screen Negative (Negative) 11/02/17 Unknown Proteinase 3 (PR3) Ab <1.0 AI (<1.0) 11/02/17 Unknown Myeloperoxidase Ab <1.0 AI (<1.0) 11/02/17 Unknown Complement C3 74 mg/dL (83-193) L 11/02/17 Unknown Complement C4 25 mg/dL (15-57) 11/02/17 Unknown HIV 1&2 Antibody Rapid Non react (Non React) 10/28/17 15:50 HIV P24 Antigen Non react (Non React) 10/28/17 15:50 Miscellaneous Test Flexitest 1 H 10/28/17 19:24 Blood Type O POSITIVE 11/03/17 18:15 Antibody Screen Negative 11/03/17 18:15 Crossmatch See Detail 11/03/17 18:15
[2017-11-06] MEDS: PEPCID PO SCH ×2 (10:00→22:45)
[2017-11-06] MEDS: LOPRESSOR PO SCH ×2 (10:00→22:45)
[2017-11-06] MEDS: HEPARIN SUB-Q SCH ×2 (10:00→22:45)
[2017-11-06] MEDS ORDERED: HCTZ PO SCH (10:00)
--- NOTE | 2017-11-06 12:16 | Event Note ---
Date: 11/06/17 Full consult dictated - pt known anemia and followed by GI at [facility] - no signs bleeding since admission - pt to have f/u regular GI and would prefer any procedures done by them - no need further intervention, will sign off
--- NOTE | 2017-11-06 18:48 | Progress Note ---
Assessment and Plan Acute respiratory failure, on mechanical ventilatory support(extubated). Acute encephalopathy, appears toxic metabolic at this point(resolved). Angioedema HTN-poorly controlled Diabetic ketoacidosis( resolved). Sepsis syndrome. History of chronic pain. Possible drug abuse. Anemia. Leukocytosis. Hyperammonemia. Severe metabolic acidosis with a lactic acid component. -Initiate metoprolol and HCTZ for poorly controlled HTN -add clonidine for BP control in the short term - continue GI & VTE prophylaxis - azotemia per nephrology - continue bronchodilators prn -Steroid taper - continue other care per attending / other consultants -discussed with RT and RN -VTE prophylaxis -Glycemic control -PT/OT, increase activity -Transfer telemetry Subjective Date of service: 11/06/17 Principal diagnosis: Acute Hypoxemic Respiratory Failure; Acute Encephalopathy Interval history: Patient is seen today for: Acute Hypoxemic Respiratory Failure; Acute Encephalopathy Seen and examined at bedside; 24hour events reviewed; nursing and respiratory care staff consulted; no adverse overnight events reported to me; Very calm, off all sedation using prn medication. Vitals, labs, medications, chart reviewed. Extubated yesterday. Poorly controlled hypertension Discussed in ICU interdisciplinary rounds Objective - Exam Narrative Exam: VITAL SIGNS: Reviewed. GENERAL: The patient appeared well nourished and normally developed. Vital signs as documented. HEAD: No signs of head trauma. EYES: Pupils are equal. Extraocular motions intact. EARS: Hearing grossly intact. MOUTH: Oropharynx is normal. NECK: No adenopathy, no JVD. CHEST: Chest with clear breath sounds bilaterally. No wheezes, rales, or rhonchi. CARDIAC: Regular rate and rhythm. S1 and S2, without murmurs, gallops, or rubs. VASCULAR: No Edema. Peripheral pulses normal and equal in all extremities. ABDOMEN: Soft, without detectable tenderness. No sign of distention. No rebound or guarding, and no masses palpated. Bowel Sounds normal. MUSCULOSKELETAL: Good range of motion of all major joints. Extremities without clubbing, cyanosis or edema. NEUROLOGIC EXAM: Alert and oriented x 3. No focal sensory or strength deficits. Speech normal. Follows commands. PSYCHIATRIC: Mood normal. SKIN: No rash or lesions. Vital Signs - 12hr 11/06/17 11/06/17 11/06/17 07:00 07:30 08:00 Temperature 97.8 F Pulse Rate 92 H 94 H 91 H Respiratory 24 22 17 Rate Blood Pressure 161/107 152/102 168/110 O2 Sat by Pulse 100 100 100 Oximetry 11/06/17 11/06/17 11/06/17 08:30 08:47 09:00 Temperature Pulse Rate 88 94 H 95 H Respiratory 15 16 Rate Blood Pressure 171/108 164/114 161/108 O2 Sat by Pulse 100 100 Oximetry 11/06/17 11/06/17 11/06/17 09:30 09:56 10:00 Temperature Pulse Rate 97 H 100 H Respiratory 24 16 Rate Blood Pressure 163/100 144/107 O2 Sat by Pulse 100 99 99 Oximetry 11/06/17 11/06/17 11/06/17 10:30 11:00 11:10 Temperature Pulse Rate 99 H 94 H 93 H Respiratory 17 22 22 Rate Blood Pressure 165/94 158/99 158/99 O2 Sat by Pulse 99 100 100 Oximetry 11/06/17 11/06/17 11/06/17 11:20 11:30 12:13 Temperature 98.7 F Pulse Rate 92 H 94 H 90 Respiratory 17 13 15 Rate Blood Pressure 164/102 164/102 162/111 O2 Sat by Pulse 100 100 100 Oximetry 11/06/17 11/06/17 11/06/17 13:45 13:47 14:31 Temperature 98.5 F Pulse Rate 90 85 Respiratory 20 16 Rate Blood Pressure 162/111 162/110 O2 Sat by Pulse 98 Oximetry Constitutional: no acute distress, alert Eyes: non-icteric, other (orbital phimosis) ENT: oropharynx moist, oropharyngeal exudate pre Neck: supple, no lymphadenopathy, no JVD, other (neck and facial swelling improved) Effort: mildly labored Ascultation: Bilateral: rhonchi (scant in bases) Percussion: Bilateral: not dull Cardiovascular: regular rate and rhythm, other (no rubs / murmurs) Gastrointestinal: normoactive bowel sounds, soft, non-tender, non-distended, other (no palpable HSM) Integumentary: normal Extremities: no cyanosis, no edema, pulses normal, no ischemia or petechiae Neurologic: normal mental status, non-focal exam, pupils equal and round, motor strength normal and Psychiatric: mood appropriate, affect normal CBC and BMP: 11/05/17 04:00 11/05/17 04:00 ABG, PT/INR, D-dimer: ABG POC ABG pH 7.445 (7.35-7.45) 11/05/17 14:38 POC ABG pCO2 45.4 (35-45) H 11/05/17 14:38 POC ABG pO2 109 (80-105) H 11/05/17 14:38 POC ABG HCO3 31.2 11/05/17 14:38 POC ABG Total CO2 33 11/05/17 14:38 POC ABG O2 Sat 98 11/05/17 14:38 PT/INR, D-dimer PT 16.8 Sec. (12.2-14.9) H 10/26/17 11:44 INR 1.29 (0.87-1.13) H 10/26/17 11:44 Abnormal lab findings: Abnormal Labs 10/26/17 10/26/17 10/26/17 11:23 11:44 11:44 WBC 20.6 H RBC 3.62 L Hgb 8.3 L Hct MCV MCH 23 L MCHC 24 L RDW 21.7 H Plt Count Seg Neutrophils % Seg Neuts % (Manual) 76.0 H Lymphocytes % (Manual) 11.0 L Monocytes % (Manual) Seg Neutrophils # Seg Neutrophils # Man 15.7 H Monocytes # (Manual) Basophils # (Manual) 0.2 H PT INR POC ABG pH POC ABG pCO2 POC ABG pO2 Sodium Potassium Chloride Carbon Dioxide BUN Creatinine Glucose POC Glucose > 500 H Lactic Acid 4.10 H* Calcium Phosphorus Magnesium Alkaline Phosphatase Ammonia Total Creatine Kinase C-Reactive Protein Total Protein Albumin Vitamin B12 TSH Urine WBC (Auto) Salicylates Complement C3 Miscellaneous Test Crossmatch 10/26/17 10/26/17 10/26/17 11:44 11:44 11:44 WBC RBC Hgb Hct MCV MCH MCHC RDW Plt Count Seg Neutrophils % Seg Neuts % (Manual) Lymphocytes % (Manual) Monocytes % (Manual) Seg Neutrophils # Seg Neutrophils # Man Monocytes # (Manual) Basophils # (Manual) PT 16.8 H INR 1.29 H POC ABG pH POC ABG pCO2 POC ABG pO2 Sodium 146 H Potassium 6.6 H* Chloride Carbon Dioxide 3 L* BUN 34 H Creatinine 2.2 H Glucose 1281 H* POC Glucose Lactic Acid Calcium 8.0 L Phosphorus Magnesium Alkaline Phosphatase 196 H Ammonia 67.0 H Total Creatine Kinase 24 L C-Reactive Protein Total Protein Albumin 3.6 L Vitamin B12 TSH Urine WBC (Auto) Salicylates Complement C3 Miscellaneous Test Crossmatch 10/26/17 10/26/17 10/26/17 11:44 12:01 12:59 WBC RBC Hgb Hct MCV MCH MCHC RDW Plt Count Seg Neutrophils % Seg Neuts % (Manual) Lymphocytes % (Manual) Monocytes % (Manual) Seg Neutrophils # Seg Neutrophils # Man Monocytes # (Manual) Basophils # (Manual) PT INR POC ABG pH 6.895 L POC ABG pCO2 12.3 L POC ABG pO2 311 H Sodium Potassium Chloride Carbon Dioxide BUN Creatinine Glucose POC Glucose Lactic Acid Calcium Phosphorus Magnesium Alkaline Phosphatase Ammonia Total Creatine Kinase C-Reactive Protein Total Protein Albumin Vitamin B12 TSH Urine WBC (Auto) 42.0 H Salicylates < 0.3 L Complement C3 Miscellaneous Test Crossmatch 10/26/17 10/26/17 10/26/17 13:06 13:17 13:17 WBC RBC Hgb Hct MCV MCH MCHC RDW Plt Count Seg Neutrophils % Seg Neuts % (Manual) Lymphocytes % (Manual) Monocytes % (Manual) Seg Neutrophils # Seg Neutrophils # Man Monocytes # (Manual) Basophils # (Manual) PT INR POC ABG pH POC ABG pCO2 POC ABG pO2 Sodium 146 H Potassium 7.1 H* Chloride Carbon Dioxide 2 L* BUN 35 H Creatinine 2.3 H Glucose 1330 H* POC Glucose Lactic Acid 4.10 H* Calcium 7.7 L Phosphorus 11.10 H Magnesium 2.70 H Alkaline Phosphatase Ammonia Total Creatine Kinase C-Reactive Protein Total Protein Albumin Vitamin B12 TSH Urine WBC (Auto) Salicylates Complement C3 Miscellaneous Test Crossmatch 10/26/17 10/26/17 10/26/17 14:57 15:26 15:26 WBC RBC Hgb Hct MCV MCH MCHC RDW Plt Count Seg Neutrophils % Seg Neuts % (Manual) Lymphocytes % (Manual) Monocytes % (Manual) Seg Neutrophils # Seg Neutrophils # Man Monocytes # (Manual) Basophils # (Manual) PT INR POC ABG pH POC ABG pCO2 POC ABG pO2 Sodium 147 H Potassium 6.3 H* Chloride Carbon Dioxide < 2.0 L* BUN 37 H Creatinine 2.4 H Glucose 1115 H* POC Glucose > 500 H Lactic Acid 3.70 H* Calcium 7.2 L Phosphorus Magnesium Alkaline Phosphatase Ammonia Total Creatine Kinase C-Reactive Protein Total Protein Albumin Vitamin B12 TSH Urine WBC (Auto) Salicylates Complement C3 Miscellaneous Test Crossmatch 10/26/17 10/26/17 10/26/17 16:02 17:51 17:51 WBC RBC Hgb Hct MCV MCH MCHC RDW Plt Count Seg Neutrophils % Seg Neuts % (Manual) Lymphocytes % (Manual) Monocytes % (Manual) Seg Neutrophils # Seg Neutrophils # Man Monocytes # (Manual) Basophils # (Manual) PT INR POC ABG pH POC ABG pCO2 POC ABG pO2 Sodium 149 H Potassium Chloride Carbon Dioxide 2 L* BUN 36 H Creatinine 2.6 H Glucose 1063 H* POC Glucose > 500 H Lactic Acid 6.50 H* Calcium 7.0 L Phosphorus Magnesium Alkaline Phosphatase Ammonia Total Creatine Kinase C-Reactive Protein Total Protein Albumin Vitamin B12 TSH Urine WBC (Auto) Salicylates Complement C3 Miscellaneous Test Crossmatch 10/26/17 10/26/17 10/26/17 18:42 19:55 19:55 WBC RBC Hgb Hct MCV MCH MCHC RDW Plt Count Seg Neutrophils % Seg Neuts % (Manual) Lymphocytes % (Manual) Monocytes % (Manual) Seg Neutrophils # Seg Neutrophils # Man Monocytes # (Manual) Basophils # (Manual) PT INR POC ABG pH 6.974 L POC ABG pCO2 14.9 L POC ABG pO2 244 H Sodium 150 H Potassium Chloride 108.3 H Carbon Dioxide 4 L* BUN 33 H Creatinine 2.4 H Glucose 663 H* POC Glucose Lactic Acid 8.30 H* Calcium 7.0 L Phosphorus Magnesium Alkaline Phosphatase Ammonia Total Creatine Kinase C-Reactive Protein Total Protein Albumin Vitamin B12 TSH Urine WBC (Auto) Salicylates Complement C3 Miscellaneous Test Crossmatch 10/26/17 10/26/17 10/26/17 21:26 21:26 23:55 WBC RBC Hgb Hct MCV MCH MCHC RDW Plt Count Seg Neutrophils % Seg Neuts % (Manual) Lymphocytes % (Manual) Monocytes % (Manual) Seg Neutrophils # Seg Neutrophils # Man Monocytes # (Manual) Basophils # (Manual) PT INR POC ABG pH POC ABG pCO2 POC ABG pO2 Sodium 152 H Potassium 3.5 L Chloride 110.4 H Carbon Dioxide 6 L* BUN 32 H Creatinine 2.3 H Glucose 498 H POC Glucose 317 H Lactic Acid 9.00 H* Calcium 7.6 L Phosphorus Magnesium Alkaline Phosphatase Ammonia Total Creatine Kinase C-Reactive Protein Total Protein Albumin Vitamin B12 TSH Urine WBC (Auto) Salicylates Complement C3 Miscellaneous Test Crossmatch 10/27/17 10/27/17 10/27/17 01:21 02:26 03:49 WBC RBC Hgb Hct MCV MCH MCHC RDW Plt Count Seg Neutrophils % Seg Neuts % (Manual) Lymphocytes % (Manual) Monocytes % (Manual) Seg Neutrophils # Seg Neutrophils # Man Monocytes # (Manual) Basophils # (Manual) PT INR POC ABG pH POC ABG pCO2 POC ABG pO2 Sodium Potassium Chloride Carbon Dioxide BUN Creatinine Glucose POC Glucose 218 H 172 H 136 H Lactic Acid Calcium Phosphorus Magnesium Alkaline Phosphatase Ammonia Total Creatine Kinase C-Reactive Protein Total Protein Albumin Vitamin B12 TSH Urine WBC (Auto) Salicylates Complement C3 Miscellaneous Test Crossmatch 10/27/17 10/27/17 10/27/17 04:50 05:26 06:01 WBC RBC Hgb Hct MCV MCH MCHC RDW Plt Count Seg Neutrophils % Seg Neuts % (Manual) Lymphocytes % (Manual) Monocytes % (Manual) Seg Neutrophils # Seg Neutrophils # Man Monocytes # (Manual) Basophils # (Manual) PT INR POC ABG pH 7.284 L POC ABG pCO2 POC ABG pO2 204 H Sodium 158 H Potassium 3.5 L Chloride 118.2 H Carbon Dioxide 19 L D BUN 27 H Creatinine 1.9 H Glucose 232 H POC Glucose 221 H Lactic Acid Calcium 7.1 L Phosphorus Magnesium Alkaline Phosphatase Ammonia Total Creatine Kinase C-Reactive Protein Total Protein Albumin Vitamin B12 TSH Urine WBC (Auto) Salicylates Complement C3 Miscellaneous Test Crossmatch 10/27/17 10/27/17 10/27/17 06:05 07:27 09:28 WBC RBC Hgb Hct MCV MCH MCHC RDW Plt Count Seg Neutrophils % Seg Neuts % (Manual) Lymphocytes % (Manual) Monocytes % (Manual) Seg Neutrophils # Seg Neutrophils # Man Monocytes # (Manual) Basophils # (Manual) PT INR POC ABG pH POC ABG pCO2 POC ABG pO2 Sodium Potassium Chloride Carbon Dioxide BUN Creatinine Glucose POC Glucose 286 H 161 H 123 H Lactic Acid Calcium Phosphorus Magnesium Alkaline Phosphatase Ammonia Total Creatine Kinase C-Reactive Protein Total Protein Albumin Vitamin B12 TSH Urine WBC (Auto) Salicylates Complement C3 Miscellaneous Test Crossmatch 10/27/17 10/27/17 10/27/17 12:30 13:07 14:44 WBC RBC Hgb Hct MCV MCH MCHC RDW Plt Count Seg Neutrophils % Seg Neuts % (Manual) Lymphocytes % (Manual) Monocytes % (Manual) Seg Neutrophils # Seg Neutrophils # Man Monocytes # (Manual) Basophils # (Manual) PT INR POC ABG pH POC ABG pCO2 POC ABG pO2 Sodium 158 H Potassium 3.2 L Chloride 120.7 H Carbon Dioxide 16 L BUN 23 H Creatinine 1.9 H Glucose 270 H POC Glucose 274 H 200 H Lactic Acid Calcium 7.1 L Phosphorus Magnesium Alkaline Phosphatase Ammonia Total Creatine Kinase C-Reactive Protein Total Protein Albumin Vitamin B12 TSH Urine WBC (Auto) Salicylates Complement C3 Miscellaneous Test Crossmatch 10/27/17 10/27/17 10/27/17 19:03 20:24 20:24 WBC RBC Hgb Hct MCV MCH MCHC RDW Plt Count Seg Neutrophils % Seg Neuts % (Manual) Lymphocytes % (Manual) Monocytes % (Manual) Seg Neutrophils # Seg Neutrophils # Man Monocytes # (Manual) Basophils # (Manual) PT INR POC ABG pH POC ABG pCO2 POC ABG pO2 Sodium 155 H Potassium 3.4 L Chloride 119.3 H Carbon Dioxide 19 L BUN 20 H Creatinine 1.9 H Glucose 272 H POC Glucose 124 H Lactic Acid Calcium 7.0 L Phosphorus 1.50 L D Magnesium Alkaline Phosphatase Ammonia Total Creatine Kinase C-Reactive Protein 1.50 H Total Protein Albumin Vitamin B12 TSH Urine WBC (Auto) Salicylates Complement C3 Miscellaneous Test Crossmatch 10/27/17 10/27/17 10/28/17 20:40 21:05 03:02 WBC RBC Hgb Hct MCV MCH MCHC RDW Plt Count Seg Neutrophils % Seg Neuts % (Manual) Lymphocytes % (Manual) Monocytes % (Manual) Seg Neutrophils # Seg Neutrophils # Man Monocytes # (Manual) Basophils # (Manual) PT INR POC ABG pH 7.327 L POC ABG pCO2 32.1 L POC ABG pO2 Sodium 157 H Potassium Chloride 118.8 H Carbon Dioxide 13 L BUN 18 H Creatinine 2.0 H Glucose 560 H* POC Glucose 289 H Lactic Acid Calcium 6.8 L Phosphorus 5.40 H D Magnesium Alkaline Phosphatase Ammonia Total Creatine Kinase C-Reactive Protein Total Protein Albumin Vitamin B12 TSH Urine WBC (Auto) Salicylates Complement C3 Miscellaneous Test Crossmatch 10/28/17 10/28/17 10/28/17 06:06 07:46 08:21 WBC RBC Hgb Hct MCV MCH MCHC RDW Plt Count Seg Neutrophils % Seg Neuts % (Manual) Lymphocytes % (Manual) Monocytes % (Manual) Seg Neutrophils # Seg Neutrophils # Man Monocytes # (Manual) Basophils # (Manual) PT INR POC ABG pH POC ABG pCO2 POC ABG pO2 Sodium Potassium Chloride Carbon Dioxide BUN Creatinine Glucose POC Glucose > 500 H 500 H Lactic Acid Calcium Phosphorus 6.70 H D Magnesium Alkaline Phosphatase Ammonia Total Creatine Kinase C-Reactive Protein Total Protein Albumin Vitamin B12 TSH Urine WBC (Auto) Salicylates Complement C3 Miscellaneous Test Crossmatch 10/28/17 10/28/17 10/28/17 09:34 11:13 12:55 WBC RBC Hgb Hct MCV MCH MCHC RDW Plt Count Seg Neutrophils % Seg Neuts % (Manual) Lymphocytes % (Manual) Monocytes % (Manual) Seg Neutrophils # Seg Neutrophils # Man Monocytes # (Manual) Basophils # (Manual) PT INR POC ABG pH POC ABG pCO2 POC ABG pO2 Sodium Potassium Chloride Carbon Dioxide BUN Creatinine Glucose POC Glucose 435 H 273 H 149 H Lactic Acid Calcium Phosphorus Magnesium Alkaline Phosphatase Ammonia Total Creatine Kinase C-Reactive Protein Total Protein Albumin Vitamin B12 TSH Urine WBC (Auto) Salicylates Complement C3 Miscellaneous Test Crossmatch 10/28/17 10/28/17 10/28/17 14:27 15:39 15:39 WBC 15.5 H RBC 3.59 L Hgb 8.3 L Hct 27.6 L D MCV 77 L MCH 23 L MCHC RDW 20.9 H Plt Count Seg Neutrophils % 78.5 H Seg Neuts % (Manual) Lymphocytes % (Manual) Monocytes % (Manual) Seg Neutrophils # 12.2 H Seg Neutrophils # Man Monocytes # (Manual) Basophils # (Manual) PT INR POC ABG pH POC ABG pCO2 33.9 L POC ABG pO2 138 H Sodium 164 H* Potassium 3.5 L Chloride 125.3 H Carbon Dioxide 18 L BUN Creatinine 1.6 H Glucose 37 L* POC Glucose Lactic Acid Calcium 7.5 L Phosphorus Magnesium Alkaline Phosphatase Ammonia Total Creatine Kinase C-Reactive Protein Total Protein Albumin Vitamin B12 TSH Urine WBC (Auto) Salicylates Complement C3 Miscellaneous Test Crossmatch 10/28/17 10/28/1710/28/18 15:47 15:50 16:28 WBC RBC Hgb Hct MCV MCH MCHC RDW Plt Count Seg Neutrophils % Seg Neuts % (Manual) Lymphocytes % (Manual) Monocytes % (Manual) Seg Neutrophils # Seg Neutrophils # Man Monocytes # (Manual) Basophils # (Manual) PT INR POC ABG pH POC ABG pCO2 POC ABG pO2 Sodium Potassium Chloride Carbon Dioxide BUN Creatinine Glucose POC Glucose < 40 L 114 H Lactic Acid Calcium Phosphorus Magnesium Alkaline Phosphatase Ammonia Total Creatine Kinase C-Reactive Protein 4.40 H Total Protein Albumin Vitamin B12 TSH Urine WBC (Auto) Salicylates Complement C3 Miscellaneous Test Crossmatch 10/28/17 10/28/17 10/28/17 19:07 19:24 23:10 WBC RBC Hgb Hct MCV MCH MCHC RDW Plt Count Seg Neutrophils % Seg Neuts % (Manual) Lymphocytes % (Manual) Monocytes % (Manual) Seg Neutrophils # Seg Neutrophils # Man Monocytes # (Manual) Basophils # (Manual) PT INR POC ABG pH POC ABG pCO2 POC ABG pO2 Sodium 159 H Potassium Chloride 124.1 H Carbon Dioxide 19 L BUN Creatinine 1.4 H Glucose 219 H POC Glucose 111 H Lactic Acid Calcium 7.1 L Phosphorus Magnesium Alkaline Phosphatase Ammonia Total Creatine Kinase C-Reactive Protein Total Protein Albumin Vitamin B12 TSH Urine WBC (Auto) Salicylates Complement C3 Miscellaneous Test Flexitest 1 H Crossmatch 10/28/17 10/29/17 10/29/17 23:59 03:41 03:41 WBC 14.1 H RBC 3.32 L Hgb 7.6 L Hct 25.5 L MCV 77 L MCH 23 L MCHC RDW 20.8 H Plt Count Seg Neutrophils % Seg Neuts % (Manual) Lymphocytes % (Manual) Monocytes % (Manual) Seg Neutrophils # Seg Neutrophils # Man Monocytes # (Manual) Basophils # (Manual) PT INR POC ABG pH POC ABG pCO2 POC ABG pO2 Sodium 158 H Potassium Chloride 122.7 H Carbon Dioxide 15 L BUN Creatinine 1.3 H Glucose 176 H POC Glucose 307 H Lactic Acid Calcium 7.2 L Phosphorus Magnesium Alkaline Phosphatase Ammonia Total Creatine Kinase C-Reactive Protein Total Protein Albumin Vitamin B12 TSH Urine WBC (Auto) Salicylates Complement C3 Miscellaneous Test Crossmatch 10/29/17 10/29/17 10/29/17 04:55 05:44 09:28 WBC RBC Hgb Hct MCV MCH MCHC RDW Plt Count Seg Neutrophils % Seg Neuts % (Manual) Lymphocytes % (Manual) Monocytes % (Manual) Seg Neutrophils # Seg Neutrophils # Man Monocytes # (Manual) Basophils # (Manual) PT INR POC ABG pH POC ABG pCO2 31.2 L POC ABG pO2 123 H Sodium 151 H Potassium Chloride 117.1 H Carbon Dioxide 17 L BUN Creatinine Glucose 378 H POC Glucose 253 H Lactic Acid Calcium 7.4 L Phosphorus Magnesium Alkaline Phosphatase Ammonia Total Creatine Kinase C-Reactive Protein Total Protein Albumin Vitamin B12 TSH Urine WBC (Auto) Salicylates Complement C3 Miscellaneous Test Crossmatch 10/29/17 10/29/17 10/29/17 10:39 13:50 18:35 WBC RBC Hgb Hct MCV MCH MCHC RDW Plt Count Seg Neutrophils % Seg Neuts % (Manual) Lymphocytes % (Manual) Monocytes % (Manual) Seg Neutrophils # Seg Neutrophils # Man Monocytes # (Manual) Basophils # (Manual) PT INR POC ABG pH POC ABG pCO2 POC ABG pO2 Sodium Potassium Chloride Carbon Dioxide BUN Creatinine Glucose POC Glucose 418 H 220 H Lactic Acid Calcium Phosphorus Magnesium Alkaline Phosphatase Ammonia Total Creatine Kinase C-Reactive Protein Total Protein Albumin Vitamin B12 TSH 0.216 L Urine WBC (Auto) Salicylates Complement C3 Miscellaneous Test Crossmatch 10/29/17 10/30/17 10/30/17 21:28 00:06 03:58 WBC RBC Hgb Hct MCV MCH MCHC RDW Plt Count Seg Neutrophils % Seg Neuts % (Manual) Lymphocytes % (Manual) Monocytes % (Manual) Seg Neutrophils # Seg Neutrophils # Man Monocytes # (Manual) Basophils # (Manual) PT INR POC ABG pH POC ABG pCO2 POC ABG pO2 Sodium 153 H Potassium Chloride 117.0 H Carbon Dioxide 16 L BUN Creatinine Glucose 165 H POC Glucose 184 H 177 H Lactic Acid Calcium 8.0 L Phosphorus Magnesium Alkaline Phosphatase Ammonia Total Creatine Kinase C-Reactive Protein Total Protein Albumin Vitamin B12 TSH Urine WBC (Auto) Salicylates Complement C3 Miscellaneous Test Crossmatch 10/30/17 10/30/17 10/30/17 05:02 05:42 10:36 WBC RBC Hgb Hct MCV MCH MCHC RDW Plt Count Seg Neutrophils % Seg Neuts % (Manual) Lymphocytes % (Manual) Monocytes % (Manual) Seg Neutrophils # Seg Neutrophils # Man Monocytes # (Manual) Basophils # (Manual) PT INR POC ABG pH POC ABG pCO2 34.8 L POC ABG pO2 107 H Sodium 149 H Potassium Chloride 115.5 H Carbon Dioxide 16 L BUN Creatinine Glucose 230 H POC Glucose 192 H Lactic Acid Calcium 7.6 L Phosphorus Magnesium Alkaline Phosphatase Ammonia Total Creatine Kinase C-Reactive Protein Total Protein Albumin Vitamin B12 TSH Urine WBC (Auto) Salicylates Complement C3 Miscellaneous Test Crossmatch 10/30/17 10/30/17 10/30/17 12:13 18:02 23:08 WBC RBC Hgb Hct MCV MCH MCHC RDW Plt Count Seg Neutrophils % Seg Neuts % (Manual) Lymphocytes % (Manual) Monocytes % (Manual) Seg Neutrophils # Seg Neutrophils # Man Monocytes # (Manual) Basophils # (Manual) PT INR POC ABG pH POC ABG pCO2 POC ABG pO2 Sodium Potassium Chloride Carbon Dioxide BUN Creatinine Glucose POC Glucose 264 H 213 H 162 H Lactic Acid Calcium Phosphorus Magnesium Alkaline Phosphatase Ammonia Total Creatine Kinase C-Reactive Protein Total Protein Albumin Vitamin B12 TSH Urine WBC (Auto) Salicylates Complement C3 Miscellaneous Test Crossmatch 10/31/17 10/31/17 10/31/17 01:00 04:03 07:15 WBC RBC Hgb Hct MCV MCH MCHC RDW Plt Count Seg Neutrophils % Seg Neuts % (Manual) Lymphocytes % (Manual) Monocytes % (Manual) Seg Neutrophils # Seg Neutrophils # Man Monocytes # (Manual) Basophils # (Manual) PT INR POC ABG pH POC ABG pCO2 29.6 L POC ABG pO2 118 H Sodium Potassium Chloride Carbon Dioxide BUN Creatinine Glucose POC Glucose 176 H 197 H Lactic Acid Calcium Phosphorus Magnesium Alkaline Phosphatase Ammonia Total Creatine Kinase C-Reactive Protein Total Protein Albumin Vitamin B12 TSH Urine WBC (Auto) Salicylates Complement C3 Miscellaneous Test Crossmatch 10/31/17 10/31/17 10/31/17 09:24 11:44 17:23 WBC RBC Hgb Hct MCV MCH MCHC RDW Plt Count Seg Neutrophils % Seg Neuts % (Manual) Lymphocytes % (Manual) Monocytes % (Manual) Seg Neutrophils # Seg Neutrophils # Man Monocytes # (Manual) Basophils # (Manual) PT INR POC ABG pH POC ABG pCO2 POC ABG pO2 Sodium 151 H Potassium 3.2 L D Chloride 116.1 H Carbon Dioxide 20 L BUN 6 L Creatinine Glucose 181 H POC Glucose 196 H 261 H Lactic Acid Calcium 8.2 L Phosphorus Magnesium Alkaline Phosphatase Ammonia Total Creatine Kinase C-Reactive Protein Total Protein Albumin Vitamin B12 TSH Urine WBC (Auto) Salicylates Complement C3 Miscellaneous Test Crossmatch 10/31/17 10/31/17 11/01/17 20:30 23:52 03:28 WBC RBC Hgb Hct MCV MCH MCHC RDW Plt Count Seg Neutrophils % Seg Neuts % (Manual) Lymphocytes % (Manual) Monocytes % (Manual) Seg Neutrophils # Seg Neutrophils # Man Monocytes # (Manual) Basophils # (Manual) PT INR POC ABG pH POC ABG pCO2 POC ABG pO2 Sodium 150 H Potassium Chloride 113.8 H Carbon Dioxide 20 L BUN 6 L Creatinine Glucose 145 H POC Glucose 212 H 157 H Lactic Acid Calcium Phosphorus Magnesium Alkaline Phosphatase Ammonia Total Creatine Kinase C-Reactive Protein Total Protein Albumin Vitamin B12 TSH Urine WBC (Auto) Salicylates Complement C3 Miscellaneous Test Crossmatch 11/01/17 11/01/17 11/01/17 05:50 12:00 12:23 WBC RBC Hgb Hct MCV MCH MCHC RDW Plt Count Seg Neutrophils % Seg Neuts % (Manual) Lymphocytes % (Manual) Monocytes % (Manual) Seg Neutrophils # Seg Neutrophils # Man Monocytes # (Manual) Basophils # (Manual) PT INR POC ABG pH POC ABG pCO2 POC ABG pO2 Sodium Potassium Chloride Carbon Dioxide BUN Creatinine Glucose POC Glucose 143 H 273 H Lactic Acid Calcium Phosphorus Magnesium Alkaline Phosphatase Ammonia Total Creatine Kinase C-Reactive Protein Total Protein Albumin Vitamin B12 TSH Urine WBC (Auto) 91.0 H Salicylates Complement C3 Miscellaneous Test Crossmatch 11/01/17 11/01/17 11/01/17 18:12 18:36 20:18 WBC RBC Hgb Hct MCV MCH MCHC RDW Plt Count Seg Neutrophils % Seg Neuts % (Manual) Lymphocytes % (Manual) Monocytes % (Manual) Seg Neutrophils # Seg Neutrophils # Man Monocytes # (Manual) Basophils # (Manual) PT INR POC ABG pH POC ABG pCO2 POC ABG pO2 Sodium Potassium Chloride Carbon Dioxide BUN Creatinine Glucose POC Glucose 292 H 298 H Lactic Acid Calcium Phosphorus Magnesium Alkaline Phosphatase 151 H Ammonia Total Creatine Kinase C-Reactive Protein Total Protein 5.8 L Albumin 2.9 L Vitamin B12 TSH Urine WBC (Auto) Salicylates Complement C3 Miscellaneous Test Crossmatch 11/02/17 11/02/17 11/02/17 00:23 05:39 08:40 WBC RBC Hgb Hct MCV MCH MCHC RDW Plt Count Seg Neutrophils % Seg Neuts % (Manual) Lymphocytes % (Manual) Monocytes % (Manual) Seg Neutrophils # Seg Neutrophils # Man Monocytes # (Manual) Basophils # (Manual) PT INR POC ABG pH POC ABG pCO2 POC ABG pO2 Sodium Potassium 3.1 L D Chloride 107.6 H Carbon Dioxide BUN Creatinine Glucose 163 H POC Glucose 263 H 123 H Lactic Acid Calcium Phosphorus Magnesium Alkaline Phosphatase Ammonia Total Creatine Kinase C-Reactive Protein Total Protein Albumin Vitamin B12 TSH Urine WBC (Auto) Salicylates Complement C3 Miscellaneous Test Crossmatch 11/02/17 11/02/17 11/02/17 11:56 17:30 20:43 WBC RBC Hgb Hct MCV MCH MCHC RDW Plt Count Seg Neutrophils % Seg Neuts % (Manual) Lymphocytes % (Manual) Monocytes % (Manual) Seg Neutrophils # Seg Neutrophils # Man Monocytes # (Manual) Basophils # (Manual) PT INR POC ABG pH POC ABG pCO2 POC ABG pO2 Sodium Potassium Chloride Carbon Dioxide BUN Creatinine Glucose POC Glucose 252 H 233 H 274 H Lactic Acid Calcium Phosphorus Magnesium Alkaline Phosphatase Ammonia Total Creatine Kinase C-Reactive Protein Total Protein Albumin Vitamin B12 TSH Urine WBC (Auto) Salicylates Complement C3 Miscellaneous Test Crossmatch 11/02/17 11/02/17 11/03/17 Unknown Unknown 00:22 WBC RBC 2.95 L Hgb 7.1 L Hct 22.1 L MCV 75 L MCH 24 L MCHC RDW 19.5 H Plt Count Seg Neutrophils % Seg Neuts % (Manual) 75.0 H Lymphocytes % (Manual) Monocytes % (Manual) Seg Neutrophils # Seg Neutrophils # Man Monocytes # (Manual) Basophils # (Manual) PT INR POC ABG pH POC ABG pCO2 POC ABG pO2 Sodium Potassium Chloride Carbon Dioxide BUN Creatinine Glucose POC Glucose 310 H Lactic Acid Calcium Phosphorus Magnesium Alkaline Phosphatase Ammonia Total Creatine Kinase C-Reactive Protein Total Protein Albumin Vitamin B12 TSH Urine WBC (Auto) Salicylates Complement C3 74 L Miscellaneous Test Crossmatch 11/03/17 11/03/17 11/03/17 04:00 05:49 08:19 WBC RBC Hgb Hct MCV MCH MCHC RDW Plt Count Seg Neutrophils % Seg Neuts % (Manual) Lymphocytes % (Manual) Monocytes % (Manual) Seg Neutrophils # Seg Neutrophils # Man Monocytes # (Manual) Basophils # (Manual) PT INR POC ABG pH POC ABG pCO2 POC ABG pO2 Sodium Potassium Chloride Carbon Dioxide BUN Creatinine Glucose 254 H POC Glucose 260 H 235 H Lactic Acid Calcium Phosphorus Magnesium Alkaline Phosphatase Ammonia Total Creatine Kinase C-Reactive Protein Total Protein Albumin Vitamin B12 TSH Urine WBC (Auto) Salicylates Complement C3 Miscellaneous Test Crossmatch 11/03/17 11/03/17 11/03/17 12:19 17:51 18:15 WBC RBC Hgb Hct MCV MCH MCHC RDW Plt Count Seg Neutrophils % Seg Neuts % (Manual) Lymphocytes % (Manual) Monocytes % (Manual) Seg Neutrophils # Seg Neutrophils # Man Monocytes # (Manual) Basophils # (Manual) PT INR POC ABG pH POC ABG pCO2 POC ABG pO2 Sodium Potassium Chloride Carbon Dioxide BUN Creatinine Glucose POC Glucose 293 H 259 H Lactic Acid Calcium Phosphorus Magnesium Alkaline Phosphatase Ammonia Total Creatine Kinase C-Reactive Protein Total Protein Albumin Vitamin B12 TSH Urine WBC (Auto) Salicylates Complement C3 Miscellaneous Test Crossmatch See Detail 11/03/17 11/03/17 11/04/17 18:15 20:05 00:33 WBC RBC Hgb Hct MCV MCH MCHC RDW Plt Count Seg Neutrophils % Seg Neuts % (Manual) Lymphocytes % (Manual) Monocytes % (Manual) Seg Neutrophils # Seg Neutrophils # Man Monocytes # (Manual) Basophils # (Manual) PT INR POC ABG pH POC ABG pCO2 POC ABG pO2 Sodium Potassium Chloride Carbon Dioxide BUN Creatinine Glucose POC Glucose 298 H 235 H Lactic Acid Calcium Phosphorus Magnesium Alkaline Phosphatase Ammonia Total Creatine Kinase C-Reactive Protein Total Protein Albumin Vitamin B12 1162 H TSH Urine WBC (Auto) Salicylates Complement C3 Miscellaneous Test Crossmatch 11/04/17 11/04/17 11/04/17 03:46 03:46 05:23 WBC 12.9 H RBC Hgb 8.9 L Hct 28.3 L D MCV 76 L MCH 24 L MCHC RDW 20.2 H Plt Count Seg Neutrophils % Seg Neuts % (Manual) Lymphocytes % (Manual) Monocytes % (Manual) 10.0 H Seg Neutrophils # Seg Neutrophils # Man 8.3 H Monocytes # (Manual) 1.3 H Basophils # (Manual) PT INR POC ABG pH POC ABG pCO2 POC ABG pO2 Sodium Potassium Chloride Carbon Dioxide BUN 19 H Creatinine Glucose 197 H POC Glucose 192 H Lactic Acid Calcium Phosphorus Magnesium Alkaline Phosphatase Ammonia Total Creatine Kinase C-Reactive Protein Total Protein Albumin Vitamin B12 TSH Urine WBC (Auto) Salicylates Complement C3 Miscellaneous Test Crossmatch 11/04/17 11/04/17 11/04/17 08:36 12:28 17:45 WBC RBC Hgb Hct MCV MCH MCHC RDW Plt Count Seg Neutrophils % Seg Neuts % (Manual) Lymphocytes % (Manual) Monocytes % (Manual) Seg Neutrophils # Seg Neutrophils # Man Monocytes # (Manual) Basophils # (Manual) PT INR POC ABG pH POC ABG pCO2 POC ABG pO2 Sodium Potassium Chloride Carbon Dioxide BUN Creatinine Glucose POC Glucose 141 H 183 H 172 H Lactic Acid Calcium Phosphorus Magnesium Alkaline Phosphatase Ammonia Total Creatine Kinase C-Reactive Protein Total Protein Albumin Vitamin B12 TSH Urine WBC (Auto) Salicylates Complement C3 Miscellaneous Test Crossmatch 11/05/17 11/05/17 11/05/17 04:00 04:00 05:38 WBC 11.6 H RBC Hgb 9.5 L Hct 30.1 L MCV 77 L MCH 24 L MCHC RDW 20.4 H Plt Count 538 H Seg Neutrophils % Seg Neuts % (Manual) 73.0 H Lymphocytes % (Manual) Monocytes % (Manual) Seg Neutrophils # Seg Neutrophils # Man 8.5 H Monocytes # (Manual) Basophils # (Manual) PT INR POC ABG pH POC ABG pCO2 POC ABG pO2 Sodium Potassium Chloride 96.6 L Carbon Dioxide BUN Creatinine Glucose 193 H POC Glucose 216 H Lactic Acid Calcium Phosphorus Magnesium Alkaline Phosphatase Ammonia Total Creatine Kinase C-Reactive Protein Total Protein Albumin Vitamin B12 TSH Urine WBC (Auto) Salicylates Complement C3 Miscellaneous Test Crossmatch 11/05/17 11/05/17 11/05/17 07:45 11:56 14:38 WBC RBC Hgb Hct MCV MCH MCHC RDW Plt Count Seg Neutrophils % Seg Neuts % (Manual) Lymphocytes % (Manual) Monocytes % (Manual) Seg Neutrophils # Seg Neutrophils # Man Monocytes # (Manual) Basophils # (Manual) PT INR POC ABG pH POC ABG pCO2 45.4 H POC ABG pO2 109 H Sodium Potassium Chloride Carbon Dioxide BUN Creatinine Glucose POC Glucose 224 H 175 H Lactic Acid Calcium Phosphorus Magnesium Alkaline Phosphatase Ammonia Total Creatine Kinase C-Reactive Protein Total Protein Albumin Vitamin B12 TSH Urine WBC (Auto) Salicylates Complement C3 Miscellaneous Test Crossmatch 11/05/17 11/05/17 11/05/17 17:22 20:14 23:50 WBC RBC Hgb Hct MCV MCH MCHC RDW Plt Count Seg Neutrophils % Seg Neuts % (Manual) Lymphocytes % (Manual) Monocytes % (Manual) Seg Neutrophils # Seg Neutrophils # Man Monocytes # (Manual) Basophils # (Manual) PT INR POC ABG pH POC ABG pCO2 POC ABG pO2 Sodium Potassium Chloride Carbon Dioxide BUN Creatinine Glucose POC Glucose 177 H 144 H 248 H Lactic Acid Calcium Phosphorus Magnesium Alkaline Phosphatase Ammonia Total Creatine Kinase C-Reactive Protein Total Protein Albumin Vitamin B12 TSH Urine WBC (Auto) Salicylates Complement C3 Miscellaneous Test Crossmatch 11/06/17 11/06/17 11/06/17 04:16 08:14 12:02 WBC RBC Hgb Hct MCV MCH MCHC RDW Plt Count Seg Neutrophils % Seg Neuts % (Manual) Lymphocytes % (Manual) Monocytes % (Manual) Seg Neutrophils # Seg Neutrophils # Man Monocytes # (Manual) Basophils # (Manual) PT INR POC ABG pH POC ABG pCO2 POC ABG pO2 Sodium Potassium Chloride Carbon Dioxide BUN Creatinine Glucose POC Glucose 246 H 291 H 334 H Lactic Acid Calcium Phosphorus Magnesium Alkaline Phosphatase Ammonia Total Creatine Kinase C-Reactive Protein Total Protein Albumin Vitamin B12 TSH Urine WBC (Auto) Salicylates Complement C3 Miscellaneous Test Crossmatch 11/06/17 16:23 WBC RBC Hgb Hct MCV MCH MCHC RDW Plt Count Seg Neutrophils % Seg Neuts % (Manual) Lymphocytes % (Manual) Monocytes % (Manual) Seg Neutrophils # Seg Neutrophils # Man Monocytes # (Manual) Basophils # (Manual) PT INR POC ABG pH POC ABG pCO2 POC ABG pO2 Sodium Potassium Chloride Carbon Dioxide BUN Creatinine Glucose POC Glucose 197 H Lactic Acid Calcium Phosphorus Magnesium Alkaline Phosphatase Ammonia Total Creatine Kinase C-Reactive Protein Total Protein Albumin Vitamin B12 TSH Urine WBC (Auto) Salicylates Complement C3 Miscellaneous Test Crossmatch Allied health notes reviewed: nursing
--- NOTE | 2017-11-06 19:16 | Consultation ---
INDICATION: Anemia. REFERRING PHYSICIAN: Dr. Cortez Huang. HISTORY OF PRESENT ILLNESS: The patient is a 22-year-old black female with history of diabetes, hypertension, chronic pain with medical noncompliance, been seen by GI for anemia. The patient was presented with altered mental status and acute respiratory failure as well as sepsis, which has been treated. When patient presented, she was also in DKA. The patient reports that she had a chronic history of anemia. She reports this has been going on for years. She reports she is being followed by [facility]. She reports her last colonoscopy was about 3 years ago and she is actually supposed to come and follow up for repeat colonoscopy. She reports again this anemia is not new. She reports no nausea, vomiting. Denies any rectal bleeding or melena. Denies any hematemesis. No other specific GI complaints. PAST MEDICAL HISTORY: 1. Diabetes. 2. Hypertension. MEDICATIONS: See chart. ALLERGIES: No known drug allergies. SOCIAL HISTORY: Denies alcohol, tobacco or IV drugs abuse. FAMILY HISTORY: Negative for colon cancer. REVIEW OF SYSTEMS: GENERAL: Reports mild weakness. HEENT: No visual complaints or tinnitus. PULMONARY: mild short of breath, CV: denies chest pain. GASTROINTESTINAL: Reports no rectal bleeding or other GI complaints. All points of 13-point review of systems otherwise negative. PHYSICAL EXAMINATION: VITAL SIGNS: Temperature of 98.7, pulse 94, respirations 20, blood pressure 150/90. GENERAL: Fairly nourished, fairly thin black female in no acute distress. HEENT: Pupils equal, round and reactive. PULMONARY: Clear to auscultation bilaterally. CARDIOVASCULAR: Regular rhythm. Normal S1, S2. ABDOMEN: Positive bowel sounds, soft. SKIN: No obvious rashes. LABORATORY DATA: Pertinent for white count of 11.6, hemoglobin and hematocrit 9.5 and 30.1, platelet count of 538. Chem-7 within normal limits. ASSESSMENT: A 22-year-old black female with past medical history noted above, presented with sepsis and acute respiratory failure, now improved. The patient reports a chronic history of anemia, has been followed by [facility] [place]. She reports she is actually supposed to have followup in upcoming weeks with repeat colonoscopy plan. She denies any signs of bleeding at this time. 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 PLAN: 1. Follow hematocrit and transfuse as needed. 2. PPI daily. 3. The patient to follow up with her regular patrol supervisor as an outpatient. 4. No intervention from or GI standpoint planned at this time. 5. We will sign off, call if needed. JOB# [id number] HI/VANDANA AMBROSE
[2017-11-07] MEDS ORDERED: BENADRYL IV ONE (00:39)
[2017-11-07] MEDS: NORMODYNE IV PRN (00:46)
[2017-11-07] MEDS ORDERED: APRESOLINE IV ONE (02:49)
[2017-11-07] MEDS: CATAPRES PO SCH (05:43)
[2017-11-07 07:20] LABS: Hematocrit 33.4 % (30.3-42.9); Hemoglobin 10.1 gm/dl (10.1-14.3); Mean Corpuscular HGB Conc 30 % (30-34); Mean Corpuscular Hemoglobin 24 pg (28-32); Mean Corpuscular Volume 78 fl (79-97); Platelet Count 561 K/mm3 (140-440); Red Blood Count 4.27 M/mm3 (3.65-5.03)
[2017-11-07 07:28] LABS: BUN/Creatinine Ratio 24; Blood Urea Nitrogen 19 mg/dL (7-17); Calcium 8.8 mg/dL (8.4-10.2); Hemolysis Index 3
[2017-11-07 09:00] LABS: Basophils % (Manual) 0 % (0.0-1.8); Eosinophils % (Manual) 0 % (0.0-4.3); RBC Morphology Normal; Total Cells Counted 100
[2017-11-07] MEDS ORDERED: HCTZ PO SCH ×2 (09:32→10:00)
[2017-11-07] MEDS ORDERED: CATAPRES PO SCH (09:32)
[2017-11-07] MEDS ORDERED: CATAPRES PO PRN (09:32)
--- NOTE | 2017-11-07 09:34 | Progress Note ---
Assessment and Plan Assessment and plan: 22 YO Female with DM, Medication Noncompliance, HTN, Chronic Pain presents to ED for evaluation. Pt unable to provide history, but history taken from ED staff , as well as EMS. Pt was found down and unresponsive by neighbors. EMS notified , and upon arrival the patient was found to be unresponsive. Patient had an empty bottle of oxycodone in her pill bag although she denies any overdose. Narcan was given without improvement in mental status. Patient transported to [facility] for further care and evaluation. Pt seen and evaluated in ED and found to have Acute Respiratory Failure, as well as DKA, and Sepsis. Pt intubated, sedated, and placed on vent support, as well as DKA and sepsis protocols. she had a swollen eye and face requiring initiation of bendryle and holding ACEI/ ARBs. Patient was treated for possible pneumonia, UTI with Levaquin and Flagyl for 7 days which she completed. Culture grew For which the patient was treated with fluconazole. The strep group B and Barbie were felt to be colonizers. Infectious disease medical stenographer and director global intelligence were all involved in the patient's case. From the vent and is stable for transfer to the medical floor. Sepsis-poa - likely due to pneumonia - Patient was treated with IV Levaquin and Flagyl - Persistent Leukocytosis likely secondary to steroids. No new fever noted. Acute respiratory failure, hypoxic, on MV >96 hours, angioedema - Pulmonary consulted, Pt intubated -Now librated from the vent,. WIll hold off ACEI/ARBS, Patient to have allergy testing as outpatient -taper steroids Acute renal failure/Vasomotor nephropathy continue IV, renal consult pressures and, resolved Metabolic encephalopathy due to DKA - Resolved Acute metabolic Toxic encephalopathy - resolved - UDS was positive for benzo Hypertensive urgency - increase BB and stop HCTZ, add Imdur and change clonidin to PRN, doubt patient will be compliant with colnidine as outpatient. -Hold all ARBS and ACEI Severe anemia - improved post transfusion. will monitor closely - Anemia workup - GI consult Hypothermia - Resolved DKA (diabetic ketoacidoses) - Resolved, currently on sliding scale insulin - Increase NPH TO 20 UNITS BID Hypokalemia, hypophosphatemia - repleted, will repeat BMP and Magnesium in the morning Hypernatremia - continue free water replacement Thyroid lesion -Follow up outpatient. Discussed with patient -CT neck was normal Mediastinal fullness ? small LNs. HIV neg. Repeat CT chest +anterior mediastinal stranding and no pathologic LN. CT neck normal. -Recommend re-evaulation outpatient Generalized pain with chronic pain syndrom - Increase her pain medications DVT prophylaxis - SCD to BLE,. Plan discussed with the patient. Will transfer to medical floor. Anticipate discharge in 24 hrs, IF BP remains controlled History Interval history: Patient is seen today for: DKA, Seen and examined at bedside; 24hour events reviewed; nursing staff ; no adverse overnight events reported to me; Denies any chest pain, nausea, vomiting , diarrhea No fever noted blood pressure controlled Hospitalist Physical - Physical exam Narrative exam: VITAL SIGNS: Reviewed. GENERAL: The patient appeared well nourished and normally developed. Vital signs as documented. HEAD: No signs of head trauma. EYES: Pupils are equal. Extraocular motions intact. EARS: Hearing grossly intact. MOUTH: Oropharynx is normal. NECK: No adenopathy, no JVD. CHEST: Chest with clear breath sounds bilaterally. No wheezes, rales, or rhonchi. CARDIAC: Regular rate and rhythm. S1 and S2, without murmurs, gallops, or rubs. VASCULAR: No Edema. Peripheral pulses normal and equal in all extremities. ABDOMEN: Soft, without detectable tenderness. No sign of distention. No rebound or guarding, and no masses palpated. Bowel Sounds normal. MUSCULOSKELETAL: Good range of motion of all major joints. Extremities without clubbing, cyanosis or edema. NEUROLOGIC EXAM: Alert and oriented x 3. No focal sensory or strength deficits. Speech normal. Follows commands. PSYCHIATRIC: Mood normal. SKIN: No rash or lesions. - Constitutional Vitals: Temp Pulse Resp BP Pulse Ox 98.8 F 91 H 20 130/94 94 11/07/17 08:21 11/07/17 08:21 11/07/17 08:21 11/07/17 08:21 11/07/17 08:21 General appearance: Present: severe distress, cachectic, disheveled Results - Labs CBC & Chem 7: 11/07/17 07:01 11/07/17 07:01 Labs: Laboratory Last Values WBC 17.2 K/mm3 (4.5-11.0) H 11/07/17 07:01 RBC 4.27 M/mm3 (3.65-5.03) 11/07/17 07:01 Hgb 10.1 gm/dl (10.1-14.3) 11/07/17 07:01 Hct 33.4 % (30.3-42.9) 11/07/17 07:01 MCV 78 fl (79-97) L 11/07/17 07:01 MCH 24 pg (28-32) L 11/07/17 07:01 MCHC 30 % (30-34) 11/07/17 07:01 RDW 20.0 % (13.2-15.2) H 11/07/17 07:01 Plt Count 561 K/mm3 (140-440) H 11/07/17 07:01 Lymph % (Auto) 16.4 % (13.4-35.0) 10/28/17 15:39 Jack % (Auto) 3.7 % (0.0-7.3) 10/28/17 15:39 Eos % (Auto) 0.7 % (0.0-4.3) 10/28/17 15:39 Baso % (Auto) 0.7 % (0.0-1.8) 10/28/17 15:39 Lymph # 2.6 K/mm3 (1.2-5.4) 10/28/17 15:39 Jack # 0.6 K/mm3 (0.0-0.8) 10/28/17 15:39 Eos # 0.1 K/mm3 (0.0-0.4) 10/28/17 15:39 Baso # 0.1 K/mm3 (0.0-0.1) 10/28/17 15:39 Add Manual Diff Complete 11/07/17 07:01 Total Counted 100 11/07/17 07:01 Seg Neutrophils % 78.5 % (40.0-70.0) H 10/28/17 15:39 Seg Neuts % (Manual) 82.0 % (40.0-70.0) H 11/07/17 07:01 Band Neutrophils % 0 % 11/07/17 07:01 Lymphocytes % (Manual) 12.0 % (13.4-35.0) L 11/07/17 07:01 Reactive Lymphs % (Man) 0 % 11/07/17 07:01 Monocytes % (Manual) 6.0 % (0.0-7.3) 11/07/17 07:01 Eosinophils % (Manual) 0 % (0.0-4.3) 11/07/17 07:01 Basophils % (Manual) 0 % (0.0-1.8) 11/07/17 07:01 Metamyelocytes % 0 % 11/07/17 07:01 Myelocytes % 0 % 11/07/17 07:01 Promyelocytes % 0 % 11/07/17 07:01 Blast Cells % 0 % 11/07/17 07:01 Nucleated RBC % Not Reportable 11/07/17 07:01 Seg Neutrophils # 12.2 K/mm3 (1.8-7.7) H 10/28/17 15:39 Seg Neutrophils # Man 14.1 K/mm3 (1.8-7.7) H 11/07/17 07:01 Band Neutrophils # 0.0 K/mm3 11/07/17 07:01 Lymphocytes # (Manual) 2.1 K/mm3 (1.2-5.4) 11/07/17 07:01 Abs React Lymphs (Man) 0.0 K/mm3 11/07/17 07:01 Monocytes # (Manual) 1.0 K/mm3 (0.0-0.8) H 11/07/17 07:01 Eosinophils # (Manual) 0.0 K/mm3 (0.0-0.4) 11/07/17 07:01 Basophils # (Manual) 0.0 K/mm3 (0.0-0.1) 11/07/17 07:01 Metamyelocytes # 0.0 K/mm3 11/07/17 07:01 Myelocytes # 0.0 K/mm3 11/07/17 07:01 Promyelocytes # 0.0 K/mm3 11/07/17 07:01 Blast Cells # 0.0 K/mm3 11/07/17 07:01 WBC Morphology Not Reportable 11/07/17 07:01 Hypersegmented Neuts Not Reportable 11/07/17 07:01 Hyposegmented Neuts Not Reportable 11/07/17 07:01 Hypogranular Neuts Not Reportable 11/07/17 07:01 Smudge Cells Not Reportable 11/07/17 07:01 Toxic Granulation Not Reportable 11/07/17 07:01 Toxic Vacuolation Not Reportable 11/07/17 07:01 Dohle Bodies Not Reportable 11/07/17 07:01 Pelger-Huet Anomaly Not Reportable 11/07/17 07:01 Gogo Rods Not Reportable 11/07/17 07:01 Platelet Estimate Not Reportable 11/07/17 07:01 Clumped Platelets Not Reportable 11/07/17 07:01 Plt Clumps, EDTA Not Reportable 11/07/17 07:01 Large Platelets Not Reportable 11/07/17 07:01 Giant Platelets Not Reportable 11/07/17 07:01 Platelet Satelliting Not Reportable 11/07/17 07:01 Plt Morphology Comment Not Reportable 11/07/17 07:01 RBC Morphology Normal 11/07/17 07:01 Dimorphic RBCs Not Reportable 11/07/17 07:01 Polychromasia Not Reportable 11/07/17 07:01 Hypochromasia Not Reportable 11/07/17 07:01 Poikilocytosis Not Reportable 11/07/17 07:01 Anisocytosis Not Reportable 11/07/17 07:01 Microcytosis Not Reportable 11/07/17 07:01 Macrocytosis Not Reportable 11/07/17 07:01 Spherocytes Not Reportable 11/07/17 07:01 Pappenheimer Bodies Not Reportable 11/07/17 07:01 Sickle Cells Not Reportable 11/07/17 07:01 Target Cells Not Reportable 11/07/17 07:01 Tear Drop Cells Not Reportable 11/07/17 07:01 Ovalocytes Not Reportable 11/07/17 07:01 Helmet Cells Not Reportable 11/07/17 07:01 Paulino-[place] Bodies Not Reportable 11/07/17 07:01 [place] Rings Not Reportable 11/07/17 07:01 [place] Cells Not Reportable 11/07/17 07:01 Bite Cells Not Reportable 11/07/17 07:01 Crenated Cell Not Reportable 11/07/17 07:01 Elliptocytes Not Reportable 11/07/17 07:01 Acanthocytes (Spur) Not Reportable 11/07/17 07:01 Rouleaux Not Reportable 11/07/17 07:01 Hemoglobin C Crystals Not Reportable 11/07/17 07:01 Schistocytes Not Reportable 11/07/17 07:01 Malaria parasites Not Reportable 11/07/17 07:01 David Bodies Not Reportable 11/07/17 07:01 Hem Pathologist Commnt No 11/07/17 07:01 PT 16.8 Sec. (12.2-14.9) H 10/26/17 11:44 INR 1.29 (0.87-1.13) H 10/26/17 11:44 APTT 24.9 Sec. (24.2-36.6) 10/26/17 11:44 POC ABG pH 7.445 (7.35-7.45) 11/05/17 14:38 POC ABG pCO2 45.4 (35-45) H 11/05/17 14:38 POC ABG pO2 109 (80-105) H 11/05/17 14:38 POC ABG HCO3 31.2 11/05/17 14:38 POC ABG Total CO2 33 11/05/17 14:38 POC ABG O2 Sat 98 11/05/17 14:38 POC ABG Base Excess 7 11/05/17 14:38 FiO2 35 % 11/05/17 14:38 Sodium 132 mmol/L (137-145) L D 11/07/17 07:01 Potassium 3.6 mmol/L (3.6-5.0) 11/07/17 07:01 Chloride 93.7 mmol/L (98-107) L 11/07/17 07:01 Carbon Dioxide 27 mmol/L (22-30) 11/07/17 07:01 Anion Gap 15 mmol/L 11/07/17 07:01 BUN 19 mg/dL (7-17) H 11/07/17 07:01 Creatinine 0.8 mg/dL (0.7-1.2) 11/07/17 07:01 Estimated GFR > 60 ml/min 11/07/17 07:01 BUN/Creatinine Ratio 24 % 11/07/17 07:01 Glucose 343 mg/dL (65-100) H 11/07/17 07:01 POC Glucose 319 (70-105) H 11/07/17 06:24 Ketones Quantitative Small (Negative) 10/27/17 20:24 Lactic Acid 1.40 mmol/L (0.7-2.0) 10/27/17 20:34 Calcium 8.8 mg/dL (8.4-10.2) 11/07/17 07:01 Phosphorus 3.30 mg/dL (2.5-4.5) 11/01/17 03:28 Magnesium 2.20 mg/dL (1.7-2.3) 11/03/17 04:00 Iron 67 ug/dL (37-170) 11/03/17 18:15 TIBC 333 mcg/dL (250-450) 11/03/17 18:15 Ferritin 42.6 ng/mL (13.0-400.0) 11/03/17 18:15 Total Bilirubin < 0.20 mg/dL (0.1-1.2) 11/01/17 18:36 Direct Bilirubin < 0.2 mg/dL (0-0.2) 11/01/17 18:36 Indirect Bilirubin 0.0 mg/dL 11/01/17 18:36 AST 12 units/L (5-40) 11/01/17 18:36 ALT 17 units/L (7-56) 11/01/17 18:36 Alkaline Phosphatase 151 units/L (35-129) H 11/01/17 18:36 Ammonia 67.0 umol/L (25-60) H 10/26/17 11:44 Total Creatine Kinase 24 units/L (30-135) L 10/26/17 11:44 Troponin T < 0.010 ng/mL (0.00-0.029) 10/26/17 11:44 C-Reactive Protein 0.30 mg/dL (0.00-1.30) 11/03/17 15:30 Total Protein 5.8 g/dL (6.3-8.2) L 11/01/17 18:36 Albumin 2.9 g/dL (3.9-5) L 11/01/17 18:36 Albumin/Globulin Ratio 1.0 % 11/01/17 18:36 Triglycerides 144 mg/dL (2-149) 10/30/17 10:36 Vitamin B12 1162 pg/mL (211-911) H 11/03/17 18:15 Folate 17.94 ng/mL (7.3-26.0) 11/03/17 18:15 TSH 0.216 mlU/mL (0.270-4.200) L 10/29/17 13:50 Total Cortisol 12.9 mcg/dL () 10/31/17 21:31 Urine Color Yellow (Yellow) 11/01/17 12:00 Urine Turbidity Cloudy (Clear) 11/01/17 12:00 Urine pH 5.0 (5.0-7.0) 11/01/17 12:00 Ur Specific [place] 1.007 (1.003-1.030) 11/01/17 12:00 Urine Protein <15 mg/dl mg/dL (Negative) 11/01/17 12:00 Urine Glucose (UA) >=500 mg/dL (Negative) 11/01/17 12:00 Urine Ketones Neg mg/dL (Negative) 11/01/17 12:00 Urine Blood Sm (Negative) 11/01/17 12:00 Urine Nitrite Neg (Negative) 11/01/17 12:00 Urine Bilirubin Neg (Negative) 11/01/17 12:00 Urine Urobilinogen < 2.0 mg/dL (<2.0) 11/01/17 12:00 Ur Leukocyte Esterase Lg (Negative) 11/01/17 12:00 Urine WBC (Auto) 91.0 /HPF (0.0-6.0) H 11/01/17 12:00 Urine RBC (Auto) > 182.0 /HPF (0.0-6.0) 11/01/17 12:00 U Epithel Cells (Auto) < 1.0 /HPF (0-13.0) 11/01/17 12:00 Urine Bacteria (Auto) 2+ /HPF (Negative) 11/01/17 12:00 Urine WBC Clumps 2+ /HPF 11/01/17 12:00 Uric Acid Crystals 3+ 10/26/17 12:59 Granular Casts 3 /LPF 10/26/17 12:59 Urine Mucus Few /HPF 11/01/17 12:00 Ur Yeast w Hyphae Few /HPF 10/26/17 12:59 Urine Yeast (Budding) 3+ /HPF 11/01/17 12:00 Salicylates < 0.3 mg/dL (2.8-20.0) L 10/26/17 11:44 Urine Opiates Screen Presumptive negative 10/26/17 12:59 Urine Methadone Screen Presumptive negative 10/26/17 12:59 Acetaminophen 15.0 ug/mL (10.0-30.0) 10/26/17 11:44 Ur Barbiturates Screen Presumptive negative 10/26/17 12:59 Ur Phencyclidine Scrn Presumptive negative 10/26/17 12:59 Ur Amphetamines Screen Presumptive negative 10/26/17 12:59 U Benzodiazepines Scrn Presumptive positive 10/26/17 12:59 Urine Cocaine Screen Presumptive negative 10/26/17 12:59 U Marijuana (THC) Screen Presumptive negative 10/26/17 12:59 Drugs of Abuse Note Disclamer 10/26/17 12:59 Plasma/Serum Alcohol < 0.01 % (0-0.07) 10/26/17 11:44 ELLIE Screen Negative (Negative) 11/02/17 Unknown Proteinase 3 (PR3) Ab <1.0 AI (<1.0) 11/02/17 Unknown Myeloperoxidase Ab <1.0 AI (<1.0) 11/02/17 Unknown Complement C3 74 mg/dL (83-193) L 11/02/17 Unknown Complement C4 25 mg/dL (15-57) 11/02/17 Unknown HIV 1&2 Antibody Rapid Non react (Non React) 10/28/17 15:50 HIV P24 Antigen Non react (Non React) 10/28/17 15:50 Miscellaneous Test Flexitest 1 H 10/28/17 19:24 Blood Type O POSITIVE 11/03/17 18:15 Antibody Screen Negative 11/03/17 18:15 Crossmatch See Detail 11/03/17 18:15
[2017-11-07] MEDS: NORCO 5/325 PO PRN ×3 (09:41→23:55)
[2017-11-07] MEDS: LOPRESSOR PO SCH ×2 (09:42→22:51)
[2017-11-07] MEDS: PEPCID PO SCH ×2 (09:43→22:52)
[2017-11-07] MEDS: HEPARIN SUB-Q SCH ×2 (09:43→22:53)
[2017-11-07] MEDS: IMDUR PO SCH (09:51)
--- NOTE | 2017-11-07 13:21 | Progress Note ---
Assessment and Plan Acute respiratory failure, on mechanical ventilatory support. Acute encephalopathy, appears toxic metabolic at this point. Diabetic ketoacidosis. Sepsis syndrome. History of chronic pain. Possible drug abuse. Anemia. Leukocytosis. Hyperammonemia. Severe metabolic acidosis with a lactic acid component. - continue reglan to improve GI motility re: regurgitation - avoid opiate overuse - begin tapering antihistamines and steroids - prn oxygen to keep sats > 90% - continue GI & VTE prophylaxis - azotemia per nephrology (improved) - hypernatremia resolved - continue bronchodilators and pulmonary hygiene per RT - continue other care per attending / other consultants - increased clonidine dose to 0.2mg q8h via feeding tube ....re-evaluate in am & prn ...25' CCT Subjective Date of service: 11/07/17 Principal diagnosis: Acute Hypoxemic Respiratory Failure; Acute Encephalopathy; Angioedema Interval history: Patient is seen today for: Acute Hypoxemic Respiratory Failure; Acute Encephalopathy Seen and examined at bedside; 24hour events reviewed; nursing and respiratory care staff consulted; no adverse overnight events reported to me; cuff leak much better; Objective Vital Signs - 12hr 11/07/17 11/07/17 11/07/17 01:54 03:06 04:54 Temperature 98.3 F Pulse Rate 84 82 87 Respiratory 18 17 Rate Blood Pressure 169/117 161/102 133/90 O2 Sat by Pulse 100 100 100 Oximetry 11/07/17 11/07/17 11/07/17 05:39 08:21 09:41 Temperature 98.8 F Pulse Rate 88 91 H Respiratory 18 20 20 Rate Blood Pressure 116/75 130/94 O2 Sat by Pulse 100 94 Oximetry 11/07/17 11/07/17 09:51 10:00 Temperature Pulse Rate 91 H Respiratory Rate Blood Pressure 130/78 O2 Sat by Pulse 97 Oximetry Constitutional: no acute distress, alert Eyes: non-icteric, other (orbital phimosis) ENT: oropharynx moist, oropharyngeal exudate pre Neck: supple, no lymphadenopathy, no JVD, other (neck and facial swelling improved) Effort: mildly labored Ascultation: Bilateral: rhonchi (scant in bases) Percussion: Bilateral: not dull Cardiovascular: regular rate and rhythm, other (no rubs / murmurs) Gastrointestinal: normoactive bowel sounds, soft, non-tender, non-distended, other (no palpable HSM) Integumentary: normal Extremities: no cyanosis, no edema, pulses normal, no ischemia or petechiae Neurologic: normal mental status, non-focal exam, pupils equal and round, motor strength normal and Psychiatric: mood appropriate, affect normal CBC and BMP: 11/07/17 07:01 11/07/17 07:01 ABG, PT/INR, D-dimer: ABG POC ABG pH 7.445 (7.35-7.45) 11/05/17 14:38 POC ABG pCO2 45.4 (35-45) H 11/05/17 14:38 POC ABG pO2 109 (80-105) H 11/05/17 14:38 POC ABG HCO3 31.2 11/05/17 14:38 POC ABG Total CO2 33 11/05/17 14:38 POC ABG O2 Sat 98 11/05/17 14:38 PT/INR, D-dimer PT 16.8 Sec. (12.2-14.9) H 10/26/17 11:44 INR 1.29 (0.87-1.13) H 10/26/17 11:44 Abnormal lab findings: Abnormal Labs 10/26/17 10/26/17 10/26/17 11:23 11:44 11:44 WBC 20.6 H RBC 3.62 L Hgb 8.3 L Hct MCV MCH 23 L MCHC 24 L RDW 21.7 H Plt Count Seg Neutrophils % Seg Neuts % (Manual) 76.0 H Lymphocytes % (Manual) 11.0 L Monocytes % (Manual) Seg Neutrophils # Seg Neutrophils # Man 15.7 H Monocytes # (Manual) Basophils # (Manual) 0.2 H PT INR POC ABG pH POC ABG pCO2 POC ABG pO2 Sodium Potassium Chloride Carbon Dioxide BUN Creatinine Glucose POC Glucose > 500 H Lactic Acid 4.10 H* Calcium Phosphorus Magnesium Alkaline Phosphatase Ammonia Total Creatine Kinase C-Reactive Protein Total Protein Albumin Vitamin B12 TSH Urine WBC (Auto) Salicylates Complement C3 Miscellaneous Test Crossmatch 10/26/17 10/26/17 10/26/17 11:44 11:44 11:44 WBC RBC Hgb Hct MCV MCH MCHC RDW Plt Count Seg Neutrophils % Seg Neuts % (Manual) Lymphocytes % (Manual) Monocytes % (Manual) Seg Neutrophils # Seg Neutrophils # Man Monocytes # (Manual) Basophils # (Manual) PT 16.8 H INR 1.29 H POC ABG pH POC ABG pCO2 POC ABG pO2 Sodium 146 H Potassium 6.6 H* Chloride Carbon Dioxide 3 L* BUN 34 H Creatinine 2.2 H Glucose 1281 H* POC Glucose Lactic Acid Calcium 8.0 L Phosphorus Magnesium Alkaline Phosphatase 196 H Ammonia 67.0 H Total Creatine Kinase 24 L C-Reactive Protein Total Protein Albumin 3.6 L Vitamin B12 TSH Urine WBC (Auto) Salicylates Complement C3 Miscellaneous Test Crossmatch 10/26/17 10/26/17 10/26/17 11:44 12:01 12:59 WBC RBC Hgb Hct MCV MCH MCHC RDW Plt Count Seg Neutrophils % Seg Neuts % (Manual) Lymphocytes % (Manual) Monocytes % (Manual) Seg Neutrophils # Seg Neutrophils # Man Monocytes # (Manual) Basophils # (Manual) PT INR POC ABG pH 6.895 L POC ABG pCO2 12.3 L POC ABG pO2 311 H Sodium Potassium Chloride Carbon Dioxide BUN Creatinine Glucose POC Glucose Lactic Acid Calcium Phosphorus Magnesium Alkaline Phosphatase Ammonia Total Creatine Kinase C-Reactive Protein Total Protein Albumin Vitamin B12 TSH Urine WBC (Auto) 42.0 H Salicylates < 0.3 L Complement C3 Miscellaneous Test Crossmatch 10/26/17 10/26/17 10/26/17 13:06 13:17 13:17 WBC RBC Hgb Hct MCV MCH MCHC RDW Plt Count Seg Neutrophils % Seg Neuts % (Manual) Lymphocytes % (Manual) Monocytes % (Manual) Seg Neutrophils # Seg Neutrophils # Man Monocytes # (Manual) Basophils # (Manual) PT INR POC ABG pH POC ABG pCO2 POC ABG pO2 Sodium 146 H Potassium 7.1 H* Chloride Carbon Dioxide 2 L* BUN 35 H Creatinine 2.3 H Glucose 1330 H* POC Glucose Lactic Acid 4.10 H* Calcium 7.7 L Phosphorus 11.10 H Magnesium 2.70 H Alkaline Phosphatase Ammonia Total Creatine Kinase C-Reactive Protein Total Protein Albumin Vitamin B12 TSH Urine WBC (Auto) Salicylates Complement C3 Miscellaneous Test Crossmatch 10/26/17 10/26/17 10/26/17 14:57 15:26 15:26 WBC RBC Hgb Hct MCV MCH MCHC RDW Plt Count Seg Neutrophils % Seg Neuts % (Manual) Lymphocytes % (Manual) Monocytes % (Manual) Seg Neutrophils # Seg Neutrophils # Man Monocytes # (Manual) Basophils # (Manual) PT INR POC ABG pH POC ABG pCO2 POC ABG pO2 Sodium 147 H Potassium 6.3 H* Chloride Carbon Dioxide < 2.0 L* BUN 37 H Creatinine 2.4 H Glucose 1115 H* POC Glucose > 500 H Lactic Acid 3.70 H* Calcium 7.2 L Phosphorus Magnesium Alkaline Phosphatase Ammonia Total Creatine Kinase C-Reactive Protein Total Protein Albumin Vitamin B12 TSH Urine WBC (Auto) Salicylates Complement C3 Miscellaneous Test Crossmatch 10/26/17 10/26/17 10/26/17 16:02 17:51 17:51 WBC RBC Hgb Hct MCV MCH MCHC RDW Plt Count Seg Neutrophils % Seg Neuts % (Manual) Lymphocytes % (Manual) Monocytes % (Manual) Seg Neutrophils # Seg Neutrophils # Man Monocytes # (Manual) Basophils # (Manual) PT INR POC ABG pH POC ABG pCO2 POC ABG pO2 Sodium 149 H Potassium Chloride Carbon Dioxide 2 L* BUN 36 H Creatinine 2.6 H Glucose 1063 H* POC Glucose > 500 H Lactic Acid 6.50 H* Calcium 7.0 L Phosphorus Magnesium Alkaline Phosphatase Ammonia Total Creatine Kinase C-Reactive Protein Total Protein Albumin Vitamin B12 TSH Urine WBC (Auto) Salicylates Complement C3 Miscellaneous Test Crossmatch 10/26/17 10/26/17 10/26/17 18:42 19:55 19:55 WBC RBC Hgb Hct MCV MCH MCHC RDW Plt Count Seg Neutrophils % Seg Neuts % (Manual) Lymphocytes % (Manual) Monocytes % (Manual) Seg Neutrophils # Seg Neutrophils # Man Monocytes # (Manual) Basophils # (Manual) PT INR POC ABG pH 6.974 L POC ABG pCO2 14.9 L POC ABG pO2 244 H Sodium 150 H Potassium Chloride 108.3 H Carbon Dioxide 4 L* BUN 33 H Creatinine 2.4 H Glucose 663 H* POC Glucose Lactic Acid 8.30 H* Calcium 7.0 L Phosphorus Magnesium Alkaline Phosphatase Ammonia Total Creatine Kinase C-Reactive Protein Total Protein Albumin Vitamin B12 TSH Urine WBC (Auto) Salicylates Complement C3 Miscellaneous Test Crossmatch 10/26/17 10/26/17 10/26/17 21:26 21:26 23:55 WBC RBC Hgb Hct MCV MCH MCHC RDW Plt Count Seg Neutrophils % Seg Neuts % (Manual) Lymphocytes % (Manual) Monocytes % (Manual) Seg Neutrophils # Seg Neutrophils # Man Monocytes # (Manual) Basophils # (Manual) PT INR POC ABG pH POC ABG pCO2 POC ABG pO2 Sodium 152 H Potassium 3.5 L Chloride 110.4 H Carbon Dioxide 6 L* BUN 32 H Creatinine 2.3 H Glucose 498 H POC Glucose 317 H Lactic Acid 9.00 H* Calcium 7.6 L Phosphorus Magnesium Alkaline Phosphatase Ammonia Total Creatine Kinase C-Reactive Protein Total Protein Albumin Vitamin B12 TSH Urine WBC (Auto) Salicylates Complement C3 Miscellaneous Test Crossmatch 10/27/17 10/27/17 10/27/17 01:21 02:26 03:49 WBC RBC Hgb Hct MCV MCH MCHC RDW Plt Count Seg Neutrophils % Seg Neuts % (Manual) Lymphocytes % (Manual) Monocytes % (Manual) Seg Neutrophils # Seg Neutrophils # Man Monocytes # (Manual) Basophils # (Manual) PT INR POC ABG pH POC ABG pCO2 POC ABG pO2 Sodium Potassium Chloride Carbon Dioxide BUN Creatinine Glucose POC Glucose 218 H 172 H 136 H Lactic Acid Calcium Phosphorus Magnesium Alkaline Phosphatase Ammonia Total Creatine Kinase C-Reactive Protein Total Protein Albumin Vitamin B12 TSH Urine WBC (Auto) Salicylates Complement C3 Miscellaneous Test Crossmatch 10/27/17 10/27/17 10/27/17 04:50 05:26 06:01 WBC RBC Hgb Hct MCV MCH MCHC RDW Plt Count Seg Neutrophils % Seg Neuts % (Manual) Lymphocytes % (Manual) Monocytes % (Manual) Seg Neutrophils # Seg Neutrophils # Man Monocytes # (Manual) Basophils # (Manual) PT INR POC ABG pH 7.284 L POC ABG pCO2 POC ABG pO2 204 H Sodium 158 H Potassium 3.5 L Chloride 118.2 H Carbon Dioxide 19 L D BUN 27 H Creatinine 1.9 H Glucose 232 H POC Glucose 221 H Lactic Acid Calcium 7.1 L Phosphorus Magnesium Alkaline Phosphatase Ammonia Total Creatine Kinase C-Reactive Protein Total Protein Albumin Vitamin B12 TSH Urine WBC (Auto) Salicylates Complement C3 Miscellaneous Test Crossmatch 10/27/17 10/27/17 10/27/17 06:05 07:27 09:28 WBC RBC Hgb Hct MCV MCH MCHC RDW Plt Count Seg Neutrophils % Seg Neuts % (Manual) Lymphocytes % (Manual) Monocytes % (Manual) Seg Neutrophils # Seg Neutrophils # Man Monocytes # (Manual) Basophils # (Manual) PT INR POC ABG pH POC ABG pCO2 POC ABG pO2 Sodium Potassium Chloride Carbon Dioxide BUN Creatinine Glucose POC Glucose 286 H 161 H 123 H Lactic Acid Calcium Phosphorus Magnesium Alkaline Phosphatase Ammonia Total Creatine Kinase C-Reactive Protein Total Protein Albumin Vitamin B12 TSH Urine WBC (Auto) Salicylates Complement C3 Miscellaneous Test Crossmatch 10/27/17 10/27/17 10/27/17 12:30 13:07 14:44 WBC RBC Hgb Hct MCV MCH MCHC RDW Plt Count Seg Neutrophils % Seg Neuts % (Manual) Lymphocytes % (Manual) Monocytes % (Manual) Seg Neutrophils # Seg Neutrophils # Man Monocytes # (Manual) Basophils # (Manual) PT INR POC ABG pH POC ABG pCO2 POC ABG pO2 Sodium 158 H Potassium 3.2 L Chloride 120.7 H Carbon Dioxide 16 L BUN 23 H Creatinine 1.9 H Glucose 270 H POC Glucose 274 H 200 H Lactic Acid Calcium 7.1 L Phosphorus Magnesium Alkaline Phosphatase Ammonia Total Creatine Kinase C-Reactive Protein Total Protein Albumin Vitamin B12 TSH Urine WBC (Auto) Salicylates Complement C3 Miscellaneous Test Crossmatch 10/27/17 10/27/17 10/27/17 19:03 20:24 20:24 WBC RBC Hgb Hct MCV MCH MCHC RDW Plt Count Seg Neutrophils % Seg Neuts % (Manual) Lymphocytes % (Manual) Monocytes % (Manual) Seg Neutrophils # Seg Neutrophils # Man Monocytes # (Manual) Basophils # (Manual) PT INR POC ABG pH POC ABG pCO2 POC ABG pO2 Sodium 155 H Potassium 3.4 L Chloride 119.3 H Carbon Dioxide 19 L BUN 20 H Creatinine 1.9 H Glucose 272 H POC Glucose 124 H Lactic Acid Calcium 7.0 L Phosphorus 1.50 L D Magnesium Alkaline Phosphatase Ammonia Total Creatine Kinase C-Reactive Protein 1.50 H Total Protein Albumin Vitamin B12 TSH Urine WBC (Auto) Salicylates Complement C3 Miscellaneous Test Crossmatch 10/27/17 10/27/17 10/28/17 20:40 21:05 03:02 WBC RBC Hgb Hct MCV MCH MCHC RDW Plt Count Seg Neutrophils % Seg Neuts % (Manual) Lymphocytes % (Manual) Monocytes % (Manual) Seg Neutrophils # Seg Neutrophils # Man Monocytes # (Manual) Basophils # (Manual) PT INR POC ABG pH 7.327 L POC ABG pCO2 32.1 L POC ABG pO2 Sodium 157 H Potassium Chloride 118.8 H Carbon Dioxide 13 L BUN 18 H Creatinine 2.0 H Glucose 560 H* POC Glucose 289 H Lactic Acid Calcium 6.8 L Phosphorus 5.40 H D Magnesium Alkaline Phosphatase Ammonia Total Creatine Kinase C-Reactive Protein Total Protein Albumin Vitamin B12 TSH Urine WBC (Auto) Salicylates Complement C3 Miscellaneous Test Crossmatch 10/28/17 10/28/17 10/28/17 06:06 07:46 08:21 WBC RBC Hgb Hct MCV MCH MCHC RDW Plt Count Seg Neutrophils % Seg Neuts % (Manual) Lymphocytes % (Manual) Monocytes % (Manual) Seg Neutrophils # Seg Neutrophils # Man Monocytes # (Manual) Basophils # (Manual) PT INR POC ABG pH POC ABG pCO2 POC ABG pO2 Sodium Potassium Chloride Carbon Dioxide BUN Creatinine Glucose POC Glucose > 500 H 500 H Lactic Acid Calcium Phosphorus 6.70 H D Magnesium Alkaline Phosphatase Ammonia Total Creatine Kinase C-Reactive Protein Total Protein Albumin Vitamin B12 TSH Urine WBC (Auto) Salicylates Complement C3 Miscellaneous Test Crossmatch 10/28/17 10/28/17 10/28/17 09:34 11:13 12:55 WBC RBC Hgb Hct MCV MCH MCHC RDW Plt Count Seg Neutrophils % Seg Neuts % (Manual) Lymphocytes % (Manual) Monocytes % (Manual) Seg Neutrophils # Seg Neutrophils # Man Monocytes # (Manual) Basophils # (Manual) PT INR POC ABG pH POC ABG pCO2 POC ABG pO2 Sodium Potassium Chloride Carbon Dioxide BUN Creatinine Glucose POC Glucose 435 H 273 H 149 H Lactic Acid Calcium Phosphorus Magnesium Alkaline Phosphatase Ammonia Total Creatine Kinase C-Reactive Protein Total Protein Albumin Vitamin B12 TSH Urine WBC (Auto) Salicylates Complement C3 Miscellaneous Test Crossmatch 10/28/17 10/28/17 10/28/17 14:27 15:39 15:39 WBC 15.5 H RBC 3.59 L Hgb 8.3 L Hct 27.6 L D MCV 77 L MCH 23 L MCHC RDW 20.9 H Plt Count Seg Neutrophils % 78.5 H Seg Neuts % (Manual) Lymphocytes % (Manual) Monocytes % (Manual) Seg Neutrophils # 12.2 H Seg Neutrophils # Man Monocytes # (Manual) Basophils # (Manual) PT INR POC ABG pH POC ABG pCO2 33.9 L POC ABG pO2 138 H Sodium 164 H* Potassium 3.5 L Chloride 125.3 H Carbon Dioxide 18 L BUN Creatinine 1.6 H Glucose 37 L* POC Glucose Lactic Acid Calcium 7.5 L Phosphorus Magnesium Alkaline Phosphatase Ammonia Total Creatine Kinase C-Reactive Protein Total Protein Albumin Vitamin B12 TSH Urine WBC (Auto) Salicylates Complement C3 Miscellaneous Test Crossmatch 10/28/17 10/28/17 10/28/17 15:47 15:50 16:28 WBC RBC Hgb Hct MCV MCH MCHC RDW Plt Count Seg Neutrophils % Seg Neuts % (Manual) Lymphocytes % (Manual) Monocytes % (Manual) Seg Neutrophils # Seg Neutrophils # Man Monocytes # (Manual) Basophils # (Manual) PT INR POC ABG pH POC ABG pCO2 POC ABG pO2 Sodium Potassium Chloride Carbon Dioxide BUN Creatinine Glucose POC Glucose < 40 L 114 H Lactic Acid Calcium Phosphorus Magnesium Alkaline Phosphatase Ammonia Total Creatine Kinase C-Reactive Protein 4.40 H Total Protein Albumin Vitamin B12 TSH Urine WBC (Auto) Salicylates Complement C3 Miscellaneous Test Crossmatch 10/28/17 10/28/17 10/28/17 19:07 19:24 23:10 WBC RBC Hgb Hct MCV MCH MCHC RDW Plt Count Seg Neutrophils % Seg Neuts % (Manual) Lymphocytes % (Manual) Monocytes % (Manual) Seg Neutrophils # Seg Neutrophils # Man Monocytes # (Manual) Basophils # (Manual) PT INR POC ABG pH POC ABG pCO2 POC ABG pO2 Sodium 159 H Potassium Chloride 124.1 H Carbon Dioxide 19 L BUN Creatinine 1.4 H Glucose 219 H POC Glucose 111 H Lactic Acid Calcium 7.1 L Phosphorus Magnesium Alkaline Phosphatase Ammonia Total Creatine Kinase C-Reactive Protein Total Protein Albumin Vitamin B12 TSH Urine WBC (Auto) Salicylates Complement C3 Miscellaneous Test Flexitest 1 H Crossmatch 10/28/17 10/29/17 10/29/17 23:59 03:41 03:41 WBC 14.1 H RBC 3.32 L Hgb 7.6 L Hct 25.5 L MCV 77 L MCH 23 L MCHC RDW 20.8 H Plt Count Seg Neutrophils % Seg Neuts % (Manual) Lymphocytes % (Manual) Monocytes % (Manual) Seg Neutrophils # Seg Neutrophils # Man Monocytes # (Manual) Basophils # (Manual) PT INR POC ABG pH POC ABG pCO2 POC ABG pO2 Sodium 158 H Potassium Chloride 122.7 H Carbon Dioxide 15 L BUN Creatinine 1.3 H Glucose 176 H POC Glucose 307 H Lactic Acid Calcium 7.2 L Phosphorus Magnesium Alkaline Phosphatase Ammonia Total Creatine Kinase C-Reactive Protein Total Protein Albumin Vitamin B12 TSH Urine WBC (Auto) Salicylates Complement C3 Miscellaneous Test Crossmatch 10/29/17 10/29/17 10/29/17 04:55 05:44 09:28 WBC RBC Hgb Hct MCV MCH MCHC RDW Plt Count Seg Neutrophils % Seg Neuts % (Manual) Lymphocytes % (Manual) Monocytes % (Manual) Seg Neutrophils # Seg Neutrophils # Man Monocytes # (Manual) Basophils # (Manual) PT INR POC ABG pH POC ABG pCO2 31.2 L POC ABG pO2 123 H Sodium 151 H Potassium Chloride 117.1 H Carbon Dioxide 17 L BUN Creatinine Glucose 378 H POC Glucose 253 H Lactic Acid Calcium 7.4 L Phosphorus Magnesium Alkaline Phosphatase Ammonia Total Creatine Kinase C-Reactive Protein Total Protein Albumin Vitamin B12 TSH Urine WBC (Auto) Salicylates Complement C3 Miscellaneous Test Crossmatch 10/29/17 10/29/17 10/29/17 10:39 13:50 18:35 WBC RBC Hgb Hct MCV MCH MCHC RDW Plt Count Seg Neutrophils % Seg Neuts % (Manual) Lymphocytes % (Manual) Monocytes % (Manual) Seg Neutrophils # Seg Neutrophils # Man Monocytes # (Manual) Basophils # (Manual) PT INR POC ABG pH POC ABG pCO2 POC ABG pO2 Sodium Potassium Chloride Carbon Dioxide BUN Creatinine Glucose POC Glucose 418 H 220 H Lactic Acid Calcium Phosphorus Magnesium Alkaline Phosphatase Ammonia Total Creatine Kinase C-Reactive Protein Total Protein Albumin Vitamin B12 TSH 0.216 L Urine WBC (Auto) Salicylates Complement C3 Miscellaneous Test Crossmatch 10/29/17 10/30/17 10/30/17 21:28 00:06 03:58 WBC RBC Hgb Hct MCV MCH MCHC RDW Plt Count Seg Neutrophils % Seg Neuts % (Manual) Lymphocytes % (Manual) Monocytes % (Manual) Seg Neutrophils # Seg Neutrophils # Man Monocytes # (Manual) Basophils # (Manual) PT INR POC ABG pH POC ABG pCO2 POC ABG pO2 Sodium 153 H Potassium Chloride 117.0 H Carbon Dioxide 16 L BUN Creatinine Glucose 165 H POC Glucose 184 H 177 H Lactic Acid Calcium 8.0 L Phosphorus Magnesium Alkaline Phosphatase Ammonia Total Creatine Kinase C-Reactive Protein Total Protein Albumin Vitamin B12 TSH Urine WBC (Auto) Salicylates Complement C3 Miscellaneous Test Crossmatch 10/30/17 10/30/17 10/30/17 05:02 05:42 10:36 WBC RBC Hgb Hct MCV MCH MCHC RDW Plt Count Seg Neutrophils % Seg Neuts % (Manual) Lymphocytes % (Manual) Monocytes % (Manual) Seg Neutrophils # Seg Neutrophils # Man Monocytes # (Manual) Basophils # (Manual) PT INR POC ABG pH POC ABG pCO2 34.8 L POC ABG pO2 107 H Sodium 149 H Potassium Chloride 115.5 H Carbon Dioxide 16 L BUN Creatinine Glucose 230 H POC Glucose 192 H Lactic Acid Calcium 7.6 L Phosphorus Magnesium Alkaline Phosphatase Ammonia Total Creatine Kinase C-Reactive Protein Total Protein Albumin Vitamin B12 TSH Urine WBC (Auto) Salicylates Complement C3 Miscellaneous Test Crossmatch 10/30/17 10/30/17 10/30/17 12:13 18:02 23:08 WBC RBC Hgb Hct MCV MCH MCHC RDW Plt Count Seg Neutrophils % Seg Neuts % (Manual) Lymphocytes % (Manual) Monocytes % (Manual) Seg Neutrophils # Seg Neutrophils # Man Monocytes # (Manual) Basophils # (Manual) PT INR POC ABG pH POC ABG pCO2 POC ABG pO2 Sodium Potassium Chloride Carbon Dioxide BUN Creatinine Glucose POC Glucose 264 H 213 H 162 H Lactic Acid Calcium Phosphorus Magnesium Alkaline Phosphatase Ammonia Total Creatine Kinase C-Reactive Protein Total Protein Albumin Vitamin B12 TSH Urine WBC (Auto) Salicylates Complement C3 Miscellaneous Test Crossmatch 10/31/17 10/31/17 10/31/17 01:00 04:03 07:15 WBC RBC Hgb Hct MCV MCH MCHC RDW Plt Count Seg Neutrophils % Seg Neuts % (Manual) Lymphocytes % (Manual) Monocytes % (Manual) Seg Neutrophils # Seg Neutrophils # Man Monocytes # (Manual) Basophils # (Manual) PT INR POC ABG pH POC ABG pCO2 29.6 L POC ABG pO2 118 H Sodium Potassium Chloride Carbon Dioxide BUN Creatinine Glucose POC Glucose 176 H 197 H Lactic Acid Calcium Phosphorus Magnesium Alkaline Phosphatase Ammonia Total Creatine Kinase C-Reactive Protein Total Protein Albumin Vitamin B12 TSH Urine WBC (Auto) Salicylates Complement C3 Miscellaneous Test Crossmatch 10/31/17 10/31/17 10/31/17 09:24 11:44 17:23 WBC RBC Hgb Hct MCV MCH MCHC RDW Plt Count Seg Neutrophils % Seg Neuts % (Manual) Lymphocytes % (Manual) Monocytes % (Manual) Seg Neutrophils # Seg Neutrophils # Man Monocytes # (Manual) Basophils # (Manual) PT INR POC ABG pH POC ABG pCO2 POC ABG pO2 Sodium 151 H Potassium 3.2 L D Chloride 116.1 H Carbon Dioxide 20 L BUN 6 L Creatinine Glucose 181 H POC Glucose 196 H 261 H Lactic Acid Calcium 8.2 L Phosphorus Magnesium Alkaline Phosphatase Ammonia Total Creatine Kinase C-Reactive Protein Total Protein Albumin Vitamin B12 TSH Urine WBC (Auto) Salicylates Complement C3 Miscellaneous Test Crossmatch 10/31/17 10/31/17 11/01/17 20:30 23:52 03:28 WBC RBC Hgb Hct MCV MCH MCHC RDW Plt Count Seg Neutrophils % Seg Neuts % (Manual) Lymphocytes % (Manual) Monocytes % (Manual) Seg Neutrophils # Seg Neutrophils # Man Monocytes # (Manual) Basophils # (Manual) PT INR POC ABG pH POC ABG pCO2 POC ABG pO2 Sodium 150 H Potassium Chloride 113.8 H Carbon Dioxide 20 L BUN 6 L Creatinine Glucose 145 H POC Glucose 212 H 157 H Lactic Acid Calcium Phosphorus Magnesium Alkaline Phosphatase Ammonia Total Creatine Kinase C-Reactive Protein Total Protein Albumin Vitamin B12 TSH Urine WBC (Auto) Salicylates Complement C3 Miscellaneous Test Crossmatch 11/01/17 11/01/17 11/01/17 05:50 12:00 12:23 WBC RBC Hgb Hct MCV MCH MCHC RDW Plt Count Seg Neutrophils % Seg Neuts % (Manual) Lymphocytes % (Manual) Monocytes % (Manual) Seg Neutrophils # Seg Neutrophils # Man Monocytes # (Manual) Basophils # (Manual) PT INR POC ABG pH POC ABG pCO2 POC ABG pO2 Sodium Potassium Chloride Carbon Dioxide BUN Creatinine Glucose POC Glucose 143 H 273 H Lactic Acid Calcium Phosphorus Magnesium Alkaline Phosphatase Ammonia Total Creatine Kinase C-Reactive Protein Total Protein Albumin Vitamin B12 TSH Urine WBC (Auto) 91.0 H Salicylates Complement C3 Miscellaneous Test Crossmatch 11/01/17 11/01/17 11/01/17 18:12 18:36 20:18 WBC RBC Hgb Hct MCV MCH MCHC RDW Plt Count Seg Neutrophils % Seg Neuts % (Manual) Lymphocytes % (Manual) Monocytes % (Manual) Seg Neutrophils # Seg Neutrophils # Man Monocytes # (Manual) Basophils # (Manual) PT INR POC ABG pH POC ABG pCO2 POC ABG pO2 Sodium Potassium Chloride Carbon Dioxide BUN Creatinine Glucose POC Glucose 292 H 298 H Lactic Acid Calcium Phosphorus Magnesium Alkaline Phosphatase 151 H Ammonia Total Creatine Kinase C-Reactive Protein Total Protein 5.8 L Albumin 2.9 L Vitamin B12 TSH Urine WBC (Auto) Salicylates Complement C3 Miscellaneous Test Crossmatch 11/02/17 11/02/17 11/02/17 00:23 05:39 08:40 WBC RBC Hgb Hct MCV MCH MCHC RDW Plt Count Seg Neutrophils % Seg Neuts % (Manual) Lymphocytes % (Manual) Monocytes % (Manual) Seg Neutrophils # Seg Neutrophils # Man Monocytes # (Manual) Basophils # (Manual) PT INR POC ABG pH POC ABG pCO2 POC ABG pO2 Sodium Potassium 3.1 L D Chloride 107.6 H Carbon Dioxide BUN Creatinine Glucose 163 H POC Glucose 263 H 123 H Lactic Acid Calcium Phosphorus Magnesium Alkaline Phosphatase Ammonia Total Creatine Kinase C-Reactive Protein Total Protein Albumin Vitamin B12 TSH Urine WBC (Auto) Salicylates Complement C3 Miscellaneous Test Crossmatch 11/02/17 11/02/17 11/02/17 11:56 17:30 20:43 WBC RBC Hgb Hct MCV MCH MCHC RDW Plt Count Seg Neutrophils % Seg Neuts % (Manual) Lymphocytes % (Manual) Monocytes % (Manual) Seg Neutrophils # Seg Neutrophils # Man Monocytes # (Manual) Basophils # (Manual) PT INR POC ABG pH POC ABG pCO2 POC ABG pO2 Sodium Potassium Chloride Carbon Dioxide BUN Creatinine Glucose POC Glucose 252 H 233 H 274 H Lactic Acid Calcium Phosphorus Magnesium Alkaline Phosphatase Ammonia Total Creatine Kinase C-Reactive Protein Total Protein Albumin Vitamin B12 TSH Urine WBC (Auto) Salicylates Complement C3 Miscellaneous Test Crossmatch 11/02/17 11/02/17 11/03/17 Unknown Unknown 00:22 WBC RBC 2.95 L Hgb 7.1 L Hct 22.1 L MCV 75 L MCH 24 L MCHC RDW 19.5 H Plt Count Seg Neutrophils % Seg Neuts % (Manual) 75.0 H Lymphocytes % (Manual) Monocytes % (Manual) Seg Neutrophils # Seg Neutrophils # Man Monocytes # (Manual) Basophils # (Manual) PT INR POC ABG pH POC ABG pCO2 POC ABG pO2 Sodium Potassium Chloride Carbon Dioxide BUN Creatinine Glucose POC Glucose 310 H Lactic Acid Calcium Phosphorus Magnesium Alkaline Phosphatase Ammonia Total Creatine Kinase C-Reactive Protein Total Protein Albumin Vitamin B12 TSH Urine WBC (Auto) Salicylates Complement C3 74 L Miscellaneous Test Crossmatch 11/03/17 11/03/17 11/03/17 04:00 05:49 08:19 WBC RBC Hgb Hct MCV MCH MCHC RDW Plt Count Seg Neutrophils % Seg Neuts % (Manual) Lymphocytes % (Manual) Monocytes % (Manual) Seg Neutrophils # Seg Neutrophils # Man Monocytes # (Manual) Basophils # (Manual) PT INR POC ABG pH POC ABG pCO2 POC ABG pO2 Sodium Potassium Chloride Carbon Dioxide BUN Creatinine Glucose 254 H POC Glucose 260 H 235 H Lactic Acid Calcium Phosphorus Magnesium Alkaline Phosphatase Ammonia Total Creatine Kinase C-Reactive Protein Total Protein Albumin Vitamin B12 TSH Urine WBC (Auto) Salicylates Complement C3 Miscellaneous Test Crossmatch 11/03/17 11/03/17 11/03/17 12:19 17:51 18:15 WBC RBC Hgb Hct MCV MCH MCHC RDW Plt Count Seg Neutrophils % Seg Neuts % (Manual) Lymphocytes % (Manual) Monocytes % (Manual) Seg Neutrophils # Seg Neutrophils # Man Monocytes # (Manual) Basophils # (Manual) PT INR POC ABG pH POC ABG pCO2 POC ABG pO2 Sodium Potassium Chloride Carbon Dioxide BUN Creatinine Glucose POC Glucose 293 H 259 H Lactic Acid Calcium Phosphorus Magnesium Alkaline Phosphatase Ammonia Total Creatine Kinase C-Reactive Protein Total Protein Albumin Vitamin B12 TSH Urine WBC (Auto) Salicylates Complement C3 Miscellaneous Test Crossmatch See Detail 11/03/17 11/03/17 11/04/17 18:15 20:05 00:33 WBC RBC Hgb Hct MCV MCH MCHC RDW Plt Count Seg Neutrophils % Seg Neuts % (Manual) Lymphocytes % (Manual) Monocytes % (Manual) Seg Neutrophils # Seg Neutrophils # Man Monocytes # (Manual) Basophils # (Manual) PT INR POC ABG pH POC ABG pCO2 POC ABG pO2 Sodium Potassium Chloride Carbon Dioxide BUN Creatinine Glucose POC Glucose 298 H 235 H Lactic Acid Calcium Phosphorus Magnesium Alkaline Phosphatase Ammonia Total Creatine Kinase C-Reactive Protein Total Protein Albumin Vitamin B12 1162 H TSH Urine WBC (Auto) Salicylates Complement C3 Miscellaneous Test Crossmatch 11/04/17 11/04/17 11/04/17 03:46 03:46 05:23 WBC 12.9 H RBC Hgb 8.9 L Hct 28.3 L D MCV 76 L MCH 24 L MCHC RDW 20.2 H Plt Count Seg Neutrophils % Seg Neuts % (Manual) Lymphocytes % (Manual) Monocytes % (Manual) 10.0 H Seg Neutrophils # Seg Neutrophils # Man 8.3 H Monocytes # (Manual) 1.3 H Basophils # (Manual) PT INR POC ABG pH POC ABG pCO2 POC ABG pO2 Sodium Potassium Chloride Carbon Dioxide BUN 19 H Creatinine Glucose 197 H POC Glucose 192 H Lactic Acid Calcium Phosphorus Magnesium Alkaline Phosphatase Ammonia Total Creatine Kinase C-Reactive Protein Total Protein Albumin Vitamin B12 TSH Urine WBC (Auto) Salicylates Complement C3 Miscellaneous Test Crossmatch 11/04/17 11/04/17 11/04/17 08:36 12:28 17:45 WBC RBC Hgb Hct MCV MCH MCHC RDW Plt Count Seg Neutrophils % Seg Neuts % (Manual) Lymphocytes % (Manual) Monocytes % (Manual) Seg Neutrophils # Seg Neutrophils # Man Monocytes # (Manual) Basophils # (Manual) PT INR POC ABG pH POC ABG pCO2 POC ABG pO2 Sodium Potassium Chloride Carbon Dioxide BUN Creatinine Glucose POC Glucose 141 H 183 H 172 H Lactic Acid Calcium Phosphorus Magnesium Alkaline Phosphatase Ammonia Total Creatine Kinase C-Reactive Protein Total Protein Albumin Vitamin B12 TSH Urine WBC (Auto) Salicylates Complement C3 Miscellaneous Test Crossmatch 11/05/17 11/05/17 11/05/17 04:00 04:00 05:38 WBC 11.6 H RBC Hgb 9.5 L Hct 30.1 L MCV 77 L MCH 24 L MCHC RDW 20.4 H Plt Count 538 H Seg Neutrophils % Seg Neuts % (Manual) 73.0 H Lymphocytes % (Manual) Monocytes % (Manual) Seg Neutrophils # Seg Neutrophils # Man 8.5 H Monocytes # (Manual) Basophils # (Manual) PT INR POC ABG pH POC ABG pCO2 POC ABG pO2 Sodium Potassium Chloride 96.6 L Carbon Dioxide BUN Creatinine Glucose 193 H POC Glucose 216 H Lactic Acid Calcium Phosphorus Magnesium Alkaline Phosphatase Ammonia Total Creatine Kinase C-Reactive Protein Total Protein Albumin Vitamin B12 TSH Urine WBC (Auto) Salicylates Complement C3 Miscellaneous Test Crossmatch 11/05/17 11/05/17 11/05/17 07:45 11:56 14:38 WBC RBC Hgb Hct MCV MCH MCHC RDW Plt Count Seg Neutrophils % Seg Neuts % (Manual) Lymphocytes % (Manual) Monocytes % (Manual) Seg Neutrophils # Seg Neutrophils # Man Monocytes # (Manual) Basophils # (Manual) PT INR POC ABG pH POC ABG pCO2 45.4 H POC ABG pO2 109 H Sodium Potassium Chloride Carbon Dioxide BUN Creatinine Glucose POC Glucose 224 H 175 H Lactic Acid Calcium Phosphorus Magnesium Alkaline Phosphatase Ammonia Total Creatine Kinase C-Reactive Protein Total Protein Albumin Vitamin B12 TSH Urine WBC (Auto) Salicylates Complement C3 Miscellaneous Test Crossmatch 11/05/17 11/05/17 11/05/17 17:22 20:14 23:50 WBC RBC Hgb Hct MCV MCH MCHC RDW Plt Count Seg Neutrophils % Seg Neuts % (Manual) Lymphocytes % (Manual) Monocytes % (Manual) Seg Neutrophils # Seg Neutrophils # Man Monocytes # (Manual) Basophils # (Manual) PT INR POC ABG pH POC ABG pCO2 POC ABG pO2 Sodium Potassium Chloride Carbon Dioxide BUN Creatinine Glucose POC Glucose 177 H 144 H 248 H Lactic Acid Calcium Phosphorus Magnesium Alkaline Phosphatase Ammonia Total Creatine Kinase C-Reactive Protein Total Protein Albumin Vitamin B12 TSH Urine WBC (Auto) Salicylates Complement C3 Miscellaneous Test Crossmatch 11/06/17 11/06/17 11/06/17 04:16 08:14 12:02 WBC RBC Hgb Hct MCV MCH MCHC RDW Plt Count Seg Neutrophils % Seg Neuts % (Manual) Lymphocytes % (Manual) Monocytes % (Manual) Seg Neutrophils # Seg Neutrophils # Man Monocytes # (Manual) Basophils # (Manual) PT INR POC ABG pH POC ABG pCO2 POC ABG pO2 Sodium Potassium Chloride Carbon Dioxide BUN Creatinine Glucose POC Glucose 246 H 291 H 334 H Lactic Acid Calcium Phosphorus Magnesium Alkaline Phosphatase Ammonia Total Creatine Kinase C-Reactive Protein Total Protein Albumin Vitamin B12 TSH Urine WBC (Auto) Salicylates Complement C3 Miscellaneous Test Crossmatch 11/06/17 11/06/17 11/07/17 16:23 22:23 06:24 WBC RBC Hgb Hct MCV MCH MCHC RDW Plt Count Seg Neutrophils % Seg Neuts % (Manual) Lymphocytes % (Manual) Monocytes % (Manual) Seg Neutrophils # Seg Neutrophils # Man Monocytes # (Manual) Basophils # (Manual) PT INR POC ABG pH POC ABG pCO2 POC ABG pO2 Sodium Potassium Chloride Carbon Dioxide BUN Creatinine Glucose POC Glucose 197 H 263 H 319 H Lactic Acid Calcium Phosphorus Magnesium Alkaline Phosphatase Ammonia Total Creatine Kinase C-Reactive Protein Total Protein Albumin Vitamin B12 TSH Urine WBC (Auto) Salicylates Complement C3 Miscellaneous Test Crossmatch 11/07/17 11/07/17 11/07/17 07:01 07:01 11:32 WBC 17.2 H RBC Hgb Hct MCV 78 L MCH 24 L MCHC RDW 20.0 H Plt Count 561 H Seg Neutrophils % Seg Neuts % (Manual) 82.0 H Lymphocytes % (Manual) 12.0 L Monocytes % (Manual) Seg Neutrophils # Seg Neutrophils # Man 14.1 H Monocytes # (Manual) 1.0 H Basophils # (Manual) PT INR POC ABG pH POC ABG pCO2 POC ABG pO2 Sodium 132 L D Potassium Chloride 93.7 L Carbon Dioxide BUN 19 H Creatinine Glucose 343 H POC Glucose 417 H Lactic Acid Calcium Phosphorus Magnesium Alkaline Phosphatase Ammonia Total Creatine Kinase C-Reactive Protein Total Protein Albumin Vitamin B12 TSH Urine WBC (Auto) Salicylates Complement C3 Miscellaneous Test Crossmatch Allied health notes reviewed: nursing
[2017-11-08] MEDS: NORCO 5/325 PO PRN ×2 (08:25→14:54)
[2017-11-08] MEDS: PEPCID PO SCH (09:59)
[2017-11-08] MEDS: LOPRESSOR PO SCH (10:02)
[2017-11-08] MEDS: IMDUR PO SCH (10:03)
[2017-11-08] MEDS: HEPARIN SUB-Q SCH (10:04)
--- NOTE | 2017-11-08 10:43 | Discharge Summary ---
Providers - Providers Date of Admission: 10/26/17 13:07 Attending physician: BALDOMERO SIFUENTES MD 10/26/17 13:12 Consult to Physician [CONS] Routine Consulting Provider: RADHA MARTIN Reason For Exam: resp failure Place consult to:: jackelyn Notified:: y Was contact made?: Yes 10/27/17 08:15 Consult to Physician [CONS] Routine Consulting Provider: JI FAIRBANKS Reason For Exam: sepsis Place consult to:: ID Notified:: Y If yes, spoke with:: DR FAIRBANKS Time called:: 09:15 Consult to Physician [CONS] Routine Consulting Provider: SHIRA CARO Reason For Exam: stuart Place consult to:: NEPHRO Notified:: Y Was contact made?: Yes If yes, spoke with:: MARGARITA Parish Time called:: 08:30 10/27/17 11:33 Consult to Physician [CONS] Routine Consulting Provider: CHINEDU TAN Reason For Exam: am Place consult to:: NEURO Notified:: Y Time called:: 11:35 Comment:: LEFT MESSAGE AT EXT 5881 ON 10/27/17 10/28/17 06:19 Consult to Dietitian/Nutrition [CONS] Routine Physician Instructions: Reason For Exam: DKA Reason for Consult: Nutrition Recommendations Reason for Consult: Poor oral intake 10/29/17 01:46 Consult to Dietitian/Nutrition [CONS] Routine Physician Instructions: Reason For Exam: Reason for Consult: Write/Manage Tube Feeding 10/30/17 09:28 Consult to Physician [CONS] Routine Consulting Provider: ENEDINA MARTINEZ Reason For Exam: anoxic brain injury Place consult to:: Dr. Martinez Notified:: Dr. Martinez Phone number called:: in person Was contact made?: Yes If yes, spoke with:: Time called:: 08:00 10/31/17 14:43 Consult to PICC Line RN [CONS] Stat Reason For Exam: IV access Type Line:: PICC 11/03/17 18:02 Consult to Physician [CONS] Routine Consulting Provider: JOSÉ MIGUEL BETTENCOURT Reason For Exam: severe anemia Place consult to:: [place] gastro Notified:: yes Was contact made?: Yes If yes, spoke with:: office Time called:: 08:04 Primary care physician: [employer] COUNTER ASSISTANT Hospitalization Condition: Stable Hospital course: 22 YO Female with DM, Medication Noncompliance, HTN, Chronic Pain presents to ED for evaluation. Pt unable to provide history, but history taken from ED staff , as well as EMS. Pt was found down and unresponsive by neighbors. EMS notified , and upon arrival the patient was found to be unresponsive. Patient had an empty bottle of oxycodone in her pill bag although she denies any overdose. Narcan was given without improvement in mental status. Patient transported to [facility] for further care and evaluation. Pt seen and evaluated in ED and found to have Acute Respiratory Failure, as well as DKA, and Sepsis. Pt intubated, sedated, and placed on vent support, as well as DKA and sepsis protocols. she had a swollen eye and face requiring initiation of bendryle and holding ACEI/ ARBs. Patient was treated for possible pneumonia, UTI with Levaquin and Flagyl for 7 days which she completed. Culture grew For which the patient was treated with fluconazole. The strep group B and Barbie were felt to be colonizers. Infectious disease air compressor mechanic and drapery operator were all involved in the patient's case. From the vent and is stable for transfer to the medical floor. Sepsis-poa - likely due to pneumonia - Patient was treated with IV Levaquin and Flagyl - Persistent Leukocytosis likely secondary to steroids. No new fever noted. Acute respiratory failure, hypoxic, on MV >96 hours, angioedema - Pulmonary consulted, Pt intubated -Now librated from the vent,. WIll hold off ACEI/ARBS, Patient to have allergy testing as outpatient -taper steroids Acute renal failure/Vasomotor nephropathy continue IV, renal consult pressures and, resolved Metabolic encephalopathy due to DKA - Resolved Acute metabolic Toxic encephalopathy - resolved - UDS was positive for benzo Hypertensive urgency - increase BB and stop HCTZ, add Imdur and change clonidin to PRN, doubt patient will be compliant with colnidine as outpatient. -Hold all ARBS and ACEI Severe anemia - improved post transfusion. will monitor closely - Anemia workup - GI consult Hypothermia - Resolved DKA (diabetic ketoacidoses) - Resolved, currently on sliding scale insulin - Increase NPH TO 20 UNITS BID Hypokalemia, hypophosphatemia - repleted, will repeat BMP and Magnesium in the morning Hypernatremia - continue free water replacement Thyroid lesion -Follow up outpatient. Discussed with patient -CT neck was normal Mediastinal fullness ? small LNs. HIV neg. Repeat CT chest +anterior mediastinal stranding and no pathologic LN. CT neck normal. -Recommend re-evaulation outpatient Generalized pain with chronic pain syndrom - Increase her pain medications DVT prophylaxis - SCD to BLE,. Plan discussed with the patient. Will transfer to medical floor. Anticipate discharge in 24 hrs, IF BP remains controlled Disposition: DC-01 TO HOME OR SELFCARE Time spent for discharge: 35 mins Exam - Physical Exam Narrative exam: VITAL SIGNS: Reviewed. GENERAL: The patient appeared well nourished and normally developed. Vital signs as documented. HEAD: No signs of head trauma. EYES: Pupils are equal. Extraocular motions intact. EARS: Hearing grossly intact. MOUTH: Oropharynx is normal. NECK: No adenopathy, no JVD. CHEST: Chest with clear breath sounds bilaterally. No wheezes, rales, or rhonchi. CARDIAC: Regular rate and rhythm. S1 and S2, without murmurs, gallops, or rubs. VASCULAR: No Edema. Peripheral pulses normal and equal in all extremities. ABDOMEN: Soft, without detectable tenderness. No sign of distention. No rebound or guarding, and no masses palpated. Bowel Sounds normal. MUSCULOSKELETAL: Good range of motion of all major joints. Extremities without clubbing, cyanosis or edema. NEUROLOGIC EXAM: Alert and oriented x 3. No focal sensory or strength deficits. Speech normal. Follows commands. PSYCHIATRIC: Mood normal. SKIN: No rash or lesions. - Constitutional Vitals: Temp Pulse Resp BP Pulse Ox 98.7 F 83 20 147/95 100 11/08/17 07:51 11/08/17 10:03 11/08/17 07:51 11/08/17 10:03 11/08/17 07:51 Plan Activity: advance as tolerated, fall precautions Diet: diabetic Special Instructions: record daily BP diary, record blood sugar diary, smoking cessation Follow up with: PRIMARY CARE, [Primary Care Provider] - 7 Days Prescriptions: Famotidine [Pepcid] 20 mg PO BID #60 tablet Insulin NPH, Human [NovoLIN N] 20 unit SUB-Q BIDDIAB 30 Days #1 units ISOSORBIDE MONOnitrate [Imdur ER] 30 mg PO QDAY #30 tablet Metoprolol [Lopressor TAB] 50 mg PO BID #60 tablet
[2017-11-08 16:53] VITALS: BP 122/77
== END 2017-11-08 20:30 | disposition home or self-care (01) | DRG 870 ==
LOC: ED 11:13 → CC1 13:07 → 3A 11-06 11:46
PROVIDERS: ADMIT Internal Medicine; ATTEND Internal Medicine
PROC: 5A1955Z Respiratory Ventilation, Greater than 96 Consecutive Hours (ICD-10-PCS; 2017-10-26)
PROC: 4A033R1 Measurement of Arterial Saturation, Peripheral, Percutaneous Approach (ICD-10-PCS; 2017-10-26)
PROC: 0BH17EZ Insertion of Endotracheal Airway into Trachea, Via Natural or Artificial Opening (ICD-10-PCS; 2017-10-26)
PROC: 02H633Z Insertion of Infusion Device into Right Atrium, Percutaneous Approach (ICD-10-PCS; 2017-10-31)
PROC: 30233N1 Transfusion of Nonautologous Red Blood Cells into Peripheral Vein, Percutaneous Approach (ICD-10-PCS; principal; 2017-11-03)
DX: A41.9 Sepsis, unspecified organism (principal); J18.9 Pneumonia, unspecified organism; J96.01 Acute respiratory failure with hypoxia; N17.0 Acute kidney failure with tubular necrosis; G92 Toxic encephalopathy; E10.10 Type 1 diabetes mellitus with ketoacidosis without coma; N39.0 Urinary tract infection, site not specified; E87.0 Hyperosmolality and hypernatremia; I10 Essential (primary) hypertension; T38.0X5A Adverse effect of glucocorticoids and synthetic analogues, initial encounter; T78.3XXA Angioneurotic edema, initial encounter; I16.0 Hypertensive urgency; D64.9 Anemia, unspecified; T68.XXXA Hypothermia, initial encounter; E87.6 Hypokalemia; E83.39 Other disorders of phosphorus metabolism; G89.4 Chronic pain syndrome; E86.9 Volume depletion, unspecified; Z91.14 Patient's other noncompliance with medication regimen; Y92.89 Other specified places as the place of occurrence of the external cause
CPT/HCPCS: 36415; 36600; 70450; 70491; 71045; 71260; 71275; 76705; 80048; 80053; 80074; 80307; 80320; 81001; 82010; 82140; 82533; 82550; 82607; 82728; 82747; 82803; 82962; 83550; 83735; 84100; 84443; 84478; 84484; 85007; 85025; 85027; 85610; 85730; 86021; 86038; 86140; 86160; 86850; 86900; 86901; 86920; 87040; 87070; 87086; 87205; 87806; 93005; 93010; 94002; 94003; 94760; G0480; J0330; J0360; J1200; J1450; J1644; J1815; J1818; J1956; J2250; J2405; J2543; J2704; J2920; J3010; J3370; J7030; J7040; J7050; J7070; P9016; Q9967